=== PATIENT | female | born 1955 ===

== ENCOUNTER → 2018-11-06 | Outpatient (CLI) | payer BC | LOC: CARD 12:58 | PROVIDERS: ATTEND Family Medicine | DX: I25.110 Atherosclerotic heart disease of native coronary artery with unstable angina pectoris (principal); I07.1 Rheumatic tricuspid insufficiency | CPT/HCPCS: 93306 ==

== ENCOUNTER 2019-04-18 20:28 | Inpatient (IN) | payer BC ==
[~2019-04-18] VITALS: Ht 148.6 cm; Wt 78.1 kg
[2019-04-18] MEDS ORDERED: NS IV 500 ML 500 ML IV ONE (20:41)
--- NOTE | 2019-04-18 20:41 | ED Chest Pain ---
General Stated Complaint: CHEST, ARM AND JAW PAIN; SOB Source: patient, family Exam Limitations: no limitations History of Present Illness Date Seen by Provider: Apr 18, 2019 Time Seen by Provider: 20:26 Initial Comments The patient presents with her family member with chief complaint of chest pain 7 out of 10, across the top of her chest radiating to her jaw and down both arms. She says this is similar to the pain she felt before her heart attack. She took a dose of nitroglycerin immediately after her pain started and that made her pain go away. However came back within the past half hour and so she took a nother dose and decided to come to the ER. She's had a CABG but does not think she's had any stents. She does not follow with a bridge engineer and cardiothoracic surgeon. She is followed by Dr. Tovar for primary care. She takes Coreg, lisinopril, Lipitor smokes 2-3 cigarettes per day and has a history of COPD. She saw her doctor today had a chest x-ray and was given an injection of steroids and put out on azithromycin for COPD exacerbation. She is diabetic but does not take insulin. She uses glipizide and trulicity. She does not know the results of her chest x-ray. She says for the past 3 months she's been feeling short of breath and worsening COPD. She takes albuterol inhaler once or twice a day as necessary. Allergies and Home Medications Allergies Coded Allergies: Penicillins (Verified Allergy, Unknown, hives, 04/18/19) Patient Home Medication List Home Medication List Reviewed: Yes Review of Systems Review of Systems Constitutional: No chills, No fever, No malaise EENTM: No Blurred Vision, No Double Vision Respiratory: Denies Cough; Shortness of Air Cardiovascular: See HPI, Chest Pain; Denies Edema Gastrointestinal: Denies Constipated, Denies Diarrhea, Denies Nausea Genitourinary: Denies Burning, Denies Discharge Musculoskeletal: No back pain, No joint pain Skin: No pruritus, No rash Past [place]r-[place] Hx Patient Social History Alcohol Use: Denies Use Recreational Drug Use: No Smoking Status: Current Everyday Smoker Type Used: Cigarettes (2-3 cig/day) Recent Foreign Travel: No Contact w/Someone Who Travel: No Physical Exam Vital Signs Vital Signs - First Documented Capillary Refill : Height, Weight, BMI Height: '" Weight: lbs. oz. kg; BMI Method: General Appearance: Anxious, Mild Distress HEENT: PERRL/EOMI, Pharynx Normal, Moist Mucous Membranes Neck: Full Range of Motion, Normal Inspection Respiratory: Chest Non Tender, No Accessory Muscle Use, No Respiratory Distress, Decreased Breath Sounds Cardiovascular: Regular Rate, Rhythm, No Edema, Normal Peripheral Pulses Gastrointestinal: Normal Bowel Sounds, Non Tender, Soft Extremity: Normal Capillary Refill, Normal Inspection, Normal Range of Motion, Non Tender, No Pedal Edema Neurologic/Psychiatric: Alert, Oriented x3 Progress/Results/Core Measures Results/Orders Lab Results Laboratory Tests Test 04/18/19 20:40 04/18/19 20:46 04/18/19 21:56 Range/Units White Blood Count 10.3 4.3-11.0 10^3/uL Red Blood Count 3.71 L 4.35-5.85 10^6/uL Hemoglobin 11.2 L 11.5-16.0 G/DL Hematocrit 36 35-52 % Mean Corpuscular Volume 98 80-99 FL Mean Corpuscular Hemoglobin 30 25-34 PG Mean Corpuscular Hemoglobin Concent 31 L 32-36 G/DL Red Cell Distribution Width 13.8 10.0-14.5 % Platelet Count 328 130-400 10^3/uL Mean Platelet Volume 10.0 7.4-10.4 FL Neutrophils (%) (Auto) 90 H 42-75 % Lymphocytes (%) (Auto) 9 L 12-44 % Monocytes (%) (Auto) 1 0-12 % Eosinophils (%) (Auto) 0 0-10 % Basophils (%) (Auto) 0 0-10 % Neutrophils # (Auto) 9.3 H 1.8-7.8 X 10^3 Lymphocytes # (Auto) 0.9 L 1.0-4.0 X 10^3 Monocytes # (Auto) 0.1 0.0-1.0 X 10^3 Eosinophils # (Auto) 0.0 0.0-0.3 10^3/uL Basophils # (Auto) 0.0 0.0-0.1 10^3/uL Neutrophils % (Manual) 82 % Lymphocytes % (Manual) 14 % Monocytes % (Manual) 1 % Eosinophils % (Manual) 0 % Basophils % (Manual) 1 % Band Neutrophils 2 % Blood Morphology Comment NORMAL Prothrombin Time 13.1 12.2-14.7 SEC INR Comment 1.0 0.8-1.4 Activated Partial Thromboplast Time 24 24-35 SEC D-Dimer 1.66 H 0.00-0.49 UG/ML Sodium Level 137 135-145 MMOL/L Potassium Level 5.5 H 3.6-5.0 MMOL/L Chloride Level 102 98-107 MMOL/L Carbon Dioxide Level 22 21-32 MMOL/L Anion Gap 13 5-14 MMOL/L Blood Urea Nitrogen 23 H 7-18 MG/DL Creatinine 1.35 H 0.60-1.30 MG/DL Estimat Glomerular Filtration Rate 40 BUN/Creatinine Ratio 17 Glucose Level 508 *H 70-105 MG/DL Calcium Level 9.6 8.5-10.1 MG/DL Corrected Calcium 9.6 8.5-10.1 MG/DL Magnesium Level 2.3 1.6-2.4 MG/DL Total Bilirubin 0.9 0.1-1.0 MG/DL Aspartate Amino Transf (AST/SGOT) 16 5-34 U/L Alanine Aminotransferase (ALT/SGPT) 10 0-55 U/L Alkaline Phosphatase 222 H 40-136 U/L Myoglobin 30.1 10.0-92.0 NG/ML Troponin I < 0.30 <0.30 NG/ML Pro-B-Type Natriuretic Peptide 87.7 H <75.0 PG/ML Total Protein 7.2 6.4-8.2 GM/DL Albumin 4.0 3.2-4.5 GM/DL Urine Color YELLOW Urine Clarity CLEAR Urine pH 6.0 5-9 Urine Specific [place] 1.010 L 1.016-1.022 Urine Protein NEGATIVE NEGATIVE Urine Glucose (UA) 3+ H NEGATIVE Urine Ketones NEGATIVE NEGATIVE Urine Nitrite NEGATIVE NEGATIVE Urine Bilirubin NEGATIVE NEGATIVE Urine Urobilinogen 0.2 NORMAL MG/DL Urine Leukocyte Esterase NEGATIVE NEGATIVE Urine RBC (Auto) NEGATIVE NEGATIVE Urine RBC NONE /HPF Urine WBC NONE /HPF Urine Squamous Epithelial Cells 5-10 /HPF Urine Crystals NONE /LPF Urine Bacteria NONE /HPF Urine Casts NONE /LPF Urine Mucus NEGATIVE /LPF Urine Culture Indicated NO Blood Gas Puncture Site RT RAD Blood Gas Patient Temperature 36.9 Arterial Blood pH 7.35 L 7.37-7.43 Arterial Blood Partial Pressure CO2 41 35-45 MMHG Arterial Blood Partial Pressure O2 63 L 79-93 MMHG Arterial Blood HCO3 23 23-27 MMOL/L Arterial Blood Total CO2 23.9 21.0-31.0 MMOL/L Arterial Blood Oxygen Saturation 91 L 94-100 % Arterial Blood Base Excess -2.9 L -2.5-2.5 MMOL/L Hermelindo Test POS Blood Gas Ventilator Setting NO Blood Gas Inspired Oxygen ROOM AIR My Orders Orders - SOUMYA,PENELOPE J Ekg Tracing (04/18/19 20:29) Continuous Ekg Monitoring (04/18/19:) Cbc With Automated Diff (04/18/19 20:41) Magnesium (04/18/19 20:41) Chest 1 View Ap/Pa Only (04/18/19 20:41) Comprehensive Metabolic Panel (04/18/19 20:41) Myoglobin Serum (04/18/19 20:41) Protime With Inr (04/18/19 20:41) Partial Thromboplastin Time (04/18/19 20:41) O2 (04/18/19 20:41) Lipid Panel (04/19/19 06:00) Aspirin Chewable Tablet (Baby Aspirin Ch (04/18/19 20:45) Nitroglycerin 0.4 Mg Btl 25's (Nitrostat (04/18/19 20:45) Ed Iv/Invasive Line Start (04/18/19 20:41) Fibrin Degradation Products (04/18/19 20:41) Troponin I Fs (04/18/19 20:41) Probnp Fs (04/18/19 20:41) Ed Iv/Invasive Line Start (04/18/19 20:41) Ns Iv 500 Ml (Sodium Chloride 0.9%) (04/18/19 20:41) Manual Differential (04/18/19 20:40) Ua Culture If Indicated (04/18/19 21:10) Albuterol/Ipra Inhalation Soln (Duoneb I (04/18/19 21:15) Svn Small Volume Nebulizer (04/18/19 21:13) Fibrin Degradation Products (04/18/19 21:17) Ed Iv/Invasive Line Start (04/18/19 21:25) Ns Iv 1000 Ml (Sodium Chloride 0.9%) (04/18/19 21:25) Insulin (Regular) Human (Humulin R (Per (04/18/19 21:30) Morphine Injection (Morphine Injection (04/18/19 21:31) Arterial Blood Gas (04/18/19 21:31) Nitro Drip 47752 Mcg/D5w (Nitroglycerin (04/18/19 21:45) Heparin Drip 41198 Unit/500ml (Heparin (04/18/19 21:41) Heparin (Bolus Per Protocol) (Heparin (B (04/18/19 21:41) Ticagrelor Tablet (Brilinta Tablet) (04/18/19 21:45) Medications Given in ED Current Medications Medications Dose Ordered Sig/Cindy Route Start Time Stop Time Status Last Admin Dose Admin Albuterol/ Ipratropium 3 ml ONCE ONCE INH 04/18/19 21:15 04/18/19 21:16 DC 04/18/19 21:18 3 ML Aspirin 324 mg ONCE ONCE PO 04/18/19 20:45 04/18/19 20:46 DC 04/18/19 21:02 324 MG Heparin Sodium (Porcine) 4,700 unit 2141 ONCE IV 04/18/19 21:41 04/18/19 21:44 DC 04/18/19 22:05 4,700 UNIT Heparin Sodium/ Dextrose 500 ml @ 0 mls/hr Q0M ONCE IV 04/18/19 21:41 04/18/19 21:44 DC 04/18/19 22:07 19 MLS/HR Insulin Human Regular 10 unit ONCE ONCE SC 04/18/19 21:30 04/18/19 21:31 DC 04/18/19 21:45 10 UNIT Nitroglycerin 0.4 mg UD PRN SL 04/18/19 20:45 04/18/19 21:03 0.4 MG Sodium Chloride 500 ml @ 0 mls/hr Q0M ONCE IV 04/18/19 20:41 04/18/19 20:43 DC 04/18/19 21:03 999 MLS/HR Ticagrelor 180 mg ONCE ONCE PO 04/18/19 21:45 04/18/19 21:46 DC 04/18/19 22:17 180 MG Vital Signs/I&O 04/18/19 04/18/19 20:41 20:41 Temp 37.2 Pulse 114 Resp 20 B/P (MAP) 175/101 (125) O2 Delivery Room Air Room Air 04/19/19 00:00 Intake Total 500 ml Balance 500 ml Progress Progress Note #1: Time: 20:48 Progress Note Chest pain workup, aspirin and another dose of nitroglycerin. Her blood pressure is significantly elevated at 175/83. If this does not help her chest pain we'll try morphine. Her EKG demonstrates sinus tachycardia without ST changes. May also try DuoNeb since she's diminished to see if that helps with her chest pain. Well score for PE: 1.5 points. Low risk group: 1.3% chance of PE in an ED population. Progress Note #2: Time: 21:16 Progress Note After the nitroglycerin her chest pain is completely gone however she now has a headache. She still sounds very tight or any give her a DuoNeb. Her heart rate remains elevated around 110 and her blood pressure responded favorably to the nitroglycerin. Progress Note #3: Time: 21:32 Progress Note Patient starting to have pain come back so we gave her 4 morphine. After the DuoNeb her lung sounds improved significantly to work and now here consistent expiratory prolonged wheezes on both sides. She seems to be having COPD exacerba tion in addition to her chest pain. We will plan on getting an ABG to characterize this. We've already discussed an observation stay for rule out of ACS for unstable angina. She agrees with this plan. Can give her another liter fluids since she's looks dry clinically and on labs see if that helps her tachycardia for a total of 1500 cc. Just after getting the morphine the patient's pain shot up to a 9 out of 10 causing her to tear up so were no put her on a nitroglycerin drip since that worked in the past. Progress Note #4: Time: 22:18 Progress Note Initiated a nitro drip because the patient was having continuous chest pain. This adequately controlled her pain. Her blood pressure is stable. Her heart rate still 110 so we will give her 100 mg Toprol tartrate. She is been giving her boluses heparin and a heparin drip was started. She can start the insulin drip in the cardiac stepdown. She's received 10 units subcutaneous regular insulin. She has received her Brilinta and aspirin but we have not given her any additional steroids yet. EMS here to take her so we will allow her to transport. PaO2 was 68 so we put her on 2 L by nasal cannula. Her oxygen sats were in the 94-96 range now they are 98-100%. Initial ECG Impression Date: Apr 18, 2019 Initial ECG Impression Time: 20:30 Initial ECG Rate: 109 Initial ECG Rhythm: Normal Sinus Initial ECG Intervals: Normal Initial ECG Impression: Normal Initial ECG Comparisson: No Previous ECG Available Comment Normal sinus rhythm with tachycardia but no clinically evident ST elevation or depression. Diagnostic Imaging Diagonstic Imaging: Xray Plain Films/CT/US/NM/MRI: chest (1v) Comments NAME: NICOLETTE MATOS [facility] REC#: [id number] PT STATUS: REG ER : 1955 PHYSICIAN: PENELOPE DOOLEY MD ADMIT DATE: 04/18/19/ER FS Draft Date of Exam:04/18/19 CHEST 1 VIEW AP/PA ONLY INDICATION: Chest pain. COMPARISON: None. FINDINGS: Single view of the chest demonstrates cardiac enlargement with slight central vascular congestion. There is dependent atelectasis right greater than left. There is no pneumothorax or effusion. Osseous structures normal. IMPRESSION: 1. Cardiac enlargement with slight central vascular congestion. 2. Basilar atelectasis, right greater than left. Dictated on workstation # [id number] Dict: 04/18/19 2100 Trans: 04/18/192102 [id number] Interpreted by: SULLY DAWSON Electronically signed by: Reviewed: Reviewed by Me Departure Communication (Admissions) Time/Spoke to Admitting Phy: 21:45 Discussed case lab EKG imaging findings with Dr. Johns and she agrees with admission to cardiac stepdown on a non-DKA insulin drip, Solu-Medrol 40 mg every 6, consult Dr. Lopez in the morning and plan as outlined by Dr. Brar. Time/Spoke to Consulting Phy: 21:35 Discussed the case with cardiology, Dr. Brar and he recommends aspirin, Brilinta 180 mg and start IV heparin drip. Impression Primary Impression: Chest pain Qualified Codes: I20.0 - Unstable angina Additional Impressions: Angina at rest COPD with exacerbation Acute hyperglycemia Disposition: HOME, SELF-CARE Condition: Stable Admissions Decision to Admit Reason: Admit from ER (General) Decision to Admit/Date: Apr 18, 2019 Time/Decision to Admit Time: 21:12 Departure-Patient Inst. Referrals: EDY TOVAR MD (PCP/Family) Primary Care Physician PENELOPE DOOLEY Apr 18, 2019 20:41
[2019-04-18] MEDS ORDERED: NITROGLYCERIN 0.4 MG SL TABS BTL 25'S SL PRN (20:45)
[2019-04-18] MEDS ORDERED: ASPIRIN 81 MG CHEW (CHILDREN'S ASA) PO ONE (20:45)
[2019-04-18 20:52] LABS: BASOPHILS % (AUTO) 0 % (0-10); EOSINOPHILS % (AUTO) 0 % (0-10); HEMATOCRIT 36 % (35-52); HEMOGLOBIN 11.2 G/DL (11.5-16.0); LYMPHOCYTES # (AUTO) 0.9 X 10^3 (1.0-4.0); LYMPHOCYTES % (AUTO) 9 % (12-44); MEAN CORPUSCULAR HEMOGLOBIN 30 PG (25-34); MEAN CORPUSCULAR HGB CONC 31 G/DL (32-36); MEAN CORPUSCULAR VOLUME 98 FL (80-99); MONOCYTES # (AUTO) 0.1 X 10^3 (0.0-1.0); MONOCYTES % (AUTO) 1 % (0-12); NEUTROPHILS # (AUTO) 9.3 X 10^3 (1.8-7.8); NEUTROPHILS % (AUTO) 90 % (42-75); PLATELET COUNT 328 10^3/uL (130-400); RED CELL DISTRIBUTION WIDTH 13.8 % (10.0-14.5); WHITE BLOOD COUNT 10.3 10^3/uL (4.3-11.0)
--- NOTE | 2019-04-18 21:04 | Diagnostic Imaging Report ---
INDICATION: Chest pain. COMPARISON: None. FINDINGS: Single view of the chest demonstrates cardiac enlargement with slight central vascular congestion. There is dependent atelectasis right greater than left. There is no pneumothorax or effusion. Osseous structures normal. IMPRESSION: 1. Cardiac enlargement with slight central vascular congestion. 2. Basilar atelectasis, right greater than left. Dictated by: Dictated on workstation # [id number]
[2019-04-18 21:10] LABS: BAND NEUTROPHILS 2 %; BASOPHILS % (MANUAL) 1 %; EOSINOPHILS % (MANUAL) 0 %; LYMPHOCYTES % (MANUAL) 14 %; MONOCYTES % (MANUAL) 1 %; NEUTROPHILS % (MANUAL) 82 %; RBC MORPH NORMAL
[2019-04-18] MEDS ORDERED: RT-ALBUTEROL/IPRATROPIUM 3 ML (DUONEB) VIAL INH ONE (21:15)
[2019-04-18 21:22] LABS: BILIRUBIN,URINE NEGATIVE (NEGATIVE); CLARITY,URINE CLEAR; COLOR,URINE YELLOW; GLUCOSE, URINE (UA) 3+ (NEGATIVE); KETONES,URINE NEGATIVE (NEGATIVE); LEUKOCYTE ESTERASE ,URINE NEGATIVE (NEGATIVE); NITRITE,URINE NEGATIVE (NEGATIVE); PROTEIN,URINE NEGATIVE (NEGATIVE); UROBILINOGEN,URINE 0.2 MG/DL (NORMAL)
[2019-04-18 21:23] LABS: CREATININE SERUM 1.35 MG/DL (0.60-1.30); POTASSIUM 5.5 MMOL/L (3.6-5.0)
[2019-04-18 21:24] LABS: BILIRUBIN,TOTAL 0.9 MG/DL (0.1-1.0); CALCIUM 9.6 MG/DL (8.5-10.1); MAGNESIUM 2.3 MG/DL (1.6-2.4)
[2019-04-18 21:25] LABS: TOTAL PROTEIN 7.2 GM/DL (6.4-8.2)
[2019-04-18] MEDS ORDERED: NS IV 1000 ML 1,000 ML IV SCH (21:25)
[2019-04-18 21:28] LABS: PROTHROMBIN TIME PATIENT 13.1 SEC (12.2-14.7)
[2019-04-18] MEDS ORDERED: inSUlin (REGULAR) HUMAN 1 UNIT/0.01 ML (CHARGE PER UNIT) SC ONE (21:30)
[2019-04-18] MEDS ORDERED: morphine INJ 10 MG/ML 1ML (SYR OR VIAL) IVP STA (21:31)
[2019-04-18] MEDS ORDERED: HEParin 1000 UNIT/ML (10ML VIAL) FOR BOLUS IV ONE (21:41)
[2019-04-18] MEDS ORDERED: HEParin DRIP 25000 UNIT/500ML 500 ML IV ONE (21:41)
[2019-04-18] MEDS ORDERED: TICAGRELOR 90 MG TABLET (BRILINTA) PO ONE (21:45)
[2019-04-18] MEDS ORDERED: NITRO DRIP 25000 MCG/D5W 250 ML IV SCH (21:45)
[2019-04-18 22:02] LABS: ABG PCO2 41 MMHG (35-45); ABG PH 7.35 (7.37-7.43); ABG PO2 63 MMHG (79-93); ABG TCO2 23.9 MMOL/L (21.0-31.0)
[2019-04-18 22:03] LABS: ABG BASE EXCESS -2.9 MMOL/L (-2.5-2.5); ABG OXYGEN SATURATION 91 % (94-100); ALLENS TEST POS; INSPIRED O2 ROOM AIR; PATIENT TEMP 36.9; VENTILATOR NO
[2019-04-18] MEDS ORDERED: meTOprolol TARTRATE 50 MG (LOPRESSOR) TAB PO ONE (22:15)
[2019-04-18] MEDS ORDERED: meTOprolol TARTRATE 25 MG (LOPRESSOR) TABLET ONE (22:16)
[2019-04-18] MEDS ORDERED: meTOprolol TARTRATE 25 MG (LOPRESSOR) TABLET PO ONE (22:30)
[2019-04-18 23:15] VITALS: BP 140/81
[2019-04-19] VITALS (26 sets, daily range): BP systolic 113–189; BP diastolic 64–120
[2019-04-19] MEDS ORDERED: NORMAL SALINE 250 ML ONE (00:03)
[2019-04-19] MEDS ORDERED: inSUlin (REGULAR) HUMAN 1 UNIT/0.01 ML (CHARGE PER UNIT) ONE (00:05)
[2019-04-19] MEDS: inSUlin REGULAR TPN/DRIP ONLY 250 UNITS in NORMAL SALINE 250 ML IV SCH ×2 (00:10→19:51)
[2019-04-19] MEDS ORDERED: ACETAMINOPHEN 500 MG TAB (TYLENOL) PO PRN (01:00)
[2019-04-19] MEDS ORDERED: ANTACID SUSP 30 ML UDC (MYLANTA) PO PRN (01:00)
[2019-04-19] MEDS ORDERED: LORazepam INJ 2 MG/ML (ATIVAN) VIAL IV PRN (01:00)
[2019-04-19] MEDS ORDERED: NITROGLYCERIN 0.4 MG SL TABS BTL 25'S SL PRN (01:15)
[2019-04-19] MEDS ORDERED: HEParin DRIP 25000 UNIT/500ML 500 ML IV SCH (01:18)
[2019-04-19] MEDS ORDERED: morphine INJ 4 MG/ML 1 ML (VIAL/SYRINGE) IV PRN (01:30)
[2019-04-19] MEDS ORDERED: HEParin 1000 UNIT/ML (10ML VIAL) FOR BOLUS IV PRN (01:30)
[2019-04-19] MEDS ORDERED: inSUlin (REGULAR) HUMAN 1 UNIT/0.01 ML (CHARGE PER UNIT) IV ONE (01:30)
[2019-04-19] MEDS: RT-ALBUTEROL/IPRATROPIUM 3 ML (DUONEB) VIAL INH SCH ×6 (02:45→21:31)
[2019-04-19] MEDS: NITROGLYCERIN DRIP 25 MG/250 ML D5W (PRE-MIX) IV SCH (03:45)
[2019-04-19] MEDS: NS IV 1000 ML 1,000 ML IV SCH ×5 (03:46→18:21)
[2019-04-19] MEDS ORDERED: methylPREDNISolone 40 MG/ML (Solu-MEDROL) VIAL IV SCH (04:00)
[2019-04-19 04:07] LABS: BASOPHILS % (AUTO) 0 % (0-10); EOSINOPHILS % (AUTO) 0 % (0-10); HEMATOCRIT 31 % (35-52); HEMOGLOBIN 9.5 G/DL (11.5-16.0); LYMPHOCYTES % (AUTO) 11 % (12-44); MEAN CORPUSCULAR HEMOGLOBIN 30 PG (25-34); MEAN CORPUSCULAR HGB CONC 31 G/DL (32-36); MEAN CORPUSCULAR VOLUME 97 FL (80-99); MEAN PLATELET VOLUME 9.8 FL (7.4-10.4); MONOCYTES # (AUTO) 0.1 X 10^3 (0.0-1.0); MONOCYTES % (AUTO) 1 % (0-12); NEUTROPHILS # (AUTO) 7.9 X 10^3 (1.8-7.8); NEUTROPHILS % (AUTO) 88 % (42-75); PLATELET COUNT 295 10^3/uL (130-400); RED CELL DISTRIBUTION WIDTH 13.6 % (10.0-14.5)
[2019-04-19 04:18] LABS: CALCIUM 9.1 MG/DL (8.5-10.1); CREATININE SERUM 1.47 MG/DL (0.60-1.30); MAGNESIUM 2.2 MG/DL (1.6-2.4); PHOSPHORUS 1.5 MG/DL (2.3-4.7); POTASSIUM 4.5 MMOL/L (3.6-5.0)
--- NOTE | 2019-04-19 04:19 | Pulmonary Consultation ---
PENNY HEREDIA,MED STUDENT 04/19/19 0419: History of Present Illness History of Present Illness Date of Consultation 04/19/19 04:09 Time Seen by Provider: 04:09 Date of Admission Reason for Visit: Chest pain History of Present Illness Patient is a 63y/o female that presented the ED with a cc of chest pain across chest with radiation to her left jaw and both arms. She says that she has had similar pain before when she had a VT. Pain start will she was on her computer and watching TV and mentioned that she has had similiar symptoms over the past couple of years but that they resolved with Nitro. Previous episodes occurred at random with no known cause. She took her new inhaler which she thinks is breo 30mins before chest pain started. when chest pain started patient took one dose of Nitro and it help a little but the chest pain but it came back 30mins later and she took a second dose of Nitro that did not help as much. At this point the patient was brought the ER by family. Patient says that she has had a previous VT, a CABG but uncertain if she has had stents. She does not current follow with a wire winding machine tender or CTS. She takes Coreg, lisinopril, lipitor, Pro-air prn, Nitro prn. patient as a 150 yr ppd smoking history and has COPD but does not see a asphalt mixer. She has NIDDMII Allergies and Home Medications Allergies Coded Allergies: Penicillins (Verified Allergy, Unknown, hives, 04/18/19) Home Medications Albuterol Sulfate 1 Puff Puff, 2 PUFF INH Q4H PRN for SHORTNESS OF BREATH, (Reported) Aspirin 81 Mg Tablet.dr, 81 MG PO DAILY, (Reported) Atorvastatin Calcium 80 Mg Tablet, 80 MG PO HS, (Reported) Azithromycin 250 Mg Tablet, PO UD, (Reported) TAKE 2 TABS DAY 1 THEN 1 TAB DAILY DAYS 2-5 5 DAY SUPPLY FILLED 04-18-19 Carvedilol 25 Mg Tablet, 25 MG PO BID, (Reported) Cetirizine HCl 10 Mg Tablet, 10 MG PO DAILY, (Reported) Dulaglutide 1.5 Mg/0.5 Ml Pen.injctr, 1.5 MG SC Sa, (Reported) Fluticasone/Vilanterol 1 Each Blst.w.dev, 1 PUFF INH DAILY, (Reported) Furosemide 40 Mg Tablet, 40 MG PO Q48H, (Reported) Glipizide 5 Mg Tablet, 5 MG PO DAILY, (Reported) Lisinopril 10 Mg Tablet, 10 MG PO DAILY, (Reported) Montelukast Sodium 10 Mg Tablet, 10 MG PO HS, (Reported) Nitroglycerin 0.4 Mg Tab.subl, SL UD PRN for CHEST PAIN, (Reported) Triamcinolone Acet 15 Gm Cr, TOP TID, (Reported) Varenicline Tartrate 1 Mg Tablet, 1 MG PO BID, (Reported) Zolpidem Tartrate 10 Mg Tablet, 10 MG PO HS, (Reported) Past Zuyddld-Avjuim-Bprllb Hx Patient Social History Alcohol Use: Denies Use Recreational Drug Use: No Smoking Status: Current Everyday Smoker Type Used: Cigarettes (2-3 cig/day) 2nd Hand Smoke Exposure: No Recent Foreign Travel: No Contact w/Someone Who Travel: No Recent Infectious Disease Expo: No Recent Hopitalizations: No Physical Abuse: No Sexual Abuse: No Mistreated: No Fear: No Seasonal Allergies Seasonal Allergies: No Past Medical History Surgeries: Yes CABG Respiratory: Yes COPD Cardiac: Yes Coronary Artery Disease, Hypertension, Peripheral Vascular Neurological: No Genitourinary: No Gastrointestinal: No Musculoskeletal: No Endocrine: Yes Diabetes, Non-Insulin dep HEENT: No Cancer: No Psychosocial: No Integumentary: No Blood Disorders: No Review of Systems Constitutional: No: Fever, Chills, Sweats, Weakness Respiratory: Cough, Dry, Wheezing; No: Shortness of breath Cardiovascular: Chest Pain, Edema Gastrointestinal: No: Nausea, Vomiting, Abdominal Pain Neurological: No: Weakness, Numbness Sepsis Event Evaluation Height, Weight, BMI Height: '" Weight: lbs. oz. kg; 37.22 BMI Method: Exam Exam Vital Signs Date Time Temp Pulse Resp B/P (MAP) Pulse Ox O2 Delivery O2 Flow Rate FiO2 04/19/19 03:00 80 19 113/64 (80) 100 Nasal Cannula 4.00 04/19/19 02:45 99 Nasal Cannula 4.00 04/19/19 02:00 90 21 128/90 (103) 100 Nasal Cannula 4.00 04/19/19 01:27 87 04/19/19 01:00 131/104 (113) Nasal Cannula 4.00 04/19/19 00:31 100 25 147/103 (118) 90 Nasal Cannula 4.00 04/19/19 00:24 113 98 04/18/19 23:30 Nasal Cannula 4.00 04/18/19 23:15 36.8 04/18/19 23:15 105 19 140/81 (100) 99 Nasal Cannula 4.00 04/18/19 22:35 110 19 160/75 96 04/18/19 22:35 110 19 160/75 96 Nasal Cannula 2.00 04/18/19 22:05 113 20 189/120 95 Nasal Cannula 04/18/19 20:41 Room Air 04/18/19 20:41 37.2 114 20 175/101 (125) Room Air I & O 04/19/19 07:00 Intake Total 1511 ml Output Total 700 ml Balance 811 ml Height & Weight Height: '" Weight: lbs. oz. kg; 37.22 BMI Method: General Appearance: No Apparent Distress, Anxious, Obese HEENT: Pharynx Normal Neck: Full Range of Motion, Normal Inspection Respiratory: Chest Non Tender, No Accessory Muscle Use, No Respiratory Distress, Decreased Breath Sounds, Wheezing Cardiovascular: Regular Rate, Rhythm, No JVD, No Murmur, Normal Peripheral Pulses Capillary Refill: Less Than 3 Seconds Peripheral Pulses: 2+ Dorsalis Pedis (R), 2+ Left Dors-Pedis (L), 2+ Radial Pulses (R), 2+ Radial Pulses (L) Gastrointestinal: non tender, soft, no organomegaly, no pulsatile mass Extremity: Normal Capillary Refill, Normal Inspection, Normal Range of Motion, Non Tender, Pedal Edema (L>R) Neurologic/Psychiatric: Alert, Oriented x3, No Motor/Sensory Deficits, Normal Mood/Affect Skin: Normal Color, Warm/Dry Lymphatic: No Adenopathy Results Lab Laboratory Tests 04/18/19 20:40 04/19/19 02:30 Assessment/Plan Assessment/Plan prinzmetal angina - cardiology consult - Nitro drip 20mcg/min COPD - Breathing treats Q4H - solumedrol 40mg IV q6h - IS for basilar atelectasis seen on CXR NIDDMII with hyperglycemia - stop home meds - insulin drip 8.5 units/hr - D5w with half NS DREW - Fluid replacement HTN - metoprolol 50mg BID - lisinopril 5rmg PO QD CAD -cardiology consult - started heparin drip and Brilinta 180mg @ 2207 and 90mg PO QD PAD - cardiology consult HLD - lipitor 30mg PO HS Hx of VT CABG KANA LOPEZ DO 04/19/19 0545: History of Present Illness History of Present Illness History of Present Illness 63yo presented to ED secondary to acute worsening CP and radiation across chest, arms and left Jaw. Cardiology is consulted. No prior episodes like this. Plan is for cardiac cath. Allergies and Home Medications Allergies Coded Allergies: Penicillins (Verified Allergy, Unknown, hives, 04/18/19) Home Medications Albuterol Sulfate 1 Puff Puff, 2 PUFF INH Q4H PRN for SHORTNESS OF BREATH, (Reported) Aspirin 81 Mg Tablet.dr, 81 MG PO DAILY, (Reported) Atorvastatin Calcium 80 Mg Tablet, 80 MG PO HS, (Reported) Azithromycin 250 Mg Tablet, PO UD, (Reported) TAKE 2 TABS DAY 1 THEN 1 TAB DAILY DAYS 2-5 5 DAY SUPPLY FILLED 04-18-19 Carvedilol 25 Mg Tablet, 25 MG PO BID, (Reported) Cetirizine HCl 10 Mg Tablet, 10 MG PO DAILY, (Reported) Dulaglutide 1.5 Mg/0.5 Ml Pen.injctr, 1.5 MG SC Sa, (Reported) Fluticasone/Vilanterol 1 Each Blst.w.dev, 1 PUFF INH DAILY, (Reported) Furosemide 40 Mg Tablet, 40 MG PO Q48H, (Reported) Glipizide 5 Mg Tablet, 5 MG PO DAILY, (Reported) Lisinopril 10 Mg Tablet, 10 MG PO DAILY, (Reported) Montelukast Sodium 10 Mg Tablet, 10 MG PO HS, (Reported) Nitroglycerin 0.4 Mg Tab.subl, SL UD PRN for CHEST PAIN, (Reported) Triamcinolone Acet 15 Gm Cr, TOP TID, (Reported) Varenicline Tartrate 1 Mg Tablet, 1 MG PO BID, (Reported) Zolpidem Tartrate 10 Mg Tablet, 10 MG PO HS, (Reported) Review of Systems Time Seen by Provider: 06:42 Constitutional: No: Fever, Chills, Sweats, Weakness Respiratory: Cough, Dry, Shortness of breath, Wheezing Cardiovascular: Chest Pain, Edema Gastrointestinal: No: Nausea, Vomiting, Abdominal Pain Neurological: No: Weakness, Numbness Exam Exam General Appearance: No Apparent Distress, Anxious, Obese HEENT: Pharynx Normal Respiratory: Chest Non Tender, No Accessory Muscle Use, No Respiratory Distress, Decreased Breath Sounds, Wheezing Cardiovascular: Regular Rate, Rhythm, No JVD, No Murmur, Normal Peripheral Pulses Gastrointestinal: non tender, soft, no organomegaly, no pulsatile mass Extremity: Normal Capillary Refill, Normal Inspection, Normal Range of Motion, Non Tender, Pedal Edema (L>R) Neurologic/Psychiatric: Alert, Oriented x3, No Motor/Sensory Deficits, Normal Mood/Affect Skin: Normal Color, Warm/Dry Lymphatic: No Adenopathy Assessment/Plan Assessment/Plan CP r/o [place] -Cardiology following -Probable cath COPD -Continue SVNS -Monitor NIDDMII with hyperglycemia - stop home meds - insulin drip 8.5 units/hr - D5w with half NS DREW - Fluid replacement HTN - metoprolol 50mg BID - lisinopril 5rmg PO QD CAD -cardiology consult - started heparin drip and Brilinta Hx of VT CABG Supervisory-Addendum Brief Verification & Attestation Participated in pt care: history Personally performed: exam, history Care discussed with: Medical Student Procedures: n/a Verification and Attestation of Medical Student E/M Service A medical student performed and documented this service in my presence. I reviewed and verified all information documented by the medical student and made modifications to such information, when appropriate. I personally performed the physical exam and medical decision making. Kana Lopez, Apr 23, 2019,06:42 PENNY HEREDAI,MED STUDENT Apr 19, 2019 04:19 KANA LOPEZ DO Apr 19, 2019 05:45
[2019-04-19] MEDS: KCL 20 MEQ TAB (K-DUR) PO SCH (05:21)
[2019-04-19] MEDS: MAGNESIUM 1 GM/100 ML IVPB 100 ML IV SCH (05:21)
[2019-04-19] MEDS: POTASSIUM CL 10MEQ/50ML IVPB 50 ML IV SCH (05:21)
[2019-04-19] MEDS ORDERED: SODIUM PHOSPHATE INJ 30 MM in NS (IVPB) 250 ML IV NR (06:37)
--- NOTE | 2019-04-19 07:37 | Diagnostic Imaging Report ---
Indication: Shortness of breath. Portable chest 1:24 AM Heart size and pulmonary vascularity normal. Lungs are clear. There are no effusions or pneumothoraces. There is a vascular stent projecting over the aortic arch on the left. Impression: No acute abnormalities of the chest. Dictated by: Dictated on workstation # [id number]
[2019-04-19] MEDS: lisINopril 5 MG (PRINIVIL) TABLET PO SCH (08:02)
[2019-04-19] MEDS: methylPREDNISolone 40 MG/ML (Solu-MEDROL) VIAL IV SCH ×2 (08:02→21:05)
[2019-04-19] MEDS: meTOprolol TARTRATE 50 MG (LOPRESSOR) TAB PO SCH ×2 (08:03→21:05)
[2019-04-19] MEDS ORDERED: ASPIRIN E.C. 81 MG (ECOTRIN) TAB PO SCH (09:00)
[2019-04-19] MEDS ORDERED: TICAGRELOR 90 MG TABLET (BRILINTA) PO SCH (09:00)
[2019-04-19] MEDS ORDERED: VARE1TAB22 PO (09:14)
[2019-04-19] MEDS ORDERED: ZOLP10TA5 PO (09:14)
[2019-04-19] MEDS ORDERED: ATOR80TA76 PO (09:14)
[2019-04-19] MEDS ORDERED: CARV25TA PO (09:14)
[2019-04-19] MEDS ORDERED: NITR0.4T42 SL (09:14)
[2019-04-19] MEDS ORDERED: LISI10TA2 PO (09:14)
[2019-04-19] MEDS ORDERED: FURO40TA4 PO (09:14)
[2019-04-19] MEDS ORDERED: TR1C15 TOP (09:14)
[2019-04-19] MEDS ORDERED: DULA1.5P2 SC (09:14)
[2019-04-19] MEDS ORDERED: GLIP5TAB13 PO (09:14)
[2019-04-19] MEDS ORDERED: AZIT250T12 PO (09:14)
[2019-04-19] MEDS ORDERED: RT-ALBUINH INH (09:14)
[2019-04-19] MEDS ORDERED: MONT10TA24 PO (09:14)
[2019-04-19] MEDS ORDERED: [UNRECOGNIZED DRUG - CODE] PO (09:14)
[2019-04-19] MEDS ORDERED: FLUT1AER INH (09:14)
[2019-04-19] MEDS ORDERED: CETI10TA20 PO (09:18)
--- NOTE | 2019-04-19 09:20 | NUR ---
WENT OVER THE EXT MED HX WITH THE PATIENT, SHE VERIFIED HOW SHE TAKES EACH MEDICATION. SHE HAD A LIST WITH HER WELL HOWEVER IT WAS A LITTLE OUT OF DATE, SHE WAS ABLE TO IDENTIFY WHAT CHANGES HAVE BEEN MADE SINCE SHE MADE THAT LIST. SHE TAKES ZYRTEC 10MG DAILY AND ASPIRIN 81MG DAILY OTC.
--- NOTE | 2019-04-19 09:28 | Consultation-Cardiology ---
HPI-Cardiology Cardiology Consultation: Date of Consultation 04/19/19 Date of Admission Attending Physician Latosha Johns DO Admitting Physician Josse Yee MD Consulting Physician Jen BRAR MD HPI: Time Seen by a Provider: 09:00 Chief Complaint: Chest pain This is a 63-year-old lady with history of diabetes, hypertension, hyperlipidemia, active smoking, positive family history of NM. She had prolonged episode of chest pain yesterday. She took one nitroglycerin with which the chest pain got relieved. However 30 minutes later the chest pain started again. It was moderate to severe enough to bring her to the ER. It was substernal radiating to both the arms and to the jaws. Moderate to severe int ensity. No associated cardiac symptoms. No exacerbating or relieving factors. However nitroglycerin helped with decreasing the intensity of the pain. When I saw the patient she was having no further chest pain. Review of Systems-Cardiology Review of Systems Constitutional: As described under HPI; No As described under HPI, No no sym ptoms reported, No chills, No fever, No lightheadedness Eyes: No As described under HPI, No no symptoms reported, No blindness, No blurred vision, No contact lenses, No drainage, No decreased acuity, No foreign body sensation, No pain, No vision change Ears/Nose/Throat: No As described under HPI, No no symptoms reported, No chronic hearing loss, No ear discharge, No ear pain, No nasal drainage, No ulcerations Respiratory: No no symptoms reported; As described under HPI; No As described under HPI, No cough, No orthopnea, No shortness of breath, No SOB with excertion Cardiovascular: No no symptoms reported; As described under HPI; No As described under HPI; chest pain; No edema, No irregular heart rate, No lightheadedness, No palpitations Gastrointestinal: No no symptoms reported, No As described under HPI, No abdomen distended, No abdominal pain, No blood streaked bowels, No constipation, No diarrhea, No nausea, No vomiting, No stool coloration changes Genitourinary: No As described under HPI, No burning, No dysuria, No discharge, No frequency, No flank pain, No hematuria, No urgency : Yes : No Skin: No rash, No skin related problems, No ulcerations Psychiatric/Neurological: No anxiety, No depression, No seizure, No focal weakness, No syncope Hematologic: No bleeding abnormalities TDA-[id number]-[id number] Hx Patient Social History Alcohol Use: Denies Use Recreational Drug Use: No Smoking Status: Current Everyday Smoker Type Used: Cigarettes (2-3 cig/day) 2nd Hand Smoke Exposure: No Recent Foreign Travel: No Recent Infectious Disease Expo: No Hospitalization with Isolation: Denies Past Medical History PMH As described under Assessment. Allergies and Home Medications Allergies Coded Allergies: Penicillins (Verified Allergy, Unknown, hives, 04/18/19) Home Medications Albuterol Sulfate 1 Puff Puff, 2 PUFF INH Q4H PRN for SHORTNESS OF BREATH, (Reported) Aspirin 81 Mg Tablet.dr, 81 MG PO DAILY, (Reported) Atorvastatin Calcium 80 Mg Tablet, 80 MG PO HS, (Reported) Azithromycin 250 Mg Tablet, PO UD, (Reported) TAKE 2 TABS DAY 1 THEN 1 TAB DAILY DAYS 2-5 5 DAY SUPPLY FILLED 04-18-19 Carvedilol 25 Mg Tablet, 25 MG PO BID, (Reported) Cetirizine HCl 10 Mg Tablet, 10 MG PO DAILY, (Reported) Dulaglutide 1.5 Mg/0.5 Ml Pen.injctr, 1.5 MG SC Sa, (Reported) Fluticasone/Vilanterol 1 Each Blst.w.dev, 1 PUFF INH DAILY, (Reported) Furosemide 40 Mg Tablet, 40 MG PO Q48H, (Reported) Glipizide 5 Mg Tablet, 5 MG PO DAILY, (Reported) Lisinopril 10 Mg Tablet, 10 MG PO DAILY, (Reported) Montelukast Sodium 10 Mg Tablet, 10 MG PO HS, (Reported) Nitroglycerin 0.4 Mg Tab.subl, SL UD PRN for CHEST PAIN, (Reported) Triamcinolone Acet 15 Gm Cr, TOP TID, (Reported) Varenicline Tartrate 1 Mg Tablet, 1 MG PO BID, (Reported) Zolpidem Tartrate 10 Mg Tablet, 10 MG PO HS, (Reported) Patient Home Medication List Home Medication List Reviewed: Yes Physical Exam-Cardiology Physical Exam Vital Signs/I&O 04/19/19 04/19/19 04/19/19 04/19/19 02:45 03:00 04:00 04:00 Temp 36.9 Pulse 80 Resp 19 B/P (MAP) 113/64 (80) Pulse Ox 99 100 100 O2 Delivery Nasal Cannula Nasal Cannula Nasal Cannula O2 Flow Rate 4.00 4.00 4.00 04/19/19 04/19/19 04/19/19 04/19/19 04:00 05:00 06:00 06:15 Pulse 85 73 73 Resp 8 19 13 B/P (MAP) 138/94 (109) 144/99 (114) 135/100 (112) 135/100 Pulse Ox 100 100 100 O2 Delivery Nasal Cannula Nasal Cannula Nasal Cannula O2 Flow Rate 4.00 4.00 4.00 04/19/19 04/19/19 04/19/19 04/19/19 06:48 07:00 07:00 08:00 Pulse 72 76 88 Resp 24 25 B/P (MAP) 153/100 (117) 153/94 (113) Pulse Ox 100 98 96 O2 Delivery Nasal Cannula Nasal Cannula Nasal Cannula O2 Flow Rate 4.00 4.00 4.00 04/19/19 04/19/19 04/19/19 04/19/19 08:00 09:00 10:00 10:45 Pulse 66 74 Resp 17 13 B/P (MAP) 145/94 (111) 185/88 (120) Pulse Ox 99 99 99 96 O2 Delivery Room Air Nasal Cannula Nasal Cannula Room Air O2 Flow Rate 4.00 4.00 04/19/19 04/19/19 04/19/19 04/19/19 11:00 12:00 12:34 13:00 Pulse 68 86 93 82 Resp 17 13 20 B/P (MAP) 115/76 (89) 139/104 (116) 113/65 (81) Pulse Ox 96 98 93 O2 Delivery Nasal Cannula Nasal Cannula Nasal Cannula O2 Flow Rate 4.00 4.00 4.00 04/19/19 14:00 Pulse 81 Resp 52 B/P (MAP) 156/97 (116) Pulse Ox 97 O2 Delivery Nasal Cannula O2 Flow Rate 4.00 04/19/19 00:00 Intake Total 1511 ml Balance 1511 ml Capillary Refill : Less Than 3 Seconds Constitutional: appears stated age; No apparent distress; well-developed, well- nourished HEENT: PERRL; No discharge; hearing is well preserved, oral hygience is good; No ulceration, No xanthelasmas are seen Neck: No carotid bruit; carotid pulses are 2 + bilaterally Respiratory: No accessory muscle use, No respiratory distress, No chest tender, No chest expansion is symmetric; chest is bilaterally symmetric; No lungs clear to percussion; lungs clear to auscultation; No crackles, No rhonchi, No rales, No stridor, No wheezing, No pleural rub, No other Cardiovascular: regular rate-rhythm; No irregularly irregular, No extra beats, No parasternal heave is noted, No JVD, No edema, No bradycardia, No tachycardia, No point of maximal impulse, No cardiac thrills are palpable; S1 and S2; No gallop/S3, No gallop/S4, No diastolic murmur, No systolic murmur, No friction rub, No click, No other Gastrointestinal: soft, round, audible bowel sounds; No spleenomegaly Rectal: deferred Extremities: normal range of motion, non-tender, normal inspection; No clubbing, No cyanosis; no lower extremity edema bilateral; No significant edema Neurologic/Psychiatric: no motor/sensory deficits, alert, normal mood/affect, oriented x 3, power is 5/5 both on sides Skin: normal color; No rash, No ulcerations Data Review Labs Laboratory Tests 04/18/19 20:40: White Blood Count 10.3, Red Blood Count 3.71L, Hemoglobin 11.2L, Hematocrit 36, Mean Corpuscular Volume 98, Mean Corpuscular Hemoglobin 30, Mean Corpuscular Hemoglobin Concent 31L, Red Cell Distribution Width 13.8, Platelet Count 328, Mean Platelet Volume 10.0, Neutrophils (%) (Auto) 90H, Lymphocytes (%) (Auto) 9L , Monocytes (%) (Auto) 1, Eosinophils (%) (Auto) 0, Basophils (%) (Auto) 0, Neutrophils # (Auto) 9.3H, Lymphocytes # (Auto) 0.9L, Monocytes # (Auto) 0.1, Eosinophils # (Auto) 0.0, Basophils # (Auto) 0.0, Neutrophils % (Manual) 82, Lymphocytes % (Manual) 14, Monocytes % (Manual) 1, Eosinophils % (Manual) 0, Basophils % (Manual) 1, Band Neutrophils 2, Blood Morphology Comment NORMAL, Prothrombin Time 13.1, INR Comment 1.0, Activated Partial Thromboplast Time 24, D-Dimer 1.66H, Sodium Level 137, Potassium Level 5.5H, Chloride Level 102, Carbon Dioxide Level 22, Anion Gap 13, Blood Urea Nitrogen 23H, Creatinine 1.35H , Estimat Glomerular Filtration Rate 40, BUN/Creatinine Ratio 17, Glucose Level 508*H, Calcium Level 9.6, Corrected Calcium 9.6, Magnesium Level 2.3, Total Bilirubin 0.9, Aspartate Amino Transf (AST/SGOT) 16, Alanine Aminotransferase (ALT/SGPT) 10, Alkaline Phosphatase 222H, Myoglobin 30.1, Troponin I < 0.30, Pro-B-Type Natriuretic Peptide 87.7H, Total Protein 7.2, Albumin 4.0 04/18/19 20:46: Urine Color YELLOW, Urine Clarity CLEAR, Urine pH 6.0, Urine Specific [place] 1.010L, Urine Protein NEGATIVE, Urine Glucose (UA) 3+H, Urine Ketones NEGATIVE, Urine Nitrite NEGATIVE, Urine Bilirubin NEGATIVE, Urine Urobilinogen 0.2, Urine Leukocyte Esterase NEGATIVE, Urine RBC (Auto) NEGATIVE, Urine RBC NONE, Urine WBC NONE, Urine Squamous Epithelial Cells 5-10, Urine Crystals NONE, Urine Bacteria NONE, Urine Casts NONE, Urine Mucus NEGATIVE, Urine Culture Indicated NO 04/18/19 21:56: Blood Gas Puncture Site RT RAD, Blood Gas Patient Temperature 36.9, Arterial Blood pH 7.35L, Arterial Blood Partial Pressure CO2 41, Arterial Blood Partial Pressure O2 63L, Arterial Blood HCO3 23, Arterial Blood Total CO2 23.9, Arterial Blood Oxygen Saturation 91L, Arterial Blood Base Excess -2.9L, [place] Test POS, Blood Gas Ventilator Setting NO, Blood Gas Inspired Oxygen ROOM AIR 04/18/19 23:57: Glucometer 432*H 04/19/19 01:07: Glucometer 413*H 04/19/19 02:10: Glucometer 362H 04/19/19 02:30: White Blood Count 9.0, Red Blood Count 3.15L, Hemoglobin 9.5L, Hematocrit 31L, Mean Corpuscular Volume 97, Mean Corpuscular Hemoglobin 30, Mean Corpuscular Hemoglobin Concent 31L, Red Cell Distribution Width 13.6, Platelet Count 295, Mean Platelet Volume 9.8, Neutrophils (%) (Auto) 88H, Lymphocytes (%) (Auto) 11L , Monocytes (%) (Auto) 1, Eosinophils (%) (Auto) 0, Basophils (%) (Auto) 0, Neutrophils # (Auto) 7.9H, Lymphocytes # (Auto) 1.0, Monocytes # (Auto) 0.1, Eosinophils # (Auto) 0.0, Basophils # (Auto) 0.0, Activated Partial Thromboplast Time > 200*H, Sodium Level 137, Potassium Level 4.5, Chloride Level 109H, Carbon Dioxide Level 19L, Anion Gap 9, Blood Urea Nitrogen 23H, Creatinine 1.47H, Estimat Glomerular Filtration Rate 36, BUN/Creatinine Ratio 16, Glucose Level 388H, Calcium Level 9.1, Phosphorus Level 1.5L, Magnesium Level 2.2, Troponin I 0.042H, Triglycerides Level 62, Cholesterol Level 125, LDL Cholesterol Direct 78, VLDL Cholesterol 12, HDL Cholesterol 38L 04/19/19 03:23: Glucometer 309H 04/19/19 04:34: Glucometer 275H 04/19/19 05:06: Glucometer 255H 04/19/19 06:08: Glucometer 218H 04/19/19 07:02: Glucometer 197H 04/19/19 08:00: Glucometer 155H 04/19/19 09:01: Glucometer 144H 04/19/19 09:35: Activated Partial Thromboplast Time 78H, Troponin I 0.103H 04/19/19 10:03: Glucometer 131H 04/19/19 11:08: Glucometer 114H 04/19/19 11:54: Glucometer 178H 04/19/19 13:43: Glucometer 231H ECG Impression ECG Initial ECG Rhythm: S.Tach Initial ECG Impression: Nonspecific Changes A/P-Cardiology Assessment/Admission Diagnosis Non-STEMI, Diabetes, Hypertension, Hyperlipidemia, Active smoking, Acute kidney injury. Plan Non-STEMI, aspirin, Brilinta, IV heparin infusion. Echocardiogram. Diabetes, severely elevated glucose. IV insulin. Hypertension, continue current medical therapy. Hyperlipidemia, continue statin therapy. Active smoking, smoking cessation was strongly recommended. Acute kidney injury. Generous IV fluids. Repeat kidney function in the morning. I discussed at length with the patient and we'll defer coronary angiography till the renal function starts to improve since the risk of worsening renal function and/or going to dialysis is significantly elevated in a patient with worsening acute kidney injury. The patient understands. However I did discuss with the patient that if she has recurrent chest pain on IV heparin, we will proceed with urgent coronary angiography and intervention. The plan is to intervene with coronary angiography tomorrow morning 04/20/2019. Thank you for your consultation. Please call me if you have any questions. Annmarie Brar MD, FACP, FACC, FSCAI, FHRS, CCDS Interventional Cardiology Cardiac Electrophysiology Vascular Medicine and Endovascular Interventions Clinical Quality Measures DVT/VTE Risk/Contraindication: Risk Factor Score Per Nursin RFS Level Per Nursing on Admit: 4+=Very High Jen BRAR MD Apr 19, 2019 09:28
[2019-04-19] MEDS ORDERED: HEParin (CATH LAB) 2,000 ML IV ONE (10:27)
[2019-04-19] MEDS ORDERED: LIDOCAINE 1% INJ 20 ML 20 ML VIAL ONE (10:27)
--- NOTE | 2019-04-19 10:42 | History & Physical-Hospitalist ---
History of Present Illness HPI/Chief Complaint Chief complaint: Unstable angina with hyperglycemia HPI: This is a 63yoWF with a history of bypass surgery who presented after taking two Nitroglycerin for chest pain, after presenting to the ER she was found to have unstable angina and blood sugar of 500 from the steroids that were given at her PCPs office, Dr. Sepulveda the day before. She was placed on Heparin drip and insulin drip, IV steroids and monitored closely through the night. She denies any chest pain at this current time, awaiting cardiology plan. Her last Hgb A1C was 7.1. Source: patient, RN/MD, old records Exam Limitations: no limitations Date Seen 04/19/19 Time Seen by a Provider: 10:00 Attending Physician Latosha Johns Pankaj K MD Referring Physician Date of Admission Apr 18, 2019 at 22:00 Home Medications & Allergies Home Medications Reviewed patient Home Medication Reconciliation performed by pharmacy medication reconciliations wireless field technician and/or nursing. Patients Allergies have been reviewed. Allergies Allergies Coded Allergies Penicillins (Verified Allergy, Unknown, hives, 04/18/19) Past Yulfnwe-Btmtvy-Ywjdzi Hx Past Med/Social Hx: Reviewed Nursing Past Med/Soc Hx, Reviewed and Corrections made Patient Social History Marrital Status: single Employed/Student: retired Alcohol Use: Denies Use Recreational Drug Use: No Smoking Status: Current Everyday Smoker Type Used: Cigarettes (2-3 cig/day) 2nd Hand Smoke Exposure: No Recent Foreign Travel: No Contact w/other who traveled: No Recent Hopitalizations: No Recent Infectious Disease Expo: No Seasonal Allergies Seasonal Allergies: No Past Medical History Surgeries: CABG Respiratory: COPD Cardiac: Coronary Artery Disease, Hypertension, Peripheral Vascular Endocrine: Diabetes, Non-Insulin dep History of Blood Disorders: No Review of Systems Constitutional: see HPI Respiratory: cough, dyspnea on exertion Cardiovascular: chest pain Physical Exam Physical Exam Vital Signs Vital Signs - First Documented 04/18/19 22:05 Pulse Ox 95 Capillary Refill : Less Than 3 Seconds Height, Weight, BMI Height: '" Weight: lbs. oz. kg; 37.22 BMI Method: General Appearance: No Apparent Distress, WD/WN, Chronically ill, Obese Eyes: Right Eye Normal Inspection, Right Eye PERRL HEENT: PERRL/EOMI, Normal ENT Inspection, Pharynx Normal, Moist Mucous Membranes Neck: Full Range of Motion, Normal Inspection, Non Tender Respiratory: Chest Non Tender, No Accessory Muscle Use, No Respiratory Distress, Decreased Breath Sounds, Wheezing Cardiovascular: Regular Rate, Rhythm, No Edema, No Gallop, No JVD, No Murmur, Normal Peripheral Pulses Gastrointestinal: Normal Bowel Sounds, No Organomegaly, No Pulsatile Mass, Non Tender, Soft Back: Normal Inspection, No CVA Tenderness, No Vertebral Tenderness Extremity: Normal Capillary Refill, Normal Inspection, Normal Range of Motion, Non Tender, No Calf Tenderness, No Pedal Edema Neurologic/Psychiatric: Alert, Oriented x3, No Motor/Sensory Deficits, Normal Mood/Affect Skin: Normal Color, Warm/Dry Lymphatic: No Adenopathy Results Results/Procedures Labs Laboratory Tests 04/18/19 20:40 04/19/19 02:30 Patient resulted labs reviewed. Assessment/Plan Admission Diagnosis Assessment: Unstable angina Known CAD CABG hx DM OOC in need of insulin drip Smoker HTN HLP CRI Plan: IVF Hep gtts Insulin drip IV steroids Admission Status: Inpatient Order (span 2 midnights) Reason for Inpatient Admission: Unstable angina with OOC DM on insulin drip with AECOPD with IV steroids required Diagnosis/Problems Diagnosis/Problems (1) Angina at rest Status: Acute (2) Acute hyperglycemia Status: Acute (3) COPD with exacerbation Status: Acute (4) Chest pain Status: Acute Qualifiers: Chest pain type: chest pain due to myocardial ischemia Ischemic chest pain type: unstable angina pectoris Qualified Codes: I20.0 - Unstable angina Clinical Quality Measures DVT/VTE Risk/Contraindication: Risk Factor Score Per Nursin RFS Level Per Nursing on Admit: 4+=Very High LATOSHA JOHNS DO Apr 19, 2019 10:42
[2019-04-19] MEDS ORDERED: ZOLPIDEM 5 MG (AMBIEN) TAB ONE (20:52)
[2019-04-19] MEDS: ZOLPIDEM 5 MG (AMBIEN) TAB PO PRN (21:06)
[2019-04-20] VITALS (27 sets, daily range): BP systolic 79–179; BP diastolic 47–104
[2019-04-20] MEDS: NITROGLYCERIN DRIP 25 MG/250 ML D5W (PRE-MIX) IV SCH ×2 (00:24→23:31)
[2019-04-20] MEDS: RT-ALBUTEROL/IPRATROPIUM 3 ML (DUONEB) VIAL INH SCH ×6 (01:10→22:12)
[2019-04-20] MEDS: NS IV 1000 ML 1,000 ML IV SCH ×5 (01:45→16:30)
[2019-04-20 04:01] LABS: BASOPHILS % (AUTO) 0 % (0-10); EOSINOPHILS % (AUTO) 0 % (0-10); HEMATOCRIT 31 % (35-52); HEMOGLOBIN 9.7 G/DL (11.5-16.0); LYMPHOCYTES # (AUTO) 1.4 X 10^3 (1.0-4.0); LYMPHOCYTES % (AUTO) 6 % (12-44); MEAN CORPUSCULAR HEMOGLOBIN 31 PG (25-34); MEAN CORPUSCULAR HGB CONC 32 G/DL (32-36); MEAN CORPUSCULAR VOLUME 96 FL (80-99); MEAN PLATELET VOLUME 9.8 FL (7.4-10.4); MONOCYTES # (AUTO) 1.1 X 10^3 (0.0-1.0); MONOCYTES % (AUTO) 5 % (0-12); NEUTROPHILS # (AUTO) 19.1 X 10^3 (1.8-7.8); NEUTROPHILS % (AUTO) 89 % (42-75); PLATELET COUNT 289 10^3/uL (130-400); RED CELL DISTRIBUTION WIDTH 13.7 % (10.0-14.5); WHITE BLOOD COUNT 21.6 10^3/uL (4.3-11.0)
[2019-04-20 04:28] LABS: CALCIUM 9.2 MG/DL (8.5-10.1); CREATININE SERUM 1.28 MG/DL (0.60-1.30); MAGNESIUM 2.1 MG/DL (1.6-2.4); PHOSPHORUS 3.9 MG/DL (2.3-4.7)
[2019-04-20] MEDS: KCL 20 MEQ TAB (K-DUR) PO SCH (04:33)
[2019-04-20] MEDS: MAGNESIUM 1 GM/100 ML IVPB 100 ML IV SCH (04:33)
[2019-04-20] MEDS: POTASSIUM CL 10MEQ/50ML IVPB 50 ML IV SCH (04:33)
[2019-04-20] MEDS: inSUlin ASPART (NovoLOG) 1 UNIT/0.01 ML (CHARGE PER UNIT) SC SCH ×4 (06:25→21:13)
[2019-04-20 06:30] LABS: LYMPHOCYTES % (MANUAL) 7 %; MONOCYTES % (MANUAL) 4 %; NEUTROPHILS % (MANUAL) 89 %
[2019-04-20] MEDS ORDERED: NITRO DRIP 25000 MCG/D5W 250 ML IV ONE ×2 (07:43→09:25)
[2019-04-20] MEDS ORDERED: VERAPAMIL 5 MG/2 ML (CALAN) VIAL IV ONE (07:43)
[2019-04-20] MEDS ORDERED: fentaNYL INJECTION 100 MCG/2 ML AMP ONE ×2 (07:43→08:58)
[2019-04-20] MEDS ORDERED: HEParin 1000 UNIT/ML (10ML VIAL) FOR BOLUS ONE (07:43)
[2019-04-20] MEDS ORDERED: MIDAZOLAM 5 MG/5 ML (VERSED) VIAL ONE (07:43)
--- NOTE | 2019-04-20 07:44 | Pulmonary Progress Note ---
Subjective Time Seen by a Provider: 07:46 Subjective/Events-last exam CP currently resolved. Pt complains of hemoptysis. Small amount < teaspoon x 3. Sepsis Event Evaluation Height, Weight, BMI Height: '" Weight: lbs. oz. kg; 37.22 BMI Method: Exam Exam Vital Signs Date Time Temp Pulse Resp B/P (MAP) Pulse Ox O2 Delivery O2 Flow Rate FiO2 04/20/19 07:16 36.1 04/20/19 07:16 98 Room Air 04/20/19 07:00 99 04/20/19 06:34 97 Nasal Cannula 2.00 04/20/19 06:00 76 15 134/83 (100) 100 Nasal Cannula 4.00 04/20/19 05:00 75 17 115/60 (78) 97 Nasal Cannula 4.00 04/20/19 04:00 96 Nasal Cannula 2.00 04/20/19 04:00 93 24 147/83 (104) 98 Nasal Cannula 4.00 04/20/19 03:00 75 17 116/56 (76) 96 Nasal Cannula 4.00 04/20/19 02:15 79 19 117/56 (76) 96 Nasal Cannula 4.00 04/20/19 01:10 98 Room Air 04/20/19 00:57 96 04/20/19 00:00 36.5 Nasal Cannula 2.00 04/20/19 00:00 83 17 153/67 (95) 98 Nasal Cannula 4.00 04/20/19 00:00 97 Nasal Cannula 2.00 04/19/19 23:15 99 25 144/83 (103) 98 Nasal Cannula 4.00 04/19/19 22:00 85 23 169/69 (102) 95 Nasal Cannula 4.00 04/19/19 21:31 95 Room Air 04/19/19 21:00 85 22 163/90 (114) 98 Nasal Cannula 4.00 04/19/19 20:00 79 21 160/83 (108) 95 Nasal Cannula 4.00 04/19/19 20:00 96 Room Air 04/19/19 19:44 36.4 81 23 172/98 (122) 96 Room Air 04/19/19 19:00 72 23 180/94 (122) 97 Nasal Cannula 4.00 04/19/19 19:00 72 04/19/19 18:16 98 Room Air 04/19/19 18:00 75 22 163/95 (117) 97 Nasal Cannula 4.00 04/19/19 17:00 71 16 168/96 (120) 97 Nasal Cannula 4.00 04/19/19 16:00 99 Room Air 04/19/19 16:00 93 46 154/83 (106) 97 Nasal Cannula 4.00 04/19/19 15:00 96 Room Air 04/19/19 15:00 99 26 146/73 (97) 97 Nasal Cannula 4.00 04/19/19 14:00 81 52 156/97 (116) 97 Nasal Cannula 4.00 04/19/19 13:00 82 20 113/65 (81) 93 Nasal Cannula 4.00 04/19/19 12:34 93 04/19/19 12:00 86 13 139/104 (116) 98 Nasal Cannula 4.00 04/19/19 12:00 99 Room Air 04/19/19 11:00 68 17 115/76 (89) 96 Nasal Cannula 4.00 04/19/19 10:45 96 Room Air 04/19/19 10:00 74 13 185/88 (120) 99 Nasal Cannula 4.00 04/19/19 09:00 66 17 145/94 (111) 99 Nasal Cannula 4.00 04/19/19 08:00 99 Room Air 04/19/19 08:00 88 25 153/94 (113) 96 Nasal Cannula 4.00 I & O 04/20/19 06:59 Intake Total 4210 ml Balance 4210 ml Height & Weight Height: '" Weight: lbs. oz. kg; 37.22 BMI Method: General Appearance: No Apparent Distress, WD/WN, Chronically ill, Obese HEENT: PERRL/EOMI, Normal ENT Inspection, Pharynx Normal, Moist Mucous Membranes Neck: Full Range of Motion, Normal Inspection, Non Tender Respiratory: Chest Non Tender, No Accessory Muscle Use, No Respiratory Distress, Decreased Breath Sounds, Wheezing Cardiovascular: Regular Rate, Rhythm, No Edema, No Gallop, No JVD, No Murmur, Normal Peripheral Pulses Capillary Refill: Less Than 3 Seconds Peripheral Pulses: 2+ Dorsalis Pedis (R), 2+ Left Dors-Pedis (L), 2+ Radial Pulses (R), 2+ Radial Pulses (L) Gastrointestinal: non tender, soft, no organomegaly, no pulsatile mass Extremity: Normal Capillary Refill, Normal Inspection, Normal Range of Motion, Non Tender, No Calf Tenderness, No Pedal Edema Neurologic/Psychiatric: Alert, Oriented x3, No Motor/Sensory Deficits, Normal Mood/Affect Skin: Normal Color, Warm/Dry Lymphatic: No Adenopathy Results Lab Laboratory Tests 04/18/19 20:40 04/19/19 02:30 04/20/19 03:20 Assessment/Plan Assessment/Plan CP -Plan if for cath today COPD - Breathing treats Q4H - solumedrol 40mg IV q6h - IS for basilar atelectasis seen on CXR -PT states she is coughing up small amounts of blood. < teaspooon x 3 -PT is on hep gtt secondary to CP. Plan is for cath today. -Will continue to monitor. Will probably need CT of chest with contrast. -Will check bilateral dopplers LE NIDDMII with hyperglycemia -D/C insulin gtt -SSI DREW - Fluid replacement HTN -Monitor CAD -cardiology consult PAD Hx of GA CABG DANGELO DURAN DO Apr 20, 2019 07:44
--- NOTE | 2019-04-20 07:45 | NUR ---
PT DOWN TO CLINICAL BIOCHEMIST WITH [facility] STAFF. SPOUSE ACCOMPANIED.
[2019-04-20] MEDS ORDERED: NS IV 1000 ML 1,000 ML ONE (07:57)
--- NOTE | 2019-04-20 08:13 | Diagnostic Imaging Report ---
INDICATION: Dyspnea. Upright portable AP view of the chest is obtained. Comparison is made study of one day earlier. FINDINGS: Prominent interstitial markings are again noted in both lungs. There has been slight increased density in the left upper lobe on the current study. There is also mild blunting of left costophrenic sulcus. Otherwise no change is identified. IMPRESSION: Mild increase in pneumonitis or edema in the left upper lobe with possible mild left pleural effusion. Dictated by: Dictated on workstation # [id number]
[2019-04-20] MEDS ORDERED: TICAGRELOR 90 MG TABLET (BRILINTA) PO ONE (08:44)
[2019-04-20] MEDS ORDERED: hydrALAZINE (APESOLINE) 20 MG/ML VIAL ONE (08:51)
[2019-04-20] MEDS ORDERED: NITROGLYCERIN 0.4 MG SL TABS BTL 25'S SL ONE (08:53)
[2019-04-20] MEDS ORDERED: morphine INJ 10 MG/ML 1ML (SYR OR VIAL) ONE (09:01)
[2019-04-20] MEDS ORDERED: EPTIFIBATIDE BOLUS 10 ML IV ONE ×2 (09:19→09:29)
[2019-04-20] MEDS ORDERED: EPTIFIBATIDE DRIP 100 ML IV ONE (09:22)
--- NOTE | 2019-04-20 09:26 | Cardiology Progress Note ---
Cardiology SOAP Progress Note Subjective: No further chest pain. Objective: I&O/Vital Signs 04/20/19 04/20/19 04/20/19 04/20/19 02:15 03:00 04:00 04:00 Pulse 79 75 93 Resp 19 17 24 B/P (MAP) 117/56 (76) 116/56 (76) 147/83 (104) Pulse Ox 96 96 98 96 O2 Delivery Nasal Cannula Nasal Cannula Nasal Cannula Nasal Cannula O2 Flow Rate 4.00 4.00 4.00 2.00 04/20/19 04/20/19 04/20/19 04/20/19 05:00 06:00 06:34 07:00 Pulse 75 76 99 Resp 17 15 B/P (MAP) 115/60 (78) 134/83 (100) Pulse Ox 97 100 97 O2 Delivery Nasal Cannula Nasal Cannula Nasal Cannula O2 Flow Rate 4.00 4.00 2.00 04/20/19 04/20/19 04/20/19 04/20/19 07:00 07:16 07:16 10:00 Temp 36.1 Pulse 82 96 Resp 20 25 B/P (MAP) 179/104 (129) 139/79 (99) Pulse Ox 96 98 90 O2 Delivery Nasal Cannula Room Air Nasal Cannula O2 Flow Rate 4.00 4.00 04/20/19 04/20/19 04/20/19 04/20/19 10:15 10:30 10:45 11:00 Pulse 95 88 94 91 Resp 26 20 12 24 B/P (MAP) 133/89 (104) 127/75 (92) 121/60 (80) 120/79 (93) Pulse Ox 90 90 89 89 O2 Delivery Nasal Cannula Nasal Cannula Nasal Cannula Nasal Cannula O2 Flow Rate 4.00 4.00 4.00 4.00 04/20/19 04/20/19 12:00 12:58 Temp 36.0 Pulse 103 04/20/19 00:00 Intake Total 2850 ml Balance 2850 ml Constitutional: appears stated age; No apparent distress; well-developed, well- nourished Respiratory: No accessory muscle use, No respiratory distress, No chest tender, No chest expansion is symmetric; chest is bilaterally symmetric; No lungs clear to percussion; lungs clear to auscultation; No crackles, No rhonchi, No rales, No stridor, No wheezing, No pleural rub, No other Cardiovascular: regular rate-rhythm; No irregularly irregular, No extra beats, No parasternal heave is noted, No JVD, No edema, No bradycardia, No tachycardia, No point of maximal impulse, No cardiac thrills are palpable; S1 and S2; No gallop/S3, No gallop/S4, No diastolic murmur, No systolic murmur, No friction rub, No click, No other Gastrointestional: soft, round, audible bowel sounds; No spleenomegaly Extremities: normal range of motion, non-tender, normal inspection; No clubbing, No cyanosis; no lower extremity edema bilateral; No significant edema Neurologic/Psychiatric: no motor/sensory deficits, alert, normal mood/affect, oriented x 3, power is 5/5 both on sides Skin: normal color; No rash, No ulcerations Results/Procedures: Labs Laboratory Tests 04/19/19 13:43: Glucometer 231H 04/19/19 15:02: Glucometer 189H 04/19/19 15:25: Activated Partial Thromboplast Time 71H 04/19/19 16:03: Glucometer 154H 04/19/19 17:13: Glucometer 100 04/19/19 17:53: Glucometer 105 04/19/19 18:55: Glucometer 119H 04/19/19 19:57: Glucometer 124H 04/19/19 21:10: Glucometer 108 04/19/19 22:01: Glucometer 83 04/19/19 22:40: Glucometer 112H 04/19/19 23:44: Glucometer 120H 04/20/19 00:44: Glucometer 117H 04/20/19 01:55: Glucometer 104 04/20/19 02:52: Glucometer 87 04/20/19 03:20: White Blood Count 21.6H, Red Blood Count 3.18L, Hemoglobin 9.7L, Hematocrit 31L, Mean Corpuscular Volume 96, Mean Corpuscular Hemoglobin 31, Mean Corpuscular Hemoglobin Concent 32, Red Cell Distribution Width 13.7, Platelet Count 289, Mean Platelet Volume 9.8, Neutrophils (%) (Auto) 89H, Lymphocytes (%) (Auto) 6L, Monocytes (%) (Auto) 5, Eosinophils (%) (Auto) 0, Basophils (%) (Auto) 0, Neutrophils # (Auto) 19.1H, Lymphocytes # (Auto) 1.4, Monocytes # (Auto) 1.1H, Eosinophils # (Auto) 0.0, Basophils # (Auto) 0.0, Neutrophils % (Manual) 89, Lymphocytes % (Manual) 7, Monocytes % (Manual) 4, Sodium Level 142, Potassium Level 4.0, Chloride Level 115H, Carbon Dioxide Level 17L, Anion Gap 10, Blood Urea Nitrogen 33H, Creatinine 1.28, Estimat Glomerular Filtration Rate 42, BUN/Creatinine Ratio 26, Glucose Level 86, Calcium Level 9.2, Phosphorus Level 3.9, Magnesium Level 2.1 04/20/19 03:33: Activated Partial Thromboplast Time 46H 04/20/19 03:45: B-Type Natriuretic Peptide 881.1H 04/20/19 03:51: Glucometer 115H 04/20/19 05:05: Glucometer 89 Microbiology 04/18/19 MRSA Screen - Final, Complete MRSA not isolated A/P: Assessment/Dx: Non-STEMI, Diabetes, Hypertension, Hyperlipidemia, Active smoking, Acute kidney injury. Plan: Non-STEMI, aspirin, Brilinta, IV heparin infusion. Echocardiogram. Diabetes, severely elevated glucose. IV insulin. Hypertension, continue current medical therapy. Hyperlipidemia, continue statin therapy. Active smoking, smoking cessation was strongly recommended. Acute kidney injury. Generous IV fluids. Repeat kidney function in the morning. I discussed at length with the patient and we'll defer coronary angiography till the renal function starts to improve since the risk of worsening renal function and/or going to dialysis is significantly elevated in a patient with worsening acute kidney injury. The patient understands. However I did discuss with the patient that if she has recurrent chest pain on IV heparin, we will proceed with urgent coronary angiography and intervention. The plan is to intervene with coronary angiography today morning 04/20/2019. Thank you for your consultation. Please call me if you have any questions. Annmarie Brar MD, FACP, FACC, FSCAI, FHRS, CCDS Interventional Cardiology Cardiac Electrophysiology Vascular Medicine and Endovascular Interventions Jen BRAR MD Apr 20, 2019 09:26
--- NOTE | 2019-04-20 09:28 | Coronary Angiography & PCI ---
Coronary Angiography & PCI DATE OF PROCEDURE: 04/20/19 INDICATION: Non-STEMI. PREOPERATIVE DIAGNOSIS: Non-STEMI. POSTOPERATIVE DIAGNOSIS: Severe first OM stenosis, PTCA with suboptimal results. HISTORY: This is a 63-year-old lady with chest pain, non-STEMI. Therefore, the patient was scheduled for coronary angiography. PROCEDURES PERFORMED: 1.Coronary angiography. 2.Left heart catheterization. 3.PTCA to first OM artery. 4. Aortic arch angiogram, medical necessity, previous subclavian stent. 5. Abdominal aortogram with bilateral lower extremity runoff. Medical necessity, difficulty in advancing the wire in the right iliac artery. COMPLICATIONS: None. SPECIMENS: None. ESTIMATED BLOOD LOSS: 10 mL ANESTHESIA: Conscious sedation ANTICOAGULATION: IV heparin CONTRAST: 160 mL. FLUOROSCOPY: 15.2 minutes. FLOUROSCOPY DOSE:2041 mgy. PROCEDURE DETAILS: The patient is a 63 female and was brought to the labor operator after informed consent was taken. All the risks and complications were explained in detail; this included the risk of bleeding, vascular damage, stroke, PA and even . The patient was draped and prepped in the usual sterile fashion. Access was gained in the right femoral artery with a 6 [place] sheath. Coronary angiography and left heart catheterization was performed with a JR4 and JL4 catheter. FINDINGS: 1.Left main: Patent. 2.LAD: Heavily calcified mid LAD moderate to severe stenosis. Stenosis severity 70 percent. Mid/distal LAD is moderate to severe stenosis. Diffuse disease distally. 3.Left circumflex artery: The culprit vessel is of first OM artery with a severe diffuse calcified stenosis. Stenosis severity 99 percent. 4.RCA: Mild diffuse disease with no severe stenosis. 5.Left heart catheterization: Normal LV function with no wall motion abnormalities. LV pressure 166/4 mmHg. LVEDP 22 mmHg. Aortic pressure 170/81 mmHg. No gradient across the aortic valve. 6. Aortic arch angiogram: No significant aortic aneurysm or dissection. Patent proximal segments of the great arteries. Patent stent in the proximal left subclavian artery. 7. Abdominal aortogram with nonselective bilateral renal angiogram shows moderate diffuse disease in the abdominal aorta. Left renal artery is patent. Right renal artery is not well visualized. High bifurcation is noted. However no severe disease. Patent left common carotid artery. Mild disease in the left external iliac artery. Mild disease in the left ALUMINUM MOLDER and SFA. Mid segment of the left SFA does not have significant disease. No significant disease in the right common iliac artery and external iliac artery. Normal right ALUMINUM MOLDER and SFA. RECOMMENDATIONS: PCI to first OM artery is recommended. INTERVENTION DETAILS: EBU 3.5 guide catheter, whisper extra-support guidewire, IV heparin. Brilinta was given before PCI. The lesion was crossed with difficulty with the whisper wire. We then tried to advance a 2.0 x 15 balloon but were not able to advance. We then took an emerge 1.5 x 15 balloon and were able to cross the lesion. 3 inflations were done at 10 george each for 13 seconds, 26 seconds and 25 seconds respectively. The emerge 1.5 diameter balloon was taken out and then we went in with emerge 2.0 balloon and did 3 further inflations. The first inflation was for 8 george for 14 seconds. Second inflation for 10 george for 12 seconds. The third inflation was for 14 george for 33 seconds. Decreased stenosis severity was noted. However patient continued to have chest pain and was very agitated and wanted test was stopped the procedure and that she wanted to sit up. We tried resolute 222 mm drug-eluting stent but were not able to cross. Post-angiogram showed significant recoil. We took out the stent and went back in with a 2.0 balloon and did one inflation at 12 george for 16 seconds. However at this point in time the patient could not take it anymore and wanted to sit up and was moving a lot therefore it was dangerous to continue therefore we took the wire out. Post-angiogram showed suboptimal results with significant recoil. Integrilin bolus and infusion was given. CONCLUSIONS: 1. PTCA done to first OM 1 artery which is the culprit artery with suboptimal results and significant recoil. Stent could not be placed due to no cross as well as the patient was very agitated on the table and noncooperative and wanted to sit up therefore it was dangerous to continue. Due to suboptimal results Integrilin bolus was given and Integrilin infusion was started. 2. Moderate to severe calcified LAD stenosis will be treated as a stage proc edure. Annmarie Brar MD, FACP, FACC, [facility] Interventional Cardiology Jen BRAR MD Apr 20, 2019 09:28
[2019-04-20] MEDS ORDERED: PATIENT MAY USE OWN MEDS, ALL PO SCH (09:30)
[2019-04-20] MEDS ORDERED: FUROSEMIDE 40 MG/4 ML INJ (LASIX) ONE (09:30)
--- NOTE | 2019-04-20 10:05 | NUR ---
pt back from manager labor relations.
[2019-04-20] MEDS: ONDANSETRON 4 MG/2 ML (SDV) Z0FRAN IV PRN ×2 (10:25→23:32)
--- NOTE | 2019-04-20 10:25 | NUR ---
PATIENT DID NOT GET HER 1000 SVN BT DUE TO JUST GETTING BACK FROM HAVING A PROCEDURE AND RN ASKED RT TO NOT BOTHER PATIENT AT THIS TIME
[2019-04-20] MEDS: meTOprolol TARTRATE 50 MG (LOPRESSOR) TAB PO SCH ×2 (10:44→21:58)
[2019-04-20] MEDS: lisINopril 5 MG (PRINIVIL) TABLET PO SCH (10:45)
--- NOTE | 2019-04-20 14:23 | Diagnostic Imaging Report ---
PROCEDURE: US Venous Lower Ext Mickey. TECHNIQUE: Multiple Real-time grayscale images were obtained over the lower extremities in various projections, bilaterally. Additional duplex Doppler and color Doppler images were also obtained. INDICATION: Shortness of breath. FINDINGS: There is no evidence of a right or left lower extremity DVT. Both lower extremity deep venous systems demonstrate normal compressibility with normal response to augmentation and Valsalva. No fluid collection or mass is seen. IMPRESSION: No evidence of right or left lower extremity DVT. Dictated by: Dictated on workstation # [id number]
--- NOTE | 2019-04-20 15:15 | Diagnostic Imaging Report ---
INDICATION: Shortness of breath. TIME OF EXAM: 02:59 p.m. Correlation is made with prior chest earlier the same day. FINDINGS: Patient has developed diffuse interstitial and airspace infiltrates bilaterally. No effusion or pneumothorax is seen. Heart size is stable. IMPRESSION: Development of diffuse bilateral pulmonary infiltrates since examination earlier today. Dictated by: Dictated on workstation # [id number]
[2019-04-20] MEDS ORDERED: NOREPINEPHRINE 4 MG/4 ML (LEVOPHED) AMP IV ONE (15:20)
[2019-04-20] MEDS ORDERED: NS (IVPB) 250 ML ONE (15:20)
[2019-04-20] MEDS ORDERED: NS IV 1000 ML 1,000 ML IV ONE (15:30)
[2019-04-20 16:06] LABS: BASOPHILS % (AUTO) 0 % (0-10); EOSINOPHILS % (AUTO) 0 % (0-10); LYMPHOCYTES # (AUTO) 0.6 X 10^3 (1.0-4.0); LYMPHOCYTES % (AUTO) 4 % (12-44); MEAN CORPUSCULAR HEMOGLOBIN 30 PG (25-34); MEAN CORPUSCULAR HGB CONC 30 G/DL (32-36); MEAN CORPUSCULAR VOLUME 100 FL (80-99); MEAN PLATELET VOLUME 9.4 FL (7.4-10.4); MONOCYTES # (AUTO) 1.5 X 10^3 (0.0-1.0); MONOCYTES % (AUTO) 10 % (0-12); NEUTROPHILS # (AUTO) 12.9 X 10^3 (1.8-7.8); NEUTROPHILS % (AUTO) 86 % (42-75); PLATELET COUNT 242 10^3/uL (130-400); RED CELL DISTRIBUTION WIDTH 13.9 % (10.0-14.5); WHITE BLOOD COUNT 15.1 10^3/uL (4.3-11.0)
[2019-04-20 16:08] LABS: HEMATOCRIT 16 % (35-52)
[2019-04-20 16:38] LABS: HEMOGLOBIN 7.3 G/DL (11.5-16.0)
[2019-04-20 16:39] LABS: HEMOGLOBIN 4.9 G/DL (11.5-16.0)
[2019-04-20] MEDS ORDERED: NS IV 500 ML 500 ML IV SCH (16:45)
[2019-04-20] MEDS: PANTOPRAZOLE 40 MG (PROTONIX) VIAL IV SCH (18:07)
--- NOTE | 2019-04-20 18:08 | Diagnostic Imaging Report ---
PROCEDURE: CT chest, abdomen, and pelvis without contrast. TECHNIQUE: Multiple contiguous axial images were obtained through the chest, abdomen, and pelvis without the use of intravenous contrast. Auto Exposure Controls were utilized during the CT exam to meet ALARA standards for radiation dose reduction. INDICATION: Status post heart catheter with drop in hemoglobin. Evaluate for hemorrhage. COMPARISON: Chest radiograph of 04/20/2019. FINDINGS: CT CHEST: No endoluminal nodule within the trachea. Heterogeneous consolidations are present in all five lobes, but greatest in the bilateral upper lobes. This is likely due to consolidation superimposed on underlying emphysema. No concerning pulmonary mass or nodule. No pleural effusion or pneumothorax. Heart is normal in size without pericardial effusion. Normal caliber thoracic aorta. 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 Moderate atherosclerotic plaquing of the aorta. No concerning focal osseous lesions in the chest. CT ABDOMEN AND PELVIS: No free intraperitoneal air or fluid. Specifically, there is no fluid collection within the retroperitoneum that would suggest retroperitoneal hemorrhage. The unenhanced liver, spleen and pancreas are grossly normal. Cholecystectomy. No adrenal nodule or mass. No solid renal mass or obstructive uropathy. There is small amount of contrast within the bilateral renal collecting systems likely from prior heart catheterization procedure. Urinary bladder is decompressed by Mora catheter. Stomach is also decompressed. No dilated loops of bowel destruction. No pericolonic inflammatory change. No abdominal or pelvic lymphadenopathy. There is likely been surgical bypass grafting of the aorta. No concerning focal osseous lesions. Stranding of the subcutaneous fat of the right inguinal region is likely from recent heart catheter procedure. IMPRESSION: CHEST: 1. Since chest radiograph of 04/18/2019, bilateral heterogeneous pulmonary consolidations have developed. With a history of hemoglobin drop, this could represent pulmonary hemorrhage. Pulmonary edema could also give this appearance, although the patient does not have pleural effusions or significant cardiomegaly. ABDOMEN AND PELVIS: 1. No retroperitoneal hemorrhage. 2. No obstructive process or acute inflammation in the abdomen or pelvis. Dictated by: Dictated on workstation # [id number]
[2019-04-20] MEDS: TICAGRELOR 90 MG TABLET (BRILINTA) PO SCH (21:13)
--- NOTE | 2019-04-20 22:03 | Progress Note - Hospitalist ---
Subjective HPI/CC On Admission Date Seen by Provider: Apr 20, 2019 Time Seen by Provider: 09:00 Chief complaint: Unstable angina with hyperglycemia HPI: This is a 63yoWF with a history of bypass surgery who presented after eren ing two Nitroglycerin for chest pain, after presenting to the ER she was found to have unstable angina and blood sugar of 500 from the steroids that were given at her PCPs office, Dr. Sepulveda the day before. She was placed on Heparin drip and insulin drip, IV steroids and monitored closely through the night. She denies any chest pain at this current time, awaiting cardiology plan. Her last Hgb A1C was 7.1. Subjective/Events-last exam Pt had a Cath, could not perform intervention so she will need that in the future but currently she is having a lot of pain. Blood sugars remain high due to steroids. Wheezing continues. Lasix given in cardiac Cath. Overall very complex given the fact of unstable angina, know CAD, can't perform intervention, and current wheezing, current smoking and severe COPD with out of control diabetes. Review of Systems General: Fatigue Pulmonary: Dyspnea Objective Exam Vital Signs Vital Signs Date Time Temp Pulse Resp B/P (MAP) Pulse Ox O2 Delivery O2 Flow Rate FiO2 04/20/19 20:01 94 NIV Bilevel 45 04/20/19 20:00 36.1 04/20/19 18:53 87 24 50.00 04/20/19 18:00 111/72 (85) Capillary Refill : Less Than 3 Seconds General Appearance: No Apparent Distress, WD/WN, Chronically ill Respiratory: Lungs Clear, No Accessory Muscle Use, No Respiratory Distress, Crackles, Wheezing Cardiovascular: Regular Rate, Rhythm Neurologic/Psychiatric: Alert, Oriented x3, No Motor/Sensory Deficits, Normal Mood/Affect Results/Procedures Lab Laboratory Tests 04/20/19 03:20 04/20/19 15:55 04/20/19 16:30 Patient resulted labs reviewed. Assessment/Plan Assessment and Plan Assess & Plan/Chief Complaint Assessment: Unstable angina Known CAD CABG hx DM OOC in need of insulin drip Smoker HTN HLP CRI Plan: IVF Hep gtts Insulin drip IV steroids Diagnosis/Problems Diagnosis/Problems (1) Angina at rest Status: Acute (2) Acute hyperglycemia Status: Acute (3) COPD with exacerbation Status: Acute (4) Chest pain Status: Acute Qualifiers: Chest pain type: chest pain due to myocardial ischemia Ischemic chest pain type: unstable angina pectoris Qualified Codes: I20.0 - Unstable angina Clinical Quality Measures DVT/VTE Risk/Contraindication: Risk Factor Score Per Nursin RFS Level Per Nursing on Admit: 4+=Very High JESUS CEBALLOS DO Apr 20, 2019 22:03
[2019-04-20] MEDS: RT-BUDESONIDE NEBS 0.5 MG/2ML (PULMICORT) AMP INH SCH (22:12)
[2019-04-20] MEDS: ZOLPIDEM 5 MG (AMBIEN) TAB PO PRN (23:32)
[2019-04-21] VITALS (39 sets, daily range): BP systolic 59–202; BP diastolic 33–85
[2019-04-21] MEDS: RT-ALBUTEROL/IPRATROPIUM 3 ML (DUONEB) VIAL INH SCH ×6 (02:18→21:27)
[2019-04-21] MEDS: NS IV 1000 ML 1,000 ML IV SCH ×3 (03:40→23:46)
[2019-04-21] MEDS: morphine INJ 4 MG/ML 1 ML (VIAL/SYRINGE) IV PRN (03:40)
[2019-04-21 03:45] LABS: ABG BASE EXCESS -5.9 MMOL/L (-2.5-2.5); ABG OXYGEN SATURATION 88 % (94-100); ABG PCO2 37 MMHG (35-45); ABG PO2 63 MMHG (79-93); ABG TCO2 20.2 MMOL/L (21.0-31.0)
[2019-04-21 03:47] LABS: ALLENS TEST POSITIVE; INSPIRED O2 15L; PATIENT TEMP 36.8; VENTILATOR NO
[2019-04-21 03:48] LABS: ABG PH 7.32 (7.37-7.43)
[2019-04-21 03:51] LABS: BASOPHILS % (AUTO) 0 % (0-10); EOSINOPHILS % (AUTO) 0 % (0-10); LYMPHOCYTES % (AUTO) 11 % (12-44); MEAN CORPUSCULAR HEMOGLOBIN 30 PG (25-34); MEAN CORPUSCULAR HGB CONC 31 G/DL (32-36); MEAN CORPUSCULAR VOLUME 98 FL (80-99); MEAN PLATELET VOLUME 9.3 FL (7.4-10.4); MONOCYTES # (AUTO) 2.1 X 10^3 (0.0-1.0); MONOCYTES % (AUTO) 11 % (0-12); NEUTROPHILS # (AUTO) 14.6 X 10^3 (1.8-7.8); NEUTROPHILS % (AUTO) 78 % (42-75); PLATELET COUNT 291 10^3/uL (130-400); RED CELL DISTRIBUTION WIDTH 14.3 % (10.0-14.5); WHITE BLOOD COUNT 18.8 10^3/uL (4.3-11.0)
[2019-04-21 03:55] LABS: HEMATOCRIT 20 % (35-52); HEMOGLOBIN 6.1 G/DL (11.5-16.0)
[2019-04-21 04:08] LABS: CALCIUM 8.1 MG/DL (8.5-10.1); CREATININE SERUM 1.69 MG/DL (0.60-1.30); MAGNESIUM 2.1 MG/DL (1.6-2.4); PHOSPHORUS 4.9 MG/DL (2.3-4.7); POTASSIUM 4.4 MMOL/L (3.6-5.0)
[2019-04-21] MEDS ORDERED: FUROSEMIDE 40 MG/4 ML INJ (LASIX) IV ONE (04:15)
[2019-04-21 05:30] LABS: INR 1.2 (0.8-1.4); PROTHROMBIN TIME PATIENT 15.7 SEC (12.2-14.7)
[2019-04-21] MEDS ORDERED: NS (IVPB) 250 ML ONE (05:34)
[2019-04-21] MEDS ORDERED: NOREPINEPHRINE 4 MG/4 ML (LEVOPHED) AMP IV ONE (05:34)
[2019-04-21] MEDS ORDERED: PROPOFOL DRIP (ICU) 100 ML IV ONE (05:49)
[2019-04-21] MEDS: MAGNESIUM 1 GM/100 ML IVPB 100 ML IV SCH (05:53)
[2019-04-21] MEDS: POTASSIUM CL 10MEQ/50ML IVPB 50 ML IV SCH (05:53)
[2019-04-21] MEDS: KCL 20 MEQ TAB (K-DUR) PO SCH (05:54)
[2019-04-21] MEDS ORDERED: NS IV 1000 ML 1,000 ML IV SCH (06:00)
--- NOTE | 2019-04-21 06:20 | NUR ---
Initial VS: BP 116/70, HR: 88, Respirations: 28, 100% 02 on 70% Fi02 Bipap 4 mg Versed 06:08 5 mg propofol 06:13 NS Bolus started: 06:11 80 mg Succinylcholine 06:14 5 mg propofol 06:14 Intubation 06:15 Size 8 tube, 22 @ lip BS: 87/51, HR: 90, 96% Addendum: 04/21/19 at 0626 by RITO ABREU RN Dr. Lopez intubation and bronchoscopy RT: Augusto Nieto, GILMAR, Lisset, RN, Ian, RN, Hortencia, RN
[2019-04-21] MEDS: PROPOFOL DRIP (ICU) 100 ML IV SCH ×4 (06:30→20:29)
[2019-04-21] MEDS: inSUlin ASPART (NovoLOG) 1 UNIT/0.01 ML (CHARGE PER UNIT) SC SCH ×3 (06:34→17:46)
--- NOTE | 2019-04-21 07:39 | NUR ---
06:41: 4 mg Versed IVP 50 mg fentanyl IVP 06:42 Roccuronium 50 mg @ 06:48 VS: BP 59/29 100% O2 on 100% Fi02 HR: 91 Resp: 21 Changed peep to 5 Central line placed: 0700 0705: CXR to confirm line placement Dr. Lopez confirmed central line placement OG placed: 55 @ lip
--- NOTE | 2019-04-21 08:02 | Diagnostic Imaging Report ---
CLINICAL INDICATION: Patient intubated in central line placed. EXAM: Portable chest x-ray semiupright view. COMPARISON: Portable chest x-ray upright view dated 04/21/2019 at 0347 hrs. FINDINGS: There is interval placement of ET tube with tip grossly 2.7 cm from the riley in good position. Nasogastric feeding tube seen with distal portion looped overlying the expected region of the gastric fundus. There is interval placement of right IJ central line with tip in the mid superior vena cava. There is no pneumothorax. There is diffuse bilateral lung infiltrates again seen (left side more than the right) which are stable. There is no definite pleural effusion. Pulmonary vasculature is obscured. Cardiac silhouette is within normal limits. The remainder of this exam shows no significant interval change compared to the prior study of comparison. IMPRESSION: 1: Interval placement of lines and tubes, as described above. There is no pneumothorax. 2: Stable diffuse bilateral lung infiltrates (left side more than the right). Dictated by: Dictated on workstation # [id number]
[2019-04-21 08:10] LABS: ABG BASE EXCESS -5.8 MMOL/L (-2.5-2.5); ABG OXYGEN SATURATION 98 % (94-100); ABG PCO2 46 MMHG (35-45); ABG PO2 112 MMHG (79-93); ABG TCO2 21.7 MMOL/L (21.0-31.0)
[2019-04-21 08:11] LABS: ABG PH 7.26 (7.37-7.43); ALLENS TEST YES-POS
[2019-04-21 08:12] LABS: INSPIRED O2 100%; PATIENT TEMP 36.4; VENTILATOR YES
--- NOTE | 2019-04-21 08:12 | Diagnostic Imaging Report ---
Clinical indication: Patient with dyspnea. Exam: Portable chest x-ray upright view. Comparisons: Portable chest x-ray dated 04/20/2019. Findings: There are slight low lung volumes compared to the prior study. There is diffuse bilateral lung patchy infiltrates and interstitial thickening seen throughout with some sparing of the right lower lobe. There is slight progression of airspace opacities involving the inferior portion of the right upper lobe region. There is no pleural effusion or pneumothorax. Pulmonary vasculature is within normal limits. Cardiac silhouette is obscured. Stable pleural thickening involving the periphery of the upper lung shepard (right side more than the left), stent graft seen overlying left mediastinal region. Impression: 1: There is slight increased airspace opacity involving the lower portion of the right upper lobe. This may represent lung infiltrate or atelectasis. 2: Otherwise, there are stable diffuse bilateral lung infiltrates with or without superimposed chronic lung changes. 3: The remainder of this exam shows no significant interval change compared to the prior study of comparison. Dictated by: Dictated on workstation # [id number]
[2019-04-21] MEDS ORDERED: fentaNYL INJECTION 100 MCG/2 ML AMP INJ ONE (08:38)
[2019-04-21] MEDS ORDERED: MIDAZOLAM 5 MG/5 ML (VERSED) VIAL INJ ONE (08:38)
[2019-04-21] MEDS ORDERED: ROCURONIUM 10 MG/ML 5 ML SYRINGE IV ONE (08:38)
[2019-04-21] MEDS ORDERED: SUCCINYLCHOLINE INJ 100 MG/5 ML SYR INJ ONE (08:38)
--- NOTE | 2019-04-21 09:12 | Pulmonary Procedures ---
Pulmonary Procedures Date of Procedure Date of Service: Apr 21, 2019 Bronch Bronchoscopy with bilateral washes, and MAURILIO, RML bronchoalveolar lavage (BAL). Preop DX Hemoptysis with new bilateral infiltrates and anemia r/o diffuse pulmonary hemorrhage. Postop DX: same - patchy bilateral bright red blood. Does not appear to have active bleeding or DPH. No endobronchial mass Complications: none After informed consent obtained and formal time out pt was sedated using Fentanyl propofol, and Versed. Bronchoscope was advanced through the ET tube. An anatomical tour was undertaken down to the segmental bronchi bilaterally. No endobronchial lesions noted. Pt did have patchy bilateral bright red blood. Does not appear to have active bleeding or DPH. Bilateral washes, MAURILIO, RML bronchoalveolar lavage (BAL) were obtained. Pt tolerated procedure well. No complications noted. Stat CXR is pending. DANGELO DURAN DO Apr 21, 2019 09:12
--- NOTE | 2019-04-21 09:13 | Pulmonary Procedures ---
Pulmonary Procedures Date of Procedure Date of Service: Apr 21, 2019 Lumen: triple (US guided) Central Line Procedure: betadine prep, sterile drapes applied, sterile dressing applied Position: internal jugular (R) Anesthesia: local Volume Anesthetic (ccs): 5 Complications: none Post Position: sutured, good blood return, position confirmed w/ CXR DANGELO DURAN DO Apr 21, 2019 09:13
--- NOTE | 2019-04-21 09:14 | Pulmonary Procedures ---
Pulmonary Procedures Date of Procedure Date of Service: Apr 21, 2019 Reason for Intubation: Acute respiratory failure Time of Intubation: 09:13 Intubation Method: orotracheal Tube Size: 8 Positive End Tide CO2: Yes Breath Sounds after Intubation: bilateral-equal Intubation Complications: no complications Post Intubation Xray: Yes DANGELO DURAN DO Apr 21, 2019 09:14
--- NOTE | 2019-04-21 09:54 | Anesthesia-Procedure Note ---
Procedures/Interventions Procedure Start/Stop/Diagnosis Date of Procedure: Apr 21, 2019 Start Time: 09:20 Referring Physician: Jessica Preprocedural Diagnosis: Resp Failure Brief History Called by cooperage shop supervisor to start arterial line on pt intubated by Jessica this morning for acute respiratory failure. Pt was sedated on vent with spouse at bedside. Procedure explained to spouse and verbal consent obtained. Rt radial A-line started after 2 attempts. First attempt by BRAD Alonso without success. Second attempt with U/S guidance, good blood flow and catheter advanced easily. Strong waveform noted on monitor. Catheter secured with op site and 2"silk tape. Wrist restraint re-applied by BRAD and report given to RN. No complications noted. ASA 3 Stop Time: 09:40 Postprocedural Diagnosis: Resp Failure Arterial Line Arterial Line Catheter: 20G Type: Radial Location: Right Procedure: prepped, draped in sterile fashion, good wave-form was obtained, patient tolerated procedure well, no immediate complications, post procedure area cleaned, post procedure dressing applied ANGELINA CUEVA CRNA Apr 21, 2019 09:54
[2019-04-21 10:39] LABS: HEMOGLOBIN 7.4 G/DL (11.5-16.0)
--- NOTE | 2019-04-21 10:48 | Pulmonary Progress Note ---
Subjective Time Seen by a Provider: 07:47 Subjective/Events-last exam Pt has worsening hemoptysis Sepsis Event Evaluation Height, Weight, BMI Height: '" Weight: lbs. oz. kg; 37.22 BMI Method: Exam Exam Vital Signs Date Time Temp Pulse Resp B/P (MAP) Pulse Ox O2 Delivery O2 Flow Rate FiO2 04/21/19 08:20 36.4 04/21/19 07:11 36.2 89 22 94/60 93 Mechanical Ventilator 100 04/21/19 07:00 90 04/21/19 06:30 37.98739 90 22 114/67 100 Mechanical Ventilator 100.00 04/21/19 06:00 92 27 116/70 (85) 100 NIV Bilevel 70.00 04/21/19 05:50 87 27 120/75 NIV Bilevel 70 04/21/19 05:35 36.8 86 10 108/68 100 NIV Bilevel 70 04/21/19 05:20 36.2 86 25 108/62 95 NIV Bilevel 70 04/21/19 05:05 36.4 85 20 92/56 93 NIV CPAP 70 04/21/19 05:00 81 25 92/56 (68) 94 NIV Bilevel 70.00 04/21/19 04:50 36.2 04/21/19 04:47 36.2 87 20 94/54 93 NIV Bilevel 70 04/21/19 04:45 NIV Bilevel 70.00 04/21/19 04:02 94 NIV Bilevel 50 04/21/19 04:00 86 25 107/68 (81) 92 High Flow N/C 15.00 04/21/19 03:41 High Flow N/C 15.00 04/21/19 03:00 90 25 104/63 (77) 95 NIV Bilevel 50.00 04/21/19 02:19 84 22 100 50.00 04/21/19 02:00 85 21 103/59 (74) 98 NIV Bilevel 50.00 04/21/19 01:00 83 04/21/19 01:00 81 22 112/58 (76) 100 NIV Bilevel 50.00 04/21/19 00:50 35.8 04/21/19 00:45 50 04/21/19 00:43 94 NIV Bilevel 45 04/21/19 00:00 92 15 110/61 (77) 92 NIV Bilevel 50.00 04/20/19 23:00 81 20 128/73 (91) 100 NIV Bilevel 50.00 04/20/19 22:14 81 19 100 50.00 04/20/19 22:00 91 18 137/72 (93) 95 NIV Bilevel 50.00 04/20/19 21:00 82 20 121/68 (85) 93 NIV Bilevel 50.00 04/20/19 20:01 94 NIV Bilevel 45 04/20/19 20:00 86 21 103/58 (73) 94 NIV Bilevel 50.00 04/20/19 20:00 36.1 04/20/19 19:00 89 04/20/19 19:00 88 25 110/68 (82) 100 NIV Bilevel 50.00 04/20/19 18:53 87 24 100 50.00 04/20/19 18:00 99 30 111/72 (85) 95 NIV Bilevel 50.00 04/20/19 17:00 92 19 101/62 (75) 93 NIV Bilevel 50.00 04/20/19 16:00 93 NIV Bilevel 45 04/20/19 16:00 92 36 123/75 (91) 92 NIV Bilevel 50.00 04/20/19 16:00 36.2 04/20/19 15:02 92 27 92 04/20/19 15:00 96 22 79/47 (58) 91 NIV Bilevel 50.00 04/20/19 14:29 90 Nasal Cannula 2.00 04/20/19 14:00 88 25 103/61 (75) 91 Nasal Cannula 4.00 04/20/19 13:00 90 29 100/63 (75) 91 Nasal Cannula 4.00 04/20/19 12:58 103 04/20/19 12:00 36.0 04/20/19 12:00 93 29 96/65 (75) 90 Nasal Cannula 4.00 04/20/19 12:00 92 Non Rebreather 10.00 04/20/19 11:00 91 24 120/79 (93) 89 Nasal Cannula 4.00 I & O 04/21/19 07:00 Intake Total 5570 ml Output Total 3230 ml Balance 2340 ml Height & Weight Height: '" Weight: lbs. oz. kg; 37.22 BMI Method: General Appearance: WD/WN, Anxious, Chronically ill, Moderate Distress HEENT: PERRL/EOMI, Normal ENT Inspection, Pharynx Normal, Moist Mucous Membranes Neck: Full Range of Motion, Normal Inspection, Non Tender Respiratory: No Accessory Muscle Use, No Respiratory Distress, Crackles, Decreased Breath Sounds, Wheezing Cardiovascular: Regular Rate, Rhythm Capillary Refill: Less Than 3 Seconds Peripheral Pulses: 2+ Dorsalis Pedis (R), 2+ Left Dors-Pedis (L), 2+ Radial Pulses (R), 2+ Radial Pulses (L) Gastrointestinal: non tender, soft, no organomegaly, no pulsatile mass Extremity: Normal Capillary Refill, Normal Inspection, Normal Range of Motion, Non Tender, No Calf Tenderness, No Pedal Edema Neurologic/Psychiatric: Alert, Oriented x3, No Motor/Sensory Deficits, Normal Mood/Affect Skin: Normal Color, Warm/Dry Lymphatic: No Adenopathy Results Lab Laboratory Tests 04/20/19 03:20 04/20/19 15:55 04/20/19 16:30 04/21/19 03:45 04/21/19 09:40 Assessment/Plan Assessment/Plan CP s/p cath -Cardiology following Acute hemoptysis- worsening -Anticoagulation is on hold -S/P cath -Will proceed with intubation and bronchoscopy secondary to worsening respiratory failure and CXR COPD - Breathing treats Q4H - solumedrol 40mg IV q6h NIDDMII with hyperglycemia -D/C insulin gtt -SSI DREW - Fluid replacement HTN -Monitor CAD -cardiology consult PAD Hx of [place] CABG DANGELO DURAN DO Apr 21, 2019 10:48
[2019-04-21] MEDS: RT-BUDESONIDE NEBS 0.5 MG/2ML (PULMICORT) AMP INH SCH ×2 (10:56→18:17)
--- NOTE | 2019-04-21 11:08 | Physical Therapy Progress Note ---
Therapy Progress Note Pt. intubated and sedated this AM. Will check patient status 04/23/19 for PT evaluation. ТАТЬЯНА TORRE PT Apr 21, 2019 11:08
[2019-04-21] MEDS: TICAGRELOR 90 MG TABLET (BRILINTA) PO SCH ×2 (11:25→19:30)
[2019-04-21] MEDS: NOREPINEPHRINE 4 MG in NS (IVPB) 250 ML IV SCH ×2 (11:25→12:53)
[2019-04-21] MEDS: ASPIRIN E.C. 81 MG (ECOTRIN) TAB PO SCH (11:26)
[2019-04-21] MEDS: lisINopril 5 MG (PRINIVIL) TABLET PO SCH (11:26)
[2019-04-21] MEDS: meTOprolol TARTRATE 50 MG (LOPRESSOR) TAB PO SCH ×2 (11:26→19:30)
[2019-04-21] MEDS ORDERED: NS (IVPB) 250 ML IV ONE (11:30)
[2019-04-21] MEDS: PANTOPRAZOLE 40 MG (PROTONIX) VIAL IV SCH (11:57)
[2019-04-21] MEDS: DEXMEDETOMIDINE INJECTION 1,000 MCG in NS (IVPB) 240 ML IV SCH ×2 (12:52→23:47)
[2019-04-21] MEDS: CEFEPIME INJECTION 1,000 MG in WATER (STERILE) FOR INJECTION 10 ML IV SCH ×2 (12:53→20:30)
--- NOTE | 2019-04-21 13:10 | Cardiology Progress Note ---
Cardiology SOAP Progress Note Subjective: Intubated/ventilated Objective: I&O/Vital Signs 04/21/19 04/21/19 04/21/19 04/21/19 01:00 01:00 02:00 02:19 Pulse 81 83 85 84 Resp 22 22 B/P (MAP) 112/58 (76) 103/59 (74) Pulse Ox 100 98 100 O2 Delivery NIV Bilevel NIV Bilevel O2 Flow Rate 50.00 50.00 50.00 04/21/19 04/21/19 04/21/19 04/21/19 03:00 03:41 04:00 04:02 Pulse 90 86 Resp 25 B/P (MAP) 104/63 (77) 107/68 (81) Pulse Ox 95 92 94 O2 Delivery NIV Bilevel High Flow N/C High Flow N/C NIV Bilevel O2 Flow Rate 50.00 15.00 15.00 FiO2 50 04/21/19 04/21/19 04/21/19 04/21/19 04:45 04:47 04:50 05:00 Temp 36.2 36.2 Pulse 87 81 Resp 25 B/P (MAP) 94/54 92/56 (68) Pulse Ox 93 94 O2 Delivery NIV Bilevel NIV Bilevel NIV Bilevel O2 Flow Rate 70.00 70.00 FiO2 70 04/21/19 04/21/19 04/21/19 04/21/19 05:05 05:20 05:35 05:50 Temp 36.4 36.2 36.8 Pulse 85 86 86 87 Resp 20 10 27 B/P (MAP) 92/56 108/62 108/68 120/75 Pulse Ox 93 95 100 O2 Delivery NIV CPAP NIV Bilevel NIV Bilevel NIV Bilevel FiO2 70 70 70 70 04/21/19 04/21/19 04/21/19 04/21/19 06:00 06:15 06:30 06:42 Temp 37.98118 Pulse 92 90 90 Resp 24 B/P (MAP) 116/70 (85) 114/67 Pulse Ox 100 100 96 O2 Delivery NIV Bilevel Mechanical Ventilator O2 Flow Rate 70.00 100.00 FiO2 100 04/21/19 04/21/19 04/21/19 04/21/19 07:00 07:00 07:11 08:00 Temp 36.2 Pulse 90 90 89 Resp 21 22 B/P (MAP) 64/39 (47) 94/60 Pulse Ox 100 93 94 O2 Delivery Mechanical Ventilator Mechanical Ventilator Mechanical Ventilator O2 Flow Rate 100.00 FiO2 100 20 04/21/19 04/21/19 04/21/19 04/21/19 08:00 08:20 08:20 09:00 Temp 36.4 Pulse 91 93 Resp 19 19 B/P (MAP) 135/65 (88) 145/85 (105) Pulse Ox 100 95 O2 Delivery Mechanical Ventilator Mechanical Ventilator Mechanical Ventilator O2 Flow Rate 100.00 60.00 60.00 04/21/19 04/21/19 04/21/19 04/21/19 10:00 10:57 10:57 11:00 Pulse 95 90 92 Resp 13 24 30 B/P (MAP) 120/48 (72) 120/61 (80) Pulse Ox 95 96 99 O2 Delivery Mechanical Ventilator Mechanical Ventilator Mechanical Ventilator O2 Flow Rate 60.00 40.00 40.00 FiO2 60 04/21/19 04/21/19 04/21/19 04/21/19 11:03 11:53 12:00 12:00 Temp 36.6 Pulse 106 Pulse Ox 97 92 O2 Delivery Mechanical Ventilator Mechanical Ventilator FiO2 60 20 04/21/19 04/21/19 12:00 12:29 Temp 36.2 Pulse 105 105 Resp 15 33 B/P (MAP) 90/41 Pulse Ox 97 90 O2 Delivery Mechanical Ventilator Mechanical Ventilator O2 Flow Rate 40.00 FiO2 40 04/21/19 00:00 Intake Total 3450 ml Output Total 2380 ml Balance 1070 ml Constitutional: appears stated age; No apparent distress; well-developed, well- nourished Respiratory: No accessory muscle use, No respiratory distress, No chest tender, No chest expansion is symmetric, No lungs clear to percussion; crackles; No rhonchi, No rales, No stridor, No wheezing, No pleural rub; other (intubated/ventilated) Cardiovascular: regular rate-rhythm; No irregularly irregular, No extra beats, No parasternal heave is noted, No JVD, No edema, No bradycardia, No tachycardia, No point of maximal impulse, No cardiac thrills are palpable; S1 and S2; No gallop/S3, No gallop/S4, No diastolic murmur, No systolic murmur, No friction rub, No click, No other Gastrointestional: soft, round, audible bowel sounds; No spleenomegaly Extremities: normal range of motion, non-tender, normal inspection; No clubbing, No cyanosis; no lower extremity edema bilateral; No significant edema Neurologic/Psychiatric: No hydrographic surveyor II-XII nml as tested, No no motor/sensory deficits, No alert, No normal mood/affect, No oriented x 3, No abnormal cerebellar tests, No abnormal hydrographic surveyor II-XII, No abnormal gait, No aphasia, No EOM palsy, No facial droop, No motor weakness, No sensory deficit, No depressed affect, No disoriented x 3; other (intubated/ventilated); No grossly intact, No power is 5/5 both on sides Skin: normal color; No rash, No ulcerations Results/Procedures: Labs Laboratory Tests 04/20/19 15:55: White Blood Count 15.1H, Red Blood Count 1.64L, Hemoglobin 4.9#*L, Hematocrit 16*L, Mean Corpuscular Volume 100H, Mean Corpuscular Hemoglobin 30, Mean Corpuscular Hemoglobin Concent 30L, Red Cell Distribution Width 13.9, Platelet Count 242, Mean Platelet Volume 9.4, Neutrophils (%) (Auto) 86H, Lymphocytes (%) (Auto) 4L, Monocytes (%) (Auto) 10, Eosinophils (%) (Auto) 0, Basophils (%) (Auto) 0, Neutrophils # (Auto) 12.9H, Lymphocytes # (Auto) 0.6L, Monocytes # (Auto) 1.5H, Eosinophils # (Auto) 0.0, Basophils # (Auto) 0.0 04/20/19 16:05: Glucometer 269H 04/20/19 16:30: Hemoglobin 7.3#L, Hematocrit 24L 04/20/19 20:49: Glucometer 137H 04/21/19 03:35: Blood Gas Puncture Site RIGHT RADIAL, Blood Gas Patient Temperature 36.8, Arterial Blood pH 7.32*L, Arterial Blood Partial Pressure CO2 37, Arterial Blood Partial Pressure O2 63L, Arterial Blood HCO3 19L, Arterial Blood Total CO2 20.2L , Arterial Blood Oxygen Saturation 88L, Arterial Blood Base Excess -5.9L, Hermelindo Test POSITIVE, Blood Gas Ventilator Setting NO, Blood Gas Inspired Oxygen 15L 04/21/19 03:40: Prothrombin Time 15.7H, INR Comment 1.2, Activated Partial Thromboplast Time 26, B-Type Natriuretic Peptide 725.8H, Triglycerides Level 169H 04/21/19 03:45: White Blood Count 18.8H, Red Blood Count 2.03L, Hemoglobin 6.1*L, Hematocrit 20*L, Mean Corpuscular Volume 98, Mean Corpuscular Hemoglobin 30, Mean Corpuscular Hemoglobin Concent 31L, Red Cell Distribution Width 14.3, Platelet Count 291, Mean Platelet Volume 9.3, Neutrophils (%) (Auto) 78H, Lymphocytes (%) (Auto) 11L, Monocytes (%) (Auto) 11, Eosinophils (%) (Auto) 0, Basophils (%) (Auto) 0, Neutrophils # (Auto) 14.6H, Lymphocytes # (Auto) 2.0, Monocytes # (Auto) 2.1H, Eosinophils # (Auto) 0.0, Basophils # (Auto) 0.0, Sodium Level 143, Potassium Level 4.4, Chloride Level 115H, Carbon Dioxide Level 19L, Anion Gap 9, Blood Urea Nitrogen 48H, Creatinine 1.69H, Estimat Glomerular Filtration Rate 31, BUN/Creatinine Ratio 28, Glucose Level 115H, Calcium Level 8.1L, Phosphorus Level 4.9H, Magnesium Level 2.1, Troponin I 59.737*H 04/21/19 08:02: Blood Gas Puncture Site RT BRACHIAL, Blood Gas Patient Temperature 36.4, Arterial Blood pH 7.26*L, Arterial Blood Partial Pressure CO2 46H, Arterial Blood Partial Pressure O2 112H, Arterial Blood HCO3 20L, Arterial Blood Total CO2 21.7, Arterial Blood Oxygen Saturation 98, Arterial Blood Base Excess -5.8L, Hermleindo Test YES-POS, Blood Gas Ventilator Setting YES, Blood Gas Inspired Oxygen 100% 04/21/19 09:40: Hemoglobin 7.4#L, Hematocrit 23L 04/21/19 11:50: Glucometer 207H Microbiology 04/18/19 MRSA Screen - Final, Complete MRSA not isolated A/P: Assessment/Dx: Acute respiratory failure due to pulmonary hemorrhage, Acute blood loss anemia due to pulmonary hemorrhage, Non-STEMI, Diabetes, Hypertension, Hyperlipidemia, Active smoking, Acute kidney injury. Plan: Acute respiratory failure due to pulmonary hemorrhage, intubated/ventilated. Integrilin, heparin, Brilinta discontinued yesterday evening. Significant reduction in hemoptysis. Gradually improving oxygen requirement. Discussed at length with Dr. Lopez. Acute blood loss anemia due to pulmonary hemorrhage, blood transfusion given overnight. Integrilin/heparin/Brilinta discontinued yesterday evening. Target hemoglobin at least 8, better if he can get above 10. Unclear etiology of pulmonary hemorrhage. Unlikely diffuse alveolar hemorrhage per Dr. Lopez. A bronchial lesion was not found on bronchoscopy however the distal bronchial lesion cannot be ruled out. Patient has long-standing chronic smoking history. Non-STEMI, patient presented with severe chest pain and positive cardiac enzymes. She was taken to the catheter lab on 04/20/2019. Diffuse calcified small arteries. However culprit artery was an OM1 with long stenotic segment with significant calcification in the proximal part. The vessel was of diameter was 2 mm. We decided to intervene. PTCA was done with reasonable results initially. The patient was very agitated during the procedure and wanted to sit up. And wanted to us to stop. We tried to cross the lesion in the proximal OM1 but could not cross the lesion and due to the agitation of the patient and inability of lying still, for the safety of the patient, we decided to pull the wire and stent back into the guide. Post angiogram shows significant recoil. Therefore IV integrillin and heparin were started. Due to the bleeding later in the afternoon on 04/20/2019 Integrilin, heparin and Brilinta were discontinued. No further chest pain however this morning significantly elevated troponin suggesting likely occlusion of the small culprit OM1, transient hypotension and severe anemia. Unfortunately due to significant bleeding we could not continue IV Integrilin, heparin and Brilinta. Repeat angiography is contraindicated due to severe bleeding. I discussed at length with the and explained the situation. Echocardiogram done on 04/21/2019 for which I was at the bedside showed no pericardial effusion. Hyperdynamic LV systolic function with an EF of 75 percent with no lateral wall motion abnormalities. Underfilling of the LV is recognized. I requested the RN to increase the IV fluids. Transient hypotension with significant drop in hemoglobin and hematocrit yesterday, stat CT abdomen and pelvis done which ruled out retroperitoneal hem orrhage. Diabetes, severely elevated glucose. IV insulin. Hypertension, stable blood pressure. Arterial line. Hyperlipidemia, continue statin therapy. Active smoking, smoking cessation was strongly recommended. Acute kidney injury. Mildly worsening kidney function. Critically ill patient. Time spent over 30 minutes. Thank you for your consultation. Please call me if you have any questions. Annmarie Brar MD, FACP, FACC, FSCAI, FHRS, CCDS Interventional Cardiology Cardiac Electrophysiology Vascular Medicine and Endovascular Interventions Jen BRAR MD Apr 21, 2019 13:10
--- NOTE | 2019-04-21 13:21 | Progress Note - Hospitalist ---
Subjective HPI/CC On Admission Date Seen by Provider: Apr 21, 2019 Time Seen by Provider: 12:00 Chief complaint: Unstable angina with hyperglycemia HPI: This is a 63yoWF with a history of bypass surgery who presented after eren ing two Nitroglycerin for chest pain, after presenting to the ER she was found to have unstable angina and blood sugar of 500 from the steroids that were given at her PCPs office, Dr. Sepulveda the day before. She was placed on Heparin drip and insulin drip, IV steroids and monitored closely through the night. She denies any chest pain at this current time, awaiting cardiology plan. Her last Hgb A1C was 7.1. Subjective/Events-last exam Required intubation at the bedside Severe COPD with exacerbation and continued smoking has caused severe respiratory disease Checked meds and labs Objective Exam Vital Signs Vital Signs Date Time Temp Pulse Resp B/P (MAP) Pulse Ox O2 Delivery O2 Flow Rate FiO2 04/21/19 12:29 36.2 105 33 90/41 90 Mechanical Ventilator 40 04/21/19 12:00 40.00 Capillary Refill : Less Than 3 Seconds General Appearance: No Apparent Distress, WD/WN, Chronically ill, Obese, Other (sedated and intubated) Respiratory: No Accessory Muscle Use, No Respiratory Distress, Wheezing Cardiovascular: Regular Rate, Rhythm Results/Procedures Lab Laboratory Tests 04/20/19 15:55 04/20/19 16:30 04/21/19 03:45 04/21/19 09:40 Patient resulted labs reviewed. Assessment/Plan Assessment and Plan Assess & Plan/Chief Complaint Assessment: Vent dependent respiratory failure Unstable angina Known CAD CABG hx DM OOC in need of insulin drip Smoker HTN HLP CRI Plan: IVF Hep gtts Insulin drip IV steroids Ventilator management Diagnosis/Problems Diagnosis/Problems (1) Ventilator dependence Status: Acute (2) Angina at rest Status: Acute (3) Acute hyperglycemia Status: Acute (4) COPD with exacerbation Status: Acute (5) Chest pain Status: Acute Qualifiers: Chest pain type: chest pain due to myocardial ischemia Ischemic chest pain type: unstable angina pectoris Qualified Codes: I20.0 - Unstable angina Clinical Quality Measures DVT/VTE Risk/Contraindication: Risk Factor Score Per Nursin RFS Level Per Nursing on Admit: 4+=Very High JESUS CEBALLOS DO Apr 21, 2019 13:21
[2019-04-21 16:01] LABS: BILIRUBIN,URINE NEGATIVE (NEGATIVE); CLARITY,URINE CLEAR; COLOR,URINE YELLOW; GLUCOSE, URINE (UA) 1+ (NEGATIVE); KETONES,URINE 2+ (NEGATIVE); LEUKOCYTE ESTERASE ,URINE 1+ (NEGATIVE); NITRITE,URINE NEGATIVE (NEGATIVE); PH,URINE 5 (5-9); PROTEIN,URINE 1+ (NEGATIVE); UROBILINOGEN,URINE NORMAL (NORMAL)
[2019-04-21 16:16] LABS: BACTERIA,URINE TRACE /HPF; SQUAMOUS EPITHELIAL CELL,UR 0-2 /HPF; WBC,URINE 0-2 /HPF
[2019-04-21 16:21] LABS: HEMOGLOBIN 8.9 G/DL (11.5-16.0)
[2019-04-22] VITALS (32 sets, daily range): BP systolic 116–185; BP diastolic 47–74
[2019-04-22 00:45] LABS: HEMOGLOBIN 8.1 G/DL (11.5-16.0)
[2019-04-22] MEDS: RT-ALBUTEROL/IPRATROPIUM 3 ML (DUONEB) VIAL INH SCH ×6 (01:26→22:28)
[2019-04-22] MEDS: NITROGLYCERIN DRIP 25 MG/250 ML D5W (PRE-MIX) IV SCH (01:28)
[2019-04-22] MEDS: inSUlin ASPART (NovoLOG) 1 UNIT/0.01 ML (CHARGE PER UNIT) SC SCH ×4 (01:28→18:25)
[2019-04-22] MEDS: PROPOFOL DRIP (ICU) 100 ML IV SCH ×4 (01:32→20:32)
[2019-04-22] MEDS: CEFEPIME INJECTION 1,000 MG in WATER (STERILE) FOR INJECTION 10 ML IV SCH ×3 (03:40→19:45)
[2019-04-22 03:50] LABS: ABG BASE EXCESS -5.9 MMOL/L (-2.5-2.5); ABG OXYGEN SATURATION 98 % (94-100); ABG PCO2 35 MMHG (35-45); ABG PH 7.35 (7.37-7.43); ABG PO2 91 MMHG (79-93); BASOPHILS % (AUTO) 0 % (0-10); EOSINOPHILS % (AUTO) 0 % (0-10); HEMATOCRIT 24 % (35-52); LYMPHOCYTES # (AUTO) 1.7 X 10^3 (1.0-4.0); LYMPHOCYTES % (AUTO) 14 % (12-44); MEAN CORPUSCULAR HEMOGLOBIN 31 PG (25-34); MEAN CORPUSCULAR HGB CONC 33 G/DL (32-36); MEAN CORPUSCULAR VOLUME 93 FL (80-99); MEAN PLATELET VOLUME 9.6 FL (7.4-10.4); MONOCYTES % (AUTO) 8 % (0-12); NEUTROPHILS # (AUTO) 9.3 X 10^3 (1.8-7.8); NEUTROPHILS % (AUTO) 78 % (42-75); PLATELET COUNT 175 10^3/uL (130-400); RED CELL DISTRIBUTION WIDTH 14.5 % (10.0-14.5)
[2019-04-22 03:52] LABS: ALLENS TEST POSITIVE; INSPIRED O2 50%; VENTILATOR YES
[2019-04-22 04:21] LABS: CALCIUM 8.4 MG/DL (8.5-10.1); CREATININE SERUM 1.57 MG/DL (0.60-1.30); PHOSPHORUS 3.8 MG/DL (2.3-4.7); POTASSIUM 3.9 MMOL/L (3.6-5.0)
[2019-04-22] MEDS: KCL 20 MEQ TAB (K-DUR) PO SCH (04:26)
[2019-04-22] MEDS: MAGNESIUM 1 GM/100 ML IVPB 100 ML IV SCH (04:26)
[2019-04-22] MEDS: POTASSIUM CL 10MEQ/50ML IVPB 50 ML IV SCH (04:26)
[2019-04-22] MEDS: NOREPINEPHRINE 4 MG in NS (IVPB) 250 ML IV SCH ×3 (06:54→15:33)
[2019-04-22] MEDS: meTOprolol TARTRATE 50 MG (LOPRESSOR) TAB PO SCH ×2 (06:56→20:28)
[2019-04-22] MEDS: RT-BUDESONIDE NEBS 0.5 MG/2ML (PULMICORT) AMP INH SCH ×2 (07:01→18:39)
--- NOTE | 2019-04-22 07:50 | Pulmonary Progress Note ---
Subjective Time Seen by a Provider: 07:49 Subjective/Events-last exam Sedated on vent Sepsis Event Evaluation Height, Weight, BMI Height: '" Weight: lbs. oz. kg; 37.22 BMI Method: Exam Exam Vital Signs Date Time Temp Pulse Resp B/P (MAP) Pulse Ox O2 Delivery O2 Flow Rate FiO2 04/22/19 07:14 99 Mechanical Ventilator 40 04/22/19 07:02 64 24 99 40 04/22/19 06:00 65 24 166/64 (98) 100 Mechanical Ventilator 50.00 04/22/19 05:00 65 23 154/60 (91) 100 Mechanical Ventilator 50.00 04/22/19 04:25 94 Mechanical Ventilator 50 04/22/19 04:00 70 23 147/58 (87) 100 Mechanical Ventilator 50.00 04/22/19 03:00 70 23 151/62 (91) 100 Mechanical Ventilator 50.00 04/22/19 02:00 71 24 160/63 (95) 100 Mechanical Ventilator 50.00 04/22/19 01:40 71 04/22/19 01:32 36.43143 75 24 163/67 Mechanical Ventilator 50.00 04/22/19 01:26 78 24 100 50 04/22/19 01:00 71 23 156/64 (94) 100 Mechanical Ventilator 50.00 04/22/19 00:45 94 Mechanical Ventilator 50 04/22/19 00:16 36.0 04/22/19 00:00 72 23 153/64 (93) 100 Mechanical Ventilator 50.00 04/21/19 23:00 74 23 139/59 (85) 100 Mechanical Ventilator 50.00 04/21/19 22:00 73 24 151/65 (93) 100 Mechanical Ventilator 50.00 04/21/19 21:27 75 24 100 50 04/21/19 21:00 78 24 134/58 (83) 99 Mechanical Ventilator 50.00 04/21/19 20:29 36.31102 78 24 141/62 99 Mechanical Ventilator 50.00 04/21/19 20:03 94 Mechanical Ventilator 50 04/21/19 20:01 36.4 04/21/19 20:00 75 23 148/63 (91) 100 Mechanical Ventilator 50.00 04/21/19 19:00 79 28 133/59 (83) 100 Mechanical Ventilator 50.00 04/21/19 19:00 79 04/21/19 18:22 79 24 96 60 04/21/19 18:17 79 24 96 60 04/21/19 18:00 79 23 138/64 (88) 96 Mechanical Ventilator 50.00 04/21/19 17:00 80 23 134/63 (86) 94 Mechanical Ventilator 50.00 04/21/19 16:41 85 23 130/66 94 Mechanical Ventilator 50.00 04/21/19 16:00 89 23 122/59 (80) 94 Mechanical Ventilator 50.00 04/21/19 16:00 36.0 04/21/19 16:00 92 Mechanical Ventilator 50 04/21/19 15:00 80 24 202/85 (124) 97 Mechanical Ventilator 50.00 04/21/19 14:51 93 24 99 60 04/21/19 14:30 36.4 94 24 106/63 100 Mechanical Ventilator 50 04/21/19 14:00 95 22 59/33 (42) 96 Mechanical Ventilator 50.00 04/21/19 13:59 Mechanical Ventilator 50.00 04/21/19 13:00 100 23 79/40 (53) 95 Mechanical Ventilator 40.00 04/21/19 13:00 100 04/21/19 12:45 36.2 102 24 84/38 94 Mechanical Ventilator 50 04/21/19 12:29 36.2 105 33 90/41 90 Mechanical Ventilator 40 04/21/19 12:00 105 15 97 Mechanical Ventilator 40.00 04/21/19 12:00 92 Mechanical Ventilator 20 04/21/19 12:00 36.6 04/21/19 11:53 106 04/21/19 11:03 97 Mechanical Ventilator 60 04/21/19 11:00 92 30 120/61 (80) 99 Mechanical Ventilator 40.00 04/21/19 10:57 90 24 96 60 04/21/19 10:57 Mechanical Ventilator 40.00 04/21/19 10:00 95 13 120/48 (72) 95 Mechanical Ventilator 60.00 04/21/19 09:00 93 19 145/85 (105) 95 Mechanical Ventilator 60.00 04/21/19 08:20 Mechanical Ventilator 60.00 04/21/19 08:20 36.4 04/21/19 08:00 91 19 135/65 (88) 100 Mechanical Ventilator 100.00 04/21/19 08:00 94 Mechanical Ventilator 20 I & O 04/22/19 07:00 Intake Total 990 ml Output Total 2275 ml Balance -1285 ml Height & Weight Height: '" Weight: lbs. oz. kg; 37.22 BMI Method: General Appearance: No Apparent Distress, WD/WN, Anxious, Chronically ill, Mode rate Distress HEENT: PERRL/EOMI, Normal ENT Inspection, Pharynx Normal, Moist Mucous Membranes Neck: Full Range of Motion, Normal Inspection, Non Tender Respiratory: No Accessory Muscle Use, No Respiratory Distress, Crackles, Decreased Breath Sounds Cardiovascular: Regular Rate, Rhythm Capillary Refill: Less Than 3 Seconds Peripheral Pulses: 2+ Dorsalis Pedis (R), 2+ Left Dors-Pedis (L), 2+ Radial Pulses (R), 2+ Radial Pulses (L) Gastrointestinal: non tender, soft, no organomegaly, no pulsatile mass Extremity: Normal Capillary Refill, Normal Inspection, Normal Range of Motion, Non Tender, No Calf Tenderness, No Pedal Edema Neurologic/Psychiatric: Alert, Oriented x3, No Motor/Sensory Deficits, Normal Mood/Affect Skin: Normal Color, Warm/Dry Lymphatic: No Adenopathy Results Lab Laboratory Tests 04/20/19 15:55 04/20/19 16:30 04/21/19 03:45 04/21/19 09:40 04/21/19 16:00 04/22/19 00:32 04/22/19 03:40 Assessment/Plan Assessment/Plan Acute respiratory failure with acute hemoptysis- improved since bronchoscopy and intubation 04/21 -Anticoagulation is on hold -Continue vent CP s/p cath -Cardiology following COPD - Breathing treats Q4H - solumedrol 40mg IV q6h NIDDMII with hyperglycemia -D/C insulin gtt -SSI DREW - Fluid replacement HTN -Monitor CAD -cardiology consult PAD Hx of [place] CABG DANGELO DURAN DO Apr 22, 2019 07:50
[2019-04-22] MEDS: ASPIRIN E.C. 81 MG (ECOTRIN) TAB PO SCH (08:00)
[2019-04-22] MEDS: TICAGRELOR 90 MG TABLET (BRILINTA) PO SCH ×2 (08:00→19:38)
[2019-04-22] MEDS: lisINopril 5 MG (PRINIVIL) TABLET PO SCH (08:10)
[2019-04-22] MEDS: PANTOPRAZOLE 40 MG (PROTONIX) VIAL IV SCH (08:10)
--- NOTE | 2019-04-22 08:35 | Diagnostic Imaging Report ---
Clinical indication: Patient with dyspnea. Exam: Portable chest x-ray semi-upright view. Comparisons: Chest x-ray dated 04/21/2019. Findings: ET tube in stable good position. Right IJ central line seen in stable position. Feeding tube again noted with its distal portion looped and overlying the expected region of the gastric fundus. There is interval improved aeration of both upper lung shepard and left midlung region. There is otherwise continued diffuse bilateral patchy infiltrates and patchy consolidation left lung base. The left costophrenic angle is obscured. There is no pneumothorax. There is no right pleural effusion. Pulmonary vasculature cardiac silhouette is within normal limits. The remainder of this exam shows no significant interval change compared to the prior study of comparison. Impression: 1: Interval improved aeration of the bilateral upper lobes and left midlung field. Otherwise, there is continued residual bilateral lung infiltrates. 2: Lines and tubes in good position, as described above. Dictated by: Dictated on workstation # [id number]
--- NOTE | 2019-04-22 09:42 | Progress Note - Hospitalist ---
Subjective HPI/CC On Admission Date Seen by Provider: Apr 22, 2019 Time Seen by Provider: 08:30 Chief complaint: Unstable angina with hyperglycemia HPI: This is a 63yoWF with a history of bypass surgery who presented after eren ing two Nitroglycerin for chest pain, after presenting to the ER she was found to have unstable angina and blood sugar of 500 from the steroids that were given at her PCPs office, Dr. Sepulveda the day before. She was placed on Heparin drip and insulin drip, IV steroids and monitored closely through the night. She denies any chest pain at this current time, awaiting cardiology plan. Her last Hgb A1C was 7.1. Subjective/Events-last exam Patient remains intubated Status post levophed for hypotension now hypertension noted Coarse breath sounds continue at the bedside sleeping in a chair Check meds and labs Reviewed notes Objective Exam Vital Signs Vital Signs Date Time Temp Pulse Resp B/P (MAP) Pulse Ox O2 Delivery O2 Flow Rate FiO2 04/22/19 13:00 71 04/22/19 12:00 94 Mechanical Ventilator 40 04/22/19 12:00 36.3 04/22/19 11:00 23 122/47 (72) 30.00 Capillary Refill : Less Than 3 Seconds General Appearance: No Apparent Distress, Other (sedated on vent) Respiratory: No Accessory Muscle Use, No Respiratory Distress, Crackles, W heezing Results/Procedures Lab Laboratory Tests 04/21/19 16:00 04/22/19 00:32 04/22/19 03:40 04/22/19 14:16 Patient resulted labs reviewed. Assessment/Plan Assessment and Plan Assess & Plan/Chief Complaint Assessment: Vent dependent respiratory failure Unstable angina Known CAD CABG hx DM OOC in need of insulin drip Smoker HTN HLP CRI Plan: IVF Hep gtts Insulin IV steroids Ventilator management Diagnosis/Problems Diagnosis/Problems (1) Ventilator dependence Status: Acute (2) Angina at rest Status: Acute (3) Acute hyperglycemia Status: Acute (4) COPD with exacerbation Status: Acute (5) Chest pain Status: Acute Qualifiers: Chest pain type: chest pain due to myocardial ischemia Ischemic chest pain type: unstable angina pectoris Qualified Codes: I20.0 - Unstable angina Clinical Quality Measures DVT/VTE Risk/Contraindication: Risk Factor Score Per Nursin RFS Level Per Nursing on Admit: 4+=Very High JESUS CEBALLOS DO Apr 22, 2019 09:42
[2019-04-22] MEDS: NS IV 1000 ML 1,000 ML IV SCH ×2 (09:52→19:45)
[2019-04-22] MEDS: hydrALAZINE (APESOLINE) 20 MG/ML VIAL IV PRN ×2 (10:08→18:51)
[2019-04-22] MEDS: DEXMEDETOMIDINE INJECTION 1,000 MCG in NS (IVPB) 240 ML IV SCH ×2 (12:20→20:29)
[2019-04-22 14:27] LABS: HEMOGLOBIN 7.8 G/DL (11.5-16.0)
[2019-04-22] MEDS ORDERED: NS (IVPB) 250 ML IV ONE (15:45)
--- NOTE | 2019-04-22 16:08 | Cardiology Progress Note ---
Cardiology SOAP Progress Note Subjective: Intubated/ventilated. Objective: I&O/Vital Signs 04/22/19 04/22/19 04/22/19 04/22/19 04:25 05:00 06:00 07:00 Pulse 65 65 63 Resp 23 24 24 B/P (MAP) 154/60 (91) 166/64 (98) 168/64 (98) Pulse Ox 94 100 100 100 O2 Delivery Mechanical Ventilator Mechanical Ventilator Mechanical Ventilator Mechanical Ventilator O2 Flow Rate 50.00 50.00 50.00 FiO2 50 04/22/19 04/22/19 04/22/19 04/22/19 07:00 07:00 07:02 07:14 Pulse 63 64 Resp 24 Pulse Ox 94 99 99 O2 Delivery Mechanical Ventilator Mechanical Ventilator FiO2 50 40 40 04/22/19 04/22/19 04/22/19 04/22/19 07:30 08:00 08:00 09:00 Temp 36.2 36.2 Pulse 65 65 63 Resp 23 B/P (MAP) 116/66 (83) 163/60 (94) 159/59 (92) Pulse Ox 99 98 99 O2 Delivery Mechanical Ventilator Mechanical Ventilator Mechanical Ventilator O2 Flow Rate 50.00 50.00 50.00 04/22/19 04/22/19 04/22/19 04/22/19 09:53 10:00 10:54 10:55 Pulse 63 64 71 Resp 24 24 B/P (MAP) 179/67 164/61 (95) Pulse Ox 100 100 O2 Delivery Mechanical Ventilator Mechanical Ventilator O2 Flow Rate 50.00 30.00 FiO2 30 04/22/19 04/22/19 04/22/19 04/22/19 11:00 12:00 12:00 13:00 Temp 36.3 Pulse 72 71 Resp 23 B/P (MAP) 122/47 (72) Pulse Ox 98 94 O2 Delivery Mechanical Ventilator Mechanical Ventilator O2 Flow Rate 30.00 FiO2 40 04/22/19 04/22/19 15:35 15:35 Pulse 72 Resp 24 B/P (MAP) 132/54 Pulse Ox 93 FiO2 30 04/22/19 00:00 Intake Total 790 ml Output Total 775 ml Balance 15 ml Constitutional: appears stated age; No apparent distress; well-developed, well- nourished Respiratory: No accessory muscle use, No respiratory distress, No chest tender, No chest expansion is symmetric, No lungs clear to percussion; crackles; No rhonchi, No rales, No stridor, No wheezing, No pleural rub; other (intubated/ventilated) Cardiovascular: regular rate-rhythm; No irregularly irregular, No extra beats, No parasternal heave is noted, No JVD, No edema, No bradycardia, No tachycardia, No point of maximal impulse, No cardiac thrills are palpable; S1 and S2; No gallop/S3, No gallop/S4, No diastolic murmur, No systolic murmur, No friction rub, No click, No other Gastrointestional: soft, round, audible bowel sounds; No spleenomegaly Extremities: normal range of motion, non-tender, normal inspection; No clubbing, No cyanosis; no lower extremity edema bilateral; No significant edema Neurologic/Psychiatric: No greaser operator II-XII nml as tested, No no motor/sensory deficits, No alert, No normal mood/affect, No oriented x 3, No abnormal cerebellar tests, No abnormal greaser operator II-XII, No abnormal gait, No aphasia, No EOM palsy, No facial droop, No motor weakness, No sensory deficit, No depressed affect, No disoriented x 3; other (intubated/ventilated); No grossly intact, No power is 5/5 both on sides Skin: normal color; No rash, No ulcerations Results/Procedures: Labs Laboratory Tests 04/21/19 16:58: Glucometer 235H 04/21/19 23:44: Glucometer 199H 04/22/19 00:32: Hemoglobin 8.1L, Hematocrit 24L 04/22/19 03:40: Hemoglobin 8.0L, Hematocrit 24L, White Blood Count 12.0H, Red Blood Count 2.58L, Mean Corpuscular Volume 93, Mean Corpuscular Hemoglobin 31, Mean Corpuscular Hemoglobin Concent 33, Red Cell Distribution Width 14.5, Platelet Count 175, Mean Platelet Volume 9.6, Neutrophils (%) (Auto) 78H, Lymphocytes (%) (Auto) 14, Monocytes (%) (Auto) 8, Eosinophils (%) (Auto) 0, Basophils (%) (Auto) 0, Neutrophils # (Auto) 9.3H, Lymphocytes # (Auto) 1.7, Monocytes # (Auto) 1.0, Eos inophils # (Auto) 0.0, Basophils # (Auto) 0.0, Blood Gas Puncture Site RIGHT ARTLINE, Blood Gas Patient Temperature 36.0, Arterial Blood pH 7.35L, Arterial Blood Partial Pressure CO2 35, Arterial Blood Partial Pressure O2 91, Arterial Blood HCO3 19L, Arterial Blood Total CO2 20.0L, Arterial Blood Oxygen Saturation 98, Arterial Blood Base Excess -5.9L, Hermelindo Test POSITIVE, Blood Gas Ventilator Setting YES, Blood Gas Inspired Oxygen 50%, Sodium Level 142, Potassium Level 3.9, Chloride Level 117H, Carbon Dioxide Level 20L, Anion Gap 5, Blood Urea Nitrogen 39H, Creatinine 1.57H, Estimat Glomerular Filtration Rate 33, BUN/Creatinine Ratio 25, Glucose Level 174H, Calcium Level 8.4L, Phosphorus Level 3.8, Magnesium Level 2.0 04/22/19 11:58: Glucometer 187H 04/22/19 14:16: Hemoglobin 7.8L, Hematocrit 23L Microbiology 04/21/19 Blood Culture - Preliminary, Resulted No growth 04/21/19 Mycobacterial Culture - Preliminary, Resulted A/P: Assessment/Dx: Acute respiratory failure due to pulmonary hemorrhage, Acute blood loss anemia due to pulmonary hemorrhage, Non-STEMI, Diabetes, Hypertension, Hyperlipidemia, Active smoking, Acute kidney injury. Plan: Acute respiratory failure due to pulmonary hemorrhage, intubated/ventilated. Integrilin, heparin, Brilinta discontinued 04/20/2019. Significant improvement in oxygenation status. No further bleeding. Acute blood loss anemia due to pulmonary hemorrhage, no further active bleeding. Repeat hemoglobin pending. Non-STEMI, patient presented with severe chest pain and positive cardiac enzymes. She was taken to the catheter lab on 04/20/2019. Diffuse calcified small arteries. However culprit artery was an OM1 with long stenotic segment with significant calcification in the proximal part. The vessel was of diameter was 2 mm. We decided to intervene. PTCA was done with reasonable results initially. The patient was very agitated during the procedure and wanted to sit up. And wanted to us to stop. We tried to cross the lesion in the proximal OM1 but could not cross the lesion and due to the agitation of the patient and inability of lying still, for the safety of the patient, we decided to pull the wire and stent back into the guide. Post angiogram shows significant recoil. Therefore IV integrillin and heparin were started. Due to the bleeding later in the afternoon on 04/20/2019 Integrilin, heparin and Brilinta were discontinued. No further chest pain however this morning significantly elevated troponin suggesting likely occlusion of the small culprit OM1, transient hypotension and severe anemia. Unfortunately due to significant bleeding we could not continue IV Integrilin, heparin and Brilinta. Repeat angiography is contraindicated due to severe bleeding. I discussed at length with the and explained the situation. Echocardiogram done on 04/21/2019 for which I was at the bedside showed no pericardial effusion. Hyperdynamic LV systolic function with an EF of 75 percent with no lateral wall motion abnormalities. Underfilling of the LV is recognized. Transient hypotension with significant drop in hemoglobin and hematocrit 04/20/2019, stat CT abdomen and pelvis done which ruled out retroperitoneal hemorrhage. Diabetes, severely elevated glucose. IV insulin. Hypertension, stable blood pressure. Arterial line. Hyperlipidemia, continue statin therapy. Active smoking, smoking cessation was strongly recommended. Acute kidney injury. Mildly worsening kidney function. Thank you for your consultation. Please call me if you have any questions. Annmarie Brar MD, FACP, FACC, FSCAI, FHRS, CCDS Interventional Cardiology Cardiac Electrophysiology Vascular Medicine and Endovascular Interventions Jen BRAR MD Apr 22, 2019 16:08
[2019-04-22 22:24] LABS: HEMOGLOBIN 9.7 G/DL (11.5-16.0)
[2019-04-23] VITALS (27 sets, daily range): BP systolic 121–188; BP diastolic 56–99
[2019-04-23] MEDS: NOREPINEPHRINE 4 MG in NS (IVPB) 250 ML IV SCH (00:28)
[2019-04-23] MEDS: inSUlin ASPART (NovoLOG) 1 UNIT/0.01 ML (CHARGE PER UNIT) SC SCH ×4 (00:34→17:18)
[2019-04-23] MEDS: hydrALAZINE (APESOLINE) 20 MG/ML VIAL IV PRN (00:35)
[2019-04-23] MEDS: NITROGLYCERIN DRIP 25 MG/250 ML D5W (PRE-MIX) IV SCH (01:18)
[2019-04-23] MEDS: PROPOFOL DRIP (ICU) 100 ML IV SCH ×5 (01:54→22:37)
[2019-04-23 03:34] LABS: BASOPHILS % (AUTO) 0 % (0-10); EOSINOPHILS # (AUTO) 0.2 10^3/uL (0.0-0.3); EOSINOPHILS % (AUTO) 2 % (0-10); HEMATOCRIT 25 % (35-52); HEMOGLOBIN 8.4 G/DL (11.5-16.0); LYMPHOCYTES # (AUTO) 1.3 X 10^3 (1.0-4.0); LYMPHOCYTES % (AUTO) 12 % (12-44); MEAN CORPUSCULAR HEMOGLOBIN 31 PG (25-34); MEAN CORPUSCULAR HGB CONC 34 G/DL (32-36); MEAN CORPUSCULAR VOLUME 90 FL (80-99); MEAN PLATELET VOLUME 9.6 FL (7.4-10.4); MONOCYTES # (AUTO) 0.6 X 10^3 (0.0-1.0); MONOCYTES % (AUTO) 5 % (0-12); NEUTROPHILS # (AUTO) 9.2 X 10^3 (1.8-7.8); NEUTROPHILS % (AUTO) 81 % (42-75); PLATELET COUNT 146 10^3/uL (130-400); RED CELL DISTRIBUTION WIDTH 14.9 % (10.0-14.5); WHITE BLOOD COUNT 11.3 10^3/uL (4.3-11.0)
[2019-04-23 03:42] LABS: ABG BASE EXCESS -7.7 MMOL/L (-2.5-2.5); ABG OXYGEN SATURATION 91 % (94-100); ABG PCO2 31 MMHG (35-45); ABG PH 7.35 (7.37-7.43); ABG PO2 61 MMHG (79-93); ABG TCO2 18.2 MMOL/L (21.0-31.0); ALLENS TEST ARTLINE; INSPIRED O2 35%; PATIENT TEMP 35.8; VENTILATOR YES
[2019-04-23 03:51] LABS: BUN/CREATININE RATIO 27; CALCIUM 6.6 MG/DL (8.5-10.1); CARBON DIOXIDE 13 MMOL/L (21-32); CHLORIDE 124 MMOL/L (98-107); CREATININE SERUM 0.81 MG/DL (0.60-1.30); GFR ESTIMATED > 60; GLUCOSE 158 MG/DL (70-105); MAGNESIUM 1.8 MG/DL (1.6-2.4); PHOSPHORUS 2.3 MG/DL (2.3-4.7); POTASSIUM 2.8 MMOL/L (3.6-5.0); SODIUM 145 MMOL/L (135-145); TRIGLYCERIDES 202 MG/DL (<150)
[2019-04-23] MEDS: RT-ALBUTEROL/IPRATROPIUM 3 ML (DUONEB) VIAL INH SCH ×6 (04:00→22:25)
[2019-04-23] MEDS: CEFEPIME INJECTION 1,000 MG in WATER (STERILE) FOR INJECTION 10 ML IV SCH ×3 (04:57→17:23)
[2019-04-23] MEDS: DEXMEDETOMIDINE INJECTION 1,000 MCG in NS (IVPB) 240 ML IV SCH ×3 (05:06→20:49)
[2019-04-23] MEDS: POTASSIUM CL 10MEQ/50ML IVPB 50 ML IV SCH ×6 (05:09→07:49)
[2019-04-23] MEDS ORDERED: MAGNESIUM 1 GM/100 ML IVPB 100 ML IV ONE (05:15)
[2019-04-23] MEDS ORDERED: POTASSIUM PHOSPHATE INJ 30 MM in NS (IVPB) 250 ML IV ONE (05:15)
--- NOTE | 2019-04-23 05:24 | Pulmonary Progress Note ---
Subjective Time Seen by a Provider: 06:32 Subjective/Events-last exam Pt sedated on vent. Sepsis Event Evaluation Height, Weight, BMI Height: '" Weight: lbs. oz. kg; 37.22 BMI Method: Exam Exam Vital Signs Date Time Temp Pulse Resp B/P (MAP) Pulse Ox O2 Delivery O2 Flow Rate FiO2 04/23/19 04:00 67 24 153/64 (93) 96 Mechanical Ventilator 30.00 04/23/19 03:00 69 23 158/67 (97) 96 Mechanical Ventilator 30.00 04/23/19 02:00 82 27 142/63 (89) 94 Mechanical Ventilator 30.00 04/23/19 01:54 152/82 04/23/19 01:00 79 24 121/57 (78) 96 Mechanical Ventilator 30.00 04/23/19 01:00 79 04/23/19 00:29 77 25 188/99 (128) 97 Mechanical Ventilator 30.00 04/23/19 00:00 Mechanical Ventilator 30 04/23/19 00:00 70 24 180/75 (110) 96 Mechanical Ventilator 30.00 04/22/19 23:00 70 24 175/73 (107) 94 Mechanical Ventilator 30.00 04/22/19 22:29 69 24 93 30 04/22/19 22:00 66 23 165/68 (100) 92 Mechanical Ventilator 30.00 04/22/19 21:00 70 24 160/63 (95) 92 Mechanical Ventilator 30.00 04/22/19 20:32 152/61 04/22/19 20:00 73 13 140/61 (87) 90 Mechanical Ventilator 30.00 04/22/19 20:00 Mechanical Ventilator 30 04/22/19 19:45 35.3 04/22/19 19:00 71 24 127/55 (79) 92 Mechanical Ventilator 30.00 04/22/19 19:00 71 04/22/19 18:40 64 24 93 30 04/22/19 18:40 36.0 62 23 170/72 93 Mechanical Ventilator 30 04/22/19 18:00 65 23 185/73 (110) 93 Mechanical Ventilator 30.00 04/22/19 17:00 67 23 162/63 (96) 94 Mechanical Ventilator 30.00 04/22/19 16:32 36.0 70 23 140/55 94 Mechanical Ventilator 30 9/29/19 16:17 35.9 70 24 131/54 93 Mechanical Ventilator 30 04/22/19 16:00 71 24 124/51 (75) 93 Mechanical Ventilator 30.00 04/22/19 16:00 94 Mechanical Ventilator 40 04/22/19 16:00 35.9 04/22/19 15:35 72 24 93 30 04/22/19 15:35 132/54 04/22/19 15:00 73 23 131/52 (78) 93 Mechanical Ventilator 30.00 04/22/19 14:00 73 23 135/55 (81) 93 Mechanical Ventilator 30.00 04/22/19 13:00 71 04/22/19 13:00 71 23 133/52 (79) 93 Mechanical Ventilator 30.00 04/22/19 12:00 94 Mechanical Ventilator 40 04/22/19 12:00 80 24 120/50 (73) 93 Mechanical Ventilator 30.00 04/22/19 12:00 36.3 04/22/19 11:00 72 23 122/47 (72) 98 Mechanical Ventilator 30.00 04/22/19 10:55 Mechanical Ventilator 30.00 04/22/19 10:54 71 24 100 30 04/22/19 10:00 64 24 164/61 (95) 100 Mechanical Ventilator 50.00 04/22/19 09:53 63 179/67 04/22/19 09:00 63 23 159/59 (92) 99 Mechanical Ventilator 50.00 04/22/19 08:00 65 24 163/60 (94) 98 Mechanical Ventilator 50.00 04/22/19 08:00 36.2 65 23 116/66 (83) 99 Mechanical Ventilator 50.00 04/22/19 07:30 36.2 04/22/19 07:14 99 Mechanical Ventilator 40 04/22/19 07:02 64 24 99 40 04/22/19 07:00 94 Mechanical Ventilator 50 04/22/19 07:00 63 04/22/19 07:00 63 24 168/64 (98) 100 Mechanical Ventilator 50.00 04/22/19 06:00 65 24 166/64 (98) 100 Mechanical Ventilator 50.00 I & O 04/23/19 07:00 Intake Total 1350 ml Output Total 1580 ml Balance -230 ml Height & Weight Height: '" Weight: lbs. oz. kg; 37.22 BMI Method: General Appearance: No Apparent Distress, Other (sedated on vent) HEENT: PERRL/EOMI, Normal ENT Inspection, Pharynx Normal, Moist Mucous Membranes Neck: Full Range of Motion, Normal Inspection, Non Tender Respiratory: No Accessory Muscle Use, No Respiratory Distress, Crackles, Decreased Breath Sounds, Rhonci Cardiovascular: Regular Rate, Rhythm Capillary Refill: Less Than 3 Seconds Peripheral Pulses: 2+ Dorsalis Pedis (R), 2+ Left Dors-Pedis (L), 2+ Radial Pulses (R), 2+ Radial Pulses (L) Gastrointestinal: non tender, soft, no organomegaly, no pulsatile mass Extremity: Normal Capillary Refill, Normal Inspection, Normal Range of Motion, Non Tender, No Calf Tenderness, No Pedal Edema Neurologic/Psychiatric: Alert, Oriented x3, No Motor/Sensory Deficits, Normal Mood/Affect Skin: Normal Color, Warm/Dry Lymphatic: No Adenopathy Results Lab Laboratory Tests 04/21/19 09:40 04/21/19 16:00 04/22/19 00:32 04/22/19 03:40 04/22/19 14:16 04/22/19 22:16 04/23/19 03:25 Assessment/Plan Assessment/Plan Acute respiratory failure with acute hemoptysis- improved since bronchoscopy and intubation 04/21 -Anticoagulation is on hold -Give lasix and spironolactone today -Continue vent -Check BNP CP s/p cath -Cardiology following COPD - Duonebs Q4H - solumedrol 40mg IV q6h Hypokalemia, hypophos -replace NIDDMII with hyperglycemia -D/C insulin gtt -SSI DREW - Fluid replacement HTN -Monitor CAD -cardiology consult PAD Hx of SD CABG DANGELO DURAN DO Apr 23, 2019 05:24
[2019-04-23] MEDS ORDERED: SPIRONOLACTONE 100 MG (ALDACTONE) TABLET PO ONE (05:30)
[2019-04-23] MEDS ORDERED: ENOXAPARIN 40 MG/0.4 ML (LOVENOX) SYR SC SCH (05:30)
[2019-04-23] MEDS: MAGNESIUM 1 GM/100 ML IVPB 100 ML IV SCH (05:45)
[2019-04-23] MEDS: KCL 20 MEQ TAB (K-DUR) PO SCH (05:45)
[2019-04-23] MEDS: NS IV 1000 ML 1,000 ML IV SCH (05:56)
[2019-04-23] MEDS: RT-BUDESONIDE NEBS 0.5 MG/2ML (PULMICORT) AMP INH SCH ×2 (06:12→19:25)
[2019-04-23] MEDS: FUROSEMIDE 40 MG/4 ML INJ (LASIX) IVP SCH (06:49)
--- NOTE | 2019-04-23 07:59 | Diagnostic Imaging Report ---
INDICATION: Dyspnea. COMPARISON: 04/22/2019. FINDINGS: There have been increased 5 lobe pulmonary opacities with likely small pleural effusions having become apparent. An ET tube tip is in the lower thoracic trachea. Right IJ catheter at the lower SVC. No pneumothorax. IMPRESSION: Increased bilateral pleural-parenchymal opacities could be edema and/or worsened pneumonia. Dictated by: Dictated on workstation # [id number]
--- NOTE | 2019-04-23 08:21 | Physical Therapy Progress Note ---
Therapy Progress Note Patient is currently sedated and on ventilator. PT to continue to monitor patient status and assess when medically stable and able to actively participate with PT. CLAUS DONOHUE PT Apr 23, 2019 08:21
[2019-04-23] MEDS: meTOprolol TARTRATE 50 MG (LOPRESSOR) TAB PO SCH ×2 (09:12→20:37)
[2019-04-23] MEDS: lisINopril 5 MG (PRINIVIL) TABLET PO SCH (09:12)
[2019-04-23] MEDS: PANTOPRAZOLE 40 MG (PROTONIX) VIAL IV SCH (09:13)
[2019-04-23] MEDS: ASPIRIN E.C. 81 MG (ECOTRIN) TAB PO SCH (09:13)
--- NOTE | 2019-04-23 10:55 | NUR ---
Pastoral care visit, pt intubated, at bedside, offered support and encouragement.
--- NOTE | 2019-04-23 11:35 | NUR ---
TUBE FEED RECOMMENDATIONS If patient remains intubated for 5 days or more, RD recommends the following TF order. Glucerna 1.5 @ goal rate of 40 ml/hr. Begin at 10 ml/hr and increase by 10 q6h if tolerated. At goal rate, provides 1440 kcal (15 kcal/kg BW), 79 g Pro (0.8 g Pro/kg BW), and 728 ml free water. Flush with 100 ml H2O q4h. With flushes, provides total 1328 ml free water. Monitor tolerance and hydration status. Faye Puri, MS, RD [phone]
--- NOTE | 2019-04-23 11:42 | Occ Therapy Progress Note ---
Therapy Progress Note Will continue to monitor pt to complete full occupational therapy evaluation. Pt. currently on ventilator support. [id number] BOBBY MUHAMMAD OT Apr 23, 2019 11:42
[2019-04-23] MEDS ORDERED: 1/2 NS IV SOLUTION 1,000 ML IV SCH (13:00)
--- NOTE | 2019-04-23 13:32 | Progress Note ---
Subjective Subjective/Events-last exam Afebrile, remains mechanically ventilated, hypoxia improving. Objective Exam Last Set of Vital Signs Vital Signs Date Time Temp Pulse Resp B/P (MAP) Pulse Ox O2 Delivery O2 Flow Rate FiO2 04/23/19 13:00 66 24 152/61 (91) 93 Mechanical Ventilator 30.00 04/23/19 12:00 25 04/23/19 07:46 35.8 Capillary Refill : Less Than 3 Seconds I&O l Intake and Output 04/23/19 00:00 Intake Total 1350 ml Output Total 1555 ml Balance -205 ml Intake Oral 0 ml IV Total 1350 ml Output Urine Total 1555 ml General: Other (sedated, ventilated) Lungs: Other (ronchi) Heart: Regular Rate Abdomen: Normal Bowel Sounds, Soft Extremities: No Edema Results/Procedures Lab Laboratory Tests 04/22/19 14:16: Hemoglobin 7.8L, Hematocrit 23L 04/22/19 17:46: Glucometer 201H 04/22/19 22:16: Hemoglobin 9.7#L, Hematocrit 28L 04/23/19 00:23: Glucometer 224H 04/23/19 03:25: White Blood Count 11.3H, Red Blood Count 2.72L, Hemoglobin 8.4L, Hematocrit 25L, Mean Corpuscular Volume 90, Mean Corpuscular Hemoglobin 31, Mean Corpuscular Hemoglobin Concent 34, Red Cell Distribution Width 14.9H, Platelet Count 146, Mean Platelet Volume 9.6, Neutrophils (%) (Auto) 81H, Lymphocytes (%) (Auto) 12, Monocytes (%) (Auto) 5, Eosinophils (%) (Auto) 2, Basophils (%) (Auto) 0, Neutrophils # (Auto) 9.2H, Lymphocytes # (Auto) 1.3, Monocytes # (Auto) 0.6, Eosinophils # (Auto) 0.2, Basophils # (Auto) 0.0, Blood Gas Puncture Site RIGHT ARTLINE, Blood Gas Patient Temperature 35.8, Arterial Blood pH 7.35L, Arterial Blood Partial Pressure CO2 31L, Arterial Blood Partial Pressure O2 61L, Arterial Blood HCO3 17*L, Arterial Blood Total CO2 18.2L, Arterial Blood Oxygen Saturation 91L, Arterial Blood Base Excess -7.7L, Hermelindo Test ARTLINE, Blood Gas Ventilator Setting YES, Blood Gas Inspired Oxygen 35%, Sodium Level 145, Potassium Level 2.8L, Chloride Level 124H, Carbon Dioxide Level 13L, Anion Gap 8, Blood Urea Nitrogen 22H, Creatinine 0.81, Estimat Glomerular Filtration Rate > 60, BUN/Creatinine Ratio 27, Glucose Level 158H, Calcium Level 6.6L, Phospho kamari Level 2.3, Magnesium Level 1.8, B-Type Natriuretic Peptide 294.2H, Triglycerides Level 202H 04/23/19 12:16: Lab Scanned Report Transfusion Reaction Form 04/23/19 13:07: Glucometer 240H 04/23/19 13:08: Microbiology 04/21/19 Blood Culture - Preliminary, Resulted No growth 04/21/19 Mycobacterial Culture - Preliminary, Resulted Assessment/Plan Assessment/Plan (1) NSTEMI (non-ST elevated myocardial infarction) Status: Acute Assessment & Plan: Cardiology following, had cath but OM1 needing intervention was not able to be done and repeat not possible due to bleeding, monitoring closely. Echo 04/19 with EF 55-65% and grade 2 diastolic dysfunction, repeat on 04/21 with hyperdynamic function. -Holding antiplatelets due to pulmonary hemorrhage (2) Acute respiratory failure Status: Acute Assessment & Plan: Secondary to pulmonary hemorrhage. Intubated, BAL done and culture with < 1000 staph aureus. Fungal culture neg to date. Improving hypoxia. Appreciate Pulm recommendations. On furosemide 40 mg IV daily. (3) COPD with exacerbation Status: Acute Assessment & Plan: Fred, was on IV methylprednisolone, now d/c. Appreciate Pulm recommendations. (4) Pulmonary hemorrhage Status: Acute Assessment & Plan: Thought to be secondary to blood thinners needed for CAD. Antiplatelets and pharmacologic DVT ppx held. 04/23 enoxaparin resumed, monitor closely. (5) Acute hyperglycemia Status: Acute Assessment & Plan: Requiring insulin drip on admit, but without DKA. Currently off drip and using sliding scale. (6) Diabetes mellitus, type 2 Status: Chronic (7) Acute blood loss anemia Status: Acute Assessment & Plan: Pulmonary hemorrhage. Also had hypotension during stay and CT abdomen/pelvis done to rule out retroperitoneal bleed which was negative. s/p 3 units PRBCs (8) Hypertension Status: Chronic Qualifiers: Qualified Codes: I10 - Essential (primary) hypertension (9) Hypotension Status: Resolved (10) Acute kidney injury Status: Resolved (11) Hypocalcemia Status: Acute Assessment & Plan: Corrected calcium 7.6 on 04/23, will give IV calcium given intubated and NPO and recheck this pm. (12) Hypokalemia Status: Acute Assessment & Plan: Replace and follow. (13) Hyperchloremic metabolic acidosis Status: Acute Assessment & Plan: Change IVF to 1/2 NS on 04/23. (14) DVT prophylaxis Status: Acute Assessment & Plan: Enoxaparin started 04/23, held prior due to pulmonary hemorrhage Clinical Quality Measures DVT/VTE Risk/Contraindication: Risk Factor Score Per Nursin RFS Level Per Nursing on Admit: 4+=Very High KAYLAN GARZON MD Apr 23, 2019 13:32
[2019-04-23 13:33] LABS: ALBUMIN 2.7 GM/DL (3.2-4.5); BILIRUBIN,DIRECT 0.5 MG/DL (0.0-0.3); BILIRUBIN,INDIRECT 0.6 MG/DL; BILIRUBIN,TOTAL 1.1 MG/DL (0.1-1.0); TOTAL PROTEIN 5.9 GM/DL (6.4-8.2)
[2019-04-23] MEDS ORDERED: CALCIUM GLUCONATE 10% INJ 4.65 MEQ in NS (IVPB) 50 ML IV NR (14:30)
--- NOTE | 2019-04-23 15:06 | Cardiology Progress Note ---
Cardiology SOAP Progress Note Subjective: Intubated/ventilated Objective: I&O/Vital Signs 04/23/19 04/23/19 04/23/19 04/23/19 04:00 04:00 04:00 05:00 Temp 35.8 Pulse 67 68 Resp 24 24 B/P (MAP) 153/64 (93) 148/61 (90) Pulse Ox 96 97 O2 Delivery Mechanical Ventilator Mechanical Ventilator Mechanical Ventilator O2 Flow Rate 30.00 30.00 FiO2 30 04/23/19 04/23/19 04/23/19 04/23/19 06:00 06:12 07:00 07:00 Pulse 65 64 71 71 Resp 23 24 23 B/P (MAP) 159/66 (97) 130/57 (81) Pulse Ox 94 93 94 O2 Delivery Mechanical Ventilator Mechanical Ventilator O2 Flow Rate 30.00 30.00 FiO2 30 04/23/19 04/23/19 04/23/19 04/23/19 07:43 07:46 07:50 08:00 Temp 35.8 Pulse 67 68 Resp 23 B/P (MAP) 148/64 145/64 (91) Pulse Ox 95 95 O2 Delivery Mechanical Ventilator Mechanical Ventilator O2 Flow Rate 30.00 FiO2 25 04/23/19 04/23/19 04/23/19 04/23/19 09:00 10:00 10:43 11:00 Pulse 72 69 70 66 Resp 24 23 24 23 B/P (MAP) 131/58 (82) 140/61 (87) 151/63 (92) Pulse Ox 94 94 90 93 O2 Delivery Mechanical Ventilator Mechanical Ventilator Mechanical Ventilator O2 Flow Rate 30.00 30.00 30.00 FiO2 30 04/23/19 04/23/19 04/23/19 04/23/19 12:00 12:00 12:33 12:45 Pulse 66 65 65 Resp 24 B/P (MAP) 143/59 (87) Pulse Ox 95 93 O2 Delivery Mechanical Ventilator Mechanical Ventilator O2 Flow Rate 30.00 FiO2 25 04/23/19 04/23/19 04/23/19 13:00 14:00 14:24 Pulse 66 82 93 Resp 24 23 24 B/P (MAP) 152/61 (91) 136/60 (85) Pulse Ox 93 100 92 O2 Delivery Mechanical Ventilator Mechanical Ventilator O2 Flow Rate 30.00 30.00 FiO2 30 04/23/19 00:00 Intake Total 1350 ml Output Total 1100 ml Balance 250 ml Constitutional: appears stated age; No apparent distress; well-developed, well- nourished Respiratory: No accessory muscle use, No respiratory distress, No chest tender, No chest expansion is symmetric, No lungs clear to percussion; crackles; No rhonchi, No rales, No stridor, No wheezing, No pleural rub; other (intubated/ventilated) Cardiovascular: regular rate-rhythm; No irregularly irregular, No extra beats, No parasternal heave is noted, No JVD, No edema, No bradycardia, No tachycardia, No point of maximal impulse, No cardiac thrills are palpable; S1 and S2; No gallop/S3, No gallop/S4, No diastolic murmur, No systolic murmur, No friction rub, No click, No other Gastrointestional: soft, round, audible bowel sounds; No spleenomegaly Extremities: normal range of motion, non-tender, normal inspection; No clubbing, No cyanosis; no lower extremity edema bilateral; No significant edema Neurologic/Psychiatric: No drywall boardhanger II-XII nml as tested, No no motor/sensory deficits, No alert, No normal mood/affect, No oriented x 3, No abnormal cerebellar tests, No abnormal drywall boardhanger II-XII, No abnormal gait, No aphasia, No EOM palsy, No facial droop, No motor weakness, No sensory deficit, No depressed affect, No disoriented x 3; other (intubated/ventilated); No grossly intact, No power is 5/5 both on sides Skin: normal color; No rash, No ulcerations Results/Procedures: Labs Laboratory Tests 04/22/19 17:46: Glucometer 201H 04/22/19 22:16: Hemoglobin 9.7#L, Hematocrit 28L 04/23/19 00:23: Glucometer 224H 04/23/19 03:25: Hemoglobin 8.4L, Hematocrit 25L, White Blood Count 11.3H, Red Blood Count 2.72L, Mean Corpuscular Volume 90, Mean Corpuscular Hemoglobin 31, Mean Corpuscular Hemoglobin Concent 34, Red Cell Distribution Width 14.9H, Platelet Count 146, Mean Platelet Volume 9.6, Neutrophils (%) (Auto) 81H, Lymphocytes (%) (Auto) 12, Monocytes (%) (Auto) 5, Eosinophils (%) (Auto) 2, Basophils (%) (Auto) 0, Neutrophils # (Auto) 9.2H, Lymphocytes # (Auto) 1.3, Monocytes # (Auto) 0.6, Eosinophils # (Auto) 0.2, Basophils # (Auto) 0.0, Blood Gas Puncture Site RIGHT ARTLINE, Blood Gas Patient Temperature 35.8, Arterial Blood pH 7.35L, Arterial Blood Partial Pressure CO2 31L, Arterial Blood Partial Pressure O2 61L, Arterial Blood HCO3 17*L, Arterial Blood Total CO2 18.2L, Arterial Blood Oxygen Saturation 91L, Arterial Blood Base Excess -7.7L, Hermelindo Test ARTLINE, Blood Gas Ventilator Setting YES, Blood Gas Inspired Oxygen 35%, Sodium Level 145, Potassium Level 2.8L, Chloride Level 124H, Carbon Dioxide Level 13L, Anion Gap 8, Blood Urea Nitrogen 22H, Creatinine 0.81, Estimat Glomerular Filtration Rate > 60, BUN/Creatinine Ratio 27, Glucose Level 158H, Calcium Level 6.6L, Phos phorus Level 2.3, Magnesium Level 1.8, B-Type Natriuretic Peptide 294.2H, Triglycerides Level 202H 04/23/19 12:16: Lab Scanned Report Transfusion Reaction Form 04/23/19 13:07: Glucometer 240H 04/23/19 13:08: Total Bilirubin 1.1H, Direct Bilirubin 0.5H, Indirect Bilirubin 0.6, Aspartate Amino Transf (AST/SGOT) 20, Alanine Aminotransferase (ALT/SGPT) 14, Alkaline Phosphatase 94, Troponin I 4.280*H, Total Protein 5.9L, Albumin 2.7L 04/23/19 13:30: Calcium Level 8.4L Microbiology 04/21/19 Blood Culture - Preliminary, Resulted No growth 04/21/19 Mycobacterial Culture - Preliminary, Resulted A/P: Assessment/Dx: Acute respiratory failure due to pulmonary hemorrhage, Acute blood loss anemia due to pulmonary hemorrhage, Non-STEMI, Diabetes, Hypertension, Hyperlipidemia, Active smoking, Acute kidney injury. Plan: Acute respiratory failure due to pulmonary hemorrhage, intubated/ventilated. Integrilin, heparin, Brilinta discontinued 04/20/2019. Significant improvement in oxygenation status. No further bleeding. Acute blood loss anemia due to pulmonary hemorrhage, no further active bleeding. Hemoglobin over 8 g/dL. Non-STEMI, patient presented with severe chest pain and positive cardiac enzymes. She was taken to the catheter lab on 04/20/2019. Diffuse calcified small arteries. However culprit artery was an OM1 with long stenotic segment with significant calcification in the proximal part. The vessel was of diameter was 2 mm. We decided to intervene. PTCA was done with reasonable results initially. The patient was very agitated during the procedure and wanted to sit up. And wanted to us to stop. We tried to cross the lesion in the proximal OM1 but could not cross the lesion and due to the agitation of the patient and inability of lying still, for the safety of the patient, we decided to pull the wire and stent back into the guide. Post angiogram shows significant recoil. Therefore IV integrillin and heparin were started. Due to the bleeding later in the afternoon on 04/20/2019 Integrilin, heparin and Brilinta were discontinued. No further chest pain however this morning significantly elevated troponin suggesting likely occlusion of the small culprit OM1, transient hypotension and severe anemia. Unfortunately due to significant bleeding we could not continue IV Integrilin, heparin and Brilinta. Repeat angiography is contraindicated due to severe bleeding. I discussed at length with the and explained the situation. I have requested the RN to find out from Dr. Lopez if we can gradually start Brilinta. Lovenox has been started today. Echocardiogram done on 04/21/2019 for which I was at the bedside showed no pericardial effusion. Hyperdynamic LV systolic function with an EF of 75 percent with no lateral wall motion abnormalities. Underfilling of the LV is recognized. Transient hypotension with significant drop in hemoglobin and hematocrit 04/20/2019, stat CT abdomen and pelvis done which ruled out retroperitoneal hemorrhage. Diabetes, severely elevated glucose. IV insulin. Hypertension, stable blood pressure. Arterial line. Hyperlipidemia, continue statin therapy. Active smoking, smoking cessation was strongly recommended. Acute kidney injury. Mildly worsening kidney function. Thank you for your consultation. Please call me if you have any questions. Annmarie Brar MD, FACP, FACC, FSCAI, FHRS, CCDS Interventional Cardiology Cardiac Electrophysiology Vascular Medicine and Endovascular Interventions Jen BRAR MD Apr 23, 2019 15:06
[2019-04-23] MEDS: ENOXAPARIN 40 MG/0.4 ML (LOVENOX) SYR SC SCH (20:37)
[2019-04-24] VITALS (33 sets, daily range): BP systolic 123–183; BP diastolic 54–80
[2019-04-24] MEDS: inSUlin ASPART (NovoLOG) 1 UNIT/0.01 ML (CHARGE PER UNIT) SC SCH ×4 (01:03→17:37)
[2019-04-24] MEDS: CEFEPIME INJECTION 1,000 MG in WATER (STERILE) FOR INJECTION 10 ML IV SCH ×4 (01:05→17:01)
[2019-04-24] MEDS: RT-ALBUTEROL/IPRATROPIUM 3 ML (DUONEB) VIAL INH SCH ×6 (02:55→23:05)
[2019-04-24 03:18] LABS: BASOPHILS % (AUTO) 0 % (0-10); EOSINOPHILS # (AUTO) 0.4 10^3/uL (0.0-0.3); EOSINOPHILS % (AUTO) 3 % (0-10); HEMATOCRIT 24 % (35-52); HEMOGLOBIN 8.2 G/DL (11.5-16.0); LYMPHOCYTES # (AUTO) 1.4 X 10^3 (1.0-4.0); LYMPHOCYTES % (AUTO) 13 % (12-44); MEAN CORPUSCULAR HEMOGLOBIN 31 PG (25-34); MEAN CORPUSCULAR HGB CONC 34 G/DL (32-36); MEAN CORPUSCULAR VOLUME 92 FL (80-99); MEAN PLATELET VOLUME 10.1 FL (7.4-10.4); MONOCYTES # (AUTO) 0.7 X 10^3 (0.0-1.0); MONOCYTES % (AUTO) 7 % (0-12); NEUTROPHILS # (AUTO) 7.9 X 10^3 (1.8-7.8); NEUTROPHILS % (AUTO) 77 % (42-75); PLATELET COUNT 160 10^3/uL (130-400); RED CELL DISTRIBUTION WIDTH 14.9 % (10.0-14.5); WHITE BLOOD COUNT 10.2 10^3/uL (4.3-11.0)
[2019-04-24 03:19] LABS: ABG BASE EXCESS -5.2 MMOL/L (-2.5-2.5); ABG OXYGEN SATURATION 85 % (94-100); ABG PCO2 32 MMHG (35-45); ABG PH 7.39 (7.37-7.43); ABG PO2 51 MMHG (79-93); ABG TCO2 20.1 MMOL/L (21.0-31.0)
[2019-04-24 03:20] LABS: ALLENS TEST ARTLINE; INSPIRED O2 21%; PATIENT TEMP 36; VENTILATOR YES
[2019-04-24 03:37] LABS: BUN/CREATININE RATIO 21; CALCIUM 6.5 MG/DL (8.5-10.1); CARBON DIOXIDE 14 MMOL/L (21-32); CHLORIDE 124 MMOL/L (98-107); CREATININE SERUM 0.87 MG/DL (0.60-1.30); GFR ESTIMATED > 60; GLUCOSE 155 MG/DL (70-105); MAGNESIUM 1.9 MG/DL (1.6-2.4); PHOSPHORUS 2.9 MG/DL (2.3-4.7); POTASSIUM 2.9 MMOL/L (3.6-5.0); SODIUM 145 MMOL/L (135-145)
[2019-04-24] MEDS: DEXMEDETOMIDINE INJECTION 1,000 MCG in NS (IVPB) 240 ML IV SCH ×3 (04:28→17:02)
[2019-04-24] MEDS: PROPOFOL DRIP (ICU) 100 ML IV SCH ×4 (04:29→22:43)
[2019-04-24] MEDS: POTASSIUM CL 10MEQ/50ML IVPB 50 ML IV SCH ×11 (05:17→11:55)
[2019-04-24] MEDS: MAGNESIUM 1 GM/100 ML IVPB 100 ML IV SCH (05:42)
[2019-04-24] MEDS: KCL 20 MEQ TAB (K-DUR) PO SCH (05:43)
[2019-04-24] MEDS ORDERED: POTASSIUM CHLORIDE INJ 20 MEQ in 1/2 NS IV SOLUTION 1,000 ML IV SCH (06:16)
[2019-04-24] MEDS: RT-BUDESONIDE NEBS 0.5 MG/2ML (PULMICORT) AMP INH SCH ×2 (06:27→18:26)
--- NOTE | 2019-04-24 06:27 | Pulmonary Progress Note ---
Subjective Time Seen by a Provider: 06:30 Subjective/Events-last exam Pt is sedated on vent. Sepsis Event Evaluation Height, Weight, BMI Height: '" Weight: lbs. oz. kg; 37.22 BMI Method: Exam Exam Vital Signs Date Time Temp Pulse Resp B/P (MAP) Pulse Ox O2 Delivery O2 Flow Rate FiO2 04/24/19 04:38 79 24 131/54 (79) 92 Mechanical Ventilator 25.00 04/24/19 04:29 129/54 04/24/19 04:00 91 Mechanical Ventilator 25 04/24/19 04:00 84 24 128/55 (79) 92 Mechanical Ventilator 21.00 04/24/19 03:00 75 23 143/59 (87) 96 Mechanical Ventilator 21.00 04/24/19 02:55 75 24 96 21 04/24/19 02:00 79 23 144/60 (88) 96 Mechanical Ventilator 25.00 04/24/19 01:00 80 04/24/19 01:00 80 30 143/62 (89) 94 Mechanical Ventilator 25.00 04/24/19 00:00 36.1 04/24/19 00:00 75 24 145/61 (89) 95 Mechanical Ventilator 25.00 04/24/19 00:00 91 Mechanical Ventilator 25 04/23/19 23:00 77 26 128/56 (80) 95 Mechanical Ventilator 25.00 04/23/19 22:37 147/61 04/23/19 22:25 70 24 95 25 04/23/19 22:00 69 24 161/66 (97) 95 Mechanical Ventilator 25.00 04/23/19 21:00 73 24 150/62 (91) 94 Mechanical Ventilator 25.00 04/23/19 20:00 91 Mechanical Ventilator 25 04/23/19 19:54 35.6 75 33 152/63 (92) 91 Mechanical Ventilator 25.00 04/23/19 19:25 75 25 96 25 04/23/19 19:00 78 04/23/19 19:00 76 25 159/67 (97) 95 Mechanical Ventilator 30.00 04/23/19 18:00 77 24 146/62 (90) 93 Mechanical Ventilator 30.00 04/23/19 17:23 82 04/23/19 17:00 81 24 155/66 (95) 93 Mechanical Ventilator 30.00 04/23/19 16:37 35.9 04/23/19 16:00 91 23 135/62 (86) 93 Mechanical Ventilator 30.00 04/23/19 16:00 95 Mechanical Ventilator 25 04/23/19 15:00 93 25 135/62 (86) 93 Mechanical Ventilator 30.00 04/23/19 14:24 93 24 92 30 04/23/19 14:00 82 23 136/60 (85) 100 Mechanical Ventilator 30.00 04/23/19 13:00 66 24 152/61 (91) 93 Mechanical Ventilator 30.00 04/23/19 12:45 65 04/23/19 12:33 65 04/23/19 12:00 66 24 143/59 (87) 93 Mechanical Ventilator 30.00 04/23/19 12:00 95 Mechanical Ventilator 25 04/23/19 11:00 66 23 151/63 (92) 93 Mechanical Ventilator 30.00 04/23/19 10:43 70 24 90 30 04/23/19 10:00 69 23 140/61 (87) 94 Mechanical Ventilator 30.00 04/23/19 09:00 72 24 131/58 (82) 94 Mechanical Ventilator 30.00 04/23/19 08:00 68 23 145/64 (91) 95 Mechanical Ventilator 30.00 04/23/19 07:50 67 148/64 04/23/19 07:46 35.8 04/23/19 07:43 95 Mechanical Ventilator 25 04/23/19 07:00 71 23 130/57 (81) 94 Mechanical Ventilator 30.00 04/23/19 07:00 71 I & O 04/24/19 07:00 Intake Total 1470 ml Output Total 6175 ml Balance -4705 ml Height & Weight Height: '" Weight: lbs. oz. kg; 37.22 BMI Method: General Appearance: No Apparent Distress, Anxious, Obese HEENT: Pharynx Normal Neck: Full Range of Motion, Normal Inspection, Non Tender Respiratory: Chest Non Tender, No Accessory Muscle Use, No Respiratory Distress, Decreased Breath Sounds, Wheezing Cardiovascular: Regular Rate, Rhythm, No JVD, No Murmur, Normal Peripheral Pulses Capillary Refill: Less Than 3 Seconds Peripheral Pulses: 2+ Dorsalis Pedis (R), 2+ Left Dors-Pedis (L), 2+ Radial Pulses (R), 2+ Radial Pulses (L) Gastrointestinal: non tender, soft, no organomegaly, no pulsatile mass Extremity: Normal Capillary Refill, Normal Inspection, Normal Range of Motion, Non Tender, Pedal Edema (L>R) Neurologic/Psychiatric: Alert, Oriented x3, No Motor/Sensory Deficits, Normal Mood/Affect Skin: Normal Color, Warm/Dry Lymphatic: No Adenopathy Results Lab Laboratory Tests 04/22/19 14:16 04/22/19 22:16 04/23/19 03:25 04/24/19 03:10 Assessment/Plan Assessment/Plan Acute respiratory failure with acute hemoptysis- improved since bronchoscopy and intubation 04/21 -Anticoagulation is on hold - repeat lasix and spironolactone today -Continue vent -Will start weaning vent tomorrow -Check BNP Pnuemonia with probable MSSA -MRSA swab is negative -Continue Cefepime pulmonary hemorrhage secondary to anticoagulation -RN states she is still suctioning out BRB -Lovenox PPX dose started yesterday -I would recommend holding off on Brilinta for at least another 48hrs -Pt will be high risk for recurrent pulmonary hemorrhage CP s/p cath -Cardiology following COPD - Duonebs Q4H Hypokalemia, hypophos -replace NIDDMII with hyperglycemia -D/C insulin gtt -SSI DREW - Fluid replacement HTN -Monitor CAD -cardiology consult PAD Hx of GA CABG DANGELO DURAN DO Apr 24, 2019 06:27
[2019-04-24] MEDS ORDERED: SPIRONOLACTONE 100 MG (ALDACTONE) TABLET PO ONE (06:30)
--- NOTE | 2019-04-24 08:09 | Physical Therapy Progress Note ---
Therapy Progress Note Patient currently sedated and on ventilator. PT to continue to monitor patient status and assess when medically stable and able to actively participate with therapy. CLAUS DONOHUE PT Apr 24, 2019 08:09
--- NOTE | 2019-04-24 08:15 | Occ Therapy Progress Note ---
Therapy Progress Note Continuing to monitor pt. Pt. currently sedated and on mechanical support. 0815 BOBBY MUHAMMAD OT Apr 24, 2019 08:15
--- NOTE | 2019-04-24 08:41 | Diagnostic Imaging Report ---
INDICATION: Shortness of breath, intubated COMPARISON: 04/23/2019 FINDINGS: Single view chest demonstrates stable support lines. Persistent cardiac enlargement with slightly improved aeration of both lungs. There are small effusions with dependent atelectasis. No pneumothorax is seen. IMPRESSION: 1. Persistent but slightly decreased bilateral pulmonary infiltrates. 2. Stable support lines. Dictated by: Dictated on workstation # [id number]
[2019-04-24] MEDS: 1/2 NS W/KCL 20 MEQ/L 1,000 ML IV SCH (08:51)
[2019-04-24] MEDS: ENOXAPARIN 40 MG/0.4 ML (LOVENOX) SYR SC SCH ×2 (08:52→20:09)
[2019-04-24] MEDS: PANTOPRAZOLE 40 MG (PROTONIX) VIAL IV SCH (08:52)
[2019-04-24] MEDS: FUROSEMIDE 40 MG/4 ML INJ (LASIX) IVP SCH (08:52)
[2019-04-24] MEDS: meTOprolol TARTRATE 50 MG (LOPRESSOR) TAB PO SCH ×2 (08:52→20:09)
[2019-04-24] MEDS: lisINopril 5 MG (PRINIVIL) TABLET PO SCH (08:53)
[2019-04-24] MEDS: ASPIRIN E.C. 81 MG (ECOTRIN) TAB PO SCH (08:53)
--- NOTE | 2019-04-24 10:13 | Progress Note ---
Subjective Subjective/Events-last exam Afebrile, no acute events. Objective Exam Last Set of Vital Signs Vital Signs Date Time Temp Pulse Resp B/P (MAP) Pulse Ox O2 Delivery O2 Flow Rate FiO2 04/24/19 10:00 74 25 153/79 (103) 91 Mechanical Ventilator 25.00 04/24/19 08:00 36.2 04/24/19 08:00 25 Capillary Refill : Less Than 3 Seconds I&O Intake and Output 04/24/19 00:00 Intake Total 1870 ml Output Total 6375 ml Balance -4505 ml Intake Oral 0 ml IV Total 1770 ml Other 100 ml Output Urine Total 6375 ml General: Other (sedated, intubated) Lungs: Other (ronchi) Heart: Regular Rate, No Murmurs Abdomen: Normal Bowel Sounds, Soft Results/Procedures Lab Laboratory Tests 04/23/19 12:16: Lab Scanned Report Transfusion Reaction Form 04/23/19 13:07: Glucometer 240H 04/23/19 13:08: Total Bilirubin 1.1H, Direct Bilirubin 0.5H, Indirect Bilirubin 0.6, Aspartate Amino Transf (AST/SGOT) 20, Alanine Aminotransferase (ALT/SGPT) 14, Alkaline Phosphatase 94, Troponin I 4.280*H, Total Protein 5.9L, Albumin 2.7L 04/23/19 13:30: Calcium Level 8.4L 04/23/19 17:17: Glucometer 280H 04/24/19 01:00: Glucometer 183H 04/24/19 03:10: White Blood Count 10.2, Red Blood Count 2.62L, Hemoglobin 8.2L, Hematocrit 24L, Mean Corpuscular Volume 92, Mean Corpuscular Hemoglobin 31, Mean Corpuscular Hemoglobin Concent 34, Red Cell Distribution Width 14.9H, Platelet Count 160, Mean Platelet Volume 10.1, Neutrophils (%) (Auto) 77H, Lymphocytes (%) (Auto) 13, Monocytes (%) (Auto) 7, Eosinophils (%) (Auto) 3, Basophils (%) (Auto) 0, Neutrophils # (Auto) 7.9H, Lymphocytes # (Auto) 1.4, Monocytes # (Auto) 0.7, Eosinophils # (Auto) 0.4H, Basophils # (Auto) 0.0, Blood Gas Puncture Site RIGHT ARTLINE, Blood Gas Patient Temperature 36, Arterial Blood pH 7.39, Arterial Blood Partial Pressure CO2 32L, Arterial Blood Partial Pressure O2 51L, Arterial Blood HCO3 19L, Arterial Blood Total CO2 20.1L, Arterial Blood Oxygen Saturation 85L, Arterial Blood Base Excess -5.2L, Hermelindo Test ARTLINE, Blood Gas Ventilator Setting YES, Blood Gas Inspired Oxygen 21%, Sodium Level 145, Potassium Level 2.9L, Chloride Level 124H, Carbon Dioxide Level 14L, Anion Gap 7, Blood Urea Nitrogen 18, Creatinine 0.87, Estimat Glomerular Filtration Rate > 60, BUN/Creatinine Ratio 21, Glucose Level 155H, Calcium Level 6.5L, Phosphorus Level 2.9, Magnesium Level 1.9, B-Type Natriuretic Peptide 206.3H Microbiology 04/21/19 Blood Culture - Preliminary, Resulted No growth 04/21/19 Mycobacterial Culture - Preliminary, Resulted Assessment/Plan Assessment/Plan (1) NSTEMI (non-ST elevated myocardial infarction) Status: Acute Assessment & Plan: Cardiology following, had cath but OM1 needing intervention was not able to be done and repeat not possible due to bleeding, monitoring closely. Echo 04/19 with EF 55-65% and grade 2 diastolic dysfunction, repeat on 04/21 with hyperdynamic function. -Holding antiplatelets due to pulmonary hemorrhage (2) Acute respiratory failure Status: Acute Assessment & Plan: Secondary to pulmonary hemorrhage. Intubated, BAL done and culture with < 1000 staph aureus. Fungal culture neg to date. Improving hypoxia. Appreciate Pulm recommendations. On furosemide 40 mg IV daily. (3) COPD with exacerbation Status: Acute Assessment & Plan: Fred, was on IV methylprednisolone, now d/c. Appreciate Pulm recommendations. (4) Pulmonary hemorrhage Status: Acute Assessment & Plan: Thought to be secondary to blood thinners needed for CAD. Antiplatelets and pharmacologic DVT ppx held. 04/23 enoxaparin resumed, monitor closely. (5) Acute hyperglycemia Status: Acute Assessment & Plan: Requiring insulin drip on admit, but without DKA. Currently off drip and using sliding scale. (6) Diabetes mellitus, type 2 Status: Chronic (7) Acute blood loss anemia Status: Acute Assessment & Plan: Pulmonary hemorrhage. Also had hypotension during stay and CT abdomen/pelvis done to rule out retroperitoneal bleed which was negative. s/p 3 units PRBCs (8) Hypertension Status: Chronic Qualifiers: Qualified Codes: I10 - Essential (primary) hypertension (9) Hypotension Status: Resolved (10) Acute kidney injury Status: Resolved (11) Hypocalcemia Status: Acute Assessment & Plan: Corrected calcium 7.6 on 04/23, will give IV calcium given intubated and NPO and recheck this pm. 04/24 increased yesterday pm, but dropped again this am, repeat dose, may need continued replacement until able to take oral. (12) Hypokalemia Status: Acute Assessment & Plan: Replace and follow. (13) Hyperchloremic metabolic acidosis Status: Acute Assessment & Plan: Change IVF to 1/2 NS on 04/23. (14) DVT prophylaxis Status: Acute Assessment & Plan: Enoxaparin started 04/23, held prior due to pulmonary hemorrhage Clinical Quality Measures DVT/VTE Risk/Contraindication: Risk Factor Score Per Nursin RFS Level Per Nursing on Admit: 4+=Very High KAYLAN GARZON MD Apr 24, 2019 10:13
[2019-04-24] MEDS ORDERED: CALCIUM GLUCONATE 10% INJ 4.65 MEQ in NS (IVPB) 50 ML IV ONE (10:15)
--- NOTE | 2019-04-24 14:12 | Cardiology Progress Note ---
Cardiology SOAP Progress Note Subjective: Intubated/ventilated. Objective: I&O/Vital Signs 04/24/19 04/24/19 04/24/19 04/24/19 02:55 03:00 04:00 04:00 Pulse 75 75 84 Resp 24 23 24 B/P (MAP) 143/59 (87) 128/55 (79) Pulse Ox 96 96 92 91 O2 Delivery Mechanical Ventilator Mechanical Ventilator Mechanical Ventilator O2 Flow Rate 21.00 21.00 FiO2 21 25 04/24/19 04/24/19 04/24/19 04/24/19 04:29 04:38 05:00 06:00 Pulse 79 77 77 Resp 24 24 23 B/P (MAP) 129/54 131/54 (79) 148/60 (89) 150/61 (90) Pulse Ox 92 94 94 O2 Delivery Mechanical Ventilator Mechanical Ventilator Mechanical Ventilator O2 Flow Rate 25.00 25.00 25.00 04/24/19 04/24/19 04/24/19 04/24/19 06:32 07:00 07:00 08:00 Pulse 82 80 83 75 Resp 26 25 24 B/P (MAP) 148/62 (90) 154/63 (93) Pulse Ox 94 97 95 O2 Delivery Mechanical Ventilator Mechanical Ventilator O2 Flow Rate 25.00 25.00 FiO2 25 04/24/19 04/24/19 04/24/19 04/24/19 08:00 08:00 09:00 10:00 Temp 36.2 Pulse 80 74 Resp 24 25 B/P (MAP) 162/68 (99) 153/79 (103) Pulse Ox 93 91 O2 Delivery Mechanical Ventilator Mechanical Ventilator Mechanical Ventilator O2 Flow Rate 25.00 25.00 FiO2 25 04/24/19 04/24/19 04/24/19 04/24/19 10:32 11:00 12:00 12:10 Temp 36.1 Pulse 72 74 75 73 Resp 24 25 24 24 B/P (MAP) 134/71 (92) 123/66 (85) 132/69 (90) Pulse Ox 90 90 90 89 O2 Delivery Mechanical Ventilator Mechanical Ventilator O2 Flow Rate 25.00 25.00 FiO2 25 04/24/19 04/24/19 04/24/19 12:28 13:00 14:01 Pulse 72 77 75 Resp 28 B/P (MAP) 155/73 (100) Pulse Ox 96 O2 Delivery Mechanical Ventilator O2 Flow Rate 25.00 04/24/19 00:00 Intake Total 1070 ml Output Total 3000 ml Balance -1930 ml Constitutional: appears stated age; No apparent distress; well-developed, well- nourished Respiratory: No accessory muscle use, No respiratory distress, No chest tender, No chest expansion is symmetric, No lungs clear to percussion; crackles; No rhonchi, No rales, No stridor, No wheezing, No pleural rub; other (intubated/ventilated) Cardiovascular: regular rate-rhythm; No irregularly irregular, No extra beats, No parasternal heave is noted, No JVD, No edema, No bradycardia, No tachycardia, No point of maximal impulse, No cardiac thrills are palpable; S1 and S2; No gallop/S3, No gallop/S4, No diastolic murmur, No systolic murmur, No friction rub, No click, No other Gastrointestional: soft, round, audible bowel sounds; No spleenomegaly Extremities: normal range of motion, non-tender, normal inspection; No clubbing, No cyanosis; no lower extremity edema bilateral; No significant edema Neurologic/Psychiatric: No tester compressed gases II-XII nml as tested, No no motor/sensory deficits, No alert, No normal mood/affect, No oriented x 3, No abnormal cerebellar tests, No abnormal tester compressed gases II-XII, No abnormal gait, No aphasia, No EOM palsy, No facial droop, No motor weakness, No sensory deficit, No depressed affect, No disoriented x 3; other (intubated/ventilated); No grossly intact, No power is 5/5 both on sides Skin: normal color; No rash, No ulcerations Results/Procedures: Labs Laboratory Tests 04/23/19 17:17: Glucometer 280H 04/24/19 01:00: Glucometer 183H 04/24/19 03:10: White Blood Count 10.2, Red Blood Count 2.62L, Hemoglobin 8.2L, Hematocrit 24L, Mean Corpuscular Volume 92, Mean Corpuscular Hemoglobin 31, Mean Corpuscular Hemoglobin Concent 34, Red Cell Distribution Width 14.9H, Platelet Count 160, Mean Platelet Volume 10.1, Neutrophils (%) (Auto) 77H, Lymphocytes (%) (Auto) 13, Monocytes (%) (Auto) 7, Eosinophils (%) (Auto) 3, Basophils (%) (Auto) 0, Neutrophils # (Auto) 7.9H, Lymphocytes # (Auto) 1.4, Monocytes # (Auto) 0.7, Eosinophils # (Auto) 0.4H, Basophils # (Auto) 0.0, Blood Gas Puncture Site RIGHT ARTLINE, Blood Gas Patient Temperature 36, Arterial Blood pH 7.39, Arterial Blood Partial Pressure CO2 32L, Arterial Blood Partial Pressure O2 51L, Arterial Blood HCO3 19L, Arterial Blood Total CO2 20.1L, Arterial Blood Oxygen Saturation 85L, Arterial Blood Base Excess -5.2L, Hermelindo Test ARTLINE, Blood Gas Ventilator Setting YES, Blood Gas Inspired Oxygen 21%, Sodium Level 145, Potassium Level 2.9L, Chloride Level 124H, Carbon Dioxide Level 14L, Anion Gap 7, Blood Urea Nitrogen 18, Creatinine 0.87, Estimat Glomerular Filtration Rate > 60, BUN/Creatinine Ratio 21, Glucose Level 155H, Calcium Level 6.5L, Phosphorus Level 2.9, Magnesium Level 1.9, B-Type Natriuretic Peptide 206.3H 04/24/19 11:22: Glucometer 198H Microbiology 04/21/19 Blood Culture - Preliminary, Resulted No growth 04/21/19 Mycobacterial Culture - Preliminary, Resulted A/P: Assessment/Dx: Acute respiratory failure due to pulmonary hemorrhage, Acute blood loss anemia due to pulmonary hemorrhage, Non-STEMI, Diabetes, Hypertension, Hyperlipidemia, Active smoking, Acute kidney injury. Plan: Acute respiratory failure due to pulmonary hemorrhage, intubated/ventilated. Integrilin, heparin, Brilinta discontinued 04/20/2019. Significant improvement in oxygenation status. No further bleeding. Acute blood loss anemia due to pulmonary hemorrhage, no further active bleeding. Hemoglobin over 8 g/dL. Non-STEMI, patient presented with severe chest pain and positive cardiac enzymes. She was taken to the catheter lab on 04/20/2019. Diffuse calcified small arteries. However culprit artery was an OM1 with long stenotic segment with significant calcification in the proximal part. The vessel was of diameter was 2 mm. We decided to intervene. PTCA was done with reasonable results initially. The patient was very agitated during the procedure and wanted to sit up. And wanted to us to stop. We tried to cross the lesion in the proximal OM1 but could not cross the lesion and due to the agitation of the patient and inability of lying still, for the safety of the patient, we decided to pull the wire and stent back into the guide. Post angiogram shows significant recoil. Therefore IV integrillin and heparin were started. Due to the bleeding later in the afternoon on 04/20/2019 Integrilin, heparin and Brilinta were discontinued. No further chest pain however this morning significantly elevated troponin suggesting likely occlusion of the small culprit OM1, transient hypotension and severe anemia. Unfortunately due to significant bleeding we could not continue IV Integrilin, heparin and Brilinta. Repeat angiography is contraindicated due to severe bleeding. I discussed at length with the and explained the situation. I have requested the RN to find out from Dr. Lopez if we can gradually start Brilinta. Lovenox has been started 04/23/2019. Echocardiogram done on 04/21/2019 for which I was at the bedside showed no pericardial effusion. Hyperdynamic LV systolic function with an EF of 75 percent with no lateral wall motion abnormalities. Underfilling of the LV is recognized. Transient hypotension with significant drop in hemoglobin and hematocrit 04/20/2019, stat CT abdomen and pelvis done which ruled out retroperitoneal hemorrhage. Diabetes, severely elevated glucose. IV insulin. Hypertension, stable blood pressure. Arterial line. Hyperlipidemia, continue statin therapy. Active smoking, smoking cessation was strongly recommended. Acute kidney injury. Mildly worsening kidney function. Thank you for your consultation. Please call me if you have any questions. Annmarie Brar MD, FACP, FACC, FSCAI, FHRS, CCDS Interventional Cardiology Cardiac Electrophysiology Vascular Medicine and Endovascular Interventions Jen BRAR MD Apr 24, 2019 14:12
[2019-04-24 15:04] LABS: ABG BASE EXCESS -2.5 MMOL/L (-2.5-2.5); ABG OXYGEN SATURATION 89 % (94-100); ABG PCO2 32 MMHG (35-45); ABG PH 7.44 (7.37-7.43); ABG PO2 55 MMHG (79-93); ABG TCO2 22.2 MMOL/L (21.0-31.0)
[2019-04-24 15:08] LABS: ALLENS TEST ARTLINE; VENTILATOR YES
[2019-04-24 15:09] LABS: INSPIRED O2 30%; PATIENT TEMP 36.1
[2019-04-24 15:13] LABS: CALCIUM 9.5 MG/DL (8.5-10.1); CREATININE SERUM 1.42 MG/DL (0.60-1.30); POTASSIUM 5.1 MMOL/L (3.6-5.0)
[2019-04-25] VITALS (33 sets, daily range): BP systolic 94–174; BP diastolic 52–82
[2019-04-25] MEDS: inSUlin ASPART (NovoLOG) 1 UNIT/0.01 ML (CHARGE PER UNIT) SC SCH ×5 (00:11→23:27)
[2019-04-25] MEDS: CEFEPIME INJECTION 1,000 MG in WATER (STERILE) FOR INJECTION 10 ML IV SCH ×2 (00:11→06:51)
[2019-04-25] MEDS: RT-ALBUTEROL/IPRATROPIUM 3 ML (DUONEB) VIAL INH SCH ×6 (03:15→22:45)
[2019-04-25] MEDS: DEXMEDETOMIDINE INJECTION 1,000 MCG in NS (IVPB) 240 ML IV SCH ×3 (03:36→18:58)
[2019-04-25 03:45] LABS: ABG BASE EXCESS -1.3 MMOL/L (-2.5-2.5); ABG OXYGEN SATURATION 84 % (94-100); ABG PCO2 32 MMHG (35-45); ABG PH 7.46 (7.37-7.43); ABG PO2 50 MMHG (79-93); ABG TCO2 23.2 MMOL/L (21.0-31.0); BASOPHILS % (AUTO) 0 % (0-10); EOSINOPHILS # (AUTO) 0.7 10^3/uL (0.0-0.3); EOSINOPHILS % (AUTO) 6 % (0-10); HEMATOCRIT 27 % (35-52); LYMPHOCYTES # (AUTO) 2.5 X 10^3 (1.0-4.0); LYMPHOCYTES % (AUTO) 20 % (12-44); MEAN CORPUSCULAR HEMOGLOBIN 31 PG (25-34); MEAN CORPUSCULAR HGB CONC 33 G/DL (32-36); MEAN CORPUSCULAR VOLUME 93 FL (80-99); MEAN PLATELET VOLUME 9.8 FL (7.4-10.4); MONOCYTES % (AUTO) 8 % (0-12); NEUTROPHILS # (AUTO) 8.2 X 10^3 (1.8-7.8); NEUTROPHILS % (AUTO) 66 % (42-75); PLATELET COUNT 196 10^3/uL (130-400); RED CELL DISTRIBUTION WIDTH 15.6 % (10.0-14.5); WHITE BLOOD COUNT 12.4 10^3/uL (4.3-11.0)
[2019-04-25 03:47] LABS: ALLENS TEST ARTLINE; INSPIRED O2 30%; PATIENT TEMP 36.3; VENTILATOR YES
[2019-04-25 04:04] LABS: CALCIUM 7.6 MG/DL (8.5-10.1); CREATININE SERUM 0.99 MG/DL (0.60-1.30); PHOSPHORUS 2.4 MG/DL (2.3-4.7); POTASSIUM 3.8 MMOL/L (3.6-5.0)
[2019-04-25] MEDS: 1/2 NS W/KCL 20 MEQ/L 1,000 ML IV SCH ×2 (05:44→23:24)
[2019-04-25] MEDS ORDERED: SPIRONOLACTONE 100 MG (ALDACTONE) TABLET PO ONE (06:00)
[2019-04-25] MEDS ORDERED: MIDAZOLAM 5 MG/5 ML (VERSED) VIAL ONE (06:43)
[2019-04-25] MEDS ORDERED: fentaNYL INJECTION 100 MCG/2 ML AMP ONE (06:43)
[2019-04-25] MEDS: POTASSIUM CL 10MEQ/50ML IVPB 50 ML IV SCH ×4 (06:58→17:45)
[2019-04-25] MEDS: MAGNESIUM 1 GM/100 ML IVPB 100 ML IV SCH (06:58)
[2019-04-25] MEDS: KCL 20 MEQ TAB (K-DUR) PO SCH (06:58)
--- NOTE | 2019-04-25 07:00 | NUR ---
Timeline Note: 4mg Versed given - 647 50mcg fentanyl given - 647 0650 - Bronchoscopy performed by Dr. Lopez 0715 - Bronchoscopy is done, patient doing well and will continue to monitor.
[2019-04-25] MEDS: PROPOFOL DRIP (ICU) 100 ML IV SCH ×2 (07:12→12:34)
[2019-04-25] MEDS: RT-BUDESONIDE NEBS 0.5 MG/2ML (PULMICORT) AMP INH SCH ×2 (07:20→22:45)
--- NOTE | 2019-04-25 07:36 | Pulmonary Progress Note ---
Subjective Time Seen by a Provider: 04:45 Subjective/Events-last exam Sedated on vent. PT has copious amounts of dark blood/blood clots with suct ioning. Sepsis Event Evaluation Height, Weight, BMI Height: '" Weight: lbs. oz. kg; 37.22 BMI Method: Exam Exam Vital Signs Date Time Temp Pulse Resp B/P (MAP) Pulse Ox O2 Delivery O2 Flow Rate FiO2 04/25/19 07:21 89 28 92 30 04/25/19 07:12 101/54 04/25/19 06:00 80 32 148/70 (96) 91 Mechanical Ventilator 30.00 04/25/19 05:00 81 26 163/76 (105) 93 Mechanical Ventilator 30.00 04/25/19 04:00 79 27 150/71 (97) 93 Mechanical Ventilator 30.00 04/25/19 04:00 36.3 04/25/19 04:00 95 Mechanical Ventilator 30 04/25/19 03:15 75 24 94 30 04/25/19 03:00 73 26 174/78 (110) 90 Mechanical Ventilator 30.00 04/25/19 02:00 71 23 153/71 (98) 90 Mechanical Ventilator 30.00 04/25/19 01:00 75 04/25/19 01:00 75 25 155/73 (100) 90 Mechanical Ventilator 30.00 04/25/19 00:17 74 24 174/82 (112) 96 Mechanical Ventilator 30.00 04/25/19 00:03 36.8 04/25/19 00:00 95 Mechanical Ventilator 30 04/25/19 00:00 81 21 130/68 (88) Mechanical Ventilator 25.00 04/24/19 23:05 68 25 92 30 04/24/19 23:00 70 24 182/80 (114) 92 Mechanical Ventilator 25.00 04/24/19 22:43 160/79 04/24/19 22:00 70 23 148/73 (98) 95 Mechanical Ventilator 25.00 04/24/19 21:00 72 24 151/74 (99) 94 Mechanical Ventilator 25.00 04/24/19 20:00 95 Mechanical Ventilator 30 04/24/19 20:00 74 25 149/74 (99) 95 Mechanical Ventilator 25.00 04/24/19 19:40 36.2 78 24 144/73 (96) 95 04/24/19 19:00 74 04/24/19 19:00 74 24 136/70 (92) 95 Mechanical Ventilator 25.00 04/24/19 18:26 76 24 98 30 04/24/19 18:00 71 24 153/75 (101) 98 Mechanical Ventilator 25.00 04/24/19 17:02 70 04/24/19 17:00 68 23 162/71 (101) 97 Mechanical Ventilator 25.00 04/24/19 16:01 36.0 72 24 139/66 (90) 97 04/24/19 16:00 95 Mechanical Ventilator 30 04/24/19 15:00 71 23 138/66 (90) 98 Mechanical Ventilator 25.00 04/24/19 14:19 77 29 94 30 04/24/19 14:01 75 04/24/19 14:00 76 25 143/68 (93) 95 Mechanical Ventilator 25.00 04/24/19 13:00 77 28 155/73 (100) 96 Mechanical Ventilator 25.00 04/24/19 12:28 72 04/24/19 12:10 36.1 73 24 132/69 (90) 89 04/24/19 12:00 75 24 123/66 (85) 90 Mechanical Ventilator 25.00 04/24/19 12:00 95 Mechanical Ventilator 30 04/24/19 11:00 74 25 134/71 (92) 90 Mechanical Ventilator 25.00 04/24/19 10:32 72 24 90 25 04/24/19 10:00 74 25 153/79 (103) 91 Mechanical Ventilator 25.00 04/24/19 09:00 80 24 162/68 (99) 93 Mechanical Ventilator 25.00 04/24/19 08:00 36.2 04/24/19 08:00 Mechanical Ventilator 25 04/24/19 08:00 75 24 154/63 (93) 95 Mechanical Ventilator 25.00 I & O 04/25/19 07:00 Intake Total 3370 ml Output Total 7000 ml Balance -3630 ml Height & Weight Height: '" Weight: lbs. oz. kg; 37.22 BMI Method: General Appearance: No Apparent Distress, Anxious, Obese, Other (sedated on vent) HEENT: Pharynx Normal Neck: Full Range of Motion, Normal Inspection, Non Tender Respiratory: Chest Non Tender, No Accessory Muscle Use, No Respiratory Distress, Decreased Breath Sounds, Rhonci Cardiovascular: Regular Rate, Rhythm, No JVD, No Murmur, Normal Peripheral Pulses Capillary Refill: Less Than 3 Seconds Peripheral Pulses: 2+ Dorsalis Pedis (R), 2+ Left Dors-Pedis (L), 2+ Radial Pulses (R), 2+ Radial Pulses (L) Gastrointestinal: non tender, soft, no organomegaly, no pulsatile mass Extremity: Normal Capillary Refill, Normal Inspection, Normal Range of Motion, Non Tender, Pedal Edema (L>R) Neurologic/Psychiatric: No Motor/Sensory Deficits, Normal Mood/Affect Skin: Normal Color, Warm/Dry Lymphatic: No Adenopathy Results Lab Laboratory Tests 04/24/19 03:10 04/24/19 14:46 04/25/19 03:32 Assessment/Plan Assessment/Plan Acute respiratory failure with acute hemoptysis- improved since bronchoscopy and intubation 04/21 -Anticoagulation is on hold - repeat lasix and spironolactone today -Continue vent -Secondary to to copious dark blood/blood clots with suctioning will proceed with repeat bedside bronchoscopy. -Check BNP Pnuemonia with MSSA -MRSA swab is negative -Continue Cefepime x 7 days then D/c pulmonary hemorrhage secondary to anticoagulation -RN states she is still suctioning out BRB and dark blood -Lovenox PPX dose -I would recommend holding off on Brilinta for at least another 48hrs -Pt will be high risk for recurrent pulmonary hemorrhage CP s/p cath -Cardiology following COPD - Duonebs Q4H Hypokalemia, hypophos -replace NIDDMII with hyperglycemia -SSI DREW - Fluid replacement HTN -Monitor CAD -cardiology consult PAD Hx of NE CABG DANGELO DURAN DO Apr 25, 2019 07:36
--- NOTE | 2019-04-25 07:46 | Diagnostic Imaging Report ---
INDICATION: Bronchoscopy. 0730 hours. FINDINGS: Portable upright AP view of the chest is obtained with comparison made to study of earlier in the day. Overall heart size is within normal limits. There is prominence of pulmonary vascularity. There is increased density in the perihilar regions as well as left base. Endotracheal tube is in place with tip just below thoracic inlet. Nasogastric tube passes below the diaphragm. Right jugular central venous catheter is in stable position. Note is made of vascular stent in the upper mediastinum. There is no evidence of pneumothorax. IMPRESSION: Bilateral perihilar densities as well as opacification of the left base. Overall there is no evidence of acute abnormality or adverse change. Dictated by: Dictated on workstation # [id number]
--- NOTE | 2019-04-25 07:47 | Pulmonary Procedures ---
Pulmonary Procedures Date of Procedure Date of Service: Apr 25, 2019 Bronch Bronchoscopy with bilateral bronchial washes to remove mucous plugs and dark blood/blood clots. Multiple passes in and out were made secondary to clots/mucous clogging bronchoscope Preop DX pulmonary hemorrhage Postop DX: Copious amounts of dark blood and blood clots removed. multiple passes in and out were made secondary to clots/mucous clogging bronchoscope. Complications: none - No endobronchial mass. All segments were evaluated. After informed consent obtained and formal time out pt was sedated using propofol, Fentanyl and Versed. Bronchoscope advance through endotracheal tube. Procedure went as described above. DANGELO DURAN DO Apr 25, 2019 07:47
--- NOTE | 2019-04-25 08:14 | Progress Note ---
Subjective Subjective/Events-last exam Repeat bronchoscopy this am due to persistent blood noted on suctioning. Afebrile. Objective Exam Last Set of Vital Signs Vital Signs Date Time Temp Pulse Resp B/P (MAP) Pulse Ox O2 Delivery O2 Flow Rate FiO2 04/25/19 07:21 89 28 92 30 04/25/19 07:12 101/54 04/25/19 06:00 Mechanical Ventilator 30.00 04/25/19 04:00 36.3 Capillary Refill : Less Than 3 Seconds I&O Intake and Output 04/25/19 00:00 Intake Total 2170 ml Output Total 6900 ml Balance -4730 ml Intake Oral 0 ml IV Total 2110 ml Other 60 ml Output Urine Total 6900 ml General: Other (sedated, intubated) Lungs: Clear to Auscultation, Normal Air Movement Heart: Regular Rate, No Murmurs Abdomen: Normal Bowel Sounds, Soft Results/Procedures Lab Laboratory Tests 04/24/19 11:22: Glucometer 198H 04/24/19 14:46: Sodium Level 142, Potassium Level 5.1H, Chloride Level 114#H, Carbon Dioxide Level 22, Anion Gap 6, Blood Urea Nitrogen 24H, Creatinine 1.42H, Estimat Glomerular Filtration Rate 37, BUN/Creatinine Ratio 17, Glucose Level 197H, Calcium Level 9.5 04/24/19 14:55: Blood Gas Puncture Site R RADIAL ARTLINE, Blood Gas Patient Temperature 36.1, Arterial Blood pH 7.44H, Arterial Blood Partial Pressure CO2 32L, Arterial Blood Partial Pressure O2 55L, Arterial Blood HCO3 21L, Arterial Blood Total CO2 22.2, Arterial Blood Oxygen Saturation 89L, Arterial Blood Base Excess -2.5, Hermelindo Test ARTLINE, Blood Gas Ventilator Setting YES, Blood Gas Inspired Oxygen 30% 04/24/19 17:33: Glucometer 195H 04/25/19 00:05: Glucometer 186H 04/25/19 03:32: White Blood Count 12.4H, Red Blood Count 2.93L, Hemoglobin 9.0L, Hematocrit 27L, Mean Corpuscular Volume 93, Mean Corpuscular Hemoglobin 31, Mean Corpuscular Hemoglobin Concent 33, Red Cell Distribution Width 15.6H, Platelet Count 196, Mean Platelet Volume 9.8, Neutrophils (%) (Auto) 66, Lymphocytes (%) (Auto) 20, Monocytes (%) (Auto) 8, Eosinophils (%) (Auto) 6, Basophils (%) (Auto) 0, Neutrophils # (Auto) 8.2H, Lymphocytes # (Auto) 2.5, Monocytes # (Auto) 1.0, Eosinophils # (Auto) 0.7H, Basophils # (Auto) 0.0, Blood Gas Puncture Site RIGHT RADIAL, Blood Gas Patient Temperature 36.3, Arterial Blood pH 7.46H, Arterial Blood Partial Pressure CO2 32L, Arterial Blood Partial Pressure O2 50L, Arterial Blood HCO3 22L, Arterial Blood Total CO2 23.2, Arterial Blood Oxygen Saturation 84L, Arterial Blood Base Excess -1.3, Hermelindo Test ARTLINE, Blood Gas Ventilator Setting YES, Blood Gas Inspired Oxygen 30%, Sodium Level 144, Potassium Level 3.8, Chloride Level 118H, Carbon Dioxide Level 18L, Anion Gap 8, Blood Urea Nitrogen 24H, Creatinine 0.99, Estimat Glomerular Filtration Rate 57, BUN/Creatinine Ratio 24, Glucose Level 129H, Calcium Level 7.6L, Phosphorus Level 2.4, Magnesium Level 2.0 Microbiology 04/21/19 Blood Culture - Preliminary, Resulted No growth 04/21/19 Mycobacterial Culture - Preliminary, Resulted Assessment/Plan Assessment/Plan (1) NSTEMI (non-ST elevated myocardial infarction) Status: Acute Assessment & Plan: Cardiology following, had cath but OM1 needing intervention was not able to be done and repeat not possible due to bleeding, monitoring closely. Echo 04/19 with EF 55-65% and grade 2 diastolic dysfunction, repeat on with hyperdynamic function. -Holding antiplatelets due to pulmonary hemorrhage (2) Acute respiratory failure Status: Acute Assessment & Plan: Secondary to pulmonary hemorrhage. Intubated, BAL done and culture with < 1000 staph aureus. Fungal culture neg to date. Improving hypoxia. Appreciate Pulm recommendations. On furosemide 40 mg IV daily. 04/25 bronchoscopy today with copious amount of clot noted (3) COPD with exacerbation Status: Acute Assessment & Plan: Fred, was on IV methylprednisolone, now d/c. Appreciate Pulm recommendations. (4) Pulmonary hemorrhage Status: Acute Assessment & Plan: Thought to be secondary to blood thinners needed for CAD. Antiplatelets and pharmacologic DVT ppx held. 04/23 enoxaparin resumed, monitor closely. (5) Acute hyperglycemia Status: Acute Assessment & Plan: Requiring insulin drip on admit, but without DKA. Currently off drip and using sliding scale. (6) Diabetes mellitus, type 2 Status: Chronic (7) Acute blood loss anemia Status: Acute Assessment & Plan: Pulmonary hemorrhage. Also had hypotension during stay and CT abdomen/pelvis done to rule out retroperitoneal bleed which was negative. s/p 3 units PRBCs (8) Hypertension Status: Chronic Qualifiers: Qualified Codes: I10 - Essential (primary) hypertension (9) Hypotension Status: Resolved (10) Acute kidney injury Status: Resolved (11) Hypocalcemia Status: Acute Assessment & Plan: Corrected calcium 7.6 on 04/23, will give IV calcium given intubated and NPO and recheck this pm. / increased yesterday pm, but dropped again this am, repeat dose, may need continued replacement until able to take oral. 04/25- Ca 7.6 does not require urgent replacement, will monitor (12) Hypokalemia Status: Acute Assessment & Plan: Replace and follow. (13) Hyperchloremic metabolic acidosis Status: Acute Assessment & Plan: Change IVF to 1/2 NS on 04/23. (14) DVT prophylaxis Status: Acute Assessment & Plan: Enoxaparin started 04/23, held prior due to pulmonary hemorrhage Clinical Quality Measures DVT/VTE Risk/Contraindication: Risk Factor Score Per Nursin RFS Level Per Nursing on Admit: 4+=Very High KAYLAN GARZON MD Apr 25, 2019 08:14
[2019-04-25] MEDS: FUROSEMIDE 40 MG/4 ML INJ (LASIX) IVP SCH (09:07)
[2019-04-25] MEDS: PANTOPRAZOLE 40 MG (PROTONIX) VIAL IV SCH (09:07)
[2019-04-25] MEDS: ASPIRIN E.C. 81 MG (ECOTRIN) TAB PO SCH (09:08)
[2019-04-25] MEDS: meTOprolol TARTRATE 50 MG (LOPRESSOR) TAB PO SCH ×2 (09:08→20:48)
[2019-04-25] MEDS: ENOXAPARIN 40 MG/0.4 ML (LOVENOX) SYR SC SCH ×2 (09:08→20:48)
[2019-04-25] MEDS: lisINopril 5 MG (PRINIVIL) TABLET PO SCH (09:08)
[2019-04-25] MEDS ORDERED: fentaNYL INJECTION 100 MCG/2 ML AMP IVP NR (09:17)
[2019-04-25] MEDS ORDERED: MIDAZOLAM 5 MG/5 ML (VERSED) VIAL IVP NR (09:18)
--- NOTE | 2019-04-25 09:35 | Diagnostic Imaging Report ---
EXAMINATION: Portable erect AP chest at 3:21 AM INDICATION: Respiratory distress The heart size is stable when compared to 04/24/2019. As noted on the prior exam there is atelectasis/infiltrate and fluid involving both lung bases, particularly the left lung base. The density in the left lung base is perhaps somewhat greater than noted on the prior exam. There are also patchy alveolar/interstitial infiltrates in both upper lungs and along the periphery of the right midlung. These findings are similar to the prior exam. The mediastinum is not widened. The osseous structures are intact. The supportive tubes and lines are similar in position to the prior study. IMPRESSION: The appearance of the chest has worsened slightly since the prior exam as the density in the left lung base is somewhat greater. The overall appearance of the chest is otherwise stable. Dictated by: Dictated on workstation # [id number]
--- NOTE | 2019-04-25 10:01 | Occ Therapy Progress Note ---
Therapy Progress Note Continuing to monitor pt. Pt. sedated and intubated. Bronchoscopy performed this a.m. 1000 BOBBY MUHAMMAD OT Apr 25, 2019 10:01
[2019-04-25] MEDS ORDERED: LIDOCAINE JELLY 2% 6 ML SYRINGE MM ONE (10:15)
--- NOTE | 2019-04-25 13:01 | Physical Therapy Progress Note ---
Therapy Progress Note Patient on ventilator. PT will continue to monitor and proceed when patient can participate. JUAN COBURN PT Apr 25, 2019 13:01
--- NOTE | 2019-04-25 13:01 | Cardiology Progress Note ---
Cardiology SOAP Progress Note Subjective: Intubated/ventilated Objective: I&O/Vital Signs 04/25/19 04/25/19 04/25/19 04/25/19 02:00 03:00 03:15 04:00 Pulse 71 73 75 Resp 23 26 24 B/P (MAP) 153/71 (98) 174/78 (110) Pulse Ox 90 90 94 95 O2 Delivery Mechanical Ventilator Mechanical Ventilator Mechanical Ventilator O2 Flow Rate 30.00 30.00 FiO2 30 30 04/25/19 04/25/19 04/25/19 04/25/19 04:00 04:00 05:00 06:00 Temp 36.3 Pulse 79 81 80 Resp 27 26 32 B/P (MAP) 150/71 (97) 163/76 (105) 148/70 (96) Pulse Ox 93 93 91 O2 Delivery Mechanical Ventilator Mechanical Ventilator Mechanical Ventilator O2 Flow Rate 30.00 30.00 30.00 04/25/19 04/25/19 04/25/19 04/25/19 07:00 07:00 07:12 07:21 Pulse 80 80 89 Resp 15 28 B/P (MAP) 131/70 (90) 101/54 Pulse Ox 100 92 O2 Delivery Mechanical Ventilator O2 Flow Rate 30.00 FiO2 30 04/25/19 04/25/19 04/25/19 04/25/19 08:00 08:30 09:00 10:00 Pulse 93 95 92 Resp 26 22 25 B/P (MAP) 113/65 (81) 146/79 (101) 99/58 (72) Pulse Ox 94 93 90 96 O2 Delivery Mechanical Ventilator Mechanical Ventilator Mechanical Ventilator Mechanical Ventilator O2 Flow Rate 30.00 30.00 30.00 FiO2 30 04/25/19 04/25/19 04/25/19 04/25/19 10:14 10:14 11:00 12:34 Temp 36.33778 Pulse 88 94 94 Resp 25 29 26 B/P (MAP) 94/57 (69) 115/66 Pulse Ox 96 91 91 O2 Delivery Mechanical Ventilator Mechanical Ventilator Mechanical Ventilator O2 Flow Rate 21.00 21.00 21.00 FiO2 30 04/25/19 00:00 Intake Total 760 ml Output Total 4950 ml Balance -4190 ml Constitutional: appears stated age; No apparent distress; well-developed, well- nourished Respiratory: No accessory muscle use, No respiratory distress, No chest tender, No chest expansion is symmetric, No lungs clear to percussion; crackles; No rhonchi, No rales, No stridor, No wheezing, No pleural rub; other (intubated/ventilated) Cardiovascular: regular rate-rhythm; No irregularly irregular, No extra beats, No parasternal heave is noted, No JVD, No edema, No bradycardia, No tachycardia, No point of maximal impulse, No cardiac thrills are palpable; S1 and S2; No gallop/S3, No gallop/S4, No diastolic murmur, No systolic murmur, No friction rub, No click, No other Gastrointestional: soft, round, audible bowel sounds; No spleenomegaly Extremities: normal range of motion, non-tender, normal inspection; No clubbing, No cyanosis; no lower extremity edema bilateral; No significant edema Neurologic/Psychiatric: No linderman operator II-XII nml as tested, No no motor/sensory deficits, No alert, No normal mood/affect, No oriented x 3, No abnormal cerebellar tests, No abnormal linderman operator II-XII, No abnormal gait, No aphasia, No EOM palsy, No facial droop, No motor weakness, No sensory deficit, No depressed affect, No disoriented x 3; other (intubated/ventilated); No grossly intact, No power is 5/5 both on sides Skin: normal color; No rash, No ulcerations Results/Procedures: Labs Laboratory Tests 04/24/19 14:46: Sodium Level 142, Potassium Level 5.1H, Chloride Level 114#H, Carbon Dioxide Level 22, Anion Gap 6, Blood Urea Nitrogen 24H, Creatinine 1.42H, Estimat Glomerular Filtration Rate 37, BUN/Creatinine Ratio 17, Glucose Level 197H, Calcium Level 9.5 04/24/19 14:55: Blood Gas Puncture Site R RADIAL ARTLINE, Blood Gas Patient Temperature 36.1, Arterial Blood pH 7.44H, Arterial Blood Partial Pressure CO2 32L, Arterial Blood Partial Pressure O2 55L, Arterial Blood HCO3 21L, Arterial Blood Total CO2 22.2, Arterial Blood Oxygen Saturation 89L, Arterial Blood Base Excess -2.5, Hermelindo Test ARTLINE, Blood Gas Ventilator Setting YES, Blood Gas Inspired Oxygen 30% 04/24/19 17:33: Glucometer 195H 04/25/19 00:05: Glucometer 186H 04/25/19 03:32: White Blood Count 12.4H, Red Blood Count 2.93L, Hemoglobin 9.0L, Hematocrit 27L, Mean Corpuscular Volume 93, Mean Corpuscular Hemoglobin 31, Mean Corpuscular Hemoglobin Concent 33, Red Cell Distribution Width 15.6H, Platelet Count 196, Mean Platelet Volume 9.8, Neutrophils (%) (Auto) 66, Lymphocytes (%) (Auto) 20, Monocytes (%) (Auto) 8, Eosinophils (%) (Auto) 6, Basophils (%) (Auto) 0, Neutrophils # (Auto) 8.2H, Lymphocytes # (Auto) 2.5, Monocytes # (Auto) 1.0, Eosinophils # (Auto) 0.7H, Basophils # (Auto) 0.0, Blood Gas Puncture Site RIGHT RADIAL, Blood Gas Patient Temperature 36.3, Arterial Blood pH 7.46H, Arterial Blood Partial Pressure CO2 32L, Arterial Blood Partial Pressure O2 50L, Arterial Blood HCO3 22L, Arterial Blood Total CO2 23.2, Arterial Blood Oxygen Saturation 84L, Arterial Blood Base Excess -1.3, Hermelindo Test ARTLINE, Blood Gas Ventilator Setting YES, Blood Gas Inspired Oxygen 30%, Sodium Level 144, Potassium Level 3.8, Chloride Level 118H, Carbon Dioxide Level 18L, Anion Gap 8, Blood Urea Nitrogen 24H, Creatinine 0.99, Estimat Glomerular Filtration Rate 57, BUN/Creat inine Ratio 24, Glucose Level 129H, Calcium Level 7.6L, Phosphorus Level 2.4, Magnesium Level 2.0 04/25/19 11:54: Lab Scanned Report Transfusion Reaction Form 04/25/19 12:37: Glucometer 185H Microbiology 04/21/19 Blood Culture - Preliminary, Resulted No growth 04/21/19 Mycobacterial Culture - Preliminary, Resulted A/P: Assessment/Dx: Acute respiratory failure due to pulmonary hemorrhage, Acute blood loss anemia due to pulmonary hemorrhage, Non-STEMI, Diabetes, Hypertension, Hyperlipidemia, Active smoking, Acute kidney injury. Plan: Acute respiratory failure due to pulmonary hemorrhage, intubated/ventilated. Integrilin, heparin, Brilinta discontinued 04/20/2019. Significant improvement in oxygenation status. No further bleeding. Repeat bronchoscopy done 04/25/2019, showed no active bleeding. Acute blood loss anemia due to pulmonary hemorrhage, no further active bleeding. Hemoglobin over 8 g/dL. Non-STEMI, patient presented with severe chest pain and positive cardiac enzymes. She was taken to the catheter lab on 04/20/2019. Diffuse calcified small arteries. However culprit artery was an OM1 with long stenotic segment with significant calcification in the proximal part. The vessel was of diameter was 2 mm. We decided to intervene. PTCA was done with reasonable results initially. The patient was very agitated during the procedure and wanted to sit up. And wanted to us to stop. We tried to cross the lesion in the proximal OM1 but could not cross the lesion and due to the agitation of the patient and inability of lying still, for the safety of the patient, we decided to pull the wire and stent back into the guide. Post angiogram shows significant recoil. Therefore IV integrillin and heparin were started. Due to the bleeding later in the afternoon on 04/20/2019 Integrilin, heparin and Brilinta were discontinued. No further chest pain however this morning significantly elevated troponin suggesting likely occlusion of the small culprit OM1, transient hypotension and severe anemia. Unfortunately due to significant bleeding we could not continue IV Integrilin, heparin and Brilinta. Repeat angiography is contraindicated due to severe bleeding. I discussed at length with the and explained the situation. I have requested the RN to find out from Dr. Lopez if we can gradually start Brilinta. Lovenox has been started 04/23/2019. Echocardiogram done on 04/21/2019 for which I was at the bedside showed no pericardial effusion. Hyperdynamic LV systolic function with an EF of 75 percent with no lateral wall motion abnormalities. Underfilling of the LV is recognized. Transient hypotension with significant drop in hemoglobin and hematocrit 04/20/2019, stat CT abdomen and pelvis done which ruled out retroperitoneal hemorrhage. Diabetes, severely elevated glucose. IV insulin. Hypertension, stable blood pressure. Arterial line. Hyperlipidemia, continue statin therapy. Active smoking, smoking cessation was strongly recommended. Acute kidney injury. Thank you for your consultation. Please call me if you have any questions. Annmarie Brar MD, FACP, FACC, FSCAI, FHRS, CCDS Interventional Cardiology Cardiac Electrophysiology Vascular Medicine and Endovascular Interventions Jen BRAR MD Apr 25, 2019 13:01
[2019-04-25] MEDS: ceFAZolin 1,000 MG/SWFI 10 ML IV PUSH IV SCH ×4 (14:23→21:06)
[2019-04-26] VITALS (27 sets, daily range): BP systolic 64–160; BP diastolic 39–97
--- NOTE | 2019-04-26 00:30 | NUR ---
Call to E ICU at this time to update on patient condition, FIO2 45% at the beginning of this shift and has increased to 50% @ 2330 for oxygen saturation @ 87% maintained, to 65% now. Order to get patient 0300 chest x-ray now and will sent ABG to the lab.
[2019-04-26 01:30] LABS: ABG BASE EXCESS -0.7 MMOL/L (-2.5-2.5); ABG OXYGEN SATURATION 93 % (94-100); ABG PCO2 34 MMHG (35-45); ABG PH 7.44 (7.37-7.43); ABG PO2 65 MMHG (79-93)
--- NOTE | 2019-04-26 01:30 | NUR ---
E ICU notified that chest x-ray is completed and ABG is resulted.
[2019-04-26 01:31] LABS: ALLENS TEST ART LINE
[2019-04-26 01:32] LABS: INSPIRED O2 65%; PATIENT TEMP 36.4; VENTILATOR YES
[2019-04-26] MEDS: RT-ALBUTEROL/IPRATROPIUM 3 ML (DUONEB) VIAL INH SCH ×6 (02:39→22:34)
[2019-04-26 03:22] LABS: BASOPHILS % (AUTO) 0 % (0-10); EOSINOPHILS # (AUTO) 0.9 10^3/uL (0.0-0.3); EOSINOPHILS % (AUTO) 6 % (0-10); HEMATOCRIT 31 % (35-52); HEMOGLOBIN 10.1 G/DL (11.5-16.0); LYMPHOCYTES # (AUTO) 3.3 X 10^3 (1.0-4.0); LYMPHOCYTES % (AUTO) 23 % (12-44); MEAN CORPUSCULAR HEMOGLOBIN 31 PG (25-34); MEAN CORPUSCULAR HGB CONC 32 G/DL (32-36); MEAN CORPUSCULAR VOLUME 95 FL (80-99); MEAN PLATELET VOLUME 10.3 FL (7.4-10.4); MONOCYTES # (AUTO) 1.3 X 10^3 (0.0-1.0); MONOCYTES % (AUTO) 9 % (0-12); NEUTROPHILS # (AUTO) 9.1 X 10^3 (1.8-7.8); NEUTROPHILS % (AUTO) 63 % (42-75); PLATELET COUNT 224 10^3/uL (130-400); RED CELL DISTRIBUTION WIDTH 15.1 % (10.0-14.5); WHITE BLOOD COUNT 14.6 10^3/uL (4.3-11.0)
[2019-04-26 03:41] LABS: BAND NEUTROPHILS 4 %; BASOPHILS % (MANUAL) 0 %; EOSINOPHILS % (MANUAL) 8 %; LYMPHOCYTES % (MANUAL) 15 %; MONOCYTES % (MANUAL) 9 %; NEUTROPHILS % (MANUAL) 64 %
[2019-04-26 03:42] LABS: ANISOCYTOSIS SLIGHT; MICROCYTOSIS SLIGHT; POLYCHROMASIA SLIGHT; SCHISTOCYTES SLIGHT
[2019-04-26] MEDS: PROPOFOL DRIP (ICU) 100 ML IV SCH ×3 (03:54→19:32)
[2019-04-26 04:00] LABS: MAGNESIUM 2.6 MG/DL (1.6-2.4); PHOSPHORUS 3.9 MG/DL (2.3-4.7)
[2019-04-26] MEDS: KCL 20 MEQ TAB (K-DUR) PO SCH (04:05)
[2019-04-26] MEDS: POTASSIUM CL 10MEQ/50ML IVPB 50 ML IV SCH (04:05)
[2019-04-26] MEDS: MAGNESIUM 1 GM/100 ML IVPB 100 ML IV SCH (04:05)
[2019-04-26] MEDS: inSUlin ASPART (NovoLOG) 1 UNIT/0.01 ML (CHARGE PER UNIT) SC SCH ×4 (04:06→23:35)
[2019-04-26] MEDS: ceFAZolin 1,000 MG/SWFI 10 ML IV PUSH IV SCH ×6 (05:11→22:00)
[2019-04-26] MEDS ORDERED: PHARMACY TO DOSE IV SCH (05:30)
--- NOTE | 2019-04-26 05:35 | Pulmonary Progress Note ---
Subjective Time Seen by a Provider: 07:33 Subjective/Events-last exam Pt is now requiring more oxygen 65%. She has had continued copious amounts of dark thick bloody appearing secretions mixed with some BRB. She also has worsening leukocytosis. Sepsis Event Evaluation Height, Weight, BMI Height: '" Weight: lbs. oz. kg; 37.22 BMI Method: Exam Exam Vital Signs Date Time Temp Pulse Resp B/P (MAP) Pulse Ox O2 Delivery O2 Flow Rate FiO2 04/26/19 05:26 78 22 145/82 (103) 93 Mechanical Ventilator 65.00 04/26/19 04:00 77 23 112/60 (77) 92 Mechanical Ventilator 65.00 04/26/19 03:54 Mechanical Ventilator 04/26/19 03:25 36.4 Mechanical Ventilator 65.00 04/26/19 03:25 92 Mechanical Ventilator 65 04/26/19 03:21 75 22 119/62 (81) 92 Mechanical Ventilator 65.00 04/26/19 02:35 75 21 93 65 04/26/19 02:00 77 21 107/58 (74) 92 Mechanical Ventilator 65.00 04/26/19 01:55 79 24 110/59 (76) 91 Mechanical Ventilator 65.00 04/26/19 01:55 76 04/26/19 00:38 Mechanical Ventilator 65.00 04/25/19 23:50 74 22 89 04/25/19 23:23 36.2 77 24 124/62 (82) 89 Mechanical Ventilator 50.00 04/25/19 23:23 Mechanical Ventilator 50.00 04/25/19 23:10 92 Mechanical Ventilator 45 04/25/19 23:09 75 25 119/61 (80) 90 Mechanical Ventilator 45.00 04/25/19 22:38 74 22 90 50 04/25/19 22:00 73 24 146/69 (94) 91 Mechanical Ventilator 45.00 04/25/19 21:00 77 26 134/63 (86) 90 Mechanical Ventilator 45.00 04/25/19 20:34 80 25 127/68 (87) 90 Mechanical Ventilator 45.00 04/25/19 20:00 90 Mechanical Ventilator 45 04/25/19 19:45 36.4 80 24 125/66 (85) 90 Mechanical Ventilator 45.00 04/25/19 19:00 80 04/25/19 18:55 76 22 91 45 04/25/19 18:00 76 23 137/69 (91) 91 Mechanical Ventilator 45.00 04/25/19 17:14 36.4 04/25/19 17:00 81 23 120/65 (83) 91 Mechanical Ventilator 45.00 04/25/19 16:10 91 Mechanical Ventilator 45 04/25/19 16:00 81 23 129/67 (87) 93 Mechanical Ventilator 45.00 04/25/19 16:00 36.6 04/25/19 15:00 87 24 107/65 (79) 94 Mechanical Ventilator 45.00 04/25/19 14:48 87 24 95 45 04/25/19 14:00 89 25 100/61 (74) 95 Mechanical Ventilator 45.00 04/25/19 13:48 Mechanical Ventilator 45.00 04/25/19 13:00 90 26 99/58 (72) 91 Mechanical Ventilator 21.00 04/25/19 13:00 90 04/25/19 12:35 94 Mechanical Ventilator 21 04/25/19 12:34 36.53398 94 26 115/66 91 Mechanical Ventilator 21.00 04/25/19 12:00 92 26 103/60 (74) 91 Mechanical Ventilator 21.00 04/25/19 11:00 94 29 94/57 (69) 91 Mechanical Ventilator 21.00 04/25/19 10:14 88 25 96 30 04/25/19 10:14 Mechanical Ventilator 21.00 04/25/19 10:00 92 25 99/58 (72) 96 Mechanical Ventilator 30.00 04/25/19 09:00 95 22 146/79 (101) 90 Mechanical Ventilator 30.00 04/25/19 08:30 93 Mechanical Ventilator 30 04/25/19 08:00 93 26 113/65 (81) 94 Mechanical Ventilator 30.00 04/25/19 07:21 89 28 92 30 04/25/19 07:12 101/54 04/25/19 07:00 80 15 131/70 (90) 100 Mechanical Ventilator 30.00 04/25/19 07:00 80 04/25/19 06:50 29 04/25/19 06:00 80 32 148/70 (96) 91 Mechanical Ventilator 30.00 I & O 04/26/19 07:00 Intake Total 2060 ml Output Total 4875 ml Balance -2815 ml Height & Weight Height: '" Weight: lbs. oz. kg; 37.22 BMI Method: General Appearance: No Apparent Distress, Anxious, Obese, Other (sedated on vent) HEENT: Pharynx Normal Neck: Full Range of Motion, Normal Inspection, Non Tender Respiratory: Chest Non Tender, No Accessory Muscle Use, No Respiratory Distress, Decreased Breath Sounds, Rhonci Cardiovascular: Regular Rate, Rhythm, No JVD, No Murmur, Normal Peripheral Pulses Capillary Refill: Less Than 3 Seconds Peripheral Pulses: 2+ Dorsalis Pedis (R), 2+ Left Dors-Pedis (L), 2+ Radial Pulses (R), 2+ Radial Pulses (L) Gastrointestinal: non tender, soft, no organomegaly, no pulsatile mass Extremity: Normal Capillary Refill, Normal Inspection, Normal Range of Motion, Non Tender, Pedal Edema (L>R) Neurologic/Psychiatric: No Motor/Sensory Deficits, Normal Mood/Affect Skin: Normal Color, Warm/Dry Lymphatic: No Adenopathy Results Lab Laboratory Tests 04/24/19 14:46 04/25/19 03:32 04/26/19 03:00 Assessment/Plan Assessment/Plan Acute respiratory failure with acute hemoptysis- improved since bronchoscopy and intubation 04/21. Repeat bronchoscopy 04/25 - No active bleeding noted however copious amounts of dark thick blood noted. -D/C lovenox and and repeat coagulation panel secondary to continued hemoptysis. -Continue vent -pt is now requiring 65% -Check BNP Pnuemonia with MSSA -MRSA swab is negative -Continue Cefepime x 7- 10 days then D/c -Start Vanco secondary to worsening leukocytosis and repeat delong cultures. pulmonary hemorrhage secondary to anticoagulation -D/C lovenox. No anticoagulation/antiplatelet therapy at this time. -RN states she is still suctioning out BRB and dark blood CP s/p cath -Cardiology following COPD - Duonebs Q4H Hypokalemia, hypophos -replace NIDDMII with hyperglycemia -SSI DREW - Fluid replacement HTN -Monitor CAD -cardiology consult PAD Hx of VA CABG DANGELO DURAN DO Apr 26, 2019 05:35
[2019-04-26 06:19] LABS: BILIRUBIN,URINE NEGATIVE (NEGATIVE); CLARITY,URINE CLEAR; COLOR,URINE YELLOW; GLUCOSE, URINE (UA) NEGATIVE (NEGATIVE); KETONES,URINE NEGATIVE (NEGATIVE); LEUKOCYTE ESTERASE ,URINE NEGATIVE (NEGATIVE); NITRITE,URINE NEGATIVE (NEGATIVE); PH,URINE 6 (5-9); PROTEIN,URINE 2+ (NEGATIVE); UROBILINOGEN,URINE NORMAL (NORMAL)
[2019-04-26 06:24] LABS: INR 1.1 (0.8-1.4); PROTHROMBIN TIME PATIENT 14.9 SEC (12.2-14.7)
[2019-04-26 06:25] LABS: BACTERIA,URINE TRACE /HPF; SQUAMOUS EPITHELIAL CELL,UR RARE /HPF
[2019-04-26 06:26] LABS: BILIRUBIN,TOTAL 1.3 MG/DL (0.1-1.0); CALCIUM 9.3 MG/DL (8.5-10.1); CREATININE SERUM 1.35 MG/DL (0.60-1.30); POTASSIUM 4.6 MMOL/L (3.6-5.0); TOTAL PROTEIN 5.9 GM/DL (6.4-8.2)
[2019-04-26] MEDS: RT-BUDESONIDE NEBS 0.5 MG/2ML (PULMICORT) AMP INH SCH ×2 (06:31→19:00)
--- NOTE | 2019-04-26 06:37 | NUR ---
Call to Dr Lopez at this time, patient with sudden onset of hypotension. SBP 60-70. Patient on minimal sedation. Order to given 1L bolus NS. Stat CBC.
[2019-04-26] MEDS ORDERED: NS IV 1000 ML 1,000 ML ONE (06:41)
[2019-04-26] MEDS ORDERED: NS IV 1000 ML 1,000 ML IV SCH (06:45)
--- NOTE | 2019-04-26 06:46 | NUR ---
VANCOMYCIN DOSING: ADJ BW 58.27 KG, SCr 1.35, EST CrCl 39, DOSING WEIGHT 82.6 KG VANCOMYCIN LOADING DOSE: 1,750 MG MAIN DOSE: 1,250 MG IV DAILY VANCOMYCIN TROUGH DUE 04/29/19 @ 07:00 IF TROUGH > 20 HOLD 04/29/19 08:00 DOSE
[2019-04-26 06:59] LABS: BASOPHILS % (AUTO) 0 % (0-10); EOSINOPHILS # (AUTO) 0.7 10^3/uL (0.0-0.3); EOSINOPHILS % (AUTO) 5 % (0-10); HEMATOCRIT 30 % (35-52); HEMOGLOBIN 9.4 G/DL (11.5-16.0); LYMPHOCYTES # (AUTO) 2.7 X 10^3 (1.0-4.0); LYMPHOCYTES % (AUTO) 19 % (12-44); MEAN CORPUSCULAR HEMOGLOBIN 30 PG (25-34); MEAN CORPUSCULAR HGB CONC 32 G/DL (32-36); MEAN CORPUSCULAR VOLUME 95 FL (80-99); MEAN PLATELET VOLUME 10.2 FL (7.4-10.4); MONOCYTES # (AUTO) 1.1 X 10^3 (0.0-1.0); MONOCYTES % (AUTO) 8 % (0-12); NEUTROPHILS # (AUTO) 9.2 X 10^3 (1.8-7.8); NEUTROPHILS % (AUTO) 67 % (42-75); PLATELET COUNT 215 10^3/uL (130-400); RED CELL DISTRIBUTION WIDTH 15.1 % (10.0-14.5); WHITE BLOOD COUNT 13.7 10^3/uL (4.3-11.0)
[2019-04-26] MEDS ORDERED: VANCOMYCIN 1,750 MG/NS 500 ML IVPB IV NR ×2 (07:00)
--- NOTE | 2019-04-26 07:36 | Diagnostic Imaging Report ---
CHEST 1 VIEW, AP/PA ONLY Indication: Intubation Comparison: 04/25/2019 Findings: Stable ET and enteric tubes. Stable right IJ central venous catheter. Unchanged small bilateral pleural effusions, greater on the left. Basilar pulmonary opacities are unchanged. Stable cardiomediastinal silhouette. Impression: 1. Stable support devices. 2. No adverse development or significant improvement. Dictated by: Dictated on workstation # [id number]
[2019-04-26] MEDS: DEXMEDETOMIDINE INJECTION 1,000 MCG in NS (IVPB) 240 ML IV SCH ×3 (08:31→19:32)
[2019-04-26] MEDS: ASPIRIN E.C. 81 MG (ECOTRIN) TAB PO SCH (08:31)
[2019-04-26] MEDS: PANTOPRAZOLE 40 MG (PROTONIX) VIAL IV SCH (08:32)
--- NOTE | 2019-04-26 08:37 | Physical Therapy Progress Note ---
Therapy Progress Note Patient is currently sedated and on ventilator. PT to continue to monitor patient status and assess when medically stable and able to actively participate with skilled therapy. CLAUS DONOHUE PT Apr 26, 2019 08:37
[2019-04-26] MEDS: FUROSEMIDE 40 MG/4 ML INJ (LASIX) IVP SCH (09:05)
--- NOTE | 2019-04-26 09:40 | Cardiology Progress Note ---
Cardiology SOAP Progress Note Subjective: Intubated/ventilated. Objective: I&O/Vital Signs 04/25/19 04/25/19 04/25/19 04/25/19 22:00 22:38 23:09 23:10 Pulse 73 74 75 Resp 24 22 25 B/P (MAP) 146/69 (94) 119/61 (80) Pulse Ox 91 90 90 92 O2 Delivery Mechanical Ventilator Mechanical Ventilator Mechanical Ventilator O2 Flow Rate 45.00 45.00 FiO2 50 45 04/25/19 04/25/19 04/25/19 04/26/19 23:23 23:23 23:50 00:38 Temp 36.2 Pulse 77 74 Resp 24 22 B/P (MAP) 124/62 (82) Pulse Ox 89 89 O2 Delivery Mechanical Ventilator Mechanical Ventilator Mechanical Ventilator O2 Flow Rate 50.00 50.00 65.00 04/26/19 04/26/19 04/26/19 04/26/19 01:55 01:55 02:00 02:35 Pulse 76 79 77 75 Resp 24 21 21 B/P (MAP) 110/59 (76) 107/58 (74) Pulse Ox 91 92 93 O2 Delivery Mechanical Ventilator Mechanical Ventilator O2 Flow Rate 65.00 65.00 FiO2 65 04/26/19 04/26/19 04/26/19 04/26/19 03:21 03:25 03:25 03:54 Temp 36.4 Pulse 75 Resp 22 B/P (MAP) 119/62 (81) Pulse Ox 92 92 O2 Delivery Mechanical Ventilator Mechanical Ventilator Mechanical Ventilator Mechanical Ventilator O2 Flow Rate 65.00 65.00 FiO2 65 04/26/19 04/26/19 04/26/19 04/26/19 04:00 05:26 06:32 07:00 Temp 36.6 Pulse 77 78 89 Resp 23 22 20 B/P (MAP) 112/60 (77) 145/82 (103) Pulse Ox 92 93 92 O2 Delivery Mechanical Ventilator Mechanical Ventilator O2 Flow Rate 65.00 65.00 FiO2 65 04/26/19 04/26/19 07:00 08:00 Pulse 85 Pulse Ox 100 O2 Delivery Mechanical Ventilator FiO2 65 04/26/19 00:00 Intake Total 1800 ml Output Total 2250 ml Balance -450 ml Constitutional: appears stated age; No apparent distress; well-developed, well- nourished Respiratory: No accessory muscle use, No respiratory distress, No chest tender, No chest expansion is symmetric, No lungs clear to percussion; crackles; No rh onchi, No rales, No stridor, No wheezing, No pleural rub; other (intubated/ventilated) Cardiovascular: regular rate-rhythm; No irregularly irregular, No extra beats, No parasternal heave is noted, No JVD, No edema, No bradycardia, No tachycardia, No point of maximal impulse, No cardiac thrills are palpable; S1 and S2; No gallop/S3, No gallop/S4, No diastolic murmur, No systolic murmur, No friction rub, No click, No other Gastrointestional: soft, round, audible bowel sounds; No spleenomegaly Extremities: normal range of motion, non-tender, normal inspection; No clubbin g, No cyanosis; no lower extremity edema bilateral; No significant edema Neurologic/Psychiatric: No senior project accountant II-XII nml as tested, No no motor/sensory deficits, No alert, No normal mood/affect, No oriented x 3, No abnormal cerebellar tests, No abnormal senior project accountant II-XII, No abnormal gait, No aphasia, No EOM palsy, No facial droop, No motor weakness, No sensory deficit, No depressed affect, No disoriented x 3; other (intubated/ventilated); No grossly intact, No power is 5/5 both on sides Skin: normal color; No rash, No ulcerations Results/Procedures: Labs Laboratory Tests 04/25/19 11:54: Lab Scanned Report Transfusion Reaction Form 04/25/19 12:37: Glucometer 185H 04/25/19 18:09: Glucometer 170H 04/25/19 23:21: Glucometer 196H 04/26/19 01:20: Blood Gas Puncture Site Brigitte TORRES, Blood Gas Patient Temperature 36.4, Arterial Blood pH 7.44H, Arterial Blood Partial Pressure CO2 34L, Arterial Blood Partial Pressure O2 65L, Arterial Blood HCO3 23, Arterial Blood Total CO2 24.0, Arterial Blood Oxygen Saturation 93L, Arterial Blood Base Excess -0.7, Hermelindo Test ART LINE, Blood Gas Ventilator Setting YES, Blood Gas Inspired Oxygen 65% 04/26/19 03:00: White Blood Count 14.6H, Red Blood Count 3.30L, Hemoglobin 10.1L, Hematocrit 31L , Mean Corpuscular Volume 95, Mean Corpuscular Hemoglobin 31, Mean Corpuscular Hemoglobin Concent 32, Red Cell Distribution Width 15.1H, Platelet Count 224, Mean Platelet Volume 10.3, Neutrophils (%) (Auto) 63, Lymphocytes (%) (Auto) 23, Monocytes (%) (Auto) 9, Eosinophils (%) (Auto) 6, Basophils (%) (Auto) 0, Neutrophils # (Auto) 9.1H, Lymphocytes # (Auto) 3.3, Monocytes # (Auto) 1.3H, Eosinophils # (Auto) 0.9H, Basophils # (Auto) 0.0, Neutrophils % (Manual) 64, Lymphocytes % (Manual) 15, Monocytes % (Manual) 9, Eosinophils % (Manual) 8, Basophils % (Manual) 0, Band Neutrophils 4, Polychromasia SLIGHT, Anisocytosis SLIGHT, Microcytosis SLIGHT, Schistocytes SLIGHT, Sodium Level 141, Potassium Level 4.6, Chloride Level 108H, Carbon Dioxide Level 24, Anion Gap 9, Blood Urea Nitrogen 33H, Creatinine 1.35H, Estimat Glomerular Filtration Rate 40, BUN/Creatinine Ratio 24, Glucose Level 163H, Calcium Level 9.3, Corrected Calcium 10.1, Phosphorus Level 3.9, Magnesium Level 2.6H, Total Bilirubin 1.3H, Aspartate Amino Transf (AST/SGOT) 22, Alanine Aminotransferase (ALT/SGPT) 9, Alkaline Phosphatase 105, B-Type Natriuretic Peptide 127.9H, Total Protein 5.9L, Albumin 3.0L 04/26/19 05:45: Prothrombin Time 14.9H, INR Comment 1.1, Activated Partial Thromboplast Time 34, Urine Color YELLOW, Urine Clarity CLEAR, Urine pH 6, Urine Specific Welch 1.015L, Urine Protein 2+H, Urine Glucose (UA) NEGATIVE, Urine Ketones NEGATIVE, Urine Nitrite NEGATIVE, Urine Bilirubin NEGATIVE, Urine Urobilinogen NORMAL, Urine Leukocyte Esterase NEGATIVE, Urine RBC (Auto) 3+H, Urine RBC 2-5H, Urine WBC NONE, Urine Squamous Epithelial Cells RARE, Urine Crystals NONE, Urine Bacteria TRACE, Urine Casts NONE, Urine Mucus SMALLH, Urine Culture Indicated NO 04/26/19 06:51: White Blood Count 13.7H, Red Blood Count 3.11L, Hemoglobin 9.4L, Hematocrit 30L, Mean Corpuscular Volume 95, Mean Corpuscular Hemoglobin 30, Mean Corpuscular Hemoglobin Concent 32, Red Cell Distribution Width 15.1H, Platelet Count 215, Me an Platelet Volume 10.2, Neutrophils (%) (Auto) 67, Lymphocytes (%) (Auto) 19, Monocytes (%) (Auto) 8, Eosinophils (%) (Auto) 5, Basophils (%) (Auto) 0, Neutrophils # (Auto) 9.2H, Lymphocytes # (Auto) 2.7, Monocytes # (Auto) 1.1H, Eosinophils # (Auto) 0.7H, Basophils # (Auto) 0.0 Microbiology 04/21/19 Blood Culture - Preliminary, Resulted No growth 04/21/19 Mycobacterial Culture - Preliminary, Resulted A/P: Assessment/Dx: Acute respiratory failure due to pulmonary hemorrhage, Acute blood loss anemia due to pulmonary hemorrhage, Non-STEMI, Diabetes, Hypertension, Hyperlipidemia, Active smoking, Acute kidney injury. Plan: Acute respiratory failure due to pulmonary hemorrhage, intubated/ventilated. Integrilin, heparin, Brilinta discontinued 04/20/2019. worsening of oxygenation overnight. some more bleeding noted. Lovenox dced. continue to watch. Acute blood loss anemia due to pulmonary hemorrhage, possible recurrent bleeding overnight. Hemoglobin over 8 g/dL. Non-STEMI, patient presented with severe chest pain and positive cardiac enzymes. She was taken to the catheter lab on 04/20/2019. Diffuse calcified small arteries. However culprit artery was an OM1 with long stenotic segment with significant calcification in the proximal part. The vessel was of diameter was 2 mm. We decided to intervene. PTCA was done with reasonable results initially. The patient was very agitated during the procedure and wanted to sit up. And wanted to us to stop. We tried to cross the lesion in the proximal OM1 but could not cross the lesion and due to the agitation of the patient and inability of lying still, for the safety of the patient, we decided to pull the wire and stent back into the guide. Post angiogram shows significant recoil. Therefore IV integrillin and heparin were started. Due to the bleeding later in the afternoon on 04/20/2019 Integrilin, heparin and Brilinta were discontinued. No further chest pain however this morning significantly elevated troponin suggesting likely occlusion of the small culprit OM1, transient hypotension and severe anemia. Unfortunately due to significant bleeding we could not continue IV Integrilin, heparin and Brilinta. Repeat angiography is contraindicated due to severe bleeding. I discussed at length with the and explained the situation. No brilinta given since 04/20/19. Lovenox dced due to suspicion of rebleed. Echocardiogram done on 04/21/2019 for which I was at the bedside showed no pericardial effusion. Hyperdynamic LV systolic function with an EF of 75 percent with no lateral wall motion abnormalities. Underfilling of the LV is recognized. Transient hypotension with significant drop in hemoglobin and hematocrit 04/20/2019, stat CT abdomen and pelvis done which ruled out retroperitoneal hemorrhage. Diabetes, severely elevated glucose. IV insulin. Hypertension, stable blood pressure. Arterial line. Hyperlipidemia, continue statin therapy. Active smoking, smoking cessation was strongly recommended. Acute kidney injury. Thank you for your consultation. Please call me if you have any questions. Annmarie rBar MD, FACP, FACC, FSCAI, FHRS, CCDS Interventional Cardiology Cardiac Electrophysiology Vascular Medicine and Endovascular Interventions Jen BRAR MD Apr 26, 2019 9:40 am
[2019-04-26] MEDS: lisINopril 5 MG (PRINIVIL) TABLET PO SCH (10:20)
[2019-04-26] MEDS: meTOprolol TARTRATE 50 MG (LOPRESSOR) TAB PO SCH ×2 (10:20→22:01)
--- NOTE | 2019-04-26 10:43 | Occ Therapy Progress Note ---
Therapy Progress Note Continue to monitor pt. Pt. currently on ventilator support. Will need new OT orders to assess when medically stable. [id number] BOBBY MUHAMMAD OT Apr 26, 2019 10:43
--- NOTE | 2019-04-26 12:49 | NUR ---
This RD spoke to RN about plan of care regarding intubation. RN states that pt was to remain intubated. RD recommended enteral nutrition as pt has been NPO for 5 days. Please see previous nutrition note for TF recommendations. Faye Puri MS, RD, LD [phone]
--- NOTE | 2019-04-26 12:59 | Progress Note ---
Subjective Subjective/Events-last exam Had worsening hypoxia in last 24 hours. Remains afebrile. Objective Exam Last Set of Vital Signs Vital Signs Date Time Temp Pulse Resp B/P (MAP) Pulse Ox O2 Delivery O2 Flow Rate FiO2 04/26/19 10:01 91 20 100 65 04/26/19 10:00 97/56 (70) Mechanical Ventilator 65.00 04/26/19 07:00 36.6 Capillary Refill : Less Than 3 Seconds I&O Intake and Output 04/26/19 00:00 Intake Total 3150 ml Output Total 4850 ml Balance -1700 ml Intake Oral 0 ml IV Total 3020 ml Other 130 ml Output Urine Total 4850 ml General: Alert, Other (intubated) Lungs: Other (ronchi) Heart: Regular Rate, No Murmurs Abdomen: Normal Bowel Sounds, Soft Results/Procedures Lab Laboratory Tests 04/25/19 18:09: Glucometer 170H 04/25/19 23:21: Glucometer 196H 04/26/19 01:20: Blood Gas Puncture Site Brigitte TORRES, Blood Gas Patient Temperature 36.4, Arterial Blood pH 7.44H, Arterial Blood Partial Pressure CO2 34L, Arterial Blood Partial Pressure O2 65L, Arterial Blood HCO3 23, Arterial Blood Total CO2 24.0, Arterial Blood Oxygen Saturation 93L, Arterial Blood Base Excess -0.7, Hermelindo Test ART LINE, Blood Gas Ventilator Setting YES, Blood Gas Inspired Oxygen 65% 04/26/19 03:00: White Blood Count 14.6H, Red Blood Count 3.30L, Hemoglobin 10.1L, Hematocrit 31L , Mean Corpuscular Volume 95, Mean Corpuscular Hemoglobin 31, Mean Corpuscular Hemoglobin Concent 32, Red Cell Distribution Width 15.1H, Platelet Count 224, Me an Platelet Volume 10.3, Neutrophils (%) (Auto) 63, Lymphocytes (%) (Auto) 23, Monocytes (%) (Auto) 9, Eosinophils (%) (Auto) 6, Basophils (%) (Auto) 0, Neutrophils # (Auto) 9.1H, Lymphocytes # (Auto) 3.3, Monocytes # (Auto) 1.3H, Eosinophils # (Auto) 0.9H, Basophils # (Auto) 0.0, Neutrophils % (Manual) 64, Lymphocytes % (Manual) 15, Monocytes % (Manual) 9, Eosinophils % (Manual) 8, Basophils % (Manual) 0, Band Neutrophils 4, Polychromasia SLIGHT, Anisocytosis SLIGHT, Microcytosis SLIGHT, Schistocytes SLIGHT, Sodium Level 141, Potassium Level 4.6, Chloride Level 108H, Carbon Dioxide Level 24, Anion Gap 9, Blood Urea Nitrogen 33H, Creatinine 1.35H, Estimat Glomerular Filtration Rate 40, BUN/Creatinine Ratio 24, Glucose Level 163H, Calcium Level 9.3, Corrected Calcium 10.1, Phosphorus Level 3.9, Magnesium Level 2.6H, Total Bilirubin 1.3H, Aspartate Amino Transf (AST/SGOT) 22, Alanine Aminotransferase (ALT/SGPT) 9, Alkaline Phosphatase 105, B-Type Natriuretic Peptide 127.9H, Total Protein 5.9L, Albumin 3.0L 04/26/19 05:45: Prothrombin Time 14.9H, INR Comment 1.1, Activated Partial Thromboplast Time 34, Urine Color YELLOW, Urine Clarity CLEAR, Urine pH 6, Urine Specific [place] 1.015L, Urine Protein 2+H, Urine Glucose (UA) NEGATIVE, Urine Ketones NEGATIVE, Urine Nitrite NEGATIVE, Urine Bilirubin NEGATIVE, Urine Urobilinogen NORMAL, Urine Leukocyte Esterase NEGATIVE, Urine RBC (Auto) 3+H, Urine RBC 2-5H, Urine WBC NONE, Urine Squamous Epithelial Cells RARE, Urine Crystals NONE, Urine Bacteria TRACE, Urine Casts NONE, Urine Mucus SMALLH, Urine Culture Indicated NO 04/26/19 06:51: White Blood Count 13.7H, Red Blood Count 3.11L, Hemoglobin 9.4L, Hematocrit 30L, Mean Corpuscular Volume 95, Mean Corpuscular Hemoglobin 30, Mean Corpuscular Hemoglobin Concent 32, Red Cell Distribution Width 15.1H, Platelet Count 215, Mean Platelet Volume 10.2, Neutrophils (%) (Auto) 67, Lymphocytes (%) (Auto) 19, Monocytes (%) (Auto) 8, Eosinophils (%) (Auto) 5, Basophils (%) (Auto) 0, Neutrophils # (Auto) 9.2H, Lymphocytes # (Auto) 2.7, Monocytes # (Auto) 1.1H, Eosinophils # (Auto) 0.7H, Basophils # (Auto) 0.0 Microbiology 04/21/19 Blood Culture - Preliminary, Resulted No growth 04/21/19 Mycobacterial Culture - Preliminary, Resulted Assessment/Plan Assessment/Plan (1) NSTEMI (non-ST elevated myocardial infarction) Status: Acute Assessment & Plan: Cardiology following, had cath but OM1 needing intervention was not able to be done and repeat not possible due to bleeding, monitoring closely. Echo 04/19 with EF 55-65% and grade 2 diastolic dysfunction, repeat on 04/21 with hyperdynamic function. -Holding antiplatelets due to pulmonary hemorrhage (2) Acute respiratory failure Status: Acute Assessment & Plan: Secondary to pulmonary hemorrhage. Intubated, BAL done and culture with < 1000 staph aureus. Fungal culture neg to date. Improving hypoxia. Appreciate Pulm recommendations. On furosemide 40 mg IV daily. 04/25 bronchoscopy today with copious amount of clot noted 04/26 worsened hypoxia, will remain ventilated today, remains on abx (changed to cefazolin based on staph sensitivities) (3) COPD with exacerbation Status: Acute Assessment & Plan: Fred, was on IV methylprednisolone, now d/c. Appreciate Pulm recommendations. (4) Pulmonary hemorrhage Status: Acute Assessment & Plan: Thought to be secondary to blood thinners needed for CAD. Antiplatelets and pharmacologic DVT ppx held. 04/23 enoxaparin resumed, monitor closely. (5) Acute hyperglycemia Status: Acute Assessment & Plan: Requiring insulin drip on admit, but without DKA. Currently off drip and using sliding scale. (6) Diabetes mellitus, type 2 Status: Chronic (7) Acute blood loss anemia Status: Acute Assessment & Plan: Pulmonary hemorrhage. Also had hypotension during stay and CT abdomen/pelvis done to rule out retroperitoneal bleed which was negative. s/p 3 units PRBCs Stable (8) Hypertension Status: Chronic Qualifiers: Qualified Codes: I10 - Essential (primary) hypertension (9) Hypotension Status: Resolved (10) Acute kidney injury Status: Acute Assessment & Plan: 04/26 Had resolved, but creatinine up again today (11) Hypocalcemia Status: Acute Assessment & Plan: Corrected calcium 7.6 on 04/23, will give IV calcium given intubated and NPO and recheck this pm. 04/24 increased yesterday pm, but dropped again this am, repeat dose, may need continued replacement until able to take oral. 04/25- Ca 7.6 does not require urgent replacement, will monitor (12) Hypokalemia Status: Acute Assessment & Plan: Replace and follow. (13) Hyperchloremic metabolic acidosis Status: Acute Assessment & Plan: Changed IVF to 1/2 NS on 04/23. (14) DVT prophylaxis Status: Acute Assessment & Plan: Enoxaparin started 04/23, held prior due to pulmonary hemorrhage 04/26 held enoxaparin again due to worsening hypoxia and persistent dark mucous with suctioning Clinical Quality Measures DVT/VTE Risk/Contraindication: Risk Factor Score Per Nursin RFS Level Per Nursing on Admit: 4+=Very High KAYLAN GARZON MD Apr 26, 2019 12:59
--- NOTE | 2019-04-26 13:41 | NUR ---
Pastoral care visit, visited with pts at bedside, offered support and encouragement.
[2019-04-26] MEDS: 1/2 NS W/KCL 20 MEQ/L 1,000 ML IV SCH (23:36)
[2019-04-27] VITALS (31 sets, daily range): BP systolic 79–142; BP diastolic 42–86
[2019-04-27] MEDS: RT-ALBUTEROL/IPRATROPIUM 3 ML (DUONEB) VIAL INH SCH ×6 (02:10→22:02)
[2019-04-27 03:40] LABS: ABG BASE EXCESS -2.2 MMOL/L (-2.5-2.5); ABG OXYGEN SATURATION 99 % (94-100); ABG PCO2 35 MMHG (35-45); ABG PH 7.41 (7.37-7.43); ABG PO2 115 MMHG (79-93); BASOPHILS % (AUTO) 0 % (0-10); EOSINOPHILS # (AUTO) 0.5 10^3/uL (0.0-0.3); EOSINOPHILS % (AUTO) 4 % (0-10); HEMATOCRIT 26 % (35-52); HEMOGLOBIN 8.2 G/DL (11.5-16.0); LYMPHOCYTES # (AUTO) 1.8 X 10^3 (1.0-4.0); LYMPHOCYTES % (AUTO) 14 % (12-44); MEAN CORPUSCULAR HEMOGLOBIN 31 PG (25-34); MEAN CORPUSCULAR HGB CONC 32 G/DL (32-36); MEAN CORPUSCULAR VOLUME 97 FL (80-99); MEAN PLATELET VOLUME 9.7 FL (7.4-10.4); MONOCYTES # (AUTO) 1.2 X 10^3 (0.0-1.0); MONOCYTES % (AUTO) 9 % (0-12); NEUTROPHILS # (AUTO) 9.5 X 10^3 (1.8-7.8); NEUTROPHILS % (AUTO) 73 % (42-75); PLATELET COUNT 211 10^3/uL (130-400); RED CELL DISTRIBUTION WIDTH 14.7 % (10.0-14.5)
[2019-04-27 03:41] LABS: ALLENS TEST ART LINE; INSPIRED O2 65%; PATIENT TEMP 36.3; VENTILATOR YES
[2019-04-27 04:08] LABS: BUN/CREATININE RATIO 32; CALCIUM 8.1 MG/DL (8.5-10.1); CARBON DIOXIDE 18 MMOL/L (21-32); CHLORIDE 115 MMOL/L (98-107); CREATININE SERUM 0.82 MG/DL (0.60-1.30); GFR ESTIMATED > 60; GLUCOSE 138 MG/DL (70-105); MAGNESIUM 2.2 MG/DL (1.6-2.4); PHOSPHORUS 3.1 MG/DL (2.3-4.7); SODIUM 141 MMOL/L (135-145)
[2019-04-27] MEDS: inSUlin ASPART (NovoLOG) 1 UNIT/0.01 ML (CHARGE PER UNIT) SC SCH ×3 (05:09→18:20)
[2019-04-27] MEDS: MAGNESIUM 1 GM/100 ML IVPB 100 ML IV SCH (05:09)
[2019-04-27] MEDS: KCL 20 MEQ TAB (K-DUR) PO SCH (05:09)
[2019-04-27] MEDS: POTASSIUM CL 10MEQ/50ML IVPB 50 ML IV SCH (05:09)
[2019-04-27] MEDS: ceFAZolin 1,000 MG/SWFI 10 ML IV PUSH IV SCH ×2 (05:28)
[2019-04-27] MEDS: RT-BUDESONIDE NEBS 0.5 MG/2ML (PULMICORT) AMP INH SCH ×2 (06:07→19:05)
[2019-04-27] MEDS: PROPOFOL DRIP (ICU) 100 ML IV SCH ×2 (06:51→11:51)
--- NOTE | 2019-04-27 07:21 | Pulmonary Progress Note ---
Subjective Time Seen by a Provider: 07:20 Subjective/Events-last exam Sedated on vent. Pt still has copious amounts of dark sputum. Sepsis Event Evaluation Height, Weight, BMI Height: '" Weight: lbs. oz. kg; 37.22 BMI Method: Focused Exam Lactate Level 04/27/19 06:24: Lactic Acid Level 0.80 Lactic Acid Level Laboratory Tests Test 04/27/19 06:24 Lactic Acid Level 0.80 MMOL/L (0.50-2.00) Exam Exam Vital Signs Date Time Temp Pulse Resp B/P (MAP) Pulse Ox O2 Delivery O2 Flow Rate FiO2 04/27/19 06:51 120/55 04/27/19 06:21 Mechanical Ventilator 40.00 04/27/19 06:10 64 20 96 50 04/27/19 06:00 64 20 134/59 (84) 96 Mechanical Ventilator 50.00 04/27/19 05:58 Mechanical Ventilator 50.00 04/27/19 05:00 69 19 142/62 (88) 98 Mechanical Ventilator 65.00 04/27/19 04:00 72 20 102/52 (69) 98 Mechanical Ventilator 65.00 04/27/19 04:00 99 Mechanical Ventilator 65 04/27/19 03:00 73 19 120/56 (77) 98 Mechanical Ventilator 65.00 04/27/19 02:11 70 20 97 65 04/27/19 02:00 70 19 117/56 (76) 96 Mechanical Ventilator 65.00 04/27/19 01:00 75 04/27/19 01:00 75 20 100/51 (67) 94 Mechanical Ventilator 65.00 04/27/19 00:00 99 Mechanical Ventilator 65 04/27/19 00:00 73 20 119/55 (76) 99 Mechanical Ventilator 65.00 04/26/19 23:38 37.1 04/26/19 23:00 74 19 96/45 (62) 98 Mechanical Ventilator 65.00 04/26/19 22:34 73 20 100 65 04/26/19 22:00 73 20 116/97 (103) 100 Mechanical Ventilator 65.00 04/26/19 21:00 68 20 121/58 (79) 99 Mechanical Ventilator 65.00 04/26/19 20:00 99 Mechanical Ventilator 65 04/26/19 20:00 75 20 113/57 (75) 99 Mechanical Ventilator 65.00 04/26/19 19:38 37.8 76 20 115/58 (77) 98 Mechanical Ventilator 65.00 04/26/19 19:32 111/56 04/26/19 19:01 76 20 100 65 04/26/19 19:00 78 04/26/19 18:00 80 19 116/57 (76) 98 Mechanical Ventilator 65.00 04/26/19 17:00 85 22 129/65 (86) 98 Mechanical Ventilator 65.00 04/26/19 16:48 90 04/26/19 16:00 95 Mechanical Ventilator 65 04/26/19 16:00 84 20 148/69 (95) 100 Mechanical Ventilator 65.00 04/26/19 15:00 85 20 114/62 (79) 100 Mechanical Ventilator 65.00 04/26/19 14:50 85 20 100 65 04/26/19 14:00 85 20 106/57 (73) 99 Mechanical Ventilator 65.00 04/26/19 13:00 92 15 133/70 (91) 99 Mechanical Ventilator 65.00 04/26/19 13:00 92 04/26/19 12:00 36.7 04/26/19 12:00 87 20 134/68 (90) 99 Mechanical Ventilator 65.00 04/26/19 12:00 100 Mechanical Ventilator 65 04/26/19 11:00 92 19 139/69 (92) 100 Mechanical Ventilator 65.00 04/26/19 10:01 91 20 100 65 04/26/19 10:00 91 20 97/56 (70) 100 Mechanical Ventilator 65.00 04/26/19 09:00 91 15 160/80 (106) 100 Mechanical Ventilator 65.00 04/26/19 08:00 100 Mechanical Ventilator 65 04/26/19 08:00 90 19 146/72 (96) 99 Mechanical Ventilator 65.00 I & O 04/27/19 07:00 Intake Total 3196.5 ml Output Total 3125 ml Balance 71.5 ml Height & Weight Height: '" Weight: lbs. oz. kg; 37.22 BMI Method: General Appearance: No Apparent Distress, Anxious, Obese, Other (sedated on vent) HEENT: Pharynx Normal Neck: Full Range of Motion, Normal Inspection, Non Tender Respiratory: Chest Non Tender, No Accessory Muscle Use, No Respiratory Distress, Decreased Breath Sounds, Rhonci Cardiovascular: Regular Rate, Rhythm, No JVD, No Murmur, Normal Peripheral Pulses Capillary Refill: Less Than 3 Seconds Peripheral Pulses: 2+ Dorsalis Pedis (R), 2+ Left Dors-Pedis (L), 2+ Radial Pulses (R), 2+ Radial Pulses (L) Gastrointestinal: non tender, soft, no organomegaly, no pulsatile mass Extremity: Normal Capillary Refill, Normal Inspection, Normal Range of Motion, Non Tender, Pedal Edema (L>R) Neurologic/Psychiatric: No Motor/Sensory Deficits, Normal Mood/Affect Skin: Normal Color, Warm/Dry Lymphatic: No Adenopathy Results Lab Laboratory Tests 04/26/19 03:00 04/26/19 06:51 04/27/19 03:33 Assessment/Plan Assessment/Plan Acute respiratory failure with acute hemoptysis- improved since bronchoscopy and intubation 04/21. Repeat bronchoscopy 04/25 - No active bleeding noted however copious amounts of dark thick blood noted. -D/C lovenox and and repeat coagulation panel secondary to continued hemoptysis. -Continue vent -Titrate oxygen down Pnuemonia with MSSA -MRSA swab is negative -Continue Cefepime x 7- 10 days then D/c -Vanco secondary to worsening leukocytosis and repeat delong cultures. pulmonary hemorrhage secondary to anticoagulation -D/C lovenox. No anticoagulation/antiplatelet therapy at this time. -RN states she is still suctioning out BRB and dark blood CP s/p cath -Cardiology following COPD - Duonebs Q4H Hypokalemia, hypophos -replace NIDDMII with hyperglycemia -SSI DREW - Fluid replacement HTN -Monitor CAD -cardiology consult PAD Hx of IA CABG DANGELO DURAN DO Apr 27, 2019 07:21
[2019-04-27] MEDS: DEXMEDETOMIDINE INJECTION 1,000 MCG in NS (IVPB) 240 ML IV SCH ×2 (07:23→20:14)
--- NOTE | 2019-04-27 07:45 | Progress Note ---
Subjective Subjective/Events-last exam Afebrile, FiO2 requirement decreased this am. Focused Exam Lactate Level 04/27/19 06:24: Lactic Acid Level 0.80 Lactic Acid Level Laboratory Tests Test 04/27/19 06:24 Lactic Acid Level 0.80 MMOL/L (0.50-2.00) Objective Exam Last Set of Vital Signs Vital Signs Date Time Temp Pulse Resp B/P (MAP) Pulse Ox O2 Delivery O2 Flow Rate FiO2 04/27/19 06:51 120/55 04/27/19 06:21 Mechanical Ventilator 40.00 04/27/19 06:10 64 20 96 50 04/26/19 23:38 37.1 Capillary Refill : Less Than 3 Seconds I&O Intake and Output 04/27/19 00:00 Intake Total 3276.5 ml Output Total 3475 ml Balance -198.5 ml IV Total 2987.5 ml Tube Feeding 99 ml Other 190 ml Output Urine Total 3475 ml General: Other (sedated, intubated) Lungs: Clear to Auscultation Heart: Regular Rate, No Murmurs Extremities: No Edema Results/Procedures Lab Laboratory Tests 04/26/19 13:06: Glucometer 155H 04/26/19 16:43: Glucometer 213H 04/26/19 20:45: Glucometer 141H 04/26/19 23:33: Glucometer 183H 04/27/19 03:33: White Blood Count 13.0H, Red Blood Count 2.67L, Hemoglobin 8.2L, Hematocrit 26L, Mean Corpuscular Volume 97, Mean Corpuscular Hemoglobin 31, Mean Corpuscular Hemoglobin Concent 32, Red Cell Distribution Width 14.7H, Platelet Count 211, Mean Platelet Volume 9.7, Neutrophils (%) (Auto) 73, Lymphocytes (%) (Auto) 14, Monocytes (%) (Auto) 9, Eosinophils (%) (Auto) 4, Basophils (%) (Auto) 0, Neutrophils # (Auto) 9.5H, Lymphocytes # (Auto) 1.8, Monocytes # (Auto) 1.2H, Eosinophils # (Auto) 0.5H, Basophils # (Auto) 0.0, Blood Gas Puncture Site RIGHT RADIAL, Blood Gas Patient Temperature 36.3, Arterial Blood pH 7.41, Arterial Blood Partial Pressure CO2 35, Arterial Blood Partial Pressure O2 115H, Arterial Blood HCO3 22L, Arterial Blood Total CO2 23.0, Arterial Blood Oxygen Saturation 99, Arterial Blood Base Excess -2.2, Hermelindo Test ART LINE, Blood Gas Ventilator Setting YES, Blood Gas Inspired Oxygen 65%, Sodium Level 141, Potassium Level 4.0, Chloride Level 115H, Carbon Dioxide Level 18L, Anion Gap 8, Blood Urea Nitrogen 26H, Creatinine 0.82, Estimat Glomerular Filtration Rate > 60, BUN/Creatinine Ratio 32, Glucose Level 138H, Calcium Level 8.1L, Phosphorus Level 3.1, Magnesium Level 2.2 04/27/19 06:24: Lactic Acid Level 0.80 Microbiology 04/21/19 Blood Culture - Final, Complete No growth 04/26/19 Gram Stain - Final, Resulted 04/26/19 Sputum Culture, Resulted Pending Assessment/Plan Assessment/Plan (1) NSTEMI (non-ST elevated myocardial infarction) Status: Acute Assessment & Plan: Cardiology following, had cath but OM1 needing intervention was not able to be done and repeat not possible due to bleeding, monitoring closely. Echo 04/19 with EF 55-65% and grade 2 diastolic dysfunction, repeat on 04/21 with hyperdynamic function. -Holding antiplatelets due to pulmonary hemorrhage (2) Acute respiratory failure Status: Acute Assessment & Plan: Secondary to pulmonary hemorrhage. Intubated, BAL done and culture with < 1000 staph aureus. Fungal culture neg to date. Improving hypoxia. Appreciate Pulm recommendations. On furosemide 40 mg IV daily. 04/25 bronchoscopy today with copious amount of clot noted 04/26 worsened hypoxia, will remain ventilated today, remains on abx (changed to cefazolin based on staph sensitivities) 04/27- [ ] (3) COPD with exacerbation Status: Acute Assessment & Plan: Fred, was on IV methylprednisolone, now d/c. Appreciate Pulm recommendations. (4) Pulmonary hemorrhage Status: Acute Assessment & Plan: Thought to be secondary to blood thinners needed for CAD. Antiplatelets and pharmacologic DVT ppx held. 04/23 enoxaparin resumed, monitor closely. 04/26 enoxaparin held again due to worsened respiratory status and persistent bloody sputum with suction (5) Acute hyperglycemia Status: Acute Assessment & Plan: Requiring insulin drip on admit, but without DKA. Currently off drip and using sliding scale. (6) Diabetes mellitus, type 2 Status: Chronic (7) Acute blood loss anemia Status: Acute Assessment & Plan: Pulmonary hemorrhage. Also had hypotension during stay and CT abdomen/pelvis done to rule out retroperitoneal bleed which was negative. s/p 3 units PRBCs 04/27 Trended down slightly recently, enoxaparin held (8) Hypertension Status: Chronic Qualifiers: Qualified Codes: I10 - Essential (primary) hypertension (9) Hypotension Status: Resolved (10) Acute kidney injury Status: Acute Assessment & Plan: 04/26 Had resolved, but creatinine up again today (11) Hypocalcemia Status: Resolved Assessment & Plan: Corrected calcium 7.6 on 04/23, will give IV calcium given intubated and NPO and recheck this pm. 04/24 increased yesterday pm, but dropped again this am, repeat dose, may need continued replacement until able to take oral. 04/25- Ca 7.6 does not require urgent replacement, will monitor (12) Hypokalemia Status: Resolved Assessment & Plan: Replace and follow. (13) Hyperchloremic metabolic acidosis Status: Acute Assessment & Plan: Changed IVF to 1/2 NS on 04/23. (14) DVT prophylaxis Status: Acute Assessment & Plan: Enoxaparin started 04/23, held prior due to pulmonary hemorrhage 04/26 held enoxaparin again due to worsening hypoxia and persistent dark mucous with suctioning Clinical Quality Measures DVT/VTE Risk/Contraindication: Risk Factor Score Per Nursin RFS Level Per Nursing on Admit: 4+=Very High KAYLAN GARZON MD Apr 27, 2019 07:45
--- NOTE | 2019-04-27 08:12 | Physical Therapy Progress Note ---
Therapy Progress Note Patient remains sedated and on ventilator. PT will continue to monitor patient status and will require new orders when medically stable and able to actively participate with skilled therapy. CLAUS DONOHUE PT Apr 27, 2019 08:12
--- NOTE | 2019-04-27 08:49 | Diagnostic Imaging Report ---
EXAMINATION: Portable semierect AP chest at 359h. INDICATION: Dyspnea The heart size is stable when compared to 04/26/2019. The abnormal density obscuring the left lung base seen previously is again evident and essentially no different. However the right lung base does seem better aerated. The upper lungs remain relatively clear. The mediastinum is not widened. The osseous structures are intact. The supportive tubes and lines are similar in position to the prior exam. IMPRESSION: The appearance of chest has improved as the right lung base does seem better aerated. A followup study would be recommended for continued evaluation. Dictated by: Dictated on workstation # [id number]
[2019-04-27] MEDS: ASPIRIN E.C. 81 MG (ECOTRIN) TAB PO SCH (08:57)
[2019-04-27] MEDS: meTOprolol TARTRATE 50 MG (LOPRESSOR) TAB PO SCH (08:57)
[2019-04-27] MEDS: lisINopril 5 MG (PRINIVIL) TABLET PO SCH (08:57)
[2019-04-27] MEDS: PANTOPRAZOLE 40 MG (PROTONIX) VIAL IV SCH (08:57)
[2019-04-27] MEDS: FUROSEMIDE 40 MG/4 ML INJ (LASIX) IVP SCH (08:57)
[2019-04-27] MEDS: VANCOMYCIN 1250 MG/NS 250 ML IVPB IV SCH ×2 (08:57)
--- NOTE | 2019-04-27 10:59 | Cardiology Progress Note ---
Cardiology SOAP Progress Note Subjective: Intubated/ventilated Objective: I&O/Vital Signs 04/26/19 04/26/19 04/27/19 04/27/19 23:00 23:38 00:00 00:00 Temp 37.1 Pulse 74 73 Resp 19 20 B/P (MAP) 96/45 (62) 119/55 (76) Pulse Ox 98 99 99 O2 Delivery Mechanical Ventilator Mechanical Ventilator Mechanical Ventilator O2 Flow Rate 65.00 65.00 FiO2 65 04/27/19 04/27/19 04/27/19 04/27/19 01:00 01:00 02:00 02:11 Pulse 75 75 70 70 Resp 20 19 20 B/P (MAP) 100/51 (67) 117/56 (76) Pulse Ox 94 96 97 O2 Delivery Mechanical Ventilator Mechanical Ventilator O2 Flow Rate 65.00 65.00 FiO2 65 04/27/19 04/27/19 04/27/19 04/27/19 03:00 04:00 04:00 05:00 Pulse 73 72 69 Resp 19 20 19 B/P (MAP) 120/56 (77) 102/52 (69) 142/62 (88) Pulse Ox 98 99 98 98 O2 Delivery Mechanical Ventilator Mechanical Ventilator Mechanical Ventilator Mechanical Ventilator O2 Flow Rate 65.00 65.00 65.00 FiO2 65 04/27/19 04/27/19 04/27/19 04/27/19 05:58 06:00 06:10 06:21 Pulse 64 64 Resp 20 20 B/P (MAP) 134/59 (84) Pulse Ox 96 96 O2 Delivery Mechanical Ventilator Mechanical Ventilator Mechanical Ventilator O2 Flow Rate 50.00 50.00 40.00 FiO2 50 04/27/19 04/27/19 04/27/19 04/27/19 06:51 07:00 08:00 10:23 Temp 36.0 Pulse 70 65 82 Resp 20 23 B/P (MAP) 120/55 123/52 (75) Pulse Ox 94 95 O2 Delivery Mechanical Ventilator O2 Flow Rate 40.00 FiO2 35 04/27/19 00:00 Intake Total 1559 ml Output Total 1900 ml Balance -341 ml Constitutional: appears stated age; No apparent distress; well-developed, well- nourished Respiratory: No accessory muscle use, No respiratory distress, No chest tender, No chest expansion is symmetric, No lungs clear to percussion; crackles; No rhonchi, No rales, No stridor, No wheezing, No pleural rub; other (intubated/ventilated) Cardiovascular: regular rate-rhythm; No irregularly irregular, No extra beats, No parasternal heave is noted, No JVD, No edema, No bradycardia, No tachycardia, No point of maximal impulse, No cardiac thrills are palpable; S1 and S2; No gallop/S3, No gallop/S4, No diastolic murmur, No systolic murmur, No friction rub, No click, No other Gastrointestional: soft, round, audible bowel sounds; No spleenomegaly Extremities: normal range of motion, non-tender, normal inspection; No clubbing, No cyanosis; no lower extremity edema bilateral; No significant edema Neurologic/Psychiatric: No armature tester II-XII nml as tested, No no motor/sensory deficits, No alert, No normal mood/affect, No oriented x 3, No abnormal cerebellar tests, No abnormal armature tester II-XII, No abnormal gait, No aphasia, No EOM palsy, No facial droop, No motor weakness, No sensory deficit, No depressed affe ct, No disoriented x 3; other (intubated/ventilated); No grossly intact, No power is 5/5 both on sides Skin: normal color; No rash, No ulcerations Results/Procedures: Labs Laboratory Tests 04/26/19 13:06: Glucometer 155H 04/26/19 16:43: Glucometer 213H 04/26/19 20:45: Glucometer 141H 04/26/19 23:33: Glucometer 183H 04/27/19 03:33: White Blood Count 13.0H, Red Blood Count 2.67L, Hemoglobin 8.2L, Hematocrit 26L, Mean Corpuscular Volume 97, Mean Corpuscular Hemoglobin 31, Mean Corpuscular Hemoglobin Concent 32, Red Cell Distribution Width 14.7H, Platelet Count 211, Mean Platelet Volume 9.7, Neutrophils (%) (Auto) 73, Lymphocytes (%) (Auto) 14, Monocytes (%) (Auto) 9, Eosinophils (%) (Auto) 4, Basophils (%) (Auto) 0, Neutrophils # (Auto) 9.5H, Lymphocytes # (Auto) 1.8, Monocytes # (Auto) 1.2H, Eosinophils # (Auto) 0.5H, Basophils # (Auto) 0.0, Blood Gas Puncture Site RIGHT RADIAL, Blood Gas Patient Temperature 36.3, Arterial Blood pH 7.41, Arterial Blood Partial Pressure CO2 35, Arterial Blood Partial Pressure O2 115H, Arterial Blood HCO3 22L, Arterial Blood Total CO2 23.0, Arterial Blood Oxygen Saturation 99, Arterial Blood Base Excess -2.2, Hermelindo Test ART LINE, Blood Gas Ventilator Setting YES, Blood Gas Inspired Oxygen 65%, Sodium Level 141, Potassium Level 4.0, Chloride Level 115H, Carbon Dioxide Level 18L, Anion Gap 8, Blood Urea Nitrogen 26H, Creatinine 0.82, Estimat Glomerular Filtration Rate > 60, BUN/Creatinine Ratio 32, Glucose Level 138H, Calcium Level 8.1L, Phosphorus Level 3.1, Magnesium Level 2.2 04/27/19 06:24: Lactic Acid Level 0.80 Microbiology 04/21/19 Blood Culture - Final, Complete No growth 04/26/19 Gram Stain - Final, Resulted 04/26/19 Sputum Culture, Resulted Pending A/P: Assessment/Dx: Acute respiratory failure due to pulmonary hemorrhage, Acute blood loss anemia due to pulmonary hemorrhage, Non-STEMI, Diabetes, Hypertension, Hyperlipidemia, Active smoking, Acute kidney injury. Plan: Acute respiratory failure due to pulmonary hemorrhage, intubated/ventilated. Integrilin, heparin, Brilinta discontinued 04/20/2019. Improved oxygenation overnight. Acute blood loss anemia due to pulmonary hemorrhage, Hemoglobin over 8 g/dL. Non-STEMI, patient presented with severe chest pain and positive cardiac enzymes. She was taken to the catheter lab on 04/20/2019. Diffuse calcified small arteries. However culprit artery was an OM1 with long stenotic segment with significant calcification in the proximal part. The vessel was of diameter was 2 mm. We decided to intervene. PTCA was done with reasonable results initially. The patient was very agitated during the procedure and wanted to sit up. And wanted to us to stop. We tried to cross the lesion in the proximal OM1 but could not cross the lesion and due to the agitation of the patient and inability of lying still, for the safety of the patient, we decided to pull the wire and stent back into the guide. Post angiogram shows significant recoil. Therefore IV integrillin and heparin were started. Due to the bleeding later in the afternoon on 04/20/2019 Integrilin, heparin and Brilinta were discontinued. No further chest pain however this morning significantly elevated troponin suggesting likely occlusion of the small culprit OM1, transient hypotension and severe anemia. Unfortunately due to significant bleeding we could not continue IV Integrilin, heparin and Brilinta. Repeat angiography is contraindicated due to severe bleeding. I discussed at length with the and explained the situation. No brilinta given since 04/20/19. Lovenox dced 04/26/2019 due to suspicion of rebleed. Echocardiogram done on 04/21/2019 for which I was at the bedside showed no pericardial effusion. Hyperdynamic LV systolic function with an EF of 75 percent with no lateral wall motion abnormalities. Underfilling of the LV is recognized. Transient hypotension with significant drop in hemoglobin and hematocrit 04/20/2019, stat CT abdomen and pelvis done which ruled out retroperitoneal hemorrhage. Diabetes, severely elevated glucose. IV insulin. Hypertension, hold antihypertensive medication since hypotension. Hyperlipidemia, continue statin therapy. Active smoking, smoking cessation was strongly recommended. Acute kidney injury. Thank you for your consultation. Please call me if you have any questions. Annmarie Brar MD, FACP, FACC, FSCAI, FHRS, CCDS Interventional Cardiology Cardiac Electrophysiology Vascular Medicine and Endovascular Interventions Focused Exam Lactate Level 04/27/19 06:24: Lactic Acid Level 0.80 Jen BRAR MD Apr 27, 2019 10:59
--- NOTE | 2019-04-27 11:00 | NUR ---
Pastoral care visit.
[2019-04-27] MEDS: cefTRIAXone 1,000 MG/SWFI 10 ML IV PUSH IV SCH ×2 (11:50)
--- NOTE | 2019-04-27 13:26 | NUR ---
Pt remains intubated and enteral nutrition is currently at goal rate. Will continue to follow and reassess needs as they progress. Faye Puri MS, RD, LD [phone]
[2019-04-27] MEDS ORDERED: NS IV 1000 ML 1,000 ML ONE (17:58)
[2019-04-27] MEDS: 1/2 NS W/KCL 20 MEQ/L 1,000 ML IV SCH (23:05)
[2019-04-28] VITALS (29 sets, daily range): BP systolic 85–147; BP diastolic 49–98
[2019-04-28] MEDS: inSUlin ASPART (NovoLOG) 1 UNIT/0.01 ML (CHARGE PER UNIT) SC SCH ×5 (00:23→23:28)
[2019-04-28] MEDS: RT-ALBUTEROL/IPRATROPIUM 3 ML (DUONEB) VIAL INH SCH ×6 (02:40→21:00)
[2019-04-28 03:11] LABS: ABG BASE EXCESS -1.4 MMOL/L (-2.5-2.5); ABG OXYGEN SATURATION 98 % (94-100); ABG PCO2 30 MMHG (35-45); ABG PH 7.47 (7.37-7.43); ABG PO2 93 MMHG (79-93); ABG TCO2 22.6 MMOL/L (21.0-31.0)
[2019-04-28 03:12] LABS: ALLENS TEST YES-POS; INSPIRED O2 35%; VENTILATOR YES
[2019-04-28 03:13] LABS: PATIENT TEMP 37.4
[2019-04-28 03:28] LABS: BASOPHILS % (AUTO) 0 % (0-10); EOSINOPHILS # (AUTO) 0.6 10^3/uL (0.0-0.3); EOSINOPHILS % (AUTO) 3 % (0-10); HEMATOCRIT 29 % (35-52); HEMOGLOBIN 9.3 G/DL (11.5-16.0); LYMPHOCYTES # (AUTO) 1.8 X 10^3 (1.0-4.0); LYMPHOCYTES % (AUTO) 11 % (12-44); MEAN CORPUSCULAR HEMOGLOBIN 31 PG (25-34); MEAN CORPUSCULAR HGB CONC 32 G/DL (32-36); MEAN CORPUSCULAR VOLUME 96 FL (80-99); MEAN PLATELET VOLUME 10.3 FL (7.4-10.4); MONOCYTES # (AUTO) 1.4 X 10^3 (0.0-1.0); MONOCYTES % (AUTO) 9 % (0-12); NEUTROPHILS # (AUTO) 12.5 X 10^3 (1.8-7.8); NEUTROPHILS % (AUTO) 77 % (42-75); PLATELET COUNT 255 10^3/uL (130-400); RED CELL DISTRIBUTION WIDTH 14.2 % (10.0-14.5); WHITE BLOOD COUNT 16.3 10^3/uL (4.3-11.0)
[2019-04-28 03:59] LABS: CALCIUM 9.4 MG/DL (8.5-10.1); CREATININE SERUM 1.03 MG/DL (0.60-1.30); MAGNESIUM 2.2 MG/DL (1.6-2.4); PHOSPHORUS 2.5 MG/DL (2.3-4.7); POTASSIUM 3.9 MMOL/L (3.6-5.0)
[2019-04-28] MEDS: POTASSIUM CL 10MEQ/50ML IVPB 50 ML IV SCH ×4 (04:02→07:56)
[2019-04-28] MEDS: MAGNESIUM 1 GM/100 ML IVPB 100 ML IV SCH (04:02)
[2019-04-28] MEDS: KCL 20 MEQ TAB (K-DUR) PO SCH (04:03)
[2019-04-28] MEDS ORDERED: BUMETANIDE 1 MG/4 ML (BUMEX) VIAL IV ONE (06:00)
[2019-04-28] MEDS ORDERED: BUMETANIDE 1 MG/4 ML (BUMEX) VIAL ONE (06:01)
[2019-04-28] MEDS: RT-BUDESONIDE NEBS 0.5 MG/2ML (PULMICORT) AMP INH SCH ×2 (06:22→18:27)
[2019-04-28] MEDS ORDERED: TROUGH ORDER-PHARMACY XX NR (07:00)
--- NOTE | 2019-04-28 07:17 | Diagnostic Imaging Report ---
INDICATION: Dyspnea. COMPARISON: 04/27/2019. DISCUSSION: Single portable upright view of the chest was obtained. Endotracheal tube, enteric tube, and right IJ central venous catheter are stable. Mild cardiomegaly is stable. Bilateral mixed interstitial and alveolar opacities are again noted which are nonspecific though likely due to pulmonary edema, less likely pneumonia. Possible small left pleural effusion is stable. No pneumothorax or osseous abnormality. IMPRESSION: 1. Stable support lines. 2. Cardiomegaly with suspected failure, stable. Dictated by: Dictated on workstation # [id number]
[2019-04-28 07:21] LABS: ABG BASE EXCESS 1.7 MMOL/L (-2.5-2.5); ABG OXYGEN SATURATION 89 % (94-100); ABG PCO2 33 MMHG (35-45); ABG PH 7.49 (7.37-7.43); ABG PO2 55 MMHG (79-93); ABG TCO2 25.9 MMOL/L (21.0-31.0)
--- NOTE | 2019-04-28 07:36 | Pulmonary Progress Note ---
Subjective Time Seen by a Provider: 07:36 Subjective/Events-last exam Pt is awake on vent. Sepsis Event Evaluation Height, Weight, BMI Height: '" Weight: lbs. oz. kg; 37.22 BMI Method: Focused Exam Lactate Level 04/27/19 06:24: Lactic Acid Level 0.80 Exam Exam Vital Signs Date Time Temp Pulse Resp B/P (MAP) Pulse Ox O2 Delivery O2 Flow Rate FiO2 04/28/19 06:22 98 29 90 35 04/28/19 06:00 89 20 128/53 (78) 94 Mechanical Ventilator 35.00 04/28/19 05:24 84 20 94 04/28/19 05:00 84 20 127/79 (95) 95 Mechanical Ventilator 35.00 04/28/19 04:00 80 19 106/54 (71) 94 Mechanical Ventilator 35.00 04/28/19 04:00 36.7 04/28/19 03:20 96 Mechanical Ventilator 35 04/28/19 03:00 81 20 115/53 (73) 92 Mechanical Ventilator 35.00 04/28/19 02:40 87 22 96 35 04/28/19 02:00 82 20 106/49 (68) 94 Mechanical Ventilator 40.00 04/28/19 01:00 85 19 115/53 (73) 92 Mechanical Ventilator 40.00 04/28/19 01:00 86 04/28/19 00:00 36.4 04/28/19 00:00 80 19 114/59 (77) 97 Mechanical Ventilator 40.00 04/27/19 23:30 36.6 Mechanical Ventilator 40.00 04/27/19 23:05 96 Mechanical Ventilator 40 04/27/19 23:00 82 19 107/51 (69) 94 Mechanical Ventilator 40.00 04/27/19 22:02 83 20 94 40 04/27/19 22:00 82 21 125/67 (86) 99 Mechanical Ventilator 40.00 04/27/19 21:00 79 15 110/65 (80) 93 Mechanical Ventilator 40.00 04/27/19 20:15 100/42 (61) 04/27/19 20:00 81 19 100/42 (61) 92 Mechanical Ventilator 40.00 04/27/19 19:30 94 Mechanical Ventilator 40 04/27/19 19:20 37.0 84 21 110/86 (94) 94 Mechanical Ventilator 40.00 04/27/19 19:05 82 20 98 40 04/27/19 19:00 88 22 121/72 (88) 92 Mechanical Ventilator 40.00 04/27/19 19:00 89 04/27/19 18:00 93 9 91/45 (60) 91 Mechanical Ventilator 40.00 04/27/19 17:00 79 20 79/46 (57) 88 Mechanical Ventilator 40.00 04/27/19 16:42 36.6 04/27/19 16:00 81 24 87/56 (66) 92 Mechanical Ventilator 40.00 04/27/19 16:00 78 20 95 35 04/27/19 16:00 94 Mechanical Ventilator 40 04/27/19 15:00 76 20 119/56 (77) 91 Mechanical Ventilator 40.00 04/27/19 14:00 77 20 117/56 (76) 90 Mechanical Ventilator 40.00 04/27/19 13:00 82 16 93/52 (66) 100 Mechanical Ventilator 40.00 04/27/19 13:00 82 04/27/19 12:00 36.3 19 88/54 (65) 94 Mechanical Ventilator 40.00 04/27/19 12:00 94 Mechanical Ventilator 40 04/27/19 11:51 84 04/27/19 11:00 8 17 99/54 (69) 91 Mechanical Ventilator 40.00 04/27/19 10:23 82 23 95 35 04/27/19 10:00 79 9 92/47 (62) 92 Mechanical Ventilator 40.00 04/27/19 09:00 77 20 82/42 (55) 92 Mechanical Ventilator 40.00 04/27/19 08:00 65 20 132/57 (82) 94 Mechanical Ventilator 40.00 04/27/19 08:00 94 Mechanical Ventilator 40 04/27/19 08:00 36.0 65 20 123/52 (75) 94 Mechanical Ventilator 40.00 I & O 04/28/19 07:00 Intake Total 3248 ml Output Total 3775 ml Balance -527 ml Height & Weight Height: '" Weight: lbs. oz. kg; 37.22 BMI Method: General Appearance: No Apparent Distress, Anxious, Obese, Other (sedated on vent) HEENT: Pharynx Normal Neck: Full Range of Motion, Normal Inspection, Non Tender Respiratory: Chest Non Tender, No Accessory Muscle Use, No Respiratory Distress, Decreased Breath Sounds, Rhonci Cardiovascular: Regular Rate, Rhythm, No JVD, No Murmur, Normal Peripheral Pulses Capillary Refill: Less Than 3 Seconds Peripheral Pulses: 2+ Dorsalis Pedis (R), 2+ Left Dors-Pedis (L), 2+ Radial Pulses (R), 2+ Radial Pulses (L) Gastrointestinal: non tender, soft, no organomegaly, no pulsatile mass Extremity: Normal Capillary Refill, Normal Inspection, Normal Range of Motion, Non Tender, Pedal Edema (L>R) Neurologic/Psychiatric: No Motor/Sensory Deficits, Normal Mood/Affect Skin: Normal Color, Warm/Dry Lymphatic: No Adenopathy Results Lab Laboratory Tests 04/27/19 03:33 04/28/19 03:15 Assessment/Plan Assessment/Plan Acute respiratory failure with acute hemoptysis- improved since bronchoscopy and intubation 04/21. Repeat bronchoscopy 04/25 - -Will start weaning vent Pnuemonia with MSSA -MRSA swab is negative -Continue Cefepime x 7- 10 days then D/c -Vanco pulmonary hemorrhage secondary to anticoagulation -D/C lovenox. CP s/p cath -Cardiology following COPD - Duonebs Q4H Hypokalemia, hypophos -replace NIDDMII with hyperglycemia -SSI DREW - Fluid replacement HTN -Monitor CAD -cardiology consult PAD Hx of [place] CABG DANGELO DURAN DO Apr 28, 2019 07:36
[2019-04-28 07:38] LABS: INSPIRED O2 35%; PATIENT TEMP 36.4; VENTILATOR YES
--- NOTE | 2019-04-28 08:09 | Physical Therapy Progress Note ---
Therapy Progress Note Patient is now extubated but nurse wants PT to hold for now, she says that patient may have to go back on the vent. JUAN COBURN PT Apr 28, 2019 08:09
--- NOTE | 2019-04-28 08:10 | NUR ---
pt extubated and placed on Vapotherm. telly procedure well.
[2019-04-28] MEDS: PANTOPRAZOLE 40 MG (PROTONIX) VIAL IV SCH (08:13)
[2019-04-28] MEDS: VANCOMYCIN 1250 MG/NS 250 ML IVPB IV SCH ×2 (08:13)
[2019-04-28] MEDS: cefTRIAXone 1,000 MG/SWFI 10 ML IV PUSH IV SCH ×2 (08:13)
[2019-04-28] MEDS: ASPIRIN E.C. 81 MG (ECOTRIN) TAB PO SCH (08:20)
--- NOTE | 2019-04-28 08:22 | Cardiology Progress Note ---
Subjective Date Seen by Provider: Apr 28, 2019 Time Seen by Provider: 08:18 Subjective/Events-last exam Patient was extubated earlier, having shortness of breath, tachycardic, denied any chest pain Review of Systems General: No Chills, No Night Sweats; Fatigue, Malaise; No Appetite, No Other HEENT: No Head Aches, No Visual Changes, No Eye Pain, No Ear Pain, No Dyspha milan, No Sinus Congestion, No Post Nasal Drip, No Sore Throat, No Other Pulmonary: Dyspnea, Cough; No Pleuritic Chest Pain, No Other Cardiovascular: No: Chest Pain, Palpitations, Orthopnea, Paroxysmal Noc. Dyspnea, Edema, Lt Headedness, Other Focused Exam Lactate Level 04/27/19 06:24: Lactic Acid Level 0.80 Objective-Cardiology Exam Last Set of Vital Signs Vital Signs 04/28/19 06:22 FiO2 35 Capillary Refill : Less Than 3 Seconds I&O Intake and Output 04/28/19 00:00 Intake Total 3018 ml Output Total 3675 ml Balance -657 ml IV Total 2274 ml Tube Feeding 388 ml Other 356 ml Output Urine Total 3675 ml General: Alert, Cooperative, Moderate Distress, Other (sedated, intubated) Neck: Supple Lungs: Clear to Auscultation Heart: Normal S1, Normal S2, No Murmurs, Other (Tachycardia) Abdomen: Normal Bowel Sounds, Soft Extremities: No Clubbing, No Edema Skin: No Rashes, No Breakdown Neuro: Sensation Intact Results Lab Laboratory Tests 04/28/19 03:15 A/P-Cardiology Assessment/Plan Acute respiratory failure due to pulmonary hemorrhage, intubated/ventilated. Integrilin, heparin, Brilinta discontinued 04/20/2019. Extubated this morning, continue to monitor Sinus tachycardia, patient is working hard on breathing, anxious at this time, continue to monitor we'll start beta blockers as tolerated Coronary artery disease non-ST elevation myocardial infarction, underwent cardiac catheterization with Dr. Brar on April 20, 2019, has severe disease in a long lesion in the obtuse marginal branch, attempt for balloon angioplasty was complicated by recoiling, patient was agitated and anxious, for her own safety procedure was terminated, patient has significant blood loss could not tolerate antiplatelet and/or anticoagulation. I will continue monitoring at this time Acute blood loss anemia due to pulmonary hemorrhage, continue to monitor H&H Echocardiogram done on 04/21/2019 for which I was at the bedside showed no pericardial effusion. Hyperdynamic LV systolic function with an EF of 75 percent with no lateral wall motion abnormalities. Underfilling of the LV is recognized. Transient hypotension with significant drop in hemoglobin and hematocrit 04/20/2019, stat CT abdomen and pelvis done which ruled out retroperitoneal hemorrhage. Diabetes, severely elevated glucose. IV insulin. Hypertension, continue to monitor blood pressure at this time Hyperlipidemia, restart statin once patient can tolerate diet Active smoking, smoking cessation was strongly recommended. Acute kidney injury. Clinical Quality Measures DVT/VTE Risk/Contraindication: Risk Factor Score Per Nursin RFS Level Per Nursing on Admit: 4+=Very High HAN NGO MD Apr 28, 2019 08:22
[2019-04-28] MEDS ORDERED: methylPREDNISolone 125 MG (Solu-MEDROL) VIAL ONE (09:30)
[2019-04-28] MEDS: hydrALAZINE (APESOLINE) 20 MG/ML VIAL IV PRN (10:06)
[2019-04-28 11:43] LABS: ABG BASE EXCESS -2.7 MMOL/L (-2.5-2.5); ABG OXYGEN SATURATION 96 % (94-100); ABG PO2 117 MMHG (79-93); ABG TCO2 29.6 MMOL/L (21.0-31.0)
[2019-04-28 11:46] LABS: ABG PCO2 93 MMHG (35-45); ABG PH 7.08 (7.37-7.43); ALLENS TEST YES-POS; INSPIRED O2 80% BIPAP
[2019-04-28] MEDS ORDERED: DEXMEDETOMIDINE INJECTION 1,000 MCG in NS (IVPB) 240 ML IV SCH (12:00)
[2019-04-28] MEDS: PROPOFOL DRIP (ICU) 100 ML IV SCH ×2 (12:00→21:06)
--- NOTE | 2019-04-28 12:00 | NUR ---
Dr Lopez notified of pts abg results. new orders to intubate pt and place back on vent. 1202 Jax Pretty from ED here to intubate pt. 100 mg succs given 1208 pt intubated with a size 7 tube at 24 at the lip. placement confirmed with co2 change and breath sounds followed by chest xray which showed et tube to be slightly to far in. Et tube pulled back to 23 at the lip by Mark from RT. pt placed on vent ac mode rate of 20 with tidal volume 450 and peep of 8. fio2 set to 50% at this time. abg ordered for 30 minutes post vent initiation.
--- NOTE | 2019-04-28 12:21 | Progress Note - Hospitalist ---
Subjective HPI/CC On Admission Date Seen by Provider: Apr 28, 2019 Time Seen by Provider: 11:30 Chief complaint: Unstable angina with hyperglycemia HPI: This is a 63yoWF with a history of bypass surgery who presented after taki ng two Nitroglycerin for chest pain, after presenting to the ER she was found to have unstable angina and blood sugar of 500 from the steroids that were given at her PCPs office, Dr. Sepulveda the day before. She was placed on Heparin drip and insulin drip, IV steroids and monitored closely through the night. She denies any chest pain at this current time, awaiting cardiology plan. Her last Hgb A1C was 7.1. Subjective/Events-last exam Patient was extubated then placed on BiPAP with a small amount of Precedex I evaluated the patient and she was a bit drowsy but tolerating the BiPAP at the bedside Reviewed imaging and labs Appreciate Dr. Lopez expertise for vent management After rounds she failed BiPAP and was placed back on ventilator after intubated at noon Focused Exam Lactate Level 04/27/19 06:24: Lactic Acid Level 0.80 Objective Exam Vital Signs Vital Signs Date Time Temp Pulse Resp B/P (MAP) Pulse Ox O2 Delivery O2 Flow Rate FiO2 04/28/19 20:24 77 20 88 40 04/28/19 20:23 Mechanical Ventilator 55.00 04/28/19 19:15 36.5 127/55 (79) Capillary Refill : Less Than 3 Seconds General Appearance: No Apparent Distress, WD/WN, Chronically ill Respiratory: No Accessory Muscle Use, No Respiratory Distress, Crackles, Wheezing Cardiovascular: Regular Rate, Rhythm Results/Procedures Lab Laboratory Tests 04/28/19 03:15 Patient resulted labs reviewed. Assessment/Plan Assessment and Plan Assess & Plan/Chief Complaint Assessment: Vent dependent respiratory failure failed extubation today Unstable angina Known CAD CABG hx DM OOC in need of insulin drip Smoker HTN HLP CRI Plan: IVF Hep gtts Insulin IV steroids Ventilator management Diagnosis/Problems Diagnosis/Problems (1) Ventilator dependence Status: Acute (2) Angina at rest Status: Acute (3) Acute hyperglycemia Status: Acute (4) COPD with exacerbation Status: Acute (5) Chest pain Status: Acute Qualifiers: Chest pain type: chest pain due to myocardial ischemia Ischemic chest pain type: unstable angina pectoris Qualified Codes: I20.0 - Unstable angina Clinical Quality Measures DVT/VTE Risk/Contraindication: Risk Factor Score Per Nursin RFS Level Per Nursing on Admit: 4+=Very High JESUS CEBALLOS DO Apr 28, 2019 12:21
--- NOTE | 2019-04-28 12:39 | Diagnostic Imaging Report ---
PATIENT HISTORY: Endotracheal tube placement. TECHNIQUE: Single view of the chest. COMPARISON: Chest radiograph performed earlier the same date. FINDINGS: The endotracheal tube is visualized overlying the trachea approximately 1 cm above the riley. An enteric tube is seen descending below the diaphragm with the tip not included on this exam. A right internal jugular central line is noted in stable configuration. No focal consolidations. Prominent interstitial markings are seen throughout the lungs with stable enlarged cardiac silhouette. There is decreased fluid within the minor fissure. Small bilateral pleural effusions remain. No large pneumothorax. IMPRESSION: 1. Decreased fluid in the right fissure with continued cardiomegaly and prominent interstitial markings likely representing edema. 2. Endotracheal tube approximately 1 cm above the riley. Consider retracting 3 to 4 cm. The remaining support devices demonstrate appropriate configuration. Dictated by: Dictated on workstation # [id number]
[2019-04-28 13:02] LABS: ABG BASE EXCESS -3.1 MMOL/L (-2.5-2.5); ABG OXYGEN SATURATION 92 % (94-100); ABG PCO2 49 MMHG (35-45); ABG PO2 67 MMHG (79-93); ABG TCO2 24.3 MMOL/L (21.0-31.0)
[2019-04-28] MEDS ORDERED: NS IV 1000 ML 1,000 ML ONE (13:04)
[2019-04-28 13:06] LABS: ABG PH 7.28 (7.37-7.43); ALLENS TEST YES-POS
[2019-04-28 13:07] LABS: INSPIRED O2 50%; VENTILATOR YES
--- NOTE | 2019-04-28 13:18 | NUR ---
Dr Lopez notified that pt remains hypotensive post intubation and Levophed order is obtained. levophed drip started at this time and pt's bp is stabilizing.
[2019-04-28] MEDS ORDERED: NS (IVPB) 250 ML ONE (13:19)
[2019-04-28] MEDS ORDERED: NOREPINEPHRINE 4 MG/4 ML (LEVOPHED) AMP IV ONE (13:20)
[2019-04-28] MEDS ORDERED: NOREPINEPHRINE 4 MG in NS (IVPB) 250 ML IV SCH (13:30)
[2019-04-28] MEDS: DEXMEDETOMIDINE INJECTION 1,000 MCG in NS (IVPB) 240 ML IV SCH (14:09)
[2019-04-28] MEDS ORDERED: SUCCINYLCHOLINE INJ 100 MG/5 ML SYR INJ ONE (15:44)
[2019-04-28] MEDS: RT-ALBUTEROL SULF 2.5 MG/3 ML PRE-MIX VIAL INH PRN (20:24)
[2019-04-29] VITALS (31 sets, daily range): BP systolic 112–161; BP diastolic 53–86
[2019-04-29] MEDS: RT-ALBUTEROL/IPRATROPIUM 3 ML (DUONEB) VIAL INH SCH ×5 (01:02→22:32)
[2019-04-29] MEDS: DEXMEDETOMIDINE INJECTION 1,000 MCG in NS (IVPB) 240 ML IV SCH (01:29)
[2019-04-29 03:06] LABS: BASOPHILS % (AUTO) 0 % (0-10); EOSINOPHILS % (AUTO) 0 % (0-10); HEMATOCRIT 31 % (35-52); HEMOGLOBIN 9.7 G/DL (11.5-16.0); LYMPHOCYTES # (AUTO) 1.4 X 10^3 (1.0-4.0); LYMPHOCYTES % (AUTO) 8 % (12-44); MEAN CORPUSCULAR HEMOGLOBIN 30 PG (25-34); MEAN CORPUSCULAR HGB CONC 31 G/DL (32-36); MEAN CORPUSCULAR VOLUME 96 FL (80-99); MEAN PLATELET VOLUME 10.1 FL (7.4-10.4); MONOCYTES # (AUTO) 0.8 X 10^3 (0.0-1.0); MONOCYTES % (AUTO) 5 % (0-12); NEUTROPHILS # (AUTO) 16.1 X 10^3 (1.8-7.8); NEUTROPHILS % (AUTO) 88 % (42-75); PLATELET COUNT 297 10^3/uL (130-400); RED CELL DISTRIBUTION WIDTH 14.4 % (10.0-14.5); WHITE BLOOD COUNT 18.3 10^3/uL (4.3-11.0)
[2019-04-29 03:26] LABS: CALCIUM 9.9 MG/DL (8.5-10.1); CREATININE SERUM 1.54 MG/DL (0.60-1.30); MAGNESIUM 2.4 MG/DL (1.6-2.4); PHOSPHORUS 4.8 MG/DL (2.3-4.7); POTASSIUM 4.9 MMOL/L (3.6-5.0)
[2019-04-29 03:45] LABS: ABG BASE EXCESS -1.8 MMOL/L (-2.5-2.5); ABG OXYGEN SATURATION 90 % (94-100); ABG PCO2 36 MMHG (35-45); ABG PH 7.41 (7.37-7.43); ABG PO2 55 MMHG (79-93); ABG TCO2 23.7 MMOL/L (21.0-31.0)
[2019-04-29 03:52] LABS: INSPIRED O2 70%; PATIENT TEMP 35.4; VENTILATOR NO
[2019-04-29] MEDS: POTASSIUM CL 10MEQ/50ML IVPB 50 ML IV SCH (04:23)
[2019-04-29] MEDS: MAGNESIUM 1 GM/100 ML IVPB 100 ML IV SCH (04:23)
[2019-04-29] MEDS: KCL 20 MEQ TAB (K-DUR) PO SCH (04:23)
--- NOTE | 2019-04-29 05:25 | Pulmonary Progress Note ---
Subjective Time Seen by a Provider: 05:33 Subjective/Events-last exam Pt is sedated on vent currently Sepsis Event Evaluation Height, Weight, BMI Height: '" Weight: lbs. oz. kg; 37.22 BMI Method: Focused Exam Lactate Level 04/27/19 06:24: Lactic Acid Level 0.80 Exam Exam Vital Signs Date Time Temp Pulse Resp B/P (MAP) Pulse Ox O2 Delivery O2 Flow Rate FiO2 04/29/19 05:00 73 20 123/59 (80) 93 Mechanical Ventilator 50.00 04/29/19 04:17 Mechanical Ventilator 50 04/29/19 04:00 36.2 Mechanical Ventilator 50.00 04/29/19 04:00 76 20 112/58 (76) 93 Mechanical Ventilator 50.00 04/29/19 03:00 63 19 148/67 (94) 96 Mechanical Ventilator 50.00 04/29/19 02:00 79 20 118/57 (77) 92 Mechanical Ventilator 50.00 04/29/19 01:15 50.00 04/29/19 01:02 71 20 94 55 04/29/19 01:00 72 04/29/19 01:00 72 20 127/57 (80) 94 Mechanical Ventilator 55.00 04/29/19 00:00 71 19 128/63 (84) 94 Mechanical Ventilator 55.00 04/28/19 23:30 94 Mechanical Ventilator 55 04/28/19 23:25 36.8 Mechanical Ventilator 55.00 04/28/19 23:00 74 19 122/58 (79) 94 Mechanical Ventilator 55.00 04/28/19 22:00 77 20 113/67 (82) 93 Mechanical Ventilator 55.00 04/28/19 21:06 108/57 Mechanical Ventilator 55.00 04/28/19 21:00 75 19 108/57 (74) 94 Mechanical Ventilator 55.00 04/28/19 21:00 78 20 93 55 04/28/19 20:24 77 20 88 40 04/28/19 20:23 Mechanical Ventilator 55.00 04/28/19 20:18 Mechanical Ventilator 50.00 04/28/19 20:00 76 20 102/61 (75) 95 Mechanical Ventilator 40.00 04/28/19 20:00 Mechanical Ventilator 40.00 04/28/19 19:30 91 Mechanical Ventilator 30 04/28/19 19:15 36.5 71 19 127/55 (79) 91 Mechanical Ventilator 35.00 04/28/19 19:11 Mechanical Ventilator 35.00 04/28/19 19:00 68 04/28/19 19:00 68 19 125/55 (78) 91 Mechanical Ventilator 30.00 04/28/19 19:00 Mechanical Ventilator 30.00 04/28/19 18:38 Mechanical Ventilator 30 04/28/19 18:27 66 20 91 30 04/28/19 18:00 62 19 140/59 (86) 92 Mechanical Ventilator 40.00 04/28/19 17:00 61 20 136/64 (88) 93 Mechanical Ventilator 40.00 04/28/19 16:00 36.2 04/28/19 16:00 68 19 126/54 (78) 93 Mechanical Ventilator 40.00 04/28/19 16:00 92 Mechanical Ventilator 30 04/28/19 15:00 65 19 126/60 (82) 98 Mechanical Ventilator 40.00 04/28/19 14:26 68 20 99 40 04/28/19 14:24 Mechanical Ventilator 40.00 04/28/19 14:00 75 20 118/55 (76) 99 Mechanical Ventilator 50.00 04/28/19 13:00 73 23 111/52 (71) 97 Mechanical Ventilator 50.00 04/28/19 13:00 36.0 04/28/19 12:33 107 04/28/19 12:19 84 23 97 50 04/28/19 12:00 35.0 04/28/19 12:00 96 Mechanical Ventilator 35 04/28/19 12:00 118 30 104/57 (73) 92 Mechanical Ventilator 50.00 04/28/19 12:00 36.59987 04/28/19 11:37 NIV Bilevel 80.00 04/28/19 11:00 121 23 101/55 (70) 95 NIV Bilevel 100.00 04/28/19 10:00 135 29 147/79 (101) 94 NIV Bilevel 100.00 04/28/19 09:42 135 29 94 40.00 04/28/19 09:00 35.8 04/28/19 09:00 104 31 93 Vapotherm 20.00 35.00 04/28/19 08:00 144 12 94 Vapotherm 20.00 35.00 04/28/19 08:00 96 Mechanical Ventilator 35 04/28/19 07:00 36.9 121 34 113/98 (103) 91 Mechanical Ventilator 35.00 04/28/19 07:00 122 04/28/19 06:22 98 29 90 35 04/28/19 06:00 89 20 128/53 (78) 94 Mechanical Ventilator 35.00 04/28/19 05:24 84 20 94 I & O 04/29/19 07:00 Intake Total 852.5 ml Output Total 2800 ml Balance -1947.5 ml Height & Weight Height: '" Weight: lbs. oz. kg; 37.22 BMI Method: General Appearance: No Apparent Distress, WD/WN, Chronically ill, Other (sedated on vent) HEENT: Pharynx Normal Neck: Full Range of Motion, Normal Inspection, Non Tender Respiratory: No Accessory Muscle Use, No Respiratory Distress, Crackles, Wheezing Cardiovascular: Regular Rate, Rhythm Capillary Refill: Less Than 3 Seconds Peripheral Pulses: 2+ Dorsalis Pedis (R), 2+ Left Dors-Pedis (L), 2+ Radial Pulses (R), 2+ Radial Pulses (L) Gastrointestinal: non tender, soft, no organomegaly, no pulsatile mass Extremity: Normal Capillary Refill, Normal Inspection, Normal Range of Motion, Non Tender, Pedal Edema (L>R) Neurologic/Psychiatric: No Motor/Sensory Deficits, Normal Mood/Affect Skin: Normal Color, Warm/Dry Lymphatic: No Adenopathy Results Lab Laboratory Tests 04/28/19 03:15 04/29/19 03:00 Assessment/Plan Assessment/Plan Acute respiratory failure with acute hemoptysis- improved since bronchoscopy and intubation 04/21. Repeat bronchoscopy 04/25 - -Pt was extubated yesterday then reintubated. -Pt was intubated with size 7.0 ET tube secondary to reported upper airway edema -Will start solumedrol today then exchange ET tube out with larger ET tube tomorrow. -Tomorrow after exchange ET tube for larger will start weaning patient again. Pnuemonia with MSSA -MRSA swab is negative -Secondary to persistent leukocytosis without steroids, persistent LLL infiltrate, and copious amounts of sputum continue Vancomycin. pulmonary hemorrhage secondary to anticoagulation -D/C lovenox. CP s/p cath -Cardiology following COPD - Duonebs Q4H Hypokalemia, hypophos -replace NIDDMII with hyperglycemia -SSI DREW - Fluid replacement HTN -Monitor CAD -cardiology consult PAD Hx of [place] CABG DANGELO DURAN DO Apr 29, 2019 05:25
[2019-04-29] MEDS ORDERED: methylPREDNISolone 125 MG (Solu-MEDROL) VIAL IVP ONE (05:30)
[2019-04-29] MEDS: inSUlin ASPART (NovoLOG) 1 UNIT/0.01 ML (CHARGE PER UNIT) SC SCH ×3 (05:40→18:39)
[2019-04-29] MEDS: LACTATED RINGERS 1,000 ML IV SCH (05:43)
[2019-04-29] MEDS ORDERED: methylPREDNISolone 40 MG/ML (Solu-MEDROL) VIAL IV SCH (06:00)
[2019-04-29] MEDS: RT-BUDESONIDE NEBS 0.5 MG/2ML (PULMICORT) AMP INH SCH ×2 (06:27→18:59)
[2019-04-29] MEDS: PROPOFOL DRIP (ICU) 100 ML IV SCH ×3 (06:50→22:36)
[2019-04-29] MEDS ORDERED: TROUGH ORDER-PHARMACY XX NR (07:00)
--- NOTE | 2019-04-29 07:26 | Cardiology Progress Note ---
Subjective Date Seen by Provider: Apr 29, 2019 Time Seen by Provider: 07:24 Subjective/Events-last exam Patient failed extubation, reintubated yesterday, sedated at this time Review of Systems General: Other (Unable to provide review of systems) Focused Exam Lactate Level 04/27/19 06:24: Lactic Acid Level 0.80 Objective-Cardiology Exam Last Set of Vital Signs Vital Signs 04/29/19 04/29/19 04/29/19 04:00 06:28 06:50 Temp 36.2 Pulse 75 Resp 20 B/P (MAP) 131/56 Pulse Ox 97 O2 Delivery Mechanical Ventilator O2 Flow Rate 50.00 FiO2 40 Capillary Refill : Less Than 3 Seconds I&O Intake and Output 04/29/19 00:00 Intake Total 892.5 ml Output Total 3475 ml Balance -2582.5 ml Intake Oral 0 ml IV Total 472.5 ml Tube Feeding 220 ml Other 200 ml Output Urine Total 3475 ml General: Moderate Distress, Other (sedated, intubated) Neck: Supple Lungs: Clear to Auscultation, Other (Bilateral rhonchi) Heart: Normal S1, Normal S2, No Murmurs Abdomen: Normal Bowel Sounds, Soft Extremities: No Clubbing, No Edema Skin: No Rashes, No Breakdown Neuro: Other (Sedated and intubated) Psych/Mental Status: Other (Sedated and intubated) Results Lab Laboratory Tests 04/29/19 03:00 A/P-Cardiology Admission Diagnosis Acute respiratory failure Coronary artery disease Hypertension Hyperlipidemia Assessment/Plan Acute respiratory failure due to pulmonary hemorrhage, intubated/ventilated. Integrilin, heparin, Brilinta discontinued 04/20/2019. Failed extubation yesterday, she was reintubated. Sedated at this time and managed by Dr. Lopez Coronary artery disease non-ST elevation myocardial infarction, underwent cardiac catheterization with Dr. Brar on April 20, 2019, has severe dise ase in a long lesion in the obtuse marginal branch, attempt for balloon angioplasty was complicated by recoiling, patient was agitated and anxious, for her own safety procedure was terminated, patient has significant blood loss could not tolerate antiplatelet and/or anticoagulation. I will continue monitoring at this time Acute blood loss anemia due to pulmonary hemorrhage, continue to monitor H&H Echocardiogram done on 04/21/2019 for which I was at the bedside showed no pericardial effusion. Hyperdynamic LV systolic function with an EF of 75 percent with no lateral wall motion abnormalities. Underfilling of the LV is recognized. Transient hypotension with significant drop in hemoglobin and hematocrit 04/20/2019, stat CT abdomen and pelvis done which ruled out retroperitoneal hemorrhage. Diabetes, severely elevated glucose. IV insulin. Hypertension, continue to monitor blood pressure at this time Hyperlipidemia, restart statin once patient can tolerate diet Active smoking, smoking cessation was strongly recommended. Acute kidney injury. Clinical Quality Measures DVT/VTE Risk/Contraindication: Risk Factor Score Per Nursin RFS Level Per Nursing on Admit: 4+=Very High HAN NGO MD Apr 29, 2019 07:26
[2019-04-29] MEDS: ASPIRIN E.C. 81 MG (ECOTRIN) TAB PO SCH (08:05)
[2019-04-29] MEDS: PANTOPRAZOLE 40 MG (PROTONIX) VIAL IV SCH (08:05)
[2019-04-29] MEDS: VANCOMYCIN 1250 MG/NS 250 ML IVPB IV SCH ×2 (08:05)
[2019-04-29] MEDS: methylPREDNISolone 40 MG/ML (Solu-MEDROL) VIAL IV SCH ×2 (10:53→18:39)
[2019-04-29] MEDS: cefTRIAXone 1,000 MG/SWFI 10 ML IV PUSH IV SCH ×2 (10:53)
--- NOTE | 2019-04-29 11:10 | Diagnostic Imaging Report ---
EXAMINATION: Portable erect AP chest at 4:08 AM. INDICATION: Respiratory distress, dyspnea. FINDINGS: The appearance of the chest has worsened since the prior study of 04/28/2019 as a new area of increased density has developed in the left lung base. The left hemidiaphragm is now obscured by atelectasis/infiltrate and fluid. The left upper lobe and right lung are clear. The mediastinum is not wide. The osseous structures are intact. The supportive tubes and lines seem to be in good position. IMPRESSION: The appearance of the chest has worsened since the prior study as the left lung base is now obscured by pneumonia/atelectasis and fluid. A followup study would be recommended for continued evaluation. Dictated by: Dictated on workstation # [id number]
--- NOTE | 2019-04-29 12:31 | Progress Note - Hospitalist ---
Subjective HPI/CC On Admission Date Seen by Provider: Apr 29, 2019 Time Seen by Provider: 12:00 Chief complaint: Unstable angina with hyperglycemia HPI: This is a 63yoWF with a history of bypass surgery who presented after taki ng two Nitroglycerin for chest pain, after presenting to the ER she was found to have unstable angina and blood sugar of 500 from the steroids that were given at her PCPs office, Dr. Sepulveda the day before. She was placed on Heparin drip and insulin drip, IV steroids and monitored closely through the night. She denies any chest pain at this current time, awaiting cardiology plan. Her last Hgb A1C was 7.1. Subjective/Events-last exam Required reintubation yesterday and patient does not want to be reintubated Refusing to do anything now not ready to let her go yet Patient wants to DO NOT RESUSCITATE Patient sedated currently Review of Systems General: Fatigue Focused Exam Lactate Level 04/27/19 06:24: Lactic Acid Level 0.80 Objective Exam Vital Signs Vital Signs Date Time Temp Pulse Resp B/P (MAP) Pulse Ox O2 Delivery O2 Flow Rate FiO2 04/29/19 16:00 94 Mechanical Ventilator 30 04/29/19 16:00 71 19 160/75 (103) 30.00 04/29/19 15:46 35.7 Capillary Refill : Less Than 3 Seconds General Appearance: No Apparent Distress, WD/WN, Other Respiratory: Crackles, Decreased Breath Sounds, Other (on vent) Results/Procedures Lab Laboratory Tests 04/29/19 03:00 Patient resulted labs reviewed. Assessment/Plan Assessment and Plan Assess & Plan/Chief Complaint Assessment: Vent dependent respiratory failure failed extubation yesterday Unstable angina Known CAD CABG hx DM OOC in need of insulin drip Smoker HTN HLP CRI Plan: IV steroids Ventilator management Prognosis poor Diagnosis/Problems Diagnosis/Problems (1) Ventilator dependence Status: Acute (2) Angina at rest Status: Acute (3) Acute hyperglycemia Status: Acute (4) COPD with exacerbation Status: Acute (5) Chest pain Status: Acute Qualifiers: Chest pain type: chest pain due to myocardial ischemia Ischemic chest pain type: unstable angina pectoris Qualified Codes: I20.0 - Unstable angina Clinical Quality Measures DVT/VTE Risk/Contraindication: Risk Factor Score Per Nursin RFS Level Per Nursing on Admit: 4+=Very High JESUS CEBALLOS DO Apr 29, 2019 12:31
[2019-04-30] VITALS (31 sets, daily range): BP systolic 116–169; BP diastolic 55–95
[2019-04-30] MEDS: inSUlin ASPART (NovoLOG) 1 UNIT/0.01 ML (CHARGE PER UNIT) SC SCH ×5 (00:05→23:29)
[2019-04-30] MEDS: methylPREDNISolone 40 MG/ML (Solu-MEDROL) VIAL IV SCH ×5 (00:05→23:29)
[2019-04-30] MEDS: DEXMEDETOMIDINE INJECTION 1,000 MCG in NS (IVPB) 240 ML IV SCH ×2 (00:09→14:39)
[2019-04-30] MEDS: LACTATED RINGERS 1,000 ML IV SCH ×2 (02:12→21:18)
[2019-04-30] MEDS: RT-ALBUTEROL/IPRATROPIUM 3 ML (DUONEB) VIAL INH SCH ×5 (02:30→23:01)
[2019-04-30 03:51] LABS: BASOPHILS % (AUTO) 0 % (0-10); EOSINOPHILS % (AUTO) 0 % (0-10); HEMATOCRIT 30 % (35-52); HEMOGLOBIN 9.3 G/DL (11.5-16.0); LYMPHOCYTES # (AUTO) 1.1 X 10^3 (1.0-4.0); LYMPHOCYTES % (AUTO) 7 % (12-44); MEAN CORPUSCULAR HEMOGLOBIN 30 PG (25-34); MEAN CORPUSCULAR HGB CONC 32 G/DL (32-36); MEAN CORPUSCULAR VOLUME 96 FL (80-99); MEAN PLATELET VOLUME 10.6 FL (7.4-10.4); MONOCYTES # (AUTO) 0.7 X 10^3 (0.0-1.0); MONOCYTES % (AUTO) 4 % (0-12); NEUTROPHILS % (AUTO) 89 % (42-75); PLATELET COUNT 297 10^3/uL (130-400); RED CELL DISTRIBUTION WIDTH 14.1 % (10.0-14.5); WHITE BLOOD COUNT 15.8 10^3/uL (4.3-11.0)
[2019-04-30 04:17] LABS: CALCIUM 9.5 MG/DL (8.5-10.1); CREATININE SERUM 1.35 MG/DL (0.60-1.30); MAGNESIUM 2.6 MG/DL (1.6-2.4); PHOSPHORUS 3.4 MG/DL (2.3-4.7); POTASSIUM 3.9 MMOL/L (3.6-5.0)
[2019-04-30] MEDS: MAGNESIUM 1 GM/100 ML IVPB 100 ML IV SCH (04:26)
[2019-04-30] MEDS: POTASSIUM CL 10MEQ/50ML IVPB 50 ML IV SCH (04:26)
[2019-04-30] MEDS: KCL 20 MEQ TAB (K-DUR) PO SCH (04:26)
--- NOTE | 2019-04-30 07:14 | Pulmonary Progress Note ---
Subjective Time Seen by a Provider: 07:14 Subjective/Events-last exam Pt appears to be doing slightly better today. Sepsis Event Evaluation Height, Weight, BMI Height: '" Weight: lbs. oz. kg; 37.22 BMI Method: Exam Exam Vital Signs Date Time Temp Pulse Resp B/P (MAP) Pulse Ox O2 Delivery O2 Flow Rate FiO2 04/30/19 06:25 70 23 92 25 04/30/19 06:00 62 19 136/80 (98) 95 Mechanical Ventilator 25.00 04/30/19 05:00 53 19 128/78 (95) 95 Mechanical Ventilator 25.00 04/30/19 04:00 96 Mechanical Ventilator 25 04/30/19 04:00 37.0 Mechanical Ventilator 25.00 04/30/19 04:00 63 19 127/78 (94) 94 Mechanical Ventilator 25.00 04/30/19 03:38 04/30/19 03:00 63 20 161/67 (98) 93 Mechanical Ventilator 25.00 04/30/19 02:44 Mechanical Ventilator 25.00 04/30/19 02:30 67 20 96 25 04/30/19 02:00 66 19 163/74 (103) 96 Mechanical Ventilator 30.00 04/30/19 01:01 56 04/30/19 01:00 58 20 169/73 (105) 97 Mechanical Ventilator 30.00 04/30/19 00:00 57 19 153/71 (98) 97 Mechanical Ventilator 30.00 04/29/19 23:50 97 Mechanical Ventilator 30 04/29/19 23:49 36.6 Mechanical Ventilator 30.00 04/29/19 23:00 70 20 156/72 (100) 95 Mechanical Ventilator 30.00 04/29/19 22:36 161/86 04/29/19 22:32 71 20 98 30 04/29/19 22:00 69 19 154/73 (100) 95 Mechanical Ventilator 30.00 04/29/19 21:00 74 19 157/73 (101) 96 Mechanical Ventilator 30.00 04/29/19 20:00 75 20 147/66 (93) 96 Mechanical Ventilator 30.00 04/29/19 19:38 35.4 04/29/19 19:35 100 Mechanical Ventilator 30 04/29/19 19:20 Mechanical Ventilator 30.00 04/29/19 19:03 79 10/6/19 19:00 77 21 128/67 (87) 95 Mechanical Ventilator 30.00 04/29/19 18:59 78 22 95 30 04/29/19 18:00 60 19 159/69 (99) 95 Mechanical Ventilator 30.00 04/29/19 17:00 66 21 155/73 (100) 95 Mechanical Ventilator 30.00 04/29/19 16:00 94 Mechanical Ventilator 30 04/29/19 16:00 71 19 160/75 (103) 95 Mechanical Ventilator 30.00 04/29/19 15:46 35.7 04/29/19 15:00 63 20 154/68 (96) 95 Mechanical Ventilator 30.00 04/29/19 14:00 65 20 143/68 (93) 95 Mechanical Ventilator 30.00 04/29/19 14:00 63 20 04/29/19 13:58 75 20 65 30 04/29/19 13:00 70 19 135/66 (89) 95 Mechanical Ventilator 30.00 04/29/19 12:25 80 04/29/19 12:00 94 Mechanical Ventilator 30 04/29/19 12:00 80 20 120/53 (75) 100 Mechanical Ventilator 30.00 04/29/19 11:32 35.6 85 19 127/59 (81) 92 04/29/19 11:00 95 19 121/60 (80) 93 Mechanical Ventilator 30.00 04/29/19 10:46 Mechanical Ventilator 30.00 04/29/19 10:23 85 20 95 30 04/29/19 10:00 86 21 116/53 (74) 93 Mechanical Ventilator 40.00 04/29/19 09:00 79 19 127/54 (78) 91 Mechanical Ventilator 40.00 04/29/19 08:00 91 Mechanical Ventilator 30 04/29/19 08:00 84 19 121/57 (78) 90 Mechanical Ventilator 40.00 04/29/19 07:15 95 30 I & O 04/30/19 07:00 Intake Total 1600 ml Output Total 1175 ml Balance 425 ml Height & Weight Height: '" Weight: lbs. oz. kg; 37.22 BMI Method: General Appearance: No Apparent Distress, WD/WN, Other HEENT: Pharynx Normal Neck: Full Range of Motion, Normal Inspection, Non Tender Respiratory: Crackles, Decreased Breath Sounds, Other (on vent) Cardiovascular: Regular Rate, Rhythm Capillary Refill: Less Than 3 Seconds Peripheral Pulses: 2+ Dorsalis Pedis (R), 2+ Left Dors-Pedis (L), 2+ Radial Pulses (R), 2+ Radial Pulses (L) Gastrointestinal: non tender, soft, no organomegaly, no pulsatile mass Extremity: Normal Capillary Refill, Normal Inspection, Normal Range of Motion, Non Tender, Pedal Edema (L>R) Neurologic/Psychiatric: No Motor/Sensory Deficits, Normal Mood/Affect Skin: Normal Color, Warm/Dry Lymphatic: No Adenopathy Results Lab Laboratory Tests 04/29/19 03:00 04/30/19 03:38 Assessment/Plan Assessment/Plan Acute respiratory failure with acute hemoptysis- improved since bronchoscopy and intubation 04/21. Repeat bronchoscopy 04/25 - -Continue solumedrol -Continue to wean vent. Expected extubation tomorrow Pnuemonia with MSSA -MRSA swab is negative -continue Vancomycin secondary to copious amounts of sputum and worsening leukocytosis prior to vanco. pulmonary hemorrhage secondary to anticoagulation -D/C lovenox. CP s/p cath -Cardiology following COPD - Duonebs Q4H Hypokalemia, hypophos -replace NIDDMII with hyperglycemia -SSI DREW - Fluid replacement HTN -Monitor CAD -cardiology consult PAD Hx of CT CABG DANGELO DURAN DO Apr 30, 2019 07:14
[2019-04-30] MEDS: PANTOPRAZOLE 40 MG (PROTONIX) VIAL IV SCH (07:41)
[2019-04-30] MEDS: VANCOMYCIN 1250 MG/NS 250 ML IVPB IV SCH ×2 (07:42)
[2019-04-30] MEDS: ASPIRIN E.C. 81 MG (ECOTRIN) TAB PO SCH (07:42)
--- NOTE | 2019-04-30 07:44 | Diagnostic Imaging Report ---
INDICATION: Ventilated patient. COMPARISON: 04/29/2019 FINDINGS: Single frontal radiographic view of the chest was obtained and again demonstrates indwelling endotracheal tube with tip just below the clavicular heads. Right internal jugular central venous catheter is in stable position. Gastric tube extends inferiorly beyond the [id number]. Heart size is within normal limits. Pulmonary vasculature does appear mildly prominent. Lungs also show mild diffuse prominence of the interstitium. There may be small left effusion. There is no large effusion on the right. No pneumothorax is seen on either side. IMPRESSION: 1. Interval increase in interstitial pulmonary opacities concerning for edema. Interstitial pneumonia is also a consideration. 2. Probable small left basilar effusion. 3. Lines and tubes as above. Dictated by: Dictated on workstation # [id number]
--- NOTE | 2019-04-30 07:56 | NUR ---
PSV 05/[address] RENEE PATTON, PT DOING WELL , NO SIGNS OF DISTRESS, FAMILY AND RN IN ROOM, RR 20, VT 560, 95% Addendum: 04/30/19 at 0808 by CLAUS LYNCH RT Amended: Links added.
--- NOTE | 2019-04-30 08:31 | Physical Therapy Progress Note ---
Therapy Progress Note Patient remains on vent. PT to continue to monitor patient status and will require new orders when medically stable and able to actively participate with therapy. CLAUS DONOHUE PT Apr 30, 2019 08:30
[2019-04-30] MEDS: RT-BUDESONIDE NEBS 0.5 MG/2ML (PULMICORT) AMP INH SCH ×2 (09:53→19:06)
--- NOTE | 2019-04-30 09:54 | Progress Note - Hospitalist ---
Subjective HPI/CC On Admission Date Seen by Provider: Apr 30, 2019 Time Seen by Provider: 09:00 Chief complaint: Unstable angina with hyperglycemia HPI: This is a 63yoWF with a history of bypass surgery who presented after taki ng two Nitroglycerin for chest pain, after presenting to the ER she was found to have unstable angina and blood sugar of 500 from the steroids that were given at her PCPs office, Dr. Sepulveda the day before. She was placed on Heparin drip and insulin drip, IV steroids and monitored closely through the night. She denies any chest pain at this current time, awaiting cardiology plan. Her last Hgb A1C was 7.1. Subjective/Events-last exam Pt still remains on vent Not pleased that she was re-intubated at the bedside Updated pt on the plan Spoke with Dr. Lopez Checked meds and labs Review of Systems General: Fatigue Objective Exam Vital Signs Vital Signs Date Time Temp Pulse Resp B/P (MAP) Pulse Ox O2 Delivery O2 Flow Rate FiO2 04/30/19 20:00 100 Mechanical Ventilator 21 04/30/19 19:40 36.8 21.00 04/30/19 19:07 55 15 Capillary Refill : Less Than 3 Seconds General Appearance: No Apparent Distress, WD/WN, Anxious, Chronically ill Respiratory: Chest Non Tender, Lungs Clear, Normal Breath Sounds, No Accessory Muscle Use, No Respiratory Distress, Other (on vent) Cardiovascular: Regular Rate, Rhythm, No Edema, No Gallop, No JVD, No Murmur, Normal Peripheral Pulses Neurologic/Psychiatric: Alert, Oriented x3, No Motor/Sensory Deficits, Normal Mood/Affect, crew foreman II-XII Norm as Tested Results/Procedures Lab Laboratory Tests 04/30/19 03:38 Patient resulted labs reviewed. Assessment/Plan Assessment and Plan Assess & Plan/Chief Complaint Assessment: Vent dependent respiratory failure failed extubation Tuesday now in process of weaning again Unstable angina Known CAD CABG hx DM OOC in need of insulin drip Smoker HTN HLP CRI Plan: IV steroids Ventilator management Prognosis poor Diagnosis/Problems Diagnosis/Problems (1) Ventilator dependence Status: Acute (2) Angina at rest Status: Acute (3) Acute hyperglycemia Status: Acute (4) COPD with exacerbation Status: Acute (5) Chest pain Status: Acute Qualifiers: Chest pain type: chest pain due to myocardial ischemia Ischemic chest pain type: unstable angina pectoris Qualified Codes: I20.0 - Unstable angina Clinical Quality Measures DVT/VTE Risk/Contraindication: Risk Factor Score Per Nursin RFS Level Per Nursing on Admit: 4+=Very High JESUS CEBALLOS DO Apr 30, 2019 09:54
--- NOTE | 2019-04-30 10:35 | NUR ---
Pastoral Care Visit.
--- NOTE | 2019-04-30 10:55 | Physical Therapy Evaluation ---
PT Evaluation-General Medical Diagnosis Admission Date Apr 18, 2019 at 22:00 Medical Diagnosis: unstable angina/hyperglycemia Onset Date: Apr 18, 2019 Therapy Diagnosis Therapy Diagnosis: generalized weakness/debility Precautions Precautions/Isolations: Fall Prevention, Standard Precautions Referral Physician: Jessica Reason for Referral: Evaluation/Treatment Medical History Pertinent Medical History: CABG, CAD, COPD, DM, HTN, PVD, Smoking Current History ER with CP Reviewed History: Yes Social History Home: Single Level Current Living Status: Spouse Prior Prior Level of Function Therapy Quality Codes: 6 Independent with activity with or without an assistive device 5 Patient requires set up or clean up by helper. Patient completes activity by themselves 4 Supervision or touching assist (CGA). [place] provide cues , steadying assist 3 The helper provides less than half the effort to complete the activity 2 The helper provides more than half the effort to complete the activity 1 Dependent. The helper does all the effort to complete an activity 7 Patient refused to complete or attempt activity 9 The patient did not perform the activity before the current illness or injury 88 Not attempted due to Medical conditions or safety concerns Bed Mobility: 6 Transfers (B,C,W/C): 6 Gait: 6 Stairs: 6 Indoor Mobility (Ambulation): Independent Stairs: Independent Prior Devices Use: None PT Evaluation-Current Subjective Patient currently on vent. Alert and oriented. Agrees to PT. Pain Numeric Pain Scale: 0-No Pain Location: No Pain Reported Objective Patient Orientation: Normal For Age Problem Solving: Fair Attachments: Oxygen (vent), Mora Catheter, IV ROM/Strength ROM Lower Extremities bilateral LE WFL Strength Lower Extremities 3-/5 grossly bilateral LE Integumentary/Posture Integumentary refer to nursing notes Bladder Incontinence: Mora Cath Posture WFL Neuromuscular (Tone, Coordination, Reflexes) grossly intact with all Sensory Vision: Wears Glasses Hearing: Functional Sensation Right Lower Extremit: Impaired Sensation Left Lower Extremity: Impaired Transfers Roll Left to Right (QC): 1 Treatment bilateral LE AROM 15 reps each AP, QS, HS, SLR, abd/add Assessment/Needs 63 y.o. female, will benefit from skilled PT to address functional strength and mobility to improve current LOF to safely return to home at maximum LOF. Patient remains intubated and, per RN, will be extubated on this date. PT to increase activity as tolerated by patient. Rehab Potential: Guarded PT Short Term Goals Short Term Goals Time Frame: May 12, 2019 Gait Distance Comment: 75' Gait Assistive Device: FWW (minimal assist) Additional Short Term Goals moderate assist with bed mobility and transfers PT Tying In Machine Operator Goals Tying In Machine Operator Goals PT Long-Term Goals Time Frame: May 19, 2019 Sit to Lying (QC): 6 Lying-Sitting on Side/Bed(QC): 6 Sit to Stand (QC): 6 Roll Left to Right (QC): 6 Chair/Umx-sj-Jgbed Xfer(QC): 6 Car Transfer (QC): 6 Does the Patient Walk: Yes Distance: 200' Walk 10 feet (QC): 6 Walk 10ft-Uneven Surface(QC): 6 Walk 50ft with 2 Turns (QC): 6 Walk 150 ft (QC): 6 Gait Assistive Device: FWW PT Plan Problem List Problem List: Activity Tolerance, Functional Strength, Safety, Balance, Gait, Transfer, Bed Mobility Treatment/Plan Treatment Plan: Continue Plan of Care Treatment Plan: Bed Mobility, Education, Functional Activity Javi, Functional Strength, Gait, Safety, Therapeutic Exercise, Transfers Treatment Duration: May 19, 2019 Frequency: 6 times per week Estimated Hrs Per Day: .25 hour per day Patient and/or Family Agrees t: Yes Time/GCodes Time In: 1004 Time Out: 1015 Total Billed Treatment Time: 11 Total Billed Treatment 1 visit EVMod 11 min CLAUS DONOHUE PT Apr 30, 2019 10:55
--- NOTE | 2019-04-30 15:43 | Cardiology Progress Note ---
Cardiology SOAP Progress Note Subjective: Patient has been reintubated after she failed extubation. Objective: I&O/Vital Signs 04/30/19 04/30/19 04/30/19 04/30/19 04:00 04:00 04:00 05:00 Temp 37.0 Pulse 63 53 Resp 19 19 B/P (MAP) 127/78 (94) 128/78 (95) Pulse Ox 94 96 95 O2 Delivery Mechanical Ventilator Mechanical Ventilator Mechanical Ventilator Mechanical Ventilator O2 Flow Rate 25.00 25.00 25.00 FiO2 25 04/30/19 04/30/19 04/30/19 04/30/19 06:00 06:25 07:00 07:00 Pulse 62 70 67 67 Resp 19 23 20 B/P (MAP) 136/80 (98) 120/66 (84) Pulse Ox 95 92 93 O2 Delivery Mechanical Ventilator Mechanical Ventilator O2 Flow Rate 25.00 25.00 FiO2 25 04/30/19 04/30/19 04/30/19 04/30/19 07:00 08:00 08:00 09:00 Temp 36.2 Pulse 69 63 Resp 19 20 B/P (MAP) 122/80 (94) 134/76 (95) Pulse Ox 93 96 O2 Delivery Mechanical Ventilator Mechanical Ventilator Mechanical Ventilator O2 Flow Rate 25.00 25.00 FiO2 25 04/30/19 04/30/19 04/30/19 04/30/19 09:53 10:00 11:00 12:00 Pulse 65 56 64 69 Resp 19 18 20 21 B/P (MAP) 151/88 (109) 116/66 (83) 119/82 (94) Pulse Ox 97 100 95 94 O2 Delivery Mechanical Ventilator Mechanical Ventilator Mechanical Ventilator O2 Flow Rate 25.00 25.00 25.00 FiO2 25 04/30/19 04/30/19 04/30/19 04/30/19 12:00 12:00 14:08 14:15 Temp 36.0 Pulse 68 65 Resp 21 19 Pulse Ox 98 97 O2 Delivery Mechanical Ventilator FiO2 25 25 25 04/30/19 00:00 Intake Total 260 ml Output Total 550 ml Balance -290 ml Constitutional: appears stated age; No apparent distress; well-developed, well- nourished Respiratory: No accessory muscle use, No respiratory distress, No chest tender, No chest expansion is symmetric, No lungs clear to percussion; crackles; No rhonchi, No rales, No stridor, No wheezing, No pleural rub; other (intubated/ventilated) Cardiovascular: regular rate-rhythm; No irregularly irregular, No extra beats, No parasternal heave is noted, No JVD, No edema, No bradycardia, No tachycardia, No point of maximal impulse, No cardiac thrills are palpable; S1 and S2; No gallop/S3, No gallop/S4, No diastolic murmur, No systolic murmur, No friction rub, No click, No other Gastrointestional: soft, round, audible bowel sounds; No spleenomegaly Extremities: normal range of motion, non-tender, normal inspection; No cl ubbing, No cyanosis; no lower extremity edema bilateral; No significant edema Neurologic/Psychiatric: No management and budget analyst II-XII nml as tested, No no motor/sensory deficits, No alert, No normal mood/affect, No oriented x 3, No abnormal cerebellar tests, No abnormal management and budget analyst II-XII, No abnormal gait, No aphasia, No EOM palsy, No facial droop, No motor weakness, No sensory deficit, No depressed affect, No disoriented x 3; other (intubated/ventilated); No grossly intact, No power is 5/5 both on sides Skin: normal color; No rash, No ulcerations Results/Procedures: Labs Laboratory Tests 04/29/19 23:50: Glucometer 260H 04/30/19 03:38: White Blood Count 15.8H, Red Blood Count 3.09L, Hemoglobin 9.3L, Hematocrit 30L, Mean Corpuscular Volume 96, Mean Corpuscular Hemoglobin 30, Mean Corpuscular Hemoglobin Concent 32, Red Cell Distribution Width 14.1, Platelet Count 297, Mean Platelet Volume 10.6H, Neutrophils (%) (Auto) 89H, Lymphocytes (%) (Auto) 7L, Monocytes (%) (Auto) 4, Eosinophils (%) (Auto) 0, Basophils (%) (Auto) 0, Neutrophils # (Auto) 14.0H, Lymphocytes # (Auto) 1.1, Monocytes # (Auto) 0.7, Eosinophils # (Auto) 0.0, Basophils # (Auto) 0.0, Sodium Level 141, Potassium Level 3.9, Chloride Level 110H, Carbon Dioxide Level 21, Anion Gap 10, Blood Urea Nitrogen 50H, Creatinine 1.35H, Estimat Glomerular Filtration Rate 40, BUN/Creatinine Ratio 37, Glucose Level 225H, Calcium Level 9.5, Phosphorus Level 3.4, Magnesium Level 2.6H 04/30/19 11:58: Glucometer 174H Microbiology 04/26/19 Blood Culture - Preliminary, Resulted No growth 04/26/19 Gram Stain - Final, Complete 04/26/19 Sputum Culture - Final, Complete Staphylococcus aureus Usual upper respiratory veronika A/P: Assessment/Dx: Acute respiratory failure due to pulmonary hemorrhage, Acute blood loss anemia due to pulmonary hemorrhage, Non-STEMI, Diabetes, Hypertension, Hyperlipidemia, Active smoking, Acute kidney injury. Plan: Acute respiratory failure due to pulmonary hemorrhage, intubated/ventilated. Integrilin, heparin, Brilinta discontinued 04/20/2019. Improved oxygenation overnight. Acute blood loss anemia due to pulmonary hemorrhage, Hemoglobin over 8 g/dL. Non-STEMI, patient presented with severe chest pain and positive cardiac enzymes. She was taken to the catheter lab on 04/20/2019. Diffuse calcified small arteries. However culprit artery was an OM1 with long stenotic segment with significant calcification in the proximal part. The vessel was of diameter was 2 mm. We decided to intervene. PTCA was done with reasonable results initially. The patient was very agitated during the procedure and wanted to sit up. And wanted to us to stop. We tried to cross the lesion in the proximal OM1 but could not cross the lesion and due to the agitation of the patient and inability of lying still, for the safety of the patient, we decided to pull the wire and stent back into the guide. Post angiogram shows significant recoil. Therefore IV integrillin and heparin were started. Due to the bleeding later in the afternoon on 04/20/2019 Integrilin, heparin and Brilinta were discontinued. No further chest pain however this morning significantly elevated troponin s uggesting likely occlusion of the small culprit OM1, transient hypotension and severe anemia. Unfortunately due to significant bleeding we could not continue IV Integrilin, heparin and Brilinta. Repeat angiography is contraindicated due to severe bleeding. I discussed at length with the and explained the situation. No brilinta given since 04/20/19. Lovenox dced 04/26/2019 due to suspicion of rebleed. Echocardiogram done on 04/21/2019 for which I was at the bedside showed no peric ardial effusion. Hyperdynamic LV systolic function with an EF of 75 percent with no lateral wall motion abnormalities. Underfilling of the LV is recognized. Transient hypotension with significant drop in hemoglobin and hematocrit 04/20/2019, stat CT abdomen and pelvis done which ruled out retroperitoneal hemorrhage. Diabetes, severely elevated glucose. IV insulin. Hypertension, hold antihypertensive medication since hypotension. Hyperlipidemia, continue statin therapy. Active smoking, smoking cessation was strongly recommended. Acute kidney injury. Thank you for your consultation. Please call me if you have any questions. Annmarie Brar MD, FACP, FACC, FSCAI, FHRS, CCDS Interventional Cardiology Cardiac Electrophysiology Vascular Medicine and Endovascular Interventions Jen BRAR MD Apr 30, 2019 3:43 pm
[2019-04-30] MEDS: PROPOFOL DRIP (ICU) 100 ML IV SCH ×2 (16:24→23:30)
--- NOTE | 2019-04-30 19:07 | NUR ---
RT RECEIVED PATIENT ON SIMV/VC+ PS: RATE 15 VT 450, PS 15 AND PEEP 8 AND 25%: RT INCREASED PEAK PRESSURE ALARM FROM 40 TO 50, RT ALSO DECREASED O2 FROM 25% TO 21%; FAMILY AT BEDSIDE; PATIENT IS AWAKE AND RESPONDS TO RT AT THIS TIME
[2019-05-01] VITALS (24 sets, daily range): BP systolic 102–196; BP diastolic 64–105
[2019-05-01] MEDS: RT-ALBUTEROL/IPRATROPIUM 3 ML (DUONEB) VIAL INH SCH ×4 (03:00→22:07)
[2019-05-01 03:39] LABS: BASOPHILS % (AUTO) 0 % (0-10); EOSINOPHILS % (AUTO) 0 % (0-10); HEMATOCRIT 31 % (35-52); HEMOGLOBIN 9.8 G/DL (11.5-16.0); LYMPHOCYTES # (AUTO) 1.3 X 10^3 (1.0-4.0); LYMPHOCYTES % (AUTO) 9 % (12-44); MEAN CORPUSCULAR HEMOGLOBIN 30 PG (25-34); MEAN CORPUSCULAR HGB CONC 32 G/DL (32-36); MEAN CORPUSCULAR VOLUME 95 FL (80-99); MEAN PLATELET VOLUME 10.4 FL (7.4-10.4); MONOCYTES # (AUTO) 0.7 X 10^3 (0.0-1.0); MONOCYTES % (AUTO) 5 % (0-12); NEUTROPHILS % (AUTO) 86 % (42-75); PLATELET COUNT 372 10^3/uL (130-400); RED CELL DISTRIBUTION WIDTH 14.5 % (10.0-14.5); WHITE BLOOD COUNT 15.1 10^3/uL (4.3-11.0)
[2019-05-01 04:00] LABS: CALCIUM 9.9 MG/DL (8.5-10.1); CREATININE SERUM 1.25 MG/DL (0.60-1.30); MAGNESIUM 2.5 MG/DL (1.6-2.4); PHOSPHORUS 3.2 MG/DL (2.3-4.7); POTASSIUM 3.7 MMOL/L (3.6-5.0)
[2019-05-01 04:16] LABS: ABG BASE EXCESS -3.3 MMOL/L (-2.5-2.5); ABG OXYGEN SATURATION 95 % (94-100); ABG PCO2 31 MMHG (35-45); ABG PH 7.43 (7.37-7.43); ABG PO2 78 MMHG (79-93); ABG TCO2 21.3 MMOL/L (21.0-31.0)
[2019-05-01 04:21] LABS: ALLENS TEST YES-POS; INSPIRED O2 30%; VENTILATOR YES
[2019-05-01] MEDS: KCL 20 MEQ TAB (K-DUR) PO SCH (04:21)
[2019-05-01] MEDS: POTASSIUM CL 10MEQ/50ML IVPB 50 ML IV SCH (04:21)
[2019-05-01] MEDS: MAGNESIUM 1 GM/100 ML IVPB 100 ML IV SCH (04:21)
[2019-05-01] MEDS ORDERED: BUMETANIDE 1 MG/4 ML (BUMEX) VIAL IV ONE (05:30)
[2019-05-01] MEDS: inSUlin ASPART (NovoLOG) 1 UNIT/0.01 ML (CHARGE PER UNIT) SC SCH ×4 (06:14→23:54)
[2019-05-01] MEDS: methylPREDNISolone 40 MG/ML (Solu-MEDROL) VIAL IV SCH ×4 (06:14→23:54)
[2019-05-01] MEDS: RT-BUDESONIDE NEBS 0.5 MG/2ML (PULMICORT) AMP INH SCH ×2 (06:19→19:52)
[2019-05-01] MEDS ORDERED: TROUGH ORDER-PHARMACY XX ONE (07:00)
--- NOTE | 2019-05-01 07:05 | Pulmonary Progress Note ---
Subjective Time Seen by a Provider: 07:04 Subjective/Events-last exam Pt is awake on vent. Sepsis Event Evaluation Height, Weight, BMI Height: '" Weight: lbs. oz. kg; 37.22 BMI Method: Exam Exam Vital Signs Date Time Temp Pulse Resp B/P (MAP) Pulse Ox O2 Delivery O2 Flow Rate FiO2 05/01/19 06:39 Mechanical Ventilator 05/01/19 06:20 128 26 92 30 05/01/19 06:00 108 23 152/82 (105) 93 Mechanical Ventilator 30.00 05/01/19 05:00 100 13 174/89 (117) 97 Mechanical Ventilator 30.00 05/01/19 04:31 30 05/01/19 04:05 37.0 Mechanical Ventilator 30.00 05/01/19 04:00 92 Mechanical Ventilator 30 05/01/19 04:00 121 14 196/102 (133) 88 Mechanical Ventilator 21.00 05/01/19 03:00 64 30 155/81 (105) 98 Mechanical Ventilator 21.00 05/01/19 03:00 69 15 98 21 05/01/19 02:00 61 14 155/73 (100) 99 Mechanical Ventilator 21.00 05/01/19 01:01 56 05/01/19 01:00 54 14 119/66 (83) 96 Mechanical Ventilator 21.00 05/01/19 00:00 54 15 115/65 (82) 96 Mechanical Ventilator 21.00 04/30/19 23:30 62 15 143/79 95 Mechanical Ventilator 21.00 04/30/19 23:25 36.2 Mechanical Ventilator 21.00 04/30/19 23:25 94 Mechanical Ventilator 21 04/30/19 23:01 66 15 100 21 04/30/19 23:00 66 16 143/79 (100) 100 Mechanical Ventilator 21.00 04/30/19 22:00 54 12 145/77 (99) 96 Mechanical Ventilator 21.00 04/30/19 21:00 66 13 144/95 (111) 100 Mechanical Ventilator 21.00 04/30/19 20:00 100 Mechanical Ventilator 21 04/30/19 20:00 60 20 150/79 (102) 100 Mechanical Ventilator 21.00 04/30/19 19:40 36.8 Mechanical Ventilator 21.00 04/30/19 19:28 Mechanical Ventilator 21.00 04/30/19 19:27 Mechanical Ventilator 21 04/30/19 19:07 55 15 100 25 04/30/19 19:00 64 04/30/19 19:00 64 16 152/73 (99) 99 Mechanical Ventilator 25.00 04/30/19 18:00 61 15 141/76 (97) 100 Mechanical Ventilator 25.00 04/30/19 17:00 70 19 122/90 (101) 99 Mechanical Ventilator 25.00 04/30/19 16:00 Mechanical Ventilator 25 04/30/19 16:00 80 14 126/55 (78) 100 Mechanical Ventilator 25.00 04/30/19 15:00 68 20 126/67 (86) 97 Mechanical Ventilator 25.00 04/30/19 14:15 65 19 97 25 04/30/19 14:08 68 21 98 25 04/30/19 14:00 65 20 133/72 (92) 98 Mechanical Ventilator 25.00 04/30/19 13:00 71 13 119/65 (83) 96 Mechanical Ventilator 25.00 04/30/19 13:00 67 04/30/19 12:00 36.0 04/30/19 12:00 Mechanical Ventilator 25 04/30/19 12:00 69 21 119/82 (94) 94 Mechanical Ventilator 25.00 04/30/19 11:00 64 20 116/66 (83) 95 Mechanical Ventilator 25.00 04/30/19 10:00 56 18 151/88 (109) 100 Mechanical Ventilator 25.00 04/30/19 09:53 65 19 97 25 04/30/19 09:00 63 20 134/76 (95) 96 Mechanical Ventilator 25.00 04/30/19 08:00 69 19 122/80 (94) 93 Mechanical Ventilator 25.00 04/30/19 08:00 Mechanical Ventilator 25 I & O 05/01/19 07:00 Intake Total 1542.5 ml Output Total 1710 ml Balance -167.5 ml Height & Weight Height: '" Weight: lbs. oz. kg; 37.22 BMI Method: General Appearance: No Apparent Distress, WD/WN, Anxious, Chronically ill HEENT: Pharynx Normal Neck: Full Range of Motion, Normal Inspection, Non Tender Respiratory: Chest Non Tender, Lungs Clear, Normal Breath Sounds, No Accessory Muscle Use, No Respiratory Distress, Other (on vent) Cardiovascular: Regular Rate, Rhythm, No Edema, No Gallop, No JVD, No Murmur, Normal Peripheral Pulses Capillary Refill: Less Than 3 Seconds Peripheral Pulses: 2+ Dorsalis Pedis (R), 2+ Left Dors-Pedis (L), 2+ Radial Pulses (R), 2+ Radial Pulses (L) Gastrointestinal: non tender, soft, no organomegaly, no pulsatile mass Extremity: Normal Capillary Refill, Normal Inspection, Normal Range of Motion, Non Tender, Pedal Edema (L>R) Neurologic/Psychiatric: Alert, Oriented x3, No Motor/Sensory Deficits, Normal Mood/Affect, cloth shrinking tester II-XII Norm as Tested Skin: Normal Color, Warm/Dry Lymphatic: No Adenopathy Results Lab Laboratory Tests 04/30/19 03:38 05/01/19 03:20 Assessment/Plan Assessment/Plan Acute respiratory failure with acute hemoptysis- improved since bronchoscopy and intubation 04/21. Repeat bronchoscopy 04/25 - -Continue solumedrol -Continue to wean vent. Possible extubation today -Continue solumedrol -Give Bumex 2mg IV x 1 Pnuemonia with MSSA -MRSA swab is negative -continue Vancomycin secondary to copious amounts of sputum and worsening leukocytosis prior to vanco. pulmonary hemorrhage secondary to anticoagulation -D/C lovenox. CP s/p cath -Cardiology following COPD - Duonebs Q4H Hypokalemia, hypophos -replace NIDDMII with hyperglycemia -SSI DREW - Fluid replacement HTN -Monitor CAD -cardiology consult PAD Hx of [place] CABG DANGELO DURAN DO May 01, 2019 07:05
[2019-05-01 07:26] LABS: ABG BASE EXCESS -2.9 MMOL/L (-2.5-2.5); ABG OXYGEN SATURATION 97 % (94-100); ABG PCO2 29 MMHG (35-45); ABG PH 7.46 (7.37-7.43); ABG PO2 85 MMHG (79-93); ABG TCO2 21.3 MMOL/L (21.0-31.0)
[2019-05-01 07:27] LABS: ALLENS TEST YES-POS; INSPIRED O2 30%; PATIENT TEMP 36.7; VENTILATOR YES
[2019-05-01] MEDS: ASPIRIN E.C. 81 MG (ECOTRIN) TAB PO SCH (08:50)
--- NOTE | 2019-05-01 08:53 | NUR ---
PT EXTUBted verbal order dr pace, placed on vapotherm 40 l , 40%. no signs of distress, family and rn in room, heart rate 67, rr 20, nbp 102/64. no futher orders per dr pace Addendum: 05/01/19 at 0939 by CLAUS LYNCH RT Amended: Links added.
[2019-05-01] MEDS: PANTOPRAZOLE 40 MG (PROTONIX) VIAL IV SCH (09:05)
--- NOTE | 2019-05-01 09:08 | Diagnostic Imaging Report ---
EXAMINATION: Portable erect AP chest at 3:28 AM. INDICATION: Respiratory distress. FINDINGS: The heart size is stable when compared to the prior exam of 04/30/2019. The interstitial densities in both lungs, however, are less prominent than on the prior exam. There is still a small amount of atelectasis/infiltrate and fluid in the left lung base. The lungs are otherwise clear. The mediastinum is not widened. The supportive tubes and lines seen previously are unchanged. The osseous structures are intact. IMPRESSION: The chest has improved somewhat as the interstitial densities in both lungs are less prominent than noted on the prior exam. There is still some atelectasis/infiltrate and fluid in the left lung base. Dictated by: Dictated on workstation # [id number]
--- NOTE | 2019-05-01 10:15 | Progress Note - Hospitalist ---
Subjective HPI/CC On Admission Date Seen by Provider: May 01, 2019 Time Seen by Provider: 09:00 Chief complaint: Unstable angina with hyperglycemia HPI: This is a 63yoWF with a history of bypass surgery who presented after taki ng two Nitroglycerin for chest pain, after presenting to the ER she was found to have unstable angina and blood sugar of 500 from the steroids that were given at her PCPs office, Dr. Sepulveda the day before. She was placed on Heparin drip and insulin drip, IV steroids and monitored closely through the night. She denies any chest pain at this current time, awaiting cardiology plan. Her last Hgb A1C was 7.1. Subjective/Events-last exam Extubation will be attempted per Dr. Lopez. Pt denies any pain. Checked meds and labs. Updated at the bedside. Objective Exam Vital Signs Vital Signs Date Time Temp Pulse Resp B/P (MAP) Pulse Ox O2 Delivery O2 Flow Rate FiO2 05/01/19 19:53 90 Vapotherm 35.00 30 05/01/19 19:45 36.8 05/01/19 18:00 131 45 128/105 (113) Capillary Refill : Less Than 3 Seconds General Appearance: No Apparent Distress, WD/WN, Anxious, Chronically ill Respiratory: Lungs Clear Cardiovascular: Regular Rate, Rhythm Neurologic/Psychiatric: Alert, Oriented x3, No Motor/Sensory Deficits, Normal Mood/Affect, dock manager II-XII Norm as Tested Results/Procedures Lab Laboratory Tests 05/01/19 03:20 Patient resulted labs reviewed. Assessment/Plan Assessment and Plan Assess & Plan/Chief Complaint Assessment: Vent dependent respiratory failure failed extubation Tuesday now in process of weaning again Unstable angina Known CAD CABG hx DM OOC in need of insulin drip Smoker HTN HLP CRI Plan: IV steroids Ventilator management Prognosis poor Diagnosis/Problems Diagnosis/Problems (1) Ventilator dependence Status: Acute (2) Angina at rest Status: Acute (3) Acute hyperglycemia Status: Acute (4) COPD with exacerbation Status: Acute (5) Chest pain Status: Acute Qualifiers: Chest pain type: chest pain due to myocardial ischemia Ischemic chest pain type: unstable angina pectoris Qualified Codes: I20.0 - Unstable angina Clinical Quality Measures DVT/VTE Risk/Contraindication: Risk Factor Score Per Nursin RFS Level Per Nursing on Admit: 4+=Very High JESUS CEBALLOS DO May 01, 2019 10:15
--- NOTE | 2019-05-01 10:45 | NUR ---
Pastoral care visit.
--- NOTE | 2019-05-01 10:53 | Physical Therapy Daily Note ---
PT Daily Note-Current Subjective Patient extubated this a.m. and on vapotherm. Agrees to PT. Pain Numeric Pain Scale: 0-No Pain Location: No Pain Reported Mental Status Patient Orientation: Normal For Age Attachments: Oxygen (vapotherm), Mora Catheter, IV Transfers SCALE: Activities may be completed with or without assistive devices. 6-Phwbpwtyhy-lpvgdwg completes the activity by him/herself with no assistance from a helper. 5-Set-up or Clean-up Assistance-helper sets up or cleans up; patient completes activity. [place] assists only prior to or following the activity. 4-Supervision or Touching Assistance-helper provides verbal cues and/or touching/steadying and/or contact guard assistance as patient completes activity. Assistance may be provided throughout the activity or intermittently. 3-Partial/Moderate Assistance-helper does LESS THAN HALF the effort. [place] lifts, holds or supports trunk or limbs, but provides less than half the effort. 2-Substantial/Maximal Assistance-helper does MORE THAN HALF the effort. [place] lifts or holds trunk or limbs and provides more than half the effort. 9-Oudyolhkk-ahxbbm does ALL the effort. Patient does none of the effort to complete the activity. Or, the assistance of 2 or more helpers is required for the patient to complete the activity. If activity was not attempted, code reason: 7-Patient Refused. 9-Not Applicable-not attempted and the patient did not perform the activity before the current illness, exacerbation or injury. 10-Not Attempted due to Environmental Limitations-(lack of equipment, weather restraints, etc.). 88-Not Attempted due to Medical Conditions or Safety Concerns. Transfers (B, C, W/C): 3 Roll Left to Right (QC): 3 Sit to Lying (QC): 3 Sit to Stand (QC): 3 Chair/Lpy-id-Xezek Xfer(QC): 3 Bed to/from Chair: 3 patient sat EOB x 7 min CGA for balance support/sit to stand bed to chair mod to max assist Exercises Supine Ex: Ankle pumps, Quad Set, Heel Slides, Straight leg raise Supine Reps: 10 Seated Therapy Exercises: Ankle pumps, Long arc quads Seated Reps: 15 Assessment Patient tolerated treatment well and is up in chair with needs met. Patient is highly motivated with progress. PT to increase activity as tolerated by patien t. PT Short Term Goals Short Term Goals Time Frame: May 12, 2019 Gait Distance Comment: 75' Gait Assistive Device: FWW (minimal assist) PT Cash Management Clerk Goals Cash Management Clerk Goals PT Retirement Goals Time Frame: May 19, 2019 Sit to Lying (QC): 6 Lying-Sitting on Side/Bed(QC): 6 Sit to Stand (QC): 6 Roll Left to Right (QC): 6 Chair/Fua-af-Jsrys Xfer(QC): 6 Car Transfer (QC): 6 Does the Patient Walk: Yes Distance: 200' Walk 10 feet (QC): 6 Walk 10ft-Uneven Surface(QC): 6 Walk 50ft with 2 Turns (QC): 6 Walk 150 ft (QC): 6 Gait Assistive Device: FWW PT Plan Treatment/Plan Treatment Plan: Continue Plan of Care Treatment Plan: Bed Mobility, Education, Functional Activity Javi, Functional Strength, Gait, Safety, Therapeutic Exercise, Transfers Treatment Duration: May 19, 2019 Frequency: 6 times per week Estimated Hrs Per Day: .25 hour per day Patient and/or Family Agrees t: Yes Time/GCodes Time In: 935 Time Out: 958 Total Billed Treatment Time: 23 Total Billed Treatment 1 visit FA 12 min EX 11 min CLAUS DONOHUE PT May 01, 2019 10:53
[2019-05-01] MEDS: PROPOFOL DRIP (ICU) 100 ML IV SCH ×2 (13:02→23:07)
[2019-05-01] MEDS: VANCOMYCIN 1250 MG/NS 250 ML IVPB IV SCH ×2 (13:03)
--- NOTE | 2019-05-01 13:22 | Cardiology Progress Note ---
Cardiology SOAP Progress Note Subjective: Patient extubated today. Objective: I&O/Vital Signs 05/01/19 05/01/19 05/01/19 05/01/19 02:00 03:00 03:00 04:00 Pulse 61 69 64 121 Resp 14 15 30 14 B/P (MAP) 155/73 (100) 155/81 (105) 196/102 (133) Pulse Ox 99 98 98 88 O2 Delivery Mechanical Ventilator Mechanical Ventilator Mechanical Ventilator O2 Flow Rate 21.00 21.00 21.00 FiO2 21 05/01/19 05/01/19 05/01/19 05/01/19 04:00 04:05 04:31 05:00 Temp 37.0 Pulse 100 Resp 13 B/P (MAP) 174/89 (117) Pulse Ox 92 97 O2 Delivery Mechanical Ventilator Mechanical Ventilator Mechanical Ventilator O2 Flow Rate 30.00 30.00 FiO2 30 30 05/01/19 05/01/19 05/01/19 05/01/19 06:00 06:20 06:39 07:00 Pulse 108 128 100 Resp 23 26 B/P (MAP) 152/82 (105) Pulse Ox 93 92 O2 Delivery Mechanical Ventilator Mechanical Ventilator O2 Flow Rate 30.00 FiO2 30 05/01/19 05/01/19 05/01/19 05/01/19 07:00 08:00 08:00 08:00 Temp 36.3 Pulse 100 80 Resp 21 20 B/P (MAP) 125/76 (92) 102/64 (77) Pulse Ox 94 92 92 O2 Delivery Mechanical Ventilator Mechanical Ventilator Mechanical Ventilator O2 Flow Rate 30.00 30.00 FiO2 30 05/01/19 05/01/19 05/01/19 05/01/19 09:00 09:00 10:00 10:03 Pulse 71 100 Resp 22 22 B/P (MAP) 121/78 (92) Pulse Ox 93 96 O2 Delivery Vapotherm Vapotherm Vapotherm Vapotherm O2 Flow Rate 40.00 40.00 40.00 FiO2 30 05/01/19 05/01/19 05/01/19 05/01/19 10:12 11:00 11:13 11:23 Temp 36.8 Pulse 109 Resp 27 B/P (MAP) Pulse Ox 96 O2 Delivery Vapotherm Vapotherm Vapotherm O2 Flow Rate 30.00 30.00 FiO2 30 05/01/19 00:00 Intake Total 1512.5 ml Output Total 1010 ml Balance 502.5 ml Constitutional: appears stated age, AAO x 3; No apparent distress; well- developed, well-nourished Respiratory: No accessory muscle use, No respiratory distress, No chest tender, No chest expansion is symmetric; chest is bilaterally symmetric; No lungs clear to percussion; lungs clear to auscultation; No rhonchi, No rales, No stridor, No wheezing, No pleural rub Cardiovascular: regular rate-rhythm; No irregularly irregular, No extra beats, No parasternal heave is noted, No JVD, No edema, No bradycardia, No tachycardia, No point of maximal impulse, No cardiac thrills are palpable; S1 and S2; No gallop/S3, No gallop/S4, No diastolic murmur, No systolic murmur, No friction rub, No click, No other Gastrointestional: soft, round, audible bowel sounds; No spleenomegaly Extremities: normal range of motion, non-tender, normal inspection; No clubbing, No cyanosis; no lower extremity edema bilateral; No significant edema Neurologic/Psychiatric: No pest technician II-XII nml as tested; no motor/sensory deficits, alert, normal mood/affect, oriented x 3; No abnormal cerebellar tests, No abnormal pest technician II-XII, No abnormal gait, No aphasia, No EOM palsy, No facial droop, No motor weakness, No sensory deficit, No depressed affect, No disorient ed x 3, No grossly intact, No power is 5/5 both on sides Skin: normal color; No rash, No ulcerations Results/Procedures: Labs Laboratory Tests 05/01/19 03:20: White Blood Count 15.1H, Red Blood Count 3.24L, Hemoglobin 9.8L, Hematocrit 31L, Mean Corpuscular Volume 95, Mean Corpuscular Hemoglobin 30, Mean Corpuscular Hemoglobin Concent 32, Red Cell Distribution Width 14.5, Platelet Count 372, Mean Platelet Volume 10.4, Neutrophils (%) (Auto) 86H, Lymphocytes (%) (Auto) 9L , Monocytes (%) (Auto) 5, Eosinophils (%) (Auto) 0, Basophils (%) (Auto) 0, Neutrophils # (Auto) 13.0H, Lymphocytes # (Auto) 1.3, Monocytes # (Auto) 0.7, Eosinophils # (Auto) 0.0, Basophils # (Auto) 0.0, Sodium Level 142, Potassium Level 3.7, Chloride Level 112H, Carbon Dioxide Level 19L, Anion Gap 11, Blood Urea Nitrogen 53H, Creatinine 1.25, Estimat Glomerular Filtration Rate 43, BUN/Creatinine Ratio 42, Glucose Level 202H, Calcium Level 9.9, Phosphorus Level 3.2, Magnesium Level 2.5H 05/01/19 04:10: Blood Gas Puncture Site LEFT RADIAL, Blood Gas Patient Temperature 37.0, Arterial Blood pH 7.43, Arterial Blood Partial Pressure CO2 31L, Arterial Blood Partial Pressure O2 78L, Arterial Blood HCO3 20L, Arterial Blood Total CO2 21.3, Arterial Blood Oxygen Saturation 95, Arterial Blood Base Excess -3.3L, Hermelindo T est YES-POS, Blood Gas Ventilator Setting YES, Blood Gas Inspired Oxygen 30% 05/01/19 06:34: Vancomycin Level Trough 28.1*H 05/01/19 07:15: Blood Gas Puncture Site LEFT RADIAL, Blood Gas Patient Temperature 36.7, Arterial Blood pH 7.46H, Arterial Blood Partial Pressure CO2 29L, Arterial Blood Partial Pressure O2 85, Arterial Blood HCO3 20L, Arterial Blood Total CO2 21.3, Arterial Blood Oxygen Saturation 97, Arterial Blood Base Excess -2.9L, Hermelindo Test YES-POS, Blood Gas Ventilator Setting YES, Blood Gas Inspired Oxygen 30% 05/01/19 11:20: Glucometer 183H Microbiology 04/26/19 Blood Culture - Preliminary, Resulted No growth 04/26/19 Gram Stain - Final, Complete 04/26/19 Sputum Culture - Final, Complete Staphylococcus aureus Usual upper respiratory veronika A/P: Assessment/Dx: Acute respiratory failure due to pulmonary hemorrhage, Acute blood loss anemia due to pulmonary hemorrhage, Non-STEMI, Diabetes, Hypertension, Hyperlipidemia, Active smoking, Acute kidney injury. Plan: Acute respiratory failure due to pulmonary hemorrhage, Integrilin, heparin, Brilinta discontinued 04/20/2019. Extubated today. Tolerating well. Acute blood loss anemia due to pulmonary hemorrhage, Hemoglobin over 8 g/dL. Non-STEMI, patient presented with severe chest pain and positive cardiac enzymes. She was taken to the catheter lab on 04/20/2019. Diffuse calcified small arteries. However culprit artery was an OM1 with long stenotic segment with significant calcification in the proximal part. The vessel was of diameter was 2 mm. We decided to intervene. PTCA was done with reasonable results initially. The patient was very agitated during the procedure and wanted to sit up. And wanted to us to stop. We tried to cross the lesion in the proximal OM1 but could not cross the lesion and due to the agitation of the patient and inability of lying still, for the safety of the patient, we decided to pull the wire and stent back into the guide. Post angiogram shows significant recoil. Therefore IV integrillin and heparin were started. Due to the bleeding later in the afternoon on 04/20/2019 Integrilin, heparin and Brilinta were discontinued. No further chest pain however this morning significantly elevated troponin suggesting likely occlusion of the small culprit OM1, transient hypotension and severe anemia. Unfortunately due to significant bleeding we could not continue IV Integrilin, heparin and Brilinta. Repeat angiography is contraindicated due to severe bleeding. I discussed at length with the and explained the situation. No brilinta given since 04/20/19. Lovenox dced 04/26/2019 due to suspicion of rebleed. Echocardiogram done on 04/21/2019 for which I was at the bedside showed no pericardial effusion. Hyperdynamic LV systolic function with an EF of 75 percent with no lateral wall motion abnormalities. Underfilling of the LV is recognized. Transient hypotension with significant drop in hemoglobin and hematocrit 04/20/2019, stat CT abdomen and pelvis done which ruled out retroperitoneal hemorrhage. Diabetes, severely elevated glucose. IV insulin. Hypertension, hold antihypertensive medication since hypotension. Hyperlipidemia, continue statin therapy. Active smoking, smoking cessation was strongly recommended. Acute kidney injury. Thank you for your consultation. Please call me if you have any questions. Annmarie Brar MD, FACP, FACC, FSCAI, FHRS, CCDS Interventional Cardiology Cardiac Electrophysiology Vascular Medicine and Endovascular Interventions Jen BRAR MD May 01, 2019 13:22
[2019-05-01] MEDS: hydrALAZINE (APESOLINE) 20 MG/ML VIAL IV PRN ×2 (14:25→22:04)
--- NOTE | 2019-05-01 16:13 | ST Dysphagia Evaluation ---
Speech Evaluation-General Medical Diagnosis unstable angina/hyperglycemia Onset Date: Apr 18, 2019 Therapy Diagnosis Therapy Diagnosis: Oropharyngeal Dysphagia Precautions Precautions: Fall, Aspiration Precautions/Isolations: Aspiration, Fall Prevention, Standard Precautions Referral Referring Physician: Dr. Lopez Reason for Referral: Evaluation/Treatment Medical History Pertinent Medical History: CABG, CAD, COPD, DM, HTN, PVD, Smoking CABG, CAD, COPD, DM, HTN, PVD, Smoking Current History Unstable angina/hyperglycemia Reviewed History: Yes Social History Home: Single Level Current Living Status: Spouse Speech PLF/Current-Dysphagia Prior Level of Function Patient lives at home with her spouse. She was independent for most of her daily needs. Subjective Patient was pleasant and cooperative with the Bedside Dysphagia Evaluation Cognitive Status Patient Orientation: Person, Place, Situation Oral Motor Skills Dentition: Edentalous Denture Type: Full- Upper & Lower Ability to Follow Directions: Good Patient was NPO pending the BDE Oral Expression Ability: Unable Patient is unable to speak out loud at this time due to her lengthy time on the vent. Face Facial Symmetry: Symmetrical Oral-Facial Assessment Oral-Facial Dentition: Normal Labial Seal Description: Weak Smile: Reduced ROM Puff Cheeks: Reduced Strength Lingual Protrusion: Normal Lingual ROM: Normal Lingual Strength: Normal Volitional Dry Swallow: Yes Voluntary Cough: Yes Productive Cough: No Dysphagia Evaluation Consistencies Presented: Regular, Thin Liquid, Mechanical Soft, Pureed Oral phase within normal range of function. Pharyngeal phase within normal range of function. Swallowing Precautions: Alternate Liquids/Solids, Decreased Bolus 1/2 Tsp, Liquids from Straw, Small Bites and Sips, Sitting Upright 90 Degrees, Sitting 90 Degrees 30 Post Intake Dysphagia Evaluation Summary Patient was evaluated per physician order this afternoon. Patient was extubated this morning. The patient completed the BDE with thin liquids at 1/2 tsp x2 and small sips via straw x2 without difficulty. She was given 1/2 tsp of each: puree, mechanical soft and regular consistencies without difficulty. No overt s/s of aspiration noted. Patient will be on a regular diet level with thin liquids. This information was provided to her nurse. Barriers to Learning Patient has been intubated for several days. Speech-Plan Patient/Family Goals Patient/Family Goals: Patient plans on returning home upon discharge from the hospital. Treatment Plan Speech Therapy Treatment Plan: Discontinue ST Patient does not require further dysphagia services at this time. Treatment Duration: May 01, 2019 Frequency: 1 time per week Estimated Hrs Per Day: .25 hour per day Rehab Potential: Guarded Barriers to Learning: Patient has had a lengthy and complex stay. Pt/Family Agrees to Plan: Yes Safety Risks/Education Teaching Recipient: Patient, Significant Other Teaching Methods: Discussion Response to Teaching: Verbalize Understanding Education Topics Provided: Safety of oral intake and diet level Time Speech Therapy Time In: 15:30 Speech Therapy Time Out: 15:45 Total Billed Time: 15 Billed Treatment Time 1, MACY HART May 01, 2019 16:13
[2019-05-01] MEDS: meTOprolol TARTRATE 25 MG (LOPRESSOR) TABLET PO SCH (19:40)
[2019-05-01] MEDS ORDERED: ZOLPIDEM 5 MG (AMBIEN) TAB PO SCH (21:36)
[2019-05-02] VITALS (24 sets, daily range): BP systolic 100–185; BP diastolic 59–121
[2019-05-02] MEDS: LACTATED RINGERS 1,000 ML IV SCH (00:53)
[2019-05-02] MEDS: RT-ALBUTEROL/IPRATROPIUM 3 ML (DUONEB) VIAL INH SCH ×6 (02:13→22:16)
[2019-05-02 03:32] LABS: BASOPHILS % (AUTO) 0 % (0-10); EOSINOPHILS % (AUTO) 0 % (0-10); HEMATOCRIT 32 % (35-52); HEMOGLOBIN 10.1 G/DL (11.5-16.0); LYMPHOCYTES # (AUTO) 1.1 X 10^3 (1.0-4.0); LYMPHOCYTES % (AUTO) 6 % (12-44); MEAN CORPUSCULAR HEMOGLOBIN 30 PG (25-34); MEAN CORPUSCULAR HGB CONC 31 G/DL (32-36); MEAN CORPUSCULAR VOLUME 96 FL (80-99); MEAN PLATELET VOLUME 10.2 FL (7.4-10.4); MONOCYTES % (AUTO) 5 % (0-12); NEUTROPHILS # (AUTO) 16.3 X 10^3 (1.8-7.8); NEUTROPHILS % (AUTO) 89 % (42-75); PLATELET COUNT 434 10^3/uL (130-400); RED CELL DISTRIBUTION WIDTH 14.8 % (10.0-14.5); WHITE BLOOD COUNT 18.3 10^3/uL (4.3-11.0)
[2019-05-02 03:53] LABS: CALCIUM 9.5 MG/DL (8.5-10.1); CREATININE SERUM 1.37 MG/DL (0.60-1.30); MAGNESIUM 2.7 MG/DL (1.6-2.4); PHOSPHORUS 2.8 MG/DL (2.3-4.7); POTASSIUM 3.8 MMOL/L (3.6-5.0)
--- NOTE | 2019-05-02 04:47 | Pulmonary Progress Note ---
Subjective Time Seen by a Provider: 06:30 Subjective/Events-last exam Pt appears stable off ventilator. Sepsis Event Evaluation Height, Weight, BMI Height: '" Weight: lbs. oz. kg; 37.22 BMI Method: Exam Exam Vital Signs Date Time Temp Pulse Resp B/P (MAP) Pulse Ox O2 Delivery O2 Flow Rate FiO2 05/02/19 04:00 95 8 158/93 (114) 94 Vapotherm 35.00 45.00 05/02/19 03:00 93 26 159/82 (107) 94 Vapotherm 35.00 45.00 05/02/19 02:13 92 Vapotherm 35.00 45 05/02/19 02:00 95 12 159/78 (105) 93 Vapotherm 35.00 45.00 05/02/19 01:00 97 26 142/74 (96) 91 Vapotherm 35.00 45.00 05/02/19 01:00 97 05/02/19 00:28 36.9 05/02/19 00:00 102 19 135/74 (94) 91 Vapotherm 35.00 45.00 05/02/19 00:00 92 Vapotherm 45.00 05/01/19 23:00 102 21 134/79 (97) 90 Vapotherm 35.00 45.00 05/01/19 22:15 98 13 148/84 (105) 94 Vapotherm 35.00 45.00 05/01/19 22:08 92 Vapotherm 35.00 45 05/01/19 22:05 89 25 180/101 (127) 92 Vapotherm 35.00 45.00 05/01/19 21:00 95 167/89 (115) 94 Vapotherm 35.00 45.00 05/01/19 20:16 36.8 129 90 40 05/01/19 20:00 92 Vapotherm 45.00 05/01/19 20:00 133 29 143/91 (108) 90 Vapotherm 35.00 45.00 05/01/19 19:53 90 Vapotherm 35.00 30 05/01/19 19:45 36.8 05/01/19 19:07 90 Vapotherm 30.00 30 05/01/19 19:00 134 05/01/19 19:00 134 36 123/76 (92) 88 Vapotherm 30.00 30.00 05/01/19 18:00 131 45 128/105 (113) 89 Vapotherm 30.00 05/01/19 17:00 135 33 115/73 (87) 91 Vapotherm 30.00 05/01/19 16:00 144 32 146/82 (103) 89 Vapotherm 30.00 05/01/19 16:00 Vapotherm 30 05/01/19 15:40 37.0 05/01/19 15:00 118 22 108/80 (89) 93 Vapotherm 30.00 05/01/19 14:06 Vapotherm 30 05/01/19 14:00 96 28 173/105 (127) 94 Vapotherm 30.00 05/01/19 13:00 105 25 179/93 (121) 96 Vapotherm 30.00 05/01/19 13:00 108 05/01/19 12:00 96 20 139/82 (101) 96 Vapotherm 30.00 05/01/19 11:23 36.8 05/01/19 11:13 Vapotherm 30 05/01/19 11:00 109 27 96 Vapotherm 30.00 05/01/19 10:12 Vapotherm 30.00 05/01/19 10:03 Vapotherm 30 05/01/19 10:00 100 22 96 Vapotherm 40.00 05/01/19 09:00 Vapotherm 40.00 05/01/19 09:00 71 22 121/78 (92) 93 Vapotherm 40.00 05/01/19 08:00 36.3 05/01/19 08:00 92 Mechanical Ventilator 30 05/01/19 08:00 80 20 102/64 (77) 92 Mechanical Ventilator 30.00 05/01/19 07:00 100 21 125/76 (92) 94 Mechanical Ventilator 30.00 05/01/19 07:00 100 05/01/19 06:39 Mechanical Ventilator 05/01/19 06:20 128 26 92 30 05/01/19 06:00 108 23 152/82 (105) 93 Mechanical Ventilator 30.00 05/01/19 05:00 100 13 174/89 (117) 97 Mechanical Ventilator 30.00 I & O 05/02/19 07:00 Intake Total 1320 ml Output Total 2250 ml Balance -930 ml Height & Weight Height: '" Weight: lbs. oz. kg; 37.22 BMI Method: General Appearance: WD/WN, Anxious, Chronically ill, Mild Distress, Obese HEENT: Pharynx Normal Neck: Full Range of Motion, Normal Inspection, Non Tender Respiratory: Lungs Clear Cardiovascular: Regular Rate, Rhythm Capillary Refill: Less Than 3 Seconds Peripheral Pulses: 2+ Dorsalis Pedis (R), 2+ Left Dors-Pedis (L), 2+ Radial Pulses (R), 2+ Radial Pulses (L) Gastrointestinal: non tender, soft, no organomegaly, no pulsatile mass Extremity: Normal Capillary Refill, Normal Inspection, Normal Range of Motion, Non Tender, Pedal Edema (L>R) Neurologic/Psychiatric: Alert, Oriented x3, No Motor/Sensory Deficits, Normal Mood/Affect, rerecording mixer II-XII Norm as Tested Skin: Normal Color, Warm/Dry Lymphatic: No Adenopathy Results Lab Laboratory Tests 05/01/19 03:20 05/02/19 03:21 Assessment/Plan Assessment/Plan Acute respiratory failure with acute hemoptysis- improved since bronchoscopy and intubation 04/21. Repeat bronchoscopy 04/25 - -Continue solumedrol -Pt still has copious amount sputum production -I discussed with patient regarding code status. PT states she would not want to go back on ventilator nor would she want chest compressions. PT is at bedside laying down with eyes open. appears to understand what pt is stating. Per pt wishes I will make her a DNR/DNI. Pnuemonia with MSSA -MRSA swab is negative -continue Vancomycin secondary to copious amounts of sputum and worsening leukocytosis prior to vanco. pulmonary hemorrhage secondary to anticoagulation -D/C lovenox. CP s/p cath -Cardiology following COPD - Duonebs Q4H NIDDMII with hyperglycemia -SSI DREW - Fluid replacement HTN -Monitor CAD -cardiology consult PAD Hx of MS CABG DANGELO DURAN DO May 02, 2019 04:47
[2019-05-02] MEDS: methylPREDNISolone 40 MG/ML (Solu-MEDROL) VIAL IV SCH ×4 (05:18→23:40)
[2019-05-02] MEDS: inSUlin ASPART (NovoLOG) 1 UNIT/0.01 ML (CHARGE PER UNIT) SC SCH ×4 (05:18→21:17)
[2019-05-02] MEDS: 1/2 NS IV SOLUTION 1,000 ML IV SCH ×2 (05:19→23:40)
[2019-05-02] MEDS: MAGNESIUM 1 GM/100 ML IVPB 100 ML IV SCH (05:31)
[2019-05-02] MEDS: KCL 20 MEQ TAB (K-DUR) PO SCH (05:31)
[2019-05-02] MEDS: POTASSIUM CL 10MEQ/50ML IVPB 50 ML IV SCH (05:31)
[2019-05-02] MEDS: hydrALAZINE (APESOLINE) 20 MG/ML VIAL IV PRN (06:06)
[2019-05-02] MEDS ORDERED: TROUGH ORDER-PHARMACY XX NR (07:00)
[2019-05-02] MEDS: morphine INJ 4 MG/ML 1 ML (VIAL/SYRINGE) IV PRN (07:05)
[2019-05-02] MEDS: RT-BUDESONIDE NEBS 0.5 MG/2ML (PULMICORT) AMP INH SCH ×2 (07:15→19:01)
--- NOTE | 2019-05-02 08:17 | NUR ---
PTD VANCOMYCIN LABS: SCR 1.37 VANCOMYCIN TROUGH LEVELS 28.1 (05/01) AND 16.9 (05/02) 24 HOURS APART PHARMACOKINETIC CALC. KD ~ 0.0219 AND ESTIMATED T1/2 ~ 32 HOURS PLAN: CHANGE TO VANCOMYCIN 1,250MG IV Q 48 HOURS STARTING TODAY @ 1200.
[2019-05-02] MEDS ORDERED: MAGIC MOUTHWASH, ADULT 155 ML BOTTLE PO SCH (09:00)
--- NOTE | 2019-05-02 09:08 | Cardiology Progress Note ---
Cardiology SOAP Progress Note Subjective: No cardiac complaints. Objective: I&O/Vital Signs 05/01/19 05/01/19 05/01/19 05/01/19 22:05 22:08 22:15 23:00 Pulse 89 98 102 Resp 25 13 21 B/P (MAP) 180/101 (127) 148/84 (105) 134/79 (97) Pulse Ox 92 92 94 90 O2 Delivery Vapotherm Vapotherm Vapotherm Vapotherm O2 Flow Rate 35.00 35.00 35.00 35.00 45.00 45.00 45.00 FiO2 45 05/02/19 05/02/19 05/02/19 05/02/19 00:00 00:00 00:28 01:00 Temp 36.9 Pulse 102 97 Resp 19 B/P (MAP) 135/74 (94) Pulse Ox 92 91 O2 Delivery Vapotherm Vapotherm O2 Flow Rate 45.00 35.00 45.00 05/02/19 05/02/19 05/02/19 05/02/19 01:00 02:00 02:13 03:00 Pulse 97 95 93 Resp 26 12 26 B/P (MAP) 142/74 (96) 159/78 (105) 159/82 (107) Pulse Ox 91 93 92 94 O2 Delivery Vapotherm Vapotherm Vapotherm Vapotherm O2 Flow Rate 35.00 35.00 35.00 35.00 45.00 45.00 45.00 FiO2 45 05/02/19 05/02/19 05/02/19 05/02/19 04:00 04:00 05:00 06:00 Pulse 95 93 98 Resp 8 8 10 B/P (MAP) 158/93 (114) 161/95 (117) 185/121 (142) Pulse Ox 92 94 94 92 O2 Delivery Vapotherm Vapotherm Vapotherm Vapotherm O2 Flow Rate 45.00 35.00 35.00 35.00 45.00 45.00 45.00 05/02/19 05/02/19 06:15 07:22 Pulse 109 Resp 9 B/P (MAP) 155/76 (102) Pulse Ox 92 91 O2 Delivery Vapotherm Vapotherm O2 Flow Rate 35.00 35.00 45.00 FiO2 45 05/01/19 23:59 Intake Total 320 ml Output Total 750 ml Balance -430 ml Constitutional: appears stated age, AAO x 3; No apparent distress; well- developed, well-nourished Respiratory: No accessory muscle use, No respiratory distress, No chest tender, No chest expansion is symmetric; chest is bilaterally symmetric; No lungs clear to percussion; lungs clear to auscultation; No rhonchi, No rales, No stridor, No wheezing, No pleural rub Cardiovascular: regular rate-rhythm; No irregularly irregular, No extra beats, No parasternal heave is noted, No JVD, No edema, No bradycardia, No tachycardia, No point of maximal impulse, No cardiac thrills are palpable; S1 and S2; No gallop/S3, No gallop/S4, No diastolic murmur, No systolic murmur, No friction rub, No click, No other Gastrointestional: soft, round, audible bowel sounds; No spleenomegaly Extremities: normal range of motion, non-tender, normal inspection; No clubbing, No cyanosis; no lower extremity edema bilateral; No significant edema Neurologic/Psychiatric: No driver service technician II-XII nml as tested; no motor/sensory deficits, alert, normal mood/affect, oriented x 3; No abnormal cerebellar tests, No abnormal driver service technician II-XII, No abnormal gait, No aphasia, No EOM palsy, No facial droop, No motor weakness, No sensory deficit, No depressed affect, No disoriented x 3, No grossly intact, No power is 5/5 both on sides Skin: normal color; No rash, No ulcerations Results/Procedures: Labs Laboratory Tests 05/01/19 11:20: Glucometer 183H 05/01/19 17:44: Glucometer 320H 05/02/19 03:21: White Blood Count 18.3H, Red Blood Count 3.37L, Hemoglobin 10.1L, Hematocrit 32L , Mean Corpuscular Volume 96, Mean Corpuscular Hemoglobin 30, Mean Corpuscular Hemoglobin Concent 31L, Red Cell Distribution Width 14.8H, Platelet Count 434H, Mean Platelet Volume 10.2, Neutrophils (%) (Auto) 89H, Lymphocytes (%) (Auto) 6L , Monocytes (%) (Auto) 5, Eosinophils (%) (Auto) 0, Basophils (%) (Auto) 0, Neutrophils # (Auto) 16.3H, Lymphocytes # (Auto) 1.1, Monocytes # (Auto) 1.0, Eosinophils # (Auto) 0.0, Basophils # (Auto) 0.0, Sodium Level 146H, Potassium Level 3.8, Chloride Level 113H, Carbon Dioxide Level 23, Anion Gap 10, Blood Urea Nitrogen 50H, Creatinine 1.37H, Estimat Glomerular Filtration Rate 39, BUN/Creatinine Ratio 36, Glucose Level 219H, Calcium Level 9.5, Phosphorus Level 2.8, Magnesium Level 2.7H 05/02/19 06:58: Vancomycin Level Trough 16.6 Microbiology 04/26/19 Blood Culture - Final, Complete No growth 04/26/19 Gram Stain - Final, Complete 04/26/19 Sputum Culture - Final, Complete Staphylococcus aureus Usual upper respiratory veronika A/P: Assessment/Dx: Acute respiratory failure due to pulmonary hemorrhage, Acute blood loss anemia due to pulmonary hemorrhage, Non-STEMI, Diabetes, Hypertension, Hyperlipidemia, Active smoking, Acute kidney injury. Plan: Acute respiratory failure due to pulmonary hemorrhage, Integrilin, heparin, Brilinta discontinued 04/20/2019. Extubated today. Tolerating well. Acute blood loss anemia due to pulmonary hemorrhage, Hemoglobin over 8 g/dL. Non-STEMI, patient presented with severe chest pain and positive cardiac enzymes. She was taken to the catheter lab on 04/20/2019. Diffuse calcified small arteries. However culprit artery was an OM1 with long stenotic segment with significant calcification in the proximal part. The vessel was of diameter was 2 mm. We decided to intervene. PTCA was done with reasonable results initially. The patient was very agitated during the procedure and wanted to sit up. And wanted to us to stop. We tried to cross the lesion in the proximal OM1 but could not cross the lesion and due to the agitation of the patient and inability of lying still, for the safety of the patient, we decided to pull the wire and stent back into the guide. Post angiogram shows significant recoil. Therefore IV integrillin and heparin were started. Due to the bleeding later in the afternoon on 04/20/2019 Integrilin, heparin and Brilinta were discontinued. No further chest pain however this morning significantly elevated troponin suggesting likely occlusion of the small culprit OM1, transient hypotension and severe anemia. Unfortunately due to significant bleeding we could not continue IV Integrilin, heparin and Brilinta. Repeat angiography is contraindicated due to severe bleeding. I discussed at length with the and explained the situation. No brilinta given since 04/20/19. Lovenox dced 04/26/2019 due to suspicion of rebleed. Echocardiogram done on 04/21/2019 for which I was at the bedside showed no pericardial effusion. Hyperdynamic LV systolic function with an EF of 75 percent with no lateral wall motion abnormalities. Underfilling of the LV is recognized. Transient hypotension with significant drop in hemoglobin and hematocrit 04/20/2019, stat CT abdomen and pelvis done which ruled out retroperitoneal hemorrhage. Diabetes, severely elevated glucose. IV insulin. Hypertension, hold antihypertensive medication since hypotension. Hyperlipidemia, continue statin therapy. Active smoking, smoking cessation was strongly recommended. Acute kidney injury. I discussed at length with the patient today. In the presence of the the patient told me that she will accept only one more intubation attempt; afterwards no further intubations. I asked him if she is okay with CPR. There were discussed and let us know. Thank you for your consultation. Please call me if you have any questions. Annmarie Brar MD, FACP, FACC, FSCAI, FHRS, CCDS Interventional Cardiology Cardiac Electrophysiology Vascular Medicine and Endovascular Interventions Jen BRAR MD May 02, 2019 09:08
--- NOTE | 2019-05-02 09:24 | Diagnostic Imaging Report ---
EXAMINATION: Portable erect AP chest at 4:17 AM. INDICATION: Dyspnea. FINDINGS: In the interval since the prior exam of 05/01/2019, the patient has been extubated and the NG line has been removed. The central venous catheter on the right seen previously is again evident and no different. The appearance of the chest itself has improved as the left lung base does seem somewhat better aerated. There is only a small amount of residual atelectasis/infiltrate and fluid still present. The lungs are otherwise clear. The heart is stable. The mediastinum is not widened. The vascular graft overlying the aortic knob seen previously is again evident. The osseous structures are intact. IMPRESSION: 1. The appearance of the chest has improved as the left lung base does seem better aerated. There is only a small amount of residual atelectasis/infiltrate and fluid still present. 2. The patient has been extubated and the NG line has been removed. Dictated by: Dictated on workstation # [id number]
[2019-05-02] MEDS: PANTOPRAZOLE 40 MG (PROTONIX) VIAL IV SCH (09:27)
[2019-05-02] MEDS: meTOprolol TARTRATE 25 MG (LOPRESSOR) TABLET PO SCH ×2 (09:28→21:18)
[2019-05-02] MEDS: ASPIRIN E.C. 81 MG (ECOTRIN) TAB PO SCH (09:28)
[2019-05-02] MEDS: MAGIC MOUTHWASH (ADULT) PO SCH ×16 (09:30→21:18)
--- NOTE | 2019-05-02 10:26 | Progress Note - Hospitalist ---
Subjective HPI/CC On Admission Date Seen by Provider: May 02, 2019 Time Seen by Provider: 09:00 Chief complaint: Unstable angina with hyperglycemia HPI: This is a 63yoWF with a history of bypass surgery who presented after taki ng two Nitroglycerin for chest pain, after presenting to the ER she was found to have unstable angina and blood sugar of 500 from the steroids that were given at her PCPs office, Dr. Sepulveda the day before. She was placed on Heparin drip and insulin drip, IV steroids and monitored closely through the night. She denies any chest pain at this current time, awaiting cardiology plan. Her last Hgb A1C was 7.1. Subjective/Events-last exam Pt extubated Ambien will be changed to 10mg since she takes that at night She has changed her mind after talking to her and she is resending her DNR status and DNI status since she is open to one more intubation if required prior to giving up and initiating comfort care protocol Checked meds and labs Review of Systems General: Fatigue Pulmonary: Dyspnea Objective Exam Vital Signs Vital Signs Date Time Temp Pulse Resp B/P (MAP) Pulse Ox O2 Delivery O2 Flow Rate FiO2 05/02/19 19:01 96 Vapotherm 30.00 40 05/02/19 18:00 88 24 100/86 (91) 05/02/19 16:00 36.4 Capillary Refill : Less Than 3 Seconds General Appearance: No Apparent Distress, WD/WN, Anxious, Chronically ill Respiratory: Lungs Clear Cardiovascular: Regular Rate, Rhythm Neurologic/Psychiatric: Alert, Oriented x3, No Motor/Sensory Deficits, Normal Mood/Affect Results/Procedures Lab Laboratory Tests 05/02/19 03:21 Patient resulted labs reviewed. Assessment/Plan Assessment and Plan Assess & Plan/Chief Complaint Assessment: Vent dependent respiratory failure failed extubation Tuesday now extubated successfully Unstable angina Known CAD CABG hx DM OOC in need of insulin drip Smoker HTN HLP CRI Plan: IV steroids Extubation Prognosis poor Diagnosis/Problems Diagnosis/Problems (1) Ventilator dependence Status: Acute (2) Angina at rest Status: Acute (3) Acute hyperglycemia Status: Acute (4) COPD with exacerbation Status: Acute (5) Chest pain Status: Acute Qualifiers: Chest pain type: chest pain due to myocardial ischemia Ischemic chest pain type: unstable angina pectoris Qualified Codes: I20.0 - Unstable angina Clinical Quality Measures DVT/VTE Risk/Contraindication: Risk Factor Score Per Nursin RFS Level Per Nursing on Admit: 4+=Very High JESUS CEBALLOS DO May 02, 2019 10:26
--- NOTE | 2019-05-02 11:34 | Physical Therapy Daily Note ---
PT Daily Note-Current Subjective Pt. sitting up in chair with at side. speaks and answers for Pt. as she is intubated etc. Pt. indicates she is fearful of standing and pre gait activity but with husbands encouragement she agrees Pain Location: No Pain Reported Mental Status Patient Orientation: Eyes Open Attachments: Mora Catheter, IV Transfers SCALE: Activities may be completed with or without assistive devices. 5-Oafqnpzvlc-gswlxqt completes the activity by him/herself with no assistance from a helper. 5-Set-up or Clean-up Assistance-helper sets up or cleans up; patient completes activity. Electra assists only prior to or following the activity. 4-Supervision or Touching Assistance-helper provides verbal cues and/or touching/steadying and/or contact guard assistance as patient completes activity. Assistance may be provided throughout the activity or intermittently. 3-Partial/Moderate Assistance-helper does LESS THAN HALF the effort. Electra lifts, holds or supports trunk or limbs, but provides less than half the effort. 2-Substantial/Maximal Assistance-helper does MORE THAN HALF the effort. Electra lifts or holds trunk or limbs and provides more than half the effort. 5-Ppaukcbsq-oawxtb does ALL the effort. Patient does none of the effort to complete the activity. Or, the assistance of 2 or more helpers is required for the patient to complete the activity. If activity was not attempted, code reason: 7-Patient Refused. 9-Not Applicable-not attempted and the patient did not perform the activity before the current illness, exacerbation or injury. 10-Not Attempted due to Environmental Limitations-(lack of equipment, weather restraints, etc.). 88-Not Attempted due to Medical Conditions or Safety Concerns. Sit to Stand (QC): 3 sit to stand x 3 mod assist. Exercises Seated Therapy Exercises: Ankle pumps, Sit to stand (x3), Long arc quads, Hip flexion, Hip abd/add Seated Reps: 15 Treatments sit to stand with mod assist, pt. retropulsive in stance, mod assist to correct, stood 1 to 1.5 mins each trial. skilled instruction for alignment and wt shift. pre gait activities for wt shift left to right and correcting balance and alignment Assessment Current Status: Good Progress UEs lacking shoulder flexion bilat secondary to weakness etc, Bilat UE AAROM shoulder flexion and elbow flexion etc PT Short Term Goals Short Term Goals Time Frame: May 12, 2019 Gait Distance Comment: 75' Gait Assistive Device: FWW (minimal assist) PT Info Specialist Goals Info Specialist Goals PT Info Specialist Goals Time Frame: May 19, 2019 Sit to Lying (QC): 6 Lying-Sitting on Side/Bed(QC): 6 Sit to Stand (QC): 6 Roll Left to Right (QC): 6 Chair/Lah-py-Tgltt Xfer(QC): 6 Car Transfer (QC): 6 Does the Patient Walk: Yes Distance: 200' Walk 10 feet (QC): 6 Walk 10ft-Uneven Surface(QC): 6 Walk 50ft with 2 Turns (QC): 6 Walk 150 ft (QC): 6 Gait Assistive Device: FWW PT Plan Treatment/Plan Treatment Plan: Continue Plan of Care Treatment Plan: Bed Mobility, Education, Functional Activity Javi, Functional Strength, Gait, Safety, Therapeutic Exercise, Transfers Treatment Duration: May 19, 2019 Frequency: 6 times per week Estimated Hrs Per Day: .25 hour per day Patient and/or Family Agrees t: Yes Safety Risks/Education Patient Education: Transfer Techniques, Correct Positioning, Safety Issues Teaching Recipient: Patient Teaching Methods: Demonstration, Discussion Response to Teaching: Verbalize Understanding, Return Demonstration, Reinforcement Needed Time/GCodes Time In: 1105 Time Out: 1125 Total Billed Treatment Time: 20 Total Billed Treatment 1,FA20m GRETCHEN ABRLOW PTA May 02, 2019 11:34
[2019-05-02] MEDS: VANCOMYCIN 1250 MG/NS 250 ML IVPB IV SCH ×2 (13:23)
--- NOTE | 2019-05-02 13:23 | NUR ---
noon dose of vanc not available from pharmacy until time it was scanned
--- NOTE | 2019-05-02 15:47 | NUR ---
mouth wash not scanned to mar due to no bar code on package.
[2019-05-02] MEDS ORDERED: MILK OF MAGNESIA 400 MG/5 ML 30 ML UDC ONE (18:38)
[2019-05-02] MEDS ORDERED: MILK OF MAGNESIA 400 MG/5 ML 30 ML UDC PO PRN (18:45)
[2019-05-02] MEDS: ZOLPIDEM 5 MG (AMBIEN) TAB PO SCH (21:17)
[2019-05-03] VITALS (23 sets, daily range): BP systolic 94–169; BP diastolic 33–98
[2019-05-03] MEDS: RT-ALBUTEROL/IPRATROPIUM 3 ML (DUONEB) VIAL INH SCH ×6 (02:45→22:02)
[2019-05-03 03:36] LABS: BASOPHILS % (AUTO) 0 % (0-10); EOSINOPHILS % (AUTO) 0 % (0-10); HEMATOCRIT 29 % (35-52); HEMOGLOBIN 9.2 G/DL (11.5-16.0); LYMPHOCYTES # (AUTO) 1.2 X 10^3 (1.0-4.0); LYMPHOCYTES % (AUTO) 9 % (12-44); MEAN CORPUSCULAR HEMOGLOBIN 31 PG (25-34); MEAN CORPUSCULAR HGB CONC 31 G/DL (32-36); MEAN CORPUSCULAR VOLUME 97 FL (80-99); MEAN PLATELET VOLUME 10.4 FL (7.4-10.4); MONOCYTES # (AUTO) 1.1 X 10^3 (0.0-1.0); MONOCYTES % (AUTO) 8 % (0-12); NEUTROPHILS # (AUTO) 11.7 X 10^3 (1.8-7.8); NEUTROPHILS % (AUTO) 84 % (42-75); PLATELET COUNT 370 10^3/uL (130-400); RED CELL DISTRIBUTION WIDTH 14.7 % (10.0-14.5); WHITE BLOOD COUNT 13.9 10^3/uL (4.3-11.0)
[2019-05-03 04:00] LABS: CALCIUM 9.2 MG/DL (8.5-10.1); CREATININE SERUM 1.1 MG/DL (0.60-1.30); MAGNESIUM 2.6 MG/DL (1.6-2.4); PHOSPHORUS 2.5 MG/DL (2.3-4.7); POTASSIUM 4.5 MMOL/L (3.6-5.0)
[2019-05-03] MEDS: POTASSIUM CL 10MEQ/50ML IVPB 50 ML IV SCH (05:33)
[2019-05-03] MEDS: MAGNESIUM 1 GM/100 ML IVPB 100 ML IV SCH (05:33)
[2019-05-03] MEDS: KCL 20 MEQ TAB (K-DUR) PO SCH (05:34)
[2019-05-03] MEDS: inSUlin ASPART (NovoLOG) 1 UNIT/0.01 ML (CHARGE PER UNIT) SC SCH ×4 (05:39→21:04)
[2019-05-03] MEDS: methylPREDNISolone 40 MG/ML (Solu-MEDROL) VIAL IV SCH ×3 (05:39→17:57)
--- NOTE | 2019-05-03 05:44 | Pulmonary Progress Note ---
Subjective Time Seen by a Provider: 05:45 Subjective/Events-last exam Pt is doing slightly better. She is still requiring high flow oxygen Sepsis Event Evaluation Height, Weight, BMI Height: '" Weight: lbs. oz. kg; 37.22 BMI Method: Exam Exam Vital Signs Date Time Temp Pulse Resp B/P (MAP) Pulse Ox O2 Delivery O2 Flow Rate FiO2 05/03/19 05:25 Vapotherm 40.00 65.00 05/03/19 05:00 74 23 120/59 (79) 93 NIV Bilevel 65.00 05/03/19 04:00 73 18 116/61 (79) 93 NIV Bilevel 65.00 05/03/19 03:40 94 NIV Bilevel 60 05/03/19 03:00 78 23 123/65 (84) 92 NIV Bilevel 65.00 05/03/19 02:45 82 24 93 65.00 05/03/19 02:00 80 22 135/68 (90) 93 NIV Bilevel 65.00 05/03/19 01:00 82 22 134/68 (90) 94 NIV Bilevel 65.00 05/03/19 01:00 82 05/03/19 00:00 78 26 130/68 (88) 93 NIV Bilevel 65.00 05/02/19 23:54 NIV Bilevel 65.00 05/02/19 23:30 89 Vapotherm 40.00 60 05/02/19 23:30 78 25 89 Vapotherm 40.00 60.00 05/02/19 23:30 37.2 Vapotherm 40.00 60.00 05/02/19 23:00 80 109/59 (76) 89 Vapotherm 30.00 40.00 05/02/19 22:16 92 Vapotherm 30.00 40 05/02/19 22:00 79 30 120/68 (85) 91 Vapotherm 30.00 40.00 05/02/19 21:00 94 17 129/87 (101) 89 Vapotherm 30.00 40.00 05/02/19 20:00 98 21 131/82 (98) 89 Vapotherm 30.00 40.00 05/02/19 20:00 36.8 05/02/19 19:40 96 Vapotherm 30.00 40 05/02/19 19:01 96 Vapotherm 30.00 40 05/02/19 19:00 90 05/02/19 19:00 90 27 135/75 (95) 90 Vapotherm 30.00 40.00 05/02/19 18:00 88 24 100/86 (91) 93 Vapotherm 30.00 40.00 05/02/19 17:00 105 32 124/82 (96) 91 Vapotherm 30.00 40.00 05/02/19 16:00 36.4 05/02/19 16:00 108 16 143/83 (103) 92 Vapotherm 30.00 40.00 05/02/19 16:00 92 Vapotherm 40.00 30 05/02/19 15:00 103 20 147/83 (104) 90 Vapotherm 30.00 40.00 05/02/19 14:28 94 Vapotherm 30.00 40 05/02/19 13:14 96 05/02/19 13:00 98 25 150/105 (120) 95 Vapotherm 30.00 40.00 05/02/19 12:00 96 25 141/85 (103) 95 Vapotherm 30.00 40.00 05/02/19 12:00 92 Vapotherm 40.00 30 05/02/19 11:00 98 19 149/101 (117) 92 Vapotherm 30.00 40.00 05/02/19 10:56 Vapotherm 30.00 40.00 05/02/19 10:37 94 Vapotherm 30.00 40 05/02/19 10:00 103 28 132/80 (97) 92 Vapotherm 35.00 45.00 05/02/19 09:00 106 9 129/74 (92) 94 Vapotherm 35.00 45.00 05/02/19 08:00 36.6 05/02/19 08:00 92 Vapotherm 40.00 30 05/02/19 08:00 101 14 143/80 (101) 93 Vapotherm 35.00 45.00 05/02/19 07:22 91 Vapotherm 35.00 45 05/02/19 07:00 112 18 125/76 (92) 91 Vapotherm 35.00 45.00 05/02/19 06:59 111 05/02/19 06:15 109 9 155/76 (102) 92 Vapotherm 35.00 45.00 05/02/19 06:00 98 10 185/121 (666) 92 Vapotherm 35.00 45.00 I & O 05/03/19 07:00 Intake Total 2287.5 ml Output Total 1425 ml Balance 862.5 ml Height & Weight Height: '" Weight: lbs. oz. kg; 37.22 BMI Method: General Appearance: No Apparent Distress, WD/WN, Anxious, Chronically ill HEENT: Pharynx Normal Neck: Full Range of Motion, Normal Inspection, Non Tender Respiratory: Crackles, Decreased Breath Sounds Cardiovascular: Regular Rate, Rhythm Capillary Refill: Less Than 3 Seconds Peripheral Pulses: 2+ Dorsalis Pedis (R), 2+ Left Dors-Pedis (L), 2+ Radial Pulses (R), 2+ Radial Pulses (L) Gastrointestinal: non tender, soft, no organomegaly, no pulsatile mass Extremity: Normal Capillary Refill, Normal Inspection, Normal Range of Motion, Non Tender, Pedal Edema (L>R) Neurologic/Psychiatric: Alert, Oriented x3, No Motor/Sensory Deficits, Normal Mood/Affect Skin: Normal Color, Warm/Dry Lymphatic: No Adenopathy Results Lab Laboratory Tests 05/02/19 03:21 05/03/19 03:08 Assessment/Plan Assessment/Plan Acute respiratory failure with acute hemoptysis- improved since bronchoscopy and intubation 04/21. Repeat bronchoscopy 04/25 - -Continue solumedrol -Pt still has copious amount sputum production Pnuemonia with MSSA -MRSA swab is negative -Continue Vancomycin pulmonary hemorrhage secondary to anticoagulation -D/C lovenox. CP s/p cath -Cardiology following COPD - Duonebs Q4H NIDDMII with hyperglycemia -SSI DREW - Fluid replacement HTN -Monitor CAD -cardiology consult PAD Hx of NC CABG -Pt now states she is ok for short term ventilation only. No chest compressions, no tracheostomy/half-way ventilation. DANGELO DURAN DO May 03, 2019 05:44
[2019-05-03] MEDS ORDERED: LACTULOSE SYRUP 10GM/15ML (ENULOSE) 30ML UDC PO PRN (05:45)
[2019-05-03] MEDS ORDERED: MINERAL OIL ENEMA 133 ML BTL PR PRN (05:45)
[2019-05-03] MEDS: RT-BUDESONIDE NEBS 0.5 MG/2ML (PULMICORT) AMP INH SCH ×2 (06:43→22:02)
--- NOTE | 2019-05-03 07:19 | Diagnostic Imaging Report ---
INDICATION: Chest pain and COPD FINDINGS: The heart size is normal. There is minimal venous congestion. There is some left base atelectasis and/or pneumonitis. There is no pneumothorax. The mediastinum is unremarkable. IMPRESSION: Left basilar atelectasis and/or pneumonitis. Small left pleural effusion Dictated by: Dictated on workstation # [id number]
[2019-05-03] MEDS: PANTOPRAZOLE 40 MG (PROTONIX) VIAL IV SCH (08:51)
[2019-05-03] MEDS: DOCUSATE SODIUM 100 MG (COLACE) CAP PO SCH ×2 (08:51→21:08)
[2019-05-03] MEDS: ASPIRIN E.C. 81 MG (ECOTRIN) TAB PO SCH (08:52)
[2019-05-03] MEDS: MAGIC MOUTHWASH (ADULT) PO SCH ×16 (08:52→21:05)
[2019-05-03] MEDS: meTOprolol TARTRATE 25 MG (LOPRESSOR) TABLET PO SCH ×2 (08:52→20:26)
--- NOTE | 2019-05-03 11:01 | Physical Therapy Daily Note ---
PT Daily Note-Current Subjective Patient on commode and agrees to PT. Mental Status Patient Orientation: Normal For Age Attachments: Oxygen (vapotherm), Mora Catheter, IV Transfers SCALE: Activities may be completed with or without assistive devices. 3-Wiwcjfjxzr-nugxzmz completes the activity by him/herself with no assistance from a helper. 5-Set-up or Clean-up Assistance-helper sets up or cleans up; patient completes activity. Ackerman assists only prior to or following the activity. 4-Supervision or Touching Assistance-helper provides verbal cues and/or touching/steadying and/or contact guard assistance as patient completes activ ity. Assistance may be provided throughout the activity or intermittently. 3-Partial/Moderate Assistance-helper does LESS THAN HALF the effort. Ackerman lifts, holds or supports trunk or limbs, but provides less than half the effort. 2-Substantial/Maximal Assistance-helper does MORE THAN HALF the effort. Ackerman lifts or holds trunk or limbs and provides more than half the effort. 4-Mdpxywipq-jkwqmj does ALL the effort. Patient does none of the effort to complete the activity. Or, the assistance of 2 or more helpers is required for the patient to complete the activity. If activity was not attempted, code reason: 7-Patient Refused. 9-Not Applicable-not attempted and the patient did not perform the activity before the current illness, exacerbation or injury. 10-Not Attempted due to Environmental Limitations-(lack of equipment, weather restraints, etc.). 88-Not Attempted due to Medical Conditions or Safety Concerns. Sit to Stand (QC): 2 Chair/Prc-wn-Ccmcd Xfer(QC): 2 sit to stand commode to recliner max assist Exercises Seated Therapy Exercises: Ankle pumps, Sit to stand (x 5 sets to FWW max assist), Long arc quads, Hip flexion Seated Reps: 15 Assessment Patient tolerated minimal activity due to pulmonary issues. PT to increase activity as tolerated by patient. PT Short Term Goals Short Term Goals Time Frame: May 12, 2019 Gait Distance Comment: 75' Gait Assistive Device: FWW (minimal assist) PT Drawer Hardware Worker Goals Senior Care Goals PT Drawer Hardware Worker Goals Time Frame: May 19, 2019 Sit to Lying (QC): 6 Lying-Sitting on Side/Bed(QC): 6 Sit to Stand (QC): 6 Roll Left to Right (QC): 6 Chair/Pxb-jp-Bqjvq Xfer(QC): 6 Car Transfer (QC): 6 Does the Patient Walk: Yes Distance: 200' Walk 10 feet (QC): 6 Walk 10ft-Uneven Surface(QC): 6 Walk 50ft with 2 Turns (QC): 6 Walk 150 ft (QC): 6 Gait Assistive Device: FWW PT Plan Treatment/Plan Treatment Plan: Continue Plan of Care Treatment Plan: Bed Mobility, Education, Functional Activity Javi, Functional Strength, Gait, Safety, Therapeutic Exercise, Transfers Treatment Duration: May 19, 2019 Frequency: 6 times per week Estimated Hrs Per Day: .25 hour per day Patient and/or Family Agrees t: Yes Time/GCodes Time In: 1015 Time Out: 1025 Total Billed Treatment Time: 10 Total Billed Treatment 1 visit EX 10 min CLAUS DONOHUE PT May 03, 2019 11:01
--- NOTE | 2019-05-03 11:10 | Cardiology Progress Note ---
Cardiology SOAP Progress Note Subjective: No chest pain. Objective: I&O/Vital Signs 05/02/19 05/02/19 05/02/19 05/02/19 23:30 23:30 23:30 23:54 Temp 37.2 Pulse 78 Resp 25 B/P (MAP) Pulse Ox 89 89 O2 Delivery Vapotherm Vapotherm Vapotherm NIV Bilevel O2 Flow Rate 40.00 40.00 40.00 65.00 60.00 60.00 FiO2 60 05/03/19 05/03/19 05/03/19 05/03/19 00:00 01:00 01:00 02:00 Pulse 78 82 82 80 Resp 26 22 22 B/P (MAP) 130/68 (88) 134/68 (90) 135/68 (90) Pulse Ox 93 94 93 O2 Delivery NIV Bilevel NIV Bilevel NIV Bilevel O2 Flow Rate 65.00 65.00 65.00 05/03/19 05/03/19 05/03/19 05/03/19 02:45 03:00 03:40 04:00 Pulse 82 78 73 Resp 24 23 18 B/P (MAP) 123/65 (84) 116/61 (79) Pulse Ox 93 92 94 93 O2 Delivery NIV Bilevel NIV Bilevel NIV Bilevel O2 Flow Rate 65.00 65.00 65.00 FiO2 60 05/03/19 05/03/19 05/03/19 05/03/19 05:00 05:25 06:08 06:48 Pulse 74 89 98 Resp 23 24 10 B/P (MAP) 120/59 (79) 142/80 (100) Pulse Ox 93 90 90 O2 Delivery NIV Bilevel Vapotherm Vapotherm Vapotherm O2 Flow Rate 65.00 40.00 40.00 40.00 65.00 65.00 70.00 05/03/19 05/03/19 05/03/19 05/03/19 06:54 07:00 08:00 09:00 Pulse 82 86 82 Resp 26 24 B/P (MAP) 113/94 (100) 161/82 (108) Pulse Ox 94 93 96 O2 Delivery Vapotherm Vapotherm Vapotherm O2 Flow Rate 30.00 40.00 40.00 70.00 70.00 FiO2 70 05/03/19 10:32 Pulse Ox 97 O2 Delivery Vapotherm O2 Flow Rate 40.00 FiO2 70 05/03/19 00:00 Intake Total 1912.5 ml Output Total 725 ml Balance 1187.5 ml Constitutional: appears stated age, AAO x 3; No apparent distress; well- developed, well-nourished Respiratory: No accessory muscle use, No respiratory distress, No chest tender, No chest expansion is symmetric; chest is bilaterally symmetric; No lungs clear to percussion; lungs clear to auscultation; No rhonchi, No rales, No stridor, No wheezing, No pleural rub Cardiovascular: regular rate-rhythm; No irregularly irregular, No extra beats, No parasternal heave is noted, No JVD, No edema, No bradycardia, No tachycardia, No point of maximal impulse, No cardiac thrills are palpable; S1 and S2; No gallop/S3, No gallop/S4, No diastolic murmur, No systolic murmur, No friction rub, No click, No other Gastrointestional: soft, round, audible bowel sounds; No spleenomegaly Extremities: normal range of motion, non-tender, normal inspection; No clubbing, No cyanosis; no lower extremity edema bilateral; No significant edema Neurologic/Psychiatric: No roving tester laboratory II-XII nml as tested; no motor/sensory deficits, alert, normal mood/affect, oriented x 3; No abnormal cerebellar tests, No abnormal roving tester laboratory II-XII, No abnormal gait, No aphasia, No EOM palsy, No facial droop, No motor weakness, No sensory deficit, No depressed affect, No disoriented x 3, No grossly intact, No power is 5/5 both on sides Skin: normal color; No rash, No ulcerations Results/Procedures: Labs Laboratory Tests 05/02/19 11:18: Glucometer 289H 05/02/19 17:30: Glucometer 255H 05/02/19 21:12: Glucometer 217H 05/03/19 03:08: White Blood Count 13.9H, Red Blood Count 3.02L, Hemoglobin 9.2L, Hematocrit 29L, Mean Corpuscular Volume 97, Mean Corpuscular Hemoglobin 31, Mean Corpuscular Hemoglobin Concent 31L, Red Cell Distribution Width 14.7H, Platelet Count 370, Mean Platelet Volume 10.4, Neutrophils (%) (Auto) 84H, Lymphocytes (%) (Auto) 9L , Monocytes (%) (Auto) 8, Eosinophils (%) (Auto) 0, Basophils (%) (Auto) 0, Neutrophils # (Auto) 11.7H, Lymphocytes # (Auto) 1.2, Monocytes # (Auto) 1.1H, Eosinophils # (Auto) 0.0, Basophils # (Auto) 0.0, Sodium Level 145, Potassium Level 4.5, Chloride Level 114H, Carbon Dioxide Level 25, Anion Gap 6, Blood Urea Nitrogen 42H, Creatinine 1.10, Estimat Glomerular Filtration Rate 50, BUN/Creatinine Ratio 38, Glucose Level 186H, Calcium Level 9.2, Phosphorus Level 2.5, Magnesium Level 2.6H Microbiology 04/26/19 Blood Culture - Final, Complete No growth 04/26/19 Gram Stain - Final, Complete 04/26/19 Sputum Culture - Final, Complete Staphylococcus aureus Usual upper respiratory veronika A/P: Assessment/Dx: Acute respiratory failure due to pulmonary hemorrhage, Acute blood loss anemia due to pulmonary hemorrhage, Non-STEMI, Diabetes, Hypertension, Hyperlipidemia, Active smoking, Acute kidney injury. Plan: Acute respiratory failure due to pulmonary hemorrhage, Integrilin, heparin, Brilinta discontinued 04/20/2019. Extubated 05/02/2019. Tolerating well. Acute blood loss anemia due to pulmonary hemorrhage, Hemoglobin over 8 g/dL. Non-STEMI, patient presented with severe chest pain and positive cardiac enzymes. She was taken to the catheter lab on 04/20/2019. Diffuse calcified small arteries. However culprit artery was an OM1 with long stenotic segment with significant calcification in the proximal part. The vessel was of diameter was 2 mm. We decided to intervene. PTCA was done with reasonable results initially. The patient was very agitated during the procedure and wanted to sit up. And wanted to us to stop. We tried to cross the lesion in the proximal OM1 but could not cross the lesion and due to the agitation of the patient and inability of lying still, for the safety of the patient, we decided to pull the wire and stent back into the guide. Post angiogram shows significant recoil. Therefore IV integrillin and heparin were started. Due to the bleeding later in the afternoon on 04/20/2019 Integrilin, heparin and Brilinta were discontinued. No further chest pain however this morning significantly elevated troponin suggesting likely occlusion of the small culprit OM1, transient hypotension and severe anemia. Unfortunately due to significant bleeding we could not continue IV Integrilin, heparin and Brilinta. Repeat angiography is contraindicated due to severe bleeding. I discussed at length with the and explained the situation. No brilinta given since 04/20/19. Lovenox dced 04/26/2019 due to suspicion of rebleed. Echocardiogram done on 04/21/2019 for which I was at the bedside showed no pericardial effusion. Hyperdynamic LV systolic function with an EF of 75 pe rcent with no lateral wall motion abnormalities. Underfilling of the LV is recognized. Transient hypotension with significant drop in hemoglobin and hematocrit 04/20/2019, stat CT abdomen and pelvis done which ruled out retroperitoneal hemorrhage. Diabetes, severely elevated glucose. IV insulin. Hypertension, hold antihypertensive medication since hypotension. Hyperlipidemia, continue statin therapy. Active smoking, smoking cessation was strongly recommended. Acute kidney injury. I discussed at length with the patient on 05/02/2019. In the presence of the the patient told me that she will accept only one more intubation attempt; afterwards no further intubations. I asked him if she is okay with CPR. There were discussed and let us know. Thank you for your consultation. Please call me if you have any questions. Annmarie Brar MD, FACP, FACC, FSCAI, FHRS, CCDS Interventional Cardiology Cardiac Electrophysiology Vascular Medicine and Endovascular Interventions Jen BRAR MD May 03, 2019 11:10 am
--- NOTE | 2019-05-03 14:07 | NUR ---
DISCHARGE PLANNING: Was notified earlier by nurseInge that doctor had requested a [facility] referral be sent. This RN gathered clinical information and sent referral to Maikol, at [facility]. Spoke to Maikol moment ago and and asked the patient and family if they are okay with Maikol coming to visit. He will be here likely within the hour.
[2019-05-03] MEDS: ZOLPIDEM 5 MG (AMBIEN) TAB PO SCH (20:27)
[2019-05-03] MEDS: 1/2 NS IV SOLUTION 1,000 ML IV SCH (20:59)
--- NOTE | 2019-05-03 21:02 | Progress Note - Hospitalist ---
Subjective HPI/CC On Admission Date Seen by Provider: May 03, 2019 Time Seen by Provider: 09:00 Chief complaint: Unstable angina with hyperglycemia HPI: This is a 63yoWF with a history of bypass surgery who presented after eren ing two Nitroglycerin for chest pain, after presenting to the ER she was found to have unstable angina and blood sugar of 500 from the steroids that were given at her PCPs office, Dr. Sepulveda the day before. She was placed on Heparin drip and insulin drip, IV steroids and monitored closely through the night. She denies any chest pain at this current time, awaiting cardiology plan. Her last Hgb A1C was 7.1. Subjective/Events-last exam Pt off ventilator. Vapotherm remains. Talked to them about [facility]. Will take her to rehab if she is able to optimize respiratory status at [facility]. Bowels regimen given and intensified for bowel movement. Out of bed today in the chair is the goal today. Review of Systems Pulmonary: Dyspnea Objective Exam Vital Signs Vital Signs Date Time Temp Pulse Resp B/P (MAP) Pulse Ox O2 Delivery O2 Flow Rate FiO2 05/03/19 20:00 36.2 05/03/19 20:00 79 22 129/74 (92) 96 Vapotherm 40.00 70.00 05/03/19 19:06 70 Capillary Refill : Less Than 3 Seconds General Appearance: No Apparent Distress, WD/WN, Chronically ill Respiratory: Lungs Clear Cardiovascular: Regular Rate, Rhythm Neurologic/Psychiatric: Alert, Oriented x3, No Motor/Sensory Deficits, Normal Mood/Affect Results/Procedures Lab Laboratory Tests 05/03/19 03:08 Patient resulted labs reviewed. Assessment/Plan Assessment and Plan Assess & Plan/Chief Complaint Assessment: Vent dependent respiratory failure failed extubation Tuesday now extubated successfully Unstable angina Known CAD CABG hx DM OOC in need of insulin drip Smoker HTN HLP CRI Plan: IV steroids Extubation Prognosis poor [facility] then [facility] Diagnosis/Problems Diagnosis/Problems (1) Ventilator dependence Status: Acute (2) Angina at rest Status: Acute (3) Acute hyperglycemia Status: Acute (4) COPD with exacerbation Status: Acute (5) Chest pain Status: Acute Qualifiers: Chest pain type: chest pain due to myocardial ischemia Ischemic chest pain type: unstable angina pectoris Qualified Codes: I20.0 - Unstable angina Clinical Quality Measures DVT/VTE Risk/Contraindication: Risk Factor Score Per Nursin RFS Level Per Nursing on Admit: 4+=Very High JESUS CEBALLOS DO May 03, 2019 21:02
[2019-05-04] VITALS (20 sets, daily range): BP systolic 95–172; BP diastolic 51–116
[2019-05-04] MEDS ORDERED: MELATONIN 3 MG TABLET PO SCH (00:15)
[2019-05-04] MEDS ORDERED: diphenhydrAMINE 50 MG/ML INJ (BENADRYL) ONE (00:20)
[2019-05-04] MEDS ORDERED: MELATONIN 3 MG TABLET ONE (00:20)
[2019-05-04] MEDS: methylPREDNISolone 40 MG/ML (Solu-MEDROL) VIAL IV SCH ×5 (00:23→23:29)
[2019-05-04] MEDS ORDERED: diphenhydrAMINE 50 MG/ML INJ (BENADRYL) IVP ONE (00:45)
[2019-05-04] MEDS: RT-ALBUTEROL/IPRATROPIUM 3 ML (DUONEB) VIAL INH SCH ×6 (02:52→22:45)
[2019-05-04] MEDS: morphine INJ 4 MG/ML 1 ML (VIAL/SYRINGE) IV PRN ×2 (03:00→21:09)
[2019-05-04 03:10] LABS: BASOPHILS % (AUTO) 0 % (0-10); EOSINOPHILS % (AUTO) 0 % (0-10); HEMATOCRIT 30 % (35-52); HEMOGLOBIN 9.4 G/DL (11.5-16.0); LYMPHOCYTES # (AUTO) 0.9 X 10^3 (1.0-4.0); LYMPHOCYTES % (AUTO) 8 % (12-44); MEAN CORPUSCULAR HEMOGLOBIN 30 PG (25-34); MEAN CORPUSCULAR HGB CONC 31 G/DL (32-36); MEAN CORPUSCULAR VOLUME 97 FL (80-99); MONOCYTES # (AUTO) 0.9 X 10^3 (0.0-1.0); MONOCYTES % (AUTO) 7 % (0-12); NEUTROPHILS # (AUTO) 10.5 X 10^3 (1.8-7.8); NEUTROPHILS % (AUTO) 86 % (42-75); PLATELET COUNT 326 10^3/uL (130-400); RED CELL DISTRIBUTION WIDTH 14.3 % (10.0-14.5); WHITE BLOOD COUNT 12.3 10^3/uL (4.3-11.0)
[2019-05-04 03:36] LABS: CALCIUM 9.2 MG/DL (8.5-10.1); CREATININE SERUM 1.09 MG/DL (0.60-1.30); MAGNESIUM 2.7 MG/DL (1.6-2.4); PHOSPHORUS 2.5 MG/DL (2.3-4.7); POTASSIUM 4.8 MMOL/L (3.6-5.0)
--- NOTE | 2019-05-04 05:19 | Pulmonary Progress Note ---
Subjective Time Seen by a Provider: 06:36 Subjective/Events-last exam PT is feeling improved. Sepsis Event Evaluation Height, Weight, BMI Height: '" Weight: lbs. oz. kg; 37.22 BMI Method: Exam Exam Vital Signs Date Time Temp Pulse Resp B/P (MAP) Pulse Ox O2 Delivery O2 Flow Rate FiO2 05/04/19 04:00 62 21 122/62 (82) 92 Vapotherm 40.00 65.00 05/04/19 03:00 79 34 132/77 (95) Vapotherm 40.00 65.00 05/04/19 02:52 94 Vapotherm 30.00 60 05/04/19 02:00 89 22 135/116 (122) Vapotherm 40.00 65.00 05/04/19 01:00 72 26 111/63 (79) 98 Vapotherm 40.00 65.00 05/04/19 00:58 72 05/04/19 00:00 110 29 127/59 (81) 94 Vapotherm 40.00 65.00 05/03/19 23:00 66 21 94/46 (62) 95 Vapotherm 40.00 65.00 05/03/19 22:55 Vapotherm 40.00 65.00 05/03/19 22:06 95 Vapotherm 30.00 60 05/03/19 22:02 94 Vapotherm 30.00 60 05/03/19 22:00 109 21 112/33 (59) 94 Vapotherm 40.00 70.00 05/03/19 21:00 98 37 138/63 (88) 91 Vapotherm 40.00 70.00 05/03/19 20:00 36.2 05/03/19 20:00 94 Vapotherm 40.00 70 05/03/19 20:00 79 22 129/74 (92) 96 Vapotherm 40.00 70.00 05/03/19 19:07 92 05/03/19 19:06 94 Vapotherm 40.00 70 05/03/19 19:00 92 21 155/76 (102) 91 Vapotherm 40.00 70.00 05/03/19 18:00 86 16 139/98 (112) 97 Vapotherm 40.00 70.00 05/03/19 17:00 62 20 119/70 (86) 98 Vapotherm 40.00 70.00 05/03/19 16:08 36.1 05/03/19 16:00 94 29 131/63 (85) 93 Vapotherm 40.00 70.00 05/03/19 16:00 94 Vapotherm 40.00 70 05/03/19 15:17 97 Vapotherm 40.00 70 05/03/19 15:00 72 19 137/67 (90) 97 Vapotherm 40.00 70.00 05/03/19 14:00 71 15 160/80 (106) 100 Vapotherm 40.00 70.00 05/03/19 14:00 36.2 05/03/19 13:00 65 21 147/70 (95) 100 Vapotherm 40.00 70.00 05/03/19 12:27 73 05/03/19 12:14 94 Vapotherm 40.00 70 05/03/19 12:00 36.2 05/03/19 12:00 81 18 153/90 (111) 100 Vapotherm 40.00 70.00 05/03/19 11:00 81 18 169/91 (117) 100 Vapotherm 40.00 70.00 05/03/19 10:32 97 Vapotherm 40.00 70 05/03/19 10:00 80 11 99 Vapotherm 40.00 70.00 05/03/19 09:00 82 24 161/82 (108) 96 Vapotherm 40.00 70.00 05/03/19 08:25 94 Vapotherm 40.00 70 05/03/19 08:00 86 26 113/94 (100) 93 Vapotherm 40.00 70.00 05/03/19 07:00 82 05/03/19 06:54 94 Vapotherm 30.00 70 05/03/19 06:48 98 10 90 Vapotherm 40.00 70.00 05/03/19 06:08 89 24 142/80 (100) 90 Vapotherm 40.00 65.00 05/03/19 05:25 Vapotherm 40.00 65.00 I & O 05/04/19 07:00 Intake Total 350 ml Output Total 700 ml Balance -350 ml Height & Weight Height: '" Weight: lbs. oz. kg; 37.22 BMI Method: General Appearance: No Apparent Distress, WD/WN, Chronically ill HEENT: Pharynx Normal Neck: Full Range of Motion, Normal Inspection, Non Tender Respiratory: Lungs Clear, Crackles, Decreased Breath Sounds Cardiovascular: Regular Rate, Rhythm Capillary Refill: Less Than 3 Seconds Peripheral Pulses: 2+ Dorsalis Pedis (R), 2+ Left Dors-Pedis (L), 2+ Radial Pulses (R), 2+ Radial Pulses (L) Gastrointestinal: non tender, soft, no organomegaly, no pulsatile mass Extremity: Normal Capillary Refill, Normal Inspection, Normal Range of Motion, Non Tender, Pedal Edema (L>R) Neurologic/Psychiatric: Alert, Oriented x3, No Motor/Sensory Deficits, Normal Mood/Affect Skin: Normal Color, Warm/Dry Lymphatic: No Adenopathy Results Lab Laboratory Tests 05/03/19 03:08 05/04/19 03:00 Assessment/Plan Assessment/Plan Acute respiratory failure with s/p hemoptysis- Much improved -Continue solumedrol Pnuemonia with MSSA -Continue Vancomycin for 10days total -Pt worsened when Abx were narrowed pulmonary hemorrhage secondary to anticoagulation -D/C lovenox. CP s/p cath -Cardiology following COPD - Duonebs Q4H NIDDMII with hyperglycemia -SSI DREW - Fluid replacement HTN -Monitor CAD -cardiology consult PAD Hx of [place] CABG DANGELO DURAN DO May 04, 2019 05:19
[2019-05-04] MEDS: RT-BUDESONIDE NEBS 0.5 MG/2ML (PULMICORT) AMP INH SCH ×2 (06:41→22:45)
[2019-05-04] MEDS: KCL 20 MEQ TAB (K-DUR) PO SCH (07:38)
[2019-05-04] MEDS: MAGNESIUM 1 GM/100 ML IVPB 100 ML IV SCH (07:39)
[2019-05-04] MEDS: POTASSIUM CL 10MEQ/50ML IVPB 50 ML IV SCH (07:39)
[2019-05-04] MEDS: inSUlin ASPART (NovoLOG) 1 UNIT/0.01 ML (CHARGE PER UNIT) SC SCH ×4 (07:49→21:08)
--- NOTE | 2019-05-04 08:20 | Diagnostic Imaging Report ---
INDICATION: COPD with chest pain. FINDINGS: Right IJ catheter at the SVC. 5 lobe interstitial infiltrates have progressed. Left pleural fluid increased. Heart size upper limits. IMPRESSION: Worsened infiltrates and pleural fluid, changes may reflect increased pneumonia or edema owing to failure or hypervolemia. Central line at the SVC. No pneumothorax. Dictated by: Dictated on workstation # [id number]
[2019-05-04] MEDS: BUMETANIDE 1 MG/4 ML (BUMEX) VIAL IV SCH ×2 (09:08→21:08)
[2019-05-04] MEDS: PANTOPRAZOLE 40 MG (PROTONIX) TAB PO SCH (09:08)
[2019-05-04] MEDS: DOCUSATE SODIUM 100 MG (COLACE) CAP PO SCH ×2 (09:08→21:08)
[2019-05-04] MEDS: ASPIRIN E.C. 81 MG (ECOTRIN) TAB PO SCH (09:08)
[2019-05-04] MEDS: meTOprolol TARTRATE 25 MG (LOPRESSOR) TABLET PO SCH ×2 (09:08→21:08)
[2019-05-04] MEDS: MAGIC MOUTHWASH (ADULT) PO SCH ×16 (09:17→21:09)
--- NOTE | 2019-05-04 09:36 | NUR ---
Inquired with Maikol from [facility] on whether they had a decision. It is with Insurance now nad awaiting their decision.
--- NOTE | 2019-05-04 10:16 | Cardiology Progress Note ---
Cardiology SOAP Progress Note Subjective: Improved clinical situation. Objective: I&O/Vital Signs 05/03/19 05/03/19 05/04/19 05/04/19 22:55 23:00 00:00 00:00 Pulse 66 110 Resp 21 29 B/P (MAP) 94/46 (62) 127/59 (81) Pulse Ox 95 94 94 O2 Delivery Vapotherm Vapotherm Vapotherm Vapotherm O2 Flow Rate 40.00 40.00 40.00 40.00 65.00 65.00 65.00 FiO2 70 05/04/19 05/04/19 05/04/19 05/04/19 00:58 01:00 02:00 02:52 Pulse 72 72 89 Resp 26 22 B/P (MAP) 111/63 (79) 135/116 (122) Pulse Ox 98 94 O2 Delivery Vapotherm Vapotherm Vapotherm O2 Flow Rate 40.00 40.00 30.00 65.00 65.00 FiO2 60 05/04/19 05/04/19 05/04/19 05/04/19 03:00 04:00 04:00 05:00 Pulse 79 62 63 Resp 34 21 19 B/P (MAP) 132/77 (95) 122/62 (82) 137/65 (89) Pulse Ox 94 92 92 O2 Delivery Vapotherm Vapotherm Vapotherm Vapotherm O2 Flow Rate 40.00 40.00 40.00 40.00 65.00 65.00 65.00 FiO2 70 05/04/19 05/04/19 05/04/19 05/04/19 06:00 06:41 07:00 07:00 Pulse 82 75 80 Resp 11 26 B/P (MAP) 134/90 (105) Pulse Ox 91 91 90 O2 Delivery Vapotherm Vapotherm Vapotherm O2 Flow Rate 40.00 30.00 40.00 65.00 65.00 FiO2 65 05/04/19 05/04/19 08:00 09:00 Pulse 78 77 Resp 23 23 B/P (MAP) 109/52 (71) Pulse Ox 95 91 O2 Delivery Vapotherm Vapotherm O2 Flow Rate 40.00 40.00 65.00 65.00 05/04/19 00:00 Intake Total 400 ml Output Total 700 ml Balance -300 ml Constitutional: appears stated age, AAO x 3; No apparent distress; well- developed, well-nourished Respiratory: No accessory muscle use, No respiratory distress, No chest tender, No chest expansion is symmetric; chest is bilaterally symmetric; No lungs clear to percussion; lungs clear to auscultation; No rhonchi, No rales, No stridor, No wheezing, No pleural rub Cardiovascular: regular rate-rhythm; No irregularly irregular, No extra beats, No parasternal heave is noted, No JVD, No edema, No bradycardia, No tachycardia, No point of maximal impulse, No cardiac thrills are palpable; S1 and S2; No gallop/S3, No gallop/S4, No diastolic murmur, No systolic murmur, No friction rub, No click, No other Gastrointestional: soft, round, audible bowel sounds; No spleenomegaly Extremities: normal range of motion, non-tender, normal inspection; No clubbing, No cyanosis; no lower extremity edema bilateral; No significant edema Neurologic/Psychiatric: No j2ee architect II-XII nml as tested; no motor/sensory deficits, alert, normal mood/affect, oriented x 3; No abnormal cerebellar tests, No abnormal j2ee architect II-XII, No abnormal gait, No aphasia, No EOM palsy, No facial droop, No motor weakness, No sensory deficit, No depressed affect, No disoriented x 3, No grossly intact, No power is 5/5 both on sides Skin: normal color, warm/dry; No rash, No ulcerations Results/Procedures: Labs Laboratory Tests 05/03/19 16:12: Glucometer 214H 05/03/19 20:48: Glucometer 247H 05/04/19 03:00: White Blood Count 12.3H, Red Blood Count 3.09L, Hemoglobin 9.4L, Hematocrit 30L, Mean Corpuscular Volume 97, Mean Corpuscular Hemoglobin 30, Mean Corpuscular Hemoglobin Concent 31L, Red Cell Distribution Width 14.3, Platelet Count 326, Mean Platelet Volume 10.0, Neutrophils (%) (Auto) 86H, Lymphocytes (%) (Auto) 8L , Monocytes (%) (Auto) 7, Eosinophils (%) (Auto) 0, Basophils (%) (Auto) 0, Neutrophils # (Auto) 10.5H, Lymphocytes # (Auto) 0.9L, Monocytes # (Auto) 0.9, Eosinophils # (Auto) 0.0, Basophils # (Auto) 0.0, Sodium Level 143, Potassium Level 4.8, Chloride Level 112H, Carbon Dioxide Level 24, Anion Gap 7, Blood Urea Nitrogen 43H, Creatinine 1.09, Estimat Glomerular Filtration Rate 51, BUN/Creatinine Ratio 39, Glucose Level 190H, Calcium Level 9.2, Phosphorus Level 2.5, Magnesium Level 2.7H, B-Type Natriuretic Peptide 591.7H Microbiology 04/26/19 Blood Culture - Final, Complete No growth 04/26/19 Gram Stain - Final, Complete 04/26/19 Sputum Culture - Final, Complete Staphylococcus aureus Usual upper respiratory veronika A/P: Assessment/Dx: Acute respiratory failure due to pulmonary hemorrhage, Acute blood loss anemia due to pulmonary hemorrhage, Non-STEMI, Diabetes, Hypertension, Hyperlipidemia, Active smoking, Acute kidney injury. Plan: Acute respiratory failure due to pulmonary hemorrhage, Integrilin, heparin, Brilinta discontinued 04/20/2019. Extubated 05/02/2019. Tolerating well. Decreasing oxygen requirements. Acute blood loss anemia due to pulmonary hemorrhage, Hemoglobin over 8 g/dL. significantly improved. Non-STEMI, patient presented with severe chest pain and positive cardiac enzymes. She was taken to the catheter lab on 04/20/2019. Diffuse calcified small arteries. However culprit artery was an OM1 with long stenotic segment with significant calcification in the proximal part. The vessel was of diameter was 2 mm. We decided to intervene. PTCA was done with reasonable results initially. The patient was very agitated during the procedure and wanted to sit up. And wanted to us to stop. We tried to cross the lesion in the proximal OM1 but could not cross the lesion and due to the agitation of the patient and inability of lying still, for the safety of the patient, we decided to pull the wire and stent back into the guide. Post angiogram shows significant recoil. Therefore IV integrillin and heparin were started. Due to the bleeding later in the afternoon on 04/20/2019 Integrilin, heparin and Brilinta were discontinued. No further chest pain however in 24 hours (04/21/2019) significantly elevated troponin suggesting likely occlusion of the small culprit OM1, transient hypotension and severe anemia. Unfortunately due to significant bleeding we could not continue IV Integrilin, heparin and Brilinta. Repeat angiography is contraindicated due to severe bleeding. I discussed at length with the and explained the situation. No brilinta given since 04/20/19. Lovenox dced 04/26/2019 due to suspicion of rebleed. Echocardiogram done on 04/21/2019 for which I was at the bedside showed no pericardial effusion. Hyperdynamic LV systolic function with an EF of 75 percent with no lateral wall motion abnormalities. Underfilling of the LV is recognized. Transient hypotension with significant drop in hemoglobin and hematocrit 04/20/2019, stat CT abdomen and pelvis done which ruled out retroperitoneal hemorrhage. Diabetes, severely elevated glucose. IV insulin. Hypertension, hold antihypertensive medication since hypotension. Hyperlipidemia, continue statin therapy. Active smoking, smoking cessation was strongly recommended. Acute kidney injury. I discussed at length with the patient on 05/02/2019. In the presence of the the patient told me that she will accept only one more intubation attempt; afterwards no further intubations. I asked him if she is okay with CPR. There will discuss and let us know. Dr Lopes will cover Cardiology services over the weekend. Thank you for your consultation. Please call me if you have any questions. Annmarie Brar MD, FACP, FACC, FSCAI, FHRS, CCDS Interventional Cardiology Cardiac Electrophysiology Vascular Medicine and Endovascular Interventions Jen BRAR MD May 04, 2019 10:16
--- NOTE | 2019-05-04 11:29 | Progress Note - Hospitalist ---
Subjective HPI/CC On Admission Date Seen by Provider: May 04, 2019 Time Seen by Provider: 09:30 Chief complaint: Unstable angina with hyperglycemia HPI: This is a 63yoWF with a history of bypass surgery who presented after eren ing two Nitroglycerin for chest pain, after presenting to the ER she was found to have unstable angina and blood sugar of 500 from the steroids that were given at her PCPs office, Dr. Sepulveda the day before. She was placed on Heparin drip and insulin drip, IV steroids and monitored closely through the night. She denies any chest pain at this current time, awaiting cardiology plan. Her last Hgb A1C was 7.1. Subjective/Events-last exam Ethel still pending regarding insurance Vapotherm maintained Overall still very weak Denies any pain Bowels started to move yesterday after meds Review of Systems General: Fatigue Pulmonary: Dyspnea Objective Exam Vital Signs Vital Signs Date Time Temp Pulse Resp B/P (MAP) Pulse Ox O2 Delivery O2 Flow Rate FiO2 05/04/19 20:00 71 21 157/76 (103) 97 Vapotherm 40.00 65.00 05/04/19 20:00 36.4 05/04/19 19:26 65 Capillary Refill : Less Than 3 Seconds General Appearance: No Apparent Distress, WD/WN Respiratory: Lungs Clear, Decreased Breath Sounds Cardiovascular: Regular Rate, Rhythm Neurologic/Psychiatric: Alert, Oriented x3, No Motor/Sensory Deficits, Normal Mood/Affect Results/Procedures Lab Laboratory Tests 05/04/19 03:00 Patient resulted labs reviewed. Assessment/Plan Assessment and Plan Assess & Plan/Chief Complaint Assessment: Vent dependent respiratory failure failed extubation Tuesday now extubated suc cessfully Unstable angina Known CAD CABG hx DM OOC in need of insulin drip Smoker HTN HLP CRI Plan: IV steroids Extubation Prognosis poor Ethel then IRF Diagnosis/Problems Diagnosis/Problems (1) Ventilator dependence Status: Acute (2) Angina at rest Status: Acute (3) Acute hyperglycemia Status: Acute (4) COPD with exacerbation Status: Acute (5) Chest pain Status: Acute Qualifiers: Chest pain type: chest pain due to myocardial ischemia Ischemic chest pain type: unstable angina pectoris Qualified Codes: I20.0 - Unstable angina Clinical Quality Measures DVT/VTE Risk/Contraindication: Risk Factor Score Per Nursin RFS Level Per Nursing on Admit: 4+=Very High JESUS CEBALLOS DO May 04, 2019 11:29
--- NOTE | 2019-05-04 11:51 | Physical Therapy Progress Note ---
Therapy Progress Note Patient declined PT at this time. Will attempt later today or in a.m. 1 ref ([id number]) CLAUS DONOHUE PT May 04, 2019 11:51
[2019-05-04] MEDS: VANCOMYCIN 1250 MG/NS 250 ML IVPB IV SCH ×2 (14:12)
--- NOTE | 2019-05-04 15:07 | Physical Therapy Daily Note ---
PT Daily Note-Current Subjective Patient sitting in recliner and agrees to exercises. Currently on vapotherm. Mental Status Patient Orientation: Normal For Age Attachments: Oxygen (vapotherm), Mora Catheter, IV Transfers SCALE: Activities may be completed with or without assistive devices. 2-Nhdooagloc-ryvxxug completes the activity by him/herself with no assistance from a helper. 5-Set-up or Clean-up Assistance-helper sets up or cleans up; patient completes activity. [place] assists only prior to or following the activity. 4-Supervision or Touching Assistance-helper provides verbal cues and/or touching/steadying and/or contact guard assistance as patient completes activity. Assistance may be provided throughout the activity or intermittently. 3-Partial/Moderate Assistance-helper does LESS THAN HALF the effort. [place] lifts, holds or supports trunk or limbs, but provides less than half the effort. 2-Substantial/Maximal Assistance-helper does MORE THAN HALF the effort. [place] lifts or holds trunk or limbs and provides more than half the effort. 3-Ncgjgikhk-htguac does ALL the effort. Patient does none of the effort to complete the activity. Or, the assistance of 2 or more helpers is required for the patient to complete the activity. If activity was not attempted, code reason: 7-Patient Refused. 9-Not Applicable-not attempted and the patient did not perform the activity be fore the current illness, exacerbation or injury. 10-Not Attempted due to Environmental Limitations-(lack of equipment, weather restraints, etc.). 88-Not Attempted due to Medical Conditions or Safety Concerns. Sit to Stand (QC): 5 Exercises Seated Therapy Exercises: Sit to stand (5 reps) Standing: Marching Standing Reps: 10 (x 5 sets) Assessment Patient SAO2 decreases with minimal activity requiring recovery periods. Plan transfer to OSH this weekend per spouse report. PT to increase activity as tolerated by patient. PT Short Term Goals Short Term Goals Time Frame: May 12, 2019 Gait Distance Comment: 75' Gait Assistive Device: FWW (minimal assist) PT Fpc Goals Fpc Goals PT Sociology Research Assistant Goals Time Frame: May 19, 2019 Sit to Lying (QC): 6 Lying-Sitting on Side/Bed(QC): 6 Sit to Stand (QC): 6 Roll Left to Right (QC): 6 Chair/Quk-cy-Vqkwn Xfer(QC): 6 Car Transfer (QC): 6 Does the Patient Walk: Yes Distance: 200' Walk 10 feet (QC): 6 Walk 10ft-Uneven Surface(QC): 6 Walk 50ft with 2 Turns (QC): 6 Walk 150 ft (QC): 6 Gait Assistive Device: FWW PT Plan Treatment/Plan Treatment Plan: Continue Plan of Care Treatment Plan: Bed Mobility, Education, Functional Activity Javi, Functional Strength, Gait, Safety, Therapeutic Exercise, Transfers Treatment Duration: May 19, 2019 Frequency: 6 times per week Estimated Hrs Per Day: .25 hour per day Patient and/or Family Agrees t: Yes Time/GCodes Time In: 1435 Time Out: 1445 Total Billed Treatment Time: 10 Total Billed Treatment 1 visit EX 10min CLAUS DONOHUE PT May 04, 2019 15:07
[2019-05-04] MEDS: MELATONIN 3 MG TABLET PO SCH (21:08)
[2019-05-04] MEDS: ZOLPIDEM 5 MG (AMBIEN) TAB PO SCH (21:09)
[2019-05-05] VITALS (23 sets, daily range): BP systolic 81–129; BP diastolic 28–83
[2019-05-05] MEDS: RT-ALBUTEROL/IPRATROPIUM 3 ML (DUONEB) VIAL INH SCH ×6 (02:50→23:13)
[2019-05-05 03:13] LABS: BASOPHILS % (AUTO) 0 % (0-10); EOSINOPHILS % (AUTO) 0 % (0-10); HEMATOCRIT 29 % (35-52); HEMOGLOBIN 9.1 G/DL (11.5-16.0); LYMPHOCYTES # (AUTO) 0.9 X 10^3 (1.0-4.0); LYMPHOCYTES % (AUTO) 8 % (12-44); MEAN CORPUSCULAR HEMOGLOBIN 31 PG (25-34); MEAN CORPUSCULAR HGB CONC 32 G/DL (32-36); MEAN CORPUSCULAR VOLUME 97 FL (80-99); MEAN PLATELET VOLUME 9.9 FL (7.4-10.4); MONOCYTES # (AUTO) 0.7 X 10^3 (0.0-1.0); MONOCYTES % (AUTO) 7 % (0-12); NEUTROPHILS # (AUTO) 9.1 X 10^3 (1.8-7.8); NEUTROPHILS % (AUTO) 85 % (42-75); PLATELET COUNT 331 10^3/uL (130-400); RED CELL DISTRIBUTION WIDTH 14.3 % (10.0-14.5); WHITE BLOOD COUNT 10.7 10^3/uL (4.3-11.0)
[2019-05-05 03:30] LABS: CALCIUM 8.8 MG/DL (8.5-10.1); CREATININE SERUM 1.29 MG/DL (0.60-1.30); MAGNESIUM 2.2 MG/DL (1.6-2.4); PHOSPHORUS 3.3 MG/DL (2.3-4.7); POTASSIUM 4.8 MMOL/L (3.6-5.0)
--- NOTE | 2019-05-05 04:50 | Pulmonary Progress Note ---
Subjective Time Seen by a Provider: 04:50 Subjective/Events-last exam Pt is doing well on NC. Sepsis Event Evaluation Height, Weight, BMI Height: '" Weight: lbs. oz. kg; 37.22 BMI Method: Exam Exam Vital Signs Date Time Temp Pulse Resp B/P (MAP) Pulse Ox O2 Delivery O2 Flow Rate FiO2 05/05/19 03:38 Vapotherm 30.00 65.00 05/05/19 03:00 67 19 120/55 (76) 92 Vapotherm 30.00 60.00 05/05/19 02:50 92 Vapotherm 30.00 60 05/05/19 02:00 68 22 107/55 (72) 92 Vapotherm 30.00 60.00 05/05/19 01:00 108 05/05/19 01:00 108 20 90 Vapotherm 30.00 60.00 05/05/19 00:00 61 17 100/56 (71) 93 Vapotherm 30.00 60.00 05/05/19 00:00 Vapotherm 30.00 60 05/04/19 23:33 36.0 Vapotherm 30.00 60.00 05/04/19 23:00 70 18 95/51 (66) 96 Vapotherm 40.00 65.00 05/04/19 22:00 86 16 172/78 (109) 94 Vapotherm 40.00 65.00 05/04/19 21:00 80 23 122/70 (87) 99 Vapotherm 40.00 65.00 05/04/19 20:00 71 21 157/76 (103) 97 Vapotherm 40.00 65.00 05/04/19 20:00 36.4 05/04/19 20:00 Vapotherm 30.00 65 05/04/19 19:26 92 Vapotherm 30.00 65 05/04/19 19:00 70 05/04/19 19:00 68 20 93 Vapotherm 40.00 65.00 05/04/19 18:00 93 18 154/68 (96) Vapotherm 40.00 65.00 05/04/19 17:00 61 21 115/64 (81) 96 Vapotherm 40.00 65.00 05/04/19 16:03 86 90 40 05/04/19 16:00 36.0 05/04/19 16:00 72 29 138/70 (92) 97 Vapotherm 40.00 65.00 05/04/19 16:00 Vapotherm 40.00 65 05/04/19 15:00 87 31 135/88 (104) 93 Vapotherm 40.00 65.00 05/04/19 14:50 91 Vapotherm 30.00 65 05/04/19 14:00 95 37 91 Vapotherm 40.00 65.00 05/04/19 13:00 70 24 153/72 (99) 93 Vapotherm 40.00 65.00 05/04/19 12:51 77 05/04/19 12:00 Vapotherm 40.00 70 05/04/19 12:00 36.1 05/04/19 12:00 78 33 100/76 (84) 90 Vapotherm 40.00 65.00 05/04/19 11:00 72 23 139/65 (89) 92 Vapotherm 40.00 65.00 05/04/19 10:42 92 Vapotherm 30.00 65 05/04/19 10:00 80 28 152/74 (100) 90 Vapotherm 40.00 65.00 05/04/19 09:00 77 23 109/52 (71) 91 Vapotherm 40.00 65.00 05/04/19 08:00 35.9 05/04/19 08:00 Vapotherm 40.00 70 05/04/19 08:00 78 23 95 Vapotherm 40.00 65.00 05/04/19 07:00 80 05/04/19 07:00 75 26 134/90 (105) 90 Vapotherm 40.00 65.00 05/04/19 06:41 91 Vapotherm 30.00 65 05/04/19 06:00 82 11 91 Vapotherm 40.00 65.00 05/04/19 05:00 63 19 137/65 (89) 92 Vapotherm 40.00 65.00 I & O 05/05/19 07:00 Intake Total 1140 ml Output Total 3375 ml Balance -2235 ml Height & Weight Height: '" Weight: lbs. oz. kg; 37.22 BMI Method: General Appearance: No Apparent Distress, WD/WN HEENT: Pharynx Normal Neck: Full Range of Motion, Normal Inspection, Non Tender Respiratory: Lungs Clear, Decreased Breath Sounds Cardiovascular: Regular Rate, Rhythm Capillary Refill: Less Than 3 Seconds Peripheral Pulses: 2+ Dorsalis Pedis (R), 2+ Left Dors-Pedis (L), 2+ Radial Pulses (R), 2+ Radial Pulses (L) Gastrointestinal: non tender, soft, no organomegaly, no pulsatile mass Extremity: Normal Capillary Refill, Normal Inspection, Normal Range of Motion, Non Tender, Pedal Edema (L>R) Neurologic/Psychiatric: Alert, Oriented x3, No Motor/Sensory Deficits, Normal Mood/Affect Skin: Normal Color, Warm/Dry Lymphatic: No Adenopathy Results Lab Laboratory Tests 05/04/19 03:00 05/05/19 03:08 Assessment/Plan Assessment/Plan Acute respiratory failure with s/p hemoptysis- Much improved -Continue solumedrol -Continue Bumex for now and continue to monitor labs Pnuemonia with MSSA -Continue Vancomycin for 10days total -Pt worsened when Abx were narrowed pulmonary hemorrhage secondary to anticoagulation -D/C lovenox. CP s/p cath -Cardiology following COPD - Duonebs Q4H NIDDMII with hyperglycemia -SSI DREW - Fluid replacement HTN -Monitor CAD -cardiology consult PAD Hx of [place] CABG DANGELO DURAN DO May 05, 2019 04:50
[2019-05-05] MEDS: KCL 20 MEQ TAB (K-DUR) PO SCH (05:40)
[2019-05-05] MEDS: POTASSIUM CL 10MEQ/50ML IVPB 50 ML IV SCH (05:40)
[2019-05-05] MEDS: MAGNESIUM 1 GM/100 ML IVPB 100 ML IV SCH (05:40)
[2019-05-05] MEDS: inSUlin ASPART (NovoLOG) 1 UNIT/0.01 ML (CHARGE PER UNIT) SC SCH ×4 (06:42→21:47)
[2019-05-05] MEDS: methylPREDNISolone 40 MG/ML (Solu-MEDROL) VIAL IV SCH ×4 (06:42→23:52)
[2019-05-05] MEDS: RT-BUDESONIDE NEBS 0.5 MG/2ML (PULMICORT) AMP INH SCH ×2 (06:51→19:56)
--- NOTE | 2019-05-05 07:57 | Diagnostic Imaging Report ---
INDICATION: COPD and chest pain. Time of exam 3:15 AM Correlation is made with prior chest one day earlier. Right-sided line has tip overlying the SVC. There are congestive changes in both lungs. There is some parenchymal consolidation in the left base, similar to prior. Upper lung shepard are fairly clear. No significant effusion or pneumothorax is seen. IMPRESSION: Overall stable appearance of the chest when compared with examination one day earlier. Dictated by: Dictated on workstation # [id number]
[2019-05-05] MEDS: DOCUSATE SODIUM 100 MG (COLACE) CAP PO SCH ×2 (08:50→21:46)
[2019-05-05] MEDS: BUMETANIDE 1 MG/4 ML (BUMEX) VIAL IV SCH ×2 (08:50→21:45)
[2019-05-05] MEDS: ASPIRIN E.C. 81 MG (ECOTRIN) TAB PO SCH (08:50)
[2019-05-05] MEDS: PANTOPRAZOLE 40 MG (PROTONIX) TAB PO SCH (08:50)
[2019-05-05] MEDS: MAGIC MOUTHWASH (ADULT) PO SCH ×16 (08:50→21:47)
[2019-05-05] MEDS: meTOprolol TARTRATE 25 MG (LOPRESSOR) TABLET PO SCH ×2 (08:50→21:46)
--- NOTE | 2019-05-05 09:56 | Physical Therapy Daily Note ---
PT Daily Note-Current Subjective Pt agreeable to get out of bed to the chair. Spouse assists as needed. Transfers SCALE: Activities may be completed with or without assistive devices. 8-Mldxtpobcs-tncohbd completes the activity by him/herself with no assistance from a helper. 5-Set-up or Clean-up Assistance-helper sets up or cleans up; patient completes activity. [place] assists only prior to or following the activity. 4-Supervision or Touching Assistance-helper provides verbal cues and/or touching/steadying and/or contact guard assistance as patient completes activity. Assistance may be provided throughout the activity or intermittently. 3-Partial/Moderate Assistance-helper does LESS THAN HALF the effort. [place] lifts, holds or supports trunk or limbs, but provides less than half the effort. 2-Substantial/Maximal Assistance-helper does MORE THAN HALF the effort. [place] lifts or holds trunk or limbs and provides more than half the effort. 8-Rslywkxyd-fhhzlp does ALL the effort. Patient does none of the effort to complete the activity. Or, the assistance of 2 or more helpers is required for the patient to complete the activity. If activity was not attempted, code reason: 7-Patient Refused. 9-Not Applicable-not attempted and the patient did not perform the activity before the current illness, exacerbation or injury. 10-Not Attempted due to Environmental Limitations-(lack of equipment, weather restraints, etc.). 88-Not Attempted due to Medical Conditions or Safety Concerns. Treatments Supine to sit with min assist and occas cues for sequencing. Sit to stand with CGA and CGA to take steps to transfer to the chair with pt using a FWW for safety. Pt up in chair post treatment with needs met and attachments in situ. Spouse present. Call light in reach. Assessment Current Status: Good Progress Safe and steady with transfers. Tolerated well. PT Short Term Goals Short Term Goals Time Frame: May 12, 2019 Gait Distance Comment: 75' Gait Assistive Device: FWW (minimal assist) PT Skilled Nursing Goals Junior [employer] Systems Administrator Goals PT Skilled Nursing Goals Time Frame: May 19, 2019 Sit to Lying (QC): 6 Lying-Sitting on Side/Bed(QC): 6 Sit to Stand (QC): 6 Roll Left to Right (QC): 6 Chair/Yix-aw-Suvvl Xfer(QC): 6 Car Transfer (QC): 6 Does the Patient Walk: Yes Distance: 200' Walk 10 feet (QC): 6 Walk 10ft-Uneven Surface(QC): 6 Walk 50ft with 2 Turns (QC): 6 Walk 150 ft (QC): 6 Gait Assistive Device: FWW PT Plan Problem List Problem List: Activity Tolerance, Functional Strength, Safety, Balance, Gait, Transfer, Bed Mobility Treatment/Plan Treatment Plan: Continue Plan of Care Treatment Plan: Bed Mobility, Education, Functional Activity Javi, Functional Strength, Gait, Safety, Therapeutic Exercise, Transfers Treatment Duration: May 19, 2019 Frequency: 6 times per week Estimated Hrs Per Day: .25 hour per day Patient and/or Family Agrees t: Yes Safety Risks/Education Patient Education: Safety Issues Teaching Recipient: Patient Teaching Methods: Demonstration Response to Teaching: Return Demonstration Time/GCodes Time In: 940 Time Out: 956 Total Billed Treatment Time: 16 Total Billed Treatment visit FA 16 ZEKE DALE PT May 05, 2019 09:56
--- NOTE | 2019-05-05 12:57 | Progress Note - Hospitalist ---
Subjective HPI/CC On Admission Date Seen by Provider: May 05, 2019 Time Seen by Provider: 12:00 Chief complaint: Unstable angina with hyperglycemia HPI: This is a 63yoWF with a history of bypass surgery who presented after eren ing two Nitroglycerin for chest pain, after presenting to the ER she was found to have unstable angina and blood sugar of 500 from the steroids that were given at her PCPs office, Dr. Sepulveda the day before. She was placed on Heparin drip and insulin drip, IV steroids and monitored closely through the night. She denies any chest pain at this current time, awaiting cardiology plan. Her last Hgb A1C was 7.1. Subjective/Events-last exam Patient doing much better Her voices cooperating a little more today Still on Vapotherm Very slow recovery Awaiting [place] with insurance approval Review of Systems General: Fatigue Pulmonary: Dyspnea Objective Exam Vital Signs Vital Signs Date Time Temp Pulse Resp B/P (MAP) Pulse Ox O2 Delivery O2 Flow Rate FiO2 05/05/19 13:00 89 05/05/19 12:35 Vapotherm 30.00 60 05/05/19 12:00 25 105/58 (74) 91 05/04/19 23:33 36.0 Capillary Refill : Less Than 3 Seconds General Appearance: No Apparent Distress, WD/WN, Chronically ill Respiratory: Chest Non Tender, Lungs Clear, Normal Breath Sounds, No Accessory Muscle Use, No Respiratory Distress Cardiovascular: Regular Rate, Rhythm, No Edema, No Gallop, No JVD, No Murmur, Normal Peripheral Pulses Neurologic/Psychiatric: Alert, Oriented x3, No Motor/Sensory Deficits, Normal Mood/Affect Results/Procedures Lab Laboratory Tests 05/05/19 03:08 Patient resulted labs reviewed. Assessment/Plan Assessment and Plan Assess & Plan/Chief Complaint Assessment: Vent dependent respiratory failure failed extubation Tuesday now extubated successfully depended on Vapotherm likely needs [place] before inpatient rehabilitation Unstable angina Known CAD CABG hx DM OOC in need of insulin drip Smoker HTN HLP CRI Plan: IV steroids Extubation Prognosis poor [place] then IRF Diagnosis/Problems Diagnosis/Problems (1) Ventilator dependence Status: Acute (2) Angina at rest Status: Acute (3) Acute hyperglycemia Status: Acute (4) COPD with exacerbation Status: Acute (5) Chest pain Status: Acute Qualifiers: Chest pain type: chest pain due to myocardial ischemia Ischemic chest pain type: unstable angina pectoris Qualified Codes: I20.0 - Unstable angina Clinical Quality Measures DVT/VTE Risk/Contraindication: Risk Factor Score Per Nursin RFS Level Per Nursing on Admit: 4+=Very High JESUS CEBALLOS DO May 05, 2019 12:57
[2019-05-05] MEDS: RT-ALBUTEROL SULF 2.5 MG/3 ML PRE-MIX VIAL INH PRN (19:56)
--- NOTE | 2019-05-05 20:05 | NUR ---
patient was received by this RT on Vapotherm 30 L and 65%; RT was unavailable for patient 1800 SVN BT inline with EZPAP so RT gave a PRN tx instead. Patients sputum is darker red in color
[2019-05-05] MEDS: ZOLPIDEM 5 MG (AMBIEN) TAB PO SCH (21:46)
[2019-05-05] MEDS: morphine INJ 4 MG/ML 1 ML (VIAL/SYRINGE) IV PRN (21:46)
[2019-05-05] MEDS: MELATONIN 3 MG TABLET PO SCH (21:46)
--- NOTE | 2019-05-05 23:28 | NUR ---
patient was placed on bipap for the night per patients request rate 12 07/01 and 45%
[2019-05-06] VITALS (15 sets, daily range): BP systolic 89–148; BP diastolic 48–82
[2019-05-06] MEDS: RT-ALBUTEROL/IPRATROPIUM 3 ML (DUONEB) VIAL INH SCH ×6 (02:43→22:36)
--- NOTE | 2019-05-06 02:48 | NUR ---
patients o2 on the bipap was decreased from 45% to 40%
[2019-05-06 04:26] LABS: BASOPHILS % (AUTO) 0 % (0-10); EOSINOPHILS % (AUTO) 0 % (0-10); HEMATOCRIT 30 % (35-52); HEMOGLOBIN 9.5 G/DL (11.5-16.0); LYMPHOCYTES # (AUTO) 0.8 X 10^3 (1.0-4.0); LYMPHOCYTES % (AUTO) 7 % (12-44); MEAN CORPUSCULAR HEMOGLOBIN 30 PG (25-34); MEAN CORPUSCULAR HGB CONC 32 G/DL (32-36); MEAN CORPUSCULAR VOLUME 96 FL (80-99); MEAN PLATELET VOLUME 10.1 FL (7.4-10.4); MONOCYTES # (AUTO) 0.7 X 10^3 (0.0-1.0); MONOCYTES % (AUTO) 6 % (0-12); NEUTROPHILS # (AUTO) 9.3 X 10^3 (1.8-7.8); NEUTROPHILS % (AUTO) 87 % (42-75); PLATELET COUNT 322 10^3/uL (130-400); RED CELL DISTRIBUTION WIDTH 14.2 % (10.0-14.5); WHITE BLOOD COUNT 10.7 10^3/uL (4.3-11.0)
[2019-05-06 04:57] LABS: CALCIUM 8.9 MG/DL (8.5-10.1); CREATININE SERUM 1.26 MG/DL (0.60-1.30); MAGNESIUM 2.3 MG/DL (1.6-2.4); PHOSPHORUS 3.7 MG/DL (2.3-4.7); POTASSIUM 4.7 MMOL/L (3.6-5.0)
[2019-05-06] MEDS: POTASSIUM CL 10MEQ/50ML IVPB 50 ML IV SCH (05:21)
[2019-05-06] MEDS: MAGNESIUM 1 GM/100 ML IVPB 100 ML IV SCH (05:21)
[2019-05-06] MEDS: KCL 20 MEQ TAB (K-DUR) PO SCH (05:22)
--- NOTE | 2019-05-06 06:28 | Pulmonary Progress Note ---
Sepsis Event Evaluation Height, Weight, BMI Height: '" Weight: lbs. oz. kg; 37.22 BMI Method: Exam Exam Vital Signs Date Time Temp Pulse Resp B/P (MAP) Pulse Ox O2 Delivery O2 Flow Rate FiO2 05/06/19 06:00 69 16 114/68 (83) 90 NIV Bilevel 45.00 05/06/19 05:00 55 15 123/67 (85) 90 NIV Bilevel 45.00 05/06/19 04:00 NIV Bilevel 45 05/06/19 04:00 62 16 117/59 (78) 91 NIV Bilevel 45.00 05/06/19 03:00 59 15 105/59 (74) 93 NIV Bilevel 45.00 05/06/19 02:43 62 16 95 45.00 05/06/19 02:00 61 17 104/54 (71) 95 NIV Bilevel 45.00 05/06/19 01:00 65 05/06/19 01:00 62 17 89/48 (62) 96 NIV Bilevel 45.00 05/06/19 00:00 66 18 125/59 (81) 94 NIV Bilevel 45.00 05/06/19 00:00 NIV Bilevel 45 05/06/19 00:00 36.9 05/05/19 23:35 NIV Bilevel 45.00 05/05/19 23:34 NIV Bilevel 45.00 05/05/19 23:14 67 18 97 45.00 05/05/19 23:00 89 15 100/52 (68) 95 Vapotherm 30.00 65.00 05/05/19 22:00 75 23 127/63 (84) 92 Vapotherm 30.00 65.00 05/05/19 21:00 70 23 122/67 (85) 91 Vapotherm 30.00 65.00 05/05/19 20:07 91 Vapotherm 30.00 65 05/05/19 20:00 85 15 113/83 (93) 90 Vapotherm 30.00 65.00 05/05/19 20:00 Vapotherm 30.00 65 05/05/19 20:00 37.1 05/05/19 19:57 91 Vapotherm 30.00 65 05/05/19 19:00 67 05/05/19 19:00 61 22 117/65 (82) 92 Vapotherm 30.00 65.00 10/12/19 18:00 81 28 95/80 (85) 92 Vapotherm 30.00 65.00 05/05/19 17:00 69 20 91/28 (49) 94 Vapotherm 30.00 65.00 05/05/19 16:49 Vapotherm 30.00 60 05/05/19 16:00 71 24 105/59 (74) 94 Vapotherm 30.00 65.00 05/05/19 16:00 37.0 05/05/19 15:00 76 17 120/69 (86) 89 Vapotherm 30.00 65.00 05/05/19 14:55 92 Vapotherm 30.00 65 05/05/19 14:00 80 25 121/64 (83) 89 Vapotherm 30.00 65.00 05/05/19 13:00 89 05/05/19 13:00 83 23 90 Vapotherm 30.00 65.00 05/05/19 12:35 Vapotherm 30.00 60 05/05/19 12:00 70 25 105/58 (74) 91 Vapotherm 30.00 65.00 05/05/19 11:00 75 26 101/61 (74) 90 Vapotherm 30.00 65.00 05/05/19 10:16 91 Vapotherm 30.00 65 05/05/19 10:00 88 27 81/65 (70) 83 Vapotherm 30.00 65.00 05/05/19 09:00 81 20 125/60 (81) 91 Vapotherm 30.00 65.00 05/05/19 08:35 Vapotherm 30.00 60 05/05/19 08:00 86 17 111/62 (78) 87 Vapotherm 30.00 65.00 05/05/19 07:00 70 05/05/19 07:00 78 13 93/67 (76) 87 Vapotherm 30.00 65.00 05/05/19 06:57 92 Vapotherm 30.00 65 05/05/19 06:52 92 Vapotherm 30.00 65 I & O 05/06/19 07:00 Intake Total 520 ml Output Total 2175 ml Balance -1655 ml Height & Weight Height: '" Weight: lbs. oz. kg; 37.22 BMI Method: General Appearance: No Apparent Distress, WD/WN, Chronically ill HEENT: Pharynx Normal Neck: Full Range of Motion, Normal Inspection, Non Tender Respiratory: Chest Non Tender, Lungs Clear, Normal Breath Sounds, No Accessory Muscle Use, No Respiratory Distress Cardiovascular: Regular Rate, Rhythm, No Edema, No Gallop, No JVD, No Murmur, Normal Peripheral Pulses Capillary Refill: Less Than 3 Seconds Peripheral Pulses: 2+ Dorsalis Pedis (R), 2+ Left Dors-Pedis (L), 2+ Radial Pulses (R), 2+ Radial Pulses (L) Gastrointestinal: non tender, soft, no organomegaly, no pulsatile mass Extremity: Normal Capillary Refill, Normal Inspection, Normal Range of Motion, Non Tender, Pedal Edema (L>R) Neurologic/Psychiatric: Alert, Oriented x3, No Motor/Sensory Deficits, Normal Mood/Affect Skin: Normal Color, Warm/Dry Lymphatic: No Adenopathy Results Lab Laboratory Tests 05/05/19 03:08 05/06/19 04:21 Assessment/Plan Assessment/Plan Acute respiratory failure with s/p hemoptysis- Much improved -Continue solumedrol -Continue Bumex for now and continue to monitor labs Pnuemonia with MSSA -Continue Vancomycin for 10days total -Pt worsened when Abx were narrowed pulmonary hemorrhage secondary to anticoagulation -D/C lovenox. CP s/p cath -Cardiology following COPD - Duonebs Q4H NIDDMII with hyperglycemia -SSI DREW - Fluid replacement HTN -Monitor CAD -cardiology consult PAD Hx of RI CABG DANGELO DURAN DO May 06, 2019 06:28
[2019-05-06] MEDS: methylPREDNISolone 40 MG/ML (Solu-MEDROL) VIAL IV SCH ×3 (06:44→17:40)
[2019-05-06] MEDS: inSUlin ASPART (NovoLOG) 1 UNIT/0.01 ML (CHARGE PER UNIT) SC SCH ×5 (06:44→20:59)
--- NOTE | 2019-05-06 07:34 | Diagnostic Imaging Report ---
INDICATION: COPD and chest pain. TIME OF EXAM: 5:52 AM Correlation is made with prior chest one day earlier. FINDINGS: The heart is enlarged but stable. Right IJ line has tip overlying the SVC. There is some residual atelectasis or infiltrate in both bases, left greater. This is similar to perhaps minimally improved since yesterday. Mid and upper lung shepard are fairly clear. There is no pneumothorax. IMPRESSION: Mild improved aeration in the lung bases when compared with examination one day earlier. Dictated by: Dictated on workstation # [id number]
[2019-05-06] MEDS: PANTOPRAZOLE 40 MG (PROTONIX) TAB PO SCH (09:21)
[2019-05-06] MEDS: DOCUSATE SODIUM 100 MG (COLACE) CAP PO SCH ×2 (09:21→21:10)
[2019-05-06] MEDS: BUMETANIDE 1 MG/4 ML (BUMEX) VIAL IV SCH ×2 (09:21→21:10)
[2019-05-06] MEDS: meTOprolol TARTRATE 25 MG (LOPRESSOR) TABLET PO SCH ×2 (09:21→21:11)
[2019-05-06] MEDS: ASPIRIN E.C. 81 MG (ECOTRIN) TAB PO SCH (09:21)
[2019-05-06] MEDS: MAGIC MOUTHWASH (ADULT) PO SCH ×16 (09:22→21:12)
--- NOTE | 2019-05-06 10:30 | NUR ---
UP IN CHAIR, ORIENTED TO ROOM, VAPOTHERM ON, DENIES PAIN OR SOB, TALKS SOFTLY BUT EASY TO UNDERSTAND, QUINTERO PATENT WITH CLEAR URINE, CALL LIGHT WITHIN REACH, AT BEDSIDE.
--- NOTE | 2019-05-06 12:15 | NUR ---
1028 PT TRANSFERRED TO ROOM 428 VIA W/C ACCOMPANIED BY RT AND . PT ON PORTABLE OXYGEN TANK. ALL PERSONAL BELONGINGS SENT WITH PT. REPORT GIVEN TO Baylee ELLIS RN PRIOR TO TRANSFER.
[2019-05-06] MEDS: VANCOMYCIN 1250 MG/NS 250 ML IVPB IV SCH ×2 (12:33)
--- NOTE | 2019-05-06 12:49 | Progress Note - Hospitalist ---
Subjective HPI/CC On Admission Date Seen by Provider: May 06, 2019 Time Seen by Provider: 12:15 Chief complaint: Unstable angina with hyperglycemia HPI: This is a 63yoWF with a history of bypass surgery who presented after eren ing two Nitroglycerin for chest pain, after presenting to the ER she was found to have unstable angina and blood sugar of 500 from the steroids that were given at her PCPs office, Dr. Sepulveda the day before. She was placed on Heparin drip and insulin drip, IV steroids and monitored closely through the night. She denies any chest pain at this current time, awaiting cardiology plan. Her last Hgb A1C was 7.1. Subjective/Events-last exam Patient moved to 4th floor and doing well Still on Vapotherm so cannot go to IRF yet BM+ No pain is reported Checked meds and labs Review of Systems General: Fatigue Pulmonary: Dyspnea Objective Exam Vital Signs Vital Signs Date Time Temp Pulse Resp B/P (MAP) Pulse Ox O2 Delivery O2 Flow Rate FiO2 05/06/19 19:45 36.2 71 20 128/61 (83) 93 Vapotherm 30.00 75.00 05/06/19 19:00 75 Capillary Refill : Less Than 3 Seconds General Appearance: No Apparent Distress, WD/WN Respiratory: Lungs Clear, Decreased Breath Sounds Cardiovascular: Regular Rate, Rhythm Neurologic/Psychiatric: Alert, Oriented x3, No Motor/Sensory Deficits, Normal Mood/Affect Results/Procedures Lab Laboratory Tests 05/06/19 04:21 Patient resulted labs reviewed. Assessment/Plan Assessment and Plan Assess & Plan/Chief Complaint Assessment: Vent dependent respiratory failure failed extubation last Tuesday now extubated successfully depended on Vapotherm likely needs [place] before inpatient rehabilitation Unstable angina Known CAD CABG hx DM OOC in need of insulin drip Smoker HTN HLP CRI Plan: IV steroids Extubation Prognosis poor [place] then IRF Diagnosis/Problems Diagnosis/Problems (1) Ventilator dependence Status: Acute (2) Angina at rest Status: Acute (3) Acute hyperglycemia Status: Acute (4) COPD with exacerbation Status: Acute (5) Chest pain Status: Acute Qualifiers: Chest pain type: chest pain due to myocardial ischemia Ischemic chest pain type: unstable angina pectoris Qualified Codes: I20.0 - Unstable angina Clinical Quality Measures DVT/VTE Risk/Contraindication: Risk Factor Score Per Nursin RFS Level Per Nursing on Admit: 4+=Very High JESUS CEBALLOS DO May 06, 2019 12:49
[2019-05-06] MEDS: RT-BUDESONIDE NEBS 0.5 MG/2ML (PULMICORT) AMP INH SCH ×2 (15:46→18:54)
[2019-05-06] MEDS: ZOLPIDEM 5 MG (AMBIEN) TAB PO SCH (21:10)
[2019-05-06] MEDS: MELATONIN 3 MG TABLET PO SCH (21:10)
[2019-05-06] MEDS: morphine INJ 4 MG/ML 1 ML (VIAL/SYRINGE) IV PRN (21:19)
[2019-05-07 00:09] VITALS: BP 99/50
[2019-05-07] MEDS: methylPREDNISolone 40 MG/ML (Solu-MEDROL) VIAL IV SCH ×4 (00:19→17:08)
[2019-05-07] MEDS: RT-ALBUTEROL/IPRATROPIUM 3 ML (DUONEB) VIAL INH SCH ×3 (03:36→15:56)
[2019-05-07 03:57] VITALS: BP 123/73
[2019-05-07] MEDS: inSUlin ASPART (NovoLOG) 1 UNIT/0.01 ML (CHARGE PER UNIT) SC SCH ×6 (06:02→16:46)
--- NOTE | 2019-05-07 07:23 | Diagnostic Imaging Report ---
INDICATION: COPD, chest pain COMPARISON: 05/06/2019 FINDINGS: Single view of the chest demonstrates stable cardiac enlargement without overt pulmonary edema. There is unchanged bibasilar atelectasis with small effusions. There is no pneumothorax. Right IJ catheter stable. IMPRESSION: Unchanged aeration of the lungs. Dictated by: Dictated on workstation # [id number]
[2019-05-07 08:00] VITALS: BP 91/54
[2019-05-07] MEDS: DOCUSATE SODIUM 100 MG (COLACE) CAP PO SCH (08:42)
[2019-05-07] MEDS: PANTOPRAZOLE 40 MG (PROTONIX) TAB PO SCH (08:43)
[2019-05-07] MEDS: ASPIRIN E.C. 81 MG (ECOTRIN) TAB PO SCH (08:43)
[2019-05-07] MEDS: BUMETANIDE 1 MG/4 ML (BUMEX) VIAL IV SCH (08:43)
[2019-05-07] MEDS: meTOprolol TARTRATE 25 MG (LOPRESSOR) TABLET PO SCH (08:43)
[2019-05-07] MEDS: MAGIC MOUTHWASH (ADULT) PO SCH ×12 (08:43→16:46)
--- NOTE | 2019-05-07 09:13 | NUR ---
PRIOR TO A.M. MEDICATIONS PULSE WAS 64 B/P WAS 91/54 METOPROLOL WAS HELD THIS A.M.
--- NOTE | 2019-05-07 09:26 | NUR ---
DISCHARGE PLANNING: Initial referral to [facility] completed on 05/03/19. This is the date that [facility] submitted for approval of admission. On this date 05/07 there still has been no contact from patients insurance in indicate denial or acceptance for admission. [facility] has request updated clinical which have been sent. Antic[facility]pte decision very soon.
--- NOTE | 2019-05-07 10:03 | Physical Therapy Daily Note ---
PT Daily Note-Current Subjective Patient in bed and agrees to PT. Pain Numeric Pain Scale: 0-No Pain Location: No Pain Reported Mental Status Patient Orientation: Normal For Age Attachments: Oxygen (vapotherm), [place] Catheter Transfers SCALE: Activities may be completed with or without assistive devices. 8-Ctdsakvzmi-drmdius completes the activity by him/herself with no assistance from a helper. 5-Set-up or Clean-up Assistance-helper sets up or cleans up; patient completes activity. [place] assists only prior to or following the activity. 4-Supervision or Touching Assistance-helper provides verbal cues and/or touching/steadying and/or contact guard assistance as patient completes activi ty. Assistance may be provided throughout the activity or intermittently. 3-Partial/Moderate Assistance-helper does LESS THAN HALF the effort. [place] lifts, holds or supports trunk or limbs, but provides less than half the effort. 2-Substantial/Maximal Assistance-helper does MORE THAN HALF the effort. [place] lifts or holds trunk or limbs and provides more than half the effort. 2-Xykvmgasr-zuhgzj does ALL the effort. Patient does none of the effort to complete the activity. Or, the assistance of 2 or more helpers is required for the patient to complete the activity. If activity was not attempted, code reason: 7-Patient Refused. 9-Not Applicable-not attempted and the patient did not perform the activity before the current illness, exacerbation or injury. 10-Not Attempted due to Environmental Limitations-(lack of equipment, weather restraints, etc.). 88-Not Attempted due to Medical Conditions or Safety Concerns. Roll Left to Right (QC): 6 Sit to Lying (QC): 6 Sit to Stand (QC): 4 Chair/Eep-ks-Xggmx Xfer(QC): 4 Bed to/from Chair: 4 Gait Training Does the Patient Walk?: Yes Distance: 5' Walk 10 feet (QC): 88 Walk 50 ft with 2 Turns(QC): 88 Walk 150 ft (QC): 88 Gait Assistive Device: FWW steady Exercises Supine Ex: Ankle pumps, Quad Set, Heel Slides, Straight leg raise Supine Reps: 10 Seated Therapy Exercises: Ankle pumps, Long arc quads Seated Reps: 10 Assessment Patient tolerated treatment well and continues to be limited due to connection to vapotherm. PT to increase activity as tolerated by patient. PT Short Term Goals Short Term Goals Time Frame: May 12, 2019 Gait Distance Comment: 75' Gait Assistive Device: FWW (minimal assist) PT Fpc Goals Toe Puncher Goals PT Toe Puncher Goals Time Frame: May 19, 2019 Sit to Lying (QC): 6 Lying-Sitting on Side/Bed(QC): 6 Sit to Stand (QC): 6 Roll Left to Right (QC): 6 Chair/Kuv-vc-Ujbwx Xfer(QC): 6 Car Transfer (QC): 6 Does the Patient Walk: Yes Distance: 200' Walk 10 feet (QC): 6 Walk 10ft-Uneven Surface(QC): 6 Walk 50ft with 2 Turns (QC): 6 Walk 150 ft (QC): 6 Gait Assistive Device: FWW PT Plan Treatment/Plan Treatment Plan: Continue Plan of Care Treatment Plan: Bed Mobility, Education, Functional Activity Javi, Functional Strength, Gait, Safety, Therapeutic Exercise, Transfers Treatment Duration: May 19, 2019 Frequency: 6 times per week Estimated Hrs Per Day: .25 hour per day Patient and/or Family Agrees t: Yes Time/GCodes Time In: 849 Time Out: 903 Total Billed Treatment Time: 14 Total Billed Treatment 1 visit EX 14 min CALUS DONOHUE PT May 07, 2019 10:03
[2019-05-07] MEDS: RT-BUDESONIDE NEBS 0.5 MG/2ML (PULMICORT) AMP INH SCH (11:52)
[2019-05-07 12:00] VITALS: BP 112/62
--- NOTE | 2019-05-07 12:51 | NUR ---
RD ASSESSMENT PMHx: COPD, DM, HTN, CAD, CABG PT INTERACTION: Pt was awake and pleasant for nutrition assessment. Pt states currently eating "okay." Note pt's previouns intake was poor, but is now consuming >75% of meals x3day. Pt states no issues with nausea/vomiting at this time. Pt states that she is "always constipated." Note pt currently on bowel regimen of colace,lactulose. Note pt's recent wt hx as fluctuating between 206# at highest and currently at 172#, per chart review. ABNORMAL NUTRITION-RELATED LAB VALUES: Hgb 9.5 (L); Hct 30 (L); BUN 57 (H); glu 266 (H) Est. kcal needs: 9173-1634 kcal (20-25 kcal/kg) Est. Pro needs: 78-94 g Pro (1.0-1.2 g Pro/kg) PES STATEMENT: Inadequate oral intake (NI-2.1) related to loss of appetite | chronic constipation as evidenced by pt interview INTERVENTION: Continue with current diet order of CHO 60g/m 1snack. Encouraged pt to eat when able. MONITOR/EVALUATE: PO Intake; Plan of Care; Hydration Status; Weight Status; Lab Values Faye Puri, MS, RD, LD Ext. 133
--- NOTE | 2019-05-07 14:20 | Cardiology Progress Note ---
Cardiology SOAP Progress Note Subjective: no cardiac complaints. Objective: I&O/Vital Signs 05/07/19 05/07/19 05/07/19 05/07/19 03:57 07:00 08:00 08:00 Temp 36.3 36.3 36.3 Pulse 60 56 64 64 Resp 18 22 22 B/P (MAP) 123/73 (90) 91/54 (66) 91/54 (66) Pulse Ox 93 96 96 O2 Delivery Vapotherm Vapotherm Vapotherm O2 Flow Rate 30.00 30.00 75.00 75.00 05/07/19 05/07/19 05/07/19 05/07/19 08:00 11:52 12:00 12:02 Temp 36.1 Pulse 82 Resp 22 B/P (MAP) 112/62 (79) Pulse Ox 93 92 95 91 O2 Delivery Vapotherm Vapotherm Vapotherm Vapotherm O2 Flow Rate 30.00 30.00 30.00 35.00 75.00 FiO2 75 75 05/07/19 12:44 Pulse 87 05/07/19 00:00 Intake Total 520 ml Output Total 675 ml Balance -155 ml Constitutional: appears stated age, AAO x 3; No apparent distress; well- developed, well-nourished Respiratory: No accessory muscle use, No respiratory distress, No chest tender, No chest expansion is symmetric; chest is bilaterally symmetric; No lungs clear to percussion; lungs clear to auscultation; No rhonchi, No rales, No stridor, No wheezing, No pleural rub Cardiovascular: regular rate-rhythm; No irregularly irregular, No extra beats, No parasternal heave is noted, No JVD, No edema, No bradycardia, No tachycardia, No point of maximal impulse, No cardiac thrills are palpable; S1 and S2; No gallop/S3, No gallop/S4, No diastolic murmur, No systolic murmur, No friction rub, No click, No other Gastrointestional: soft, round, audible bowel sounds; No spleenomegaly Extremities: normal range of motion, non-tender, normal inspection; No clubbing, No cyanosis; no lower extremity edema bilateral; No significant edema Neurologic/Psychiatric: No cantilever crane operator II-XII nml as tested; no motor/sensory deficits, alert, normal mood/affect, oriented x 3; No abnormal cerebellar tests, No abnormal cantilever crane operator II-XII, No abnormal gait, No aphasia, No EOM palsy, No facial droop, No motor weakness, No sensory deficit, No depressed affect, No disoriented x 3, No grossly intact, No power is 5/5 both on sides Skin: normal color, warm/dry; No rash, No ulcerations Results/Procedures: Labs Laboratory Tests 05/06/19 16:03: Glucometer 273H 05/06/19 20:53: Glucometer 136H 05/07/19 05:18: Glucometer 192H 05/07/19 10:55: Glucometer 312H 05/07/19 11:40: Glucometer 371H Microbiology 04/26/19 Blood Culture - Final, Complete No growth 04/26/19 Gram Stain - Final, Complete 04/26/19 Sputum Culture - Final, Complete Staphylococcus aureus Usual upper respiratory veronika A/P: Assessment/Dx: Acute respiratory failure due to pulmonary hemorrhage, Acute blood loss anemia due to pulmonary hemorrhage, Non-STEMI, Diabetes, Hypertension, Hyperlipidemia, Active smoking, Acute kidney injury. Plan: Acute respiratory failure due to pulmonary hemorrhage, Integrilin, heparin, Regina linta discontinued 04/20/2019. Extubated 05/02/2019. Tolerating well. Decreasing oxygen requirements. Acute blood loss anemia due to pulmonary hemorrhage, Hemoglobin over 8 g/dL. significantly improved. Non-STEMI, patient presented with severe chest pain and positive cardiac enzymes. She was taken to the catheter lab on 04/20/2019. Diffuse calcified small arteries. However culprit artery was an OM1 with long stenotic segment with significant calcification in the proximal part. The vessel was of diameter was 2 mm. We decided to intervene. PTCA was done with reasonable results initially. The patient was very agitated during the procedure and wanted to sit up. And wanted to us to stop. We tried to cross the lesion in the proximal OM1 but could not cross the lesion and due to the agitation of the patient and inability of lying still, for the safety of the patient, we decided to pull the wire and stent back into the guide. Post angiogram shows significant recoil. Therefore IV integrillin and heparin were started. Due to the bleeding later in the afternoon on 04/20/2019 Integrilin, heparin and Brilinta were discontinued. No further chest pain however in 24 hours (04/21/2019) significantly elevated troponin suggesting likely occlusion of the small culprit OM1, transient hypotension and severe anemia. Unfortunately due to significant bleeding we could not continue IV Integrilin, heparin and Brilinta. Repeat angiography is contraindicated due to severe bleeding. I discussed at length with the and explained the situation. No brilinta given since 04/20/19. Lovenox dced 04/26/2019 due to suspicion of rebleed. I will discuss with the primary team to see when we can start the patient on either aspirin or Plavix. Echocardiogram done on 04/21/2019 for which I was at the bedside showed no pericardial effusion. Hyperdynamic LV systolic function with an EF of 75 perc ent with no lateral wall motion abnormalities. Underfilling of the LV is recognized. Transient hypotension with significant drop in hemoglobin and hematocrit 04/20/2019, stat CT abdomen and pelvis done which ruled out retroperitoneal hemorrhage. Diabetes, severely elevated glucose. IV insulin. Hypertension, hold antihypertensive medication since hypotension. Hyperlipidemia, continue statin therapy. Active smoking, smoking cessation was strongly recommended. Acute kidney injury. I discussed at length with the patient on 05/02/2019. In the presence of the the patient told me that she will accept only one more intubation attempt; afterwards no further intubations. I asked him if she is okay with CPR. There will discuss and let us know. Dr Lopes will cover Cardiology services over the weekend. Thank you for your consultation. Please call me if you have any questions. Annmarie Brar MD, FACP, FACC, FSCAI, FHRS, CCDS Interventional Cardiology Cardiac Electrophysiology Vascular Medicine and Endovascular Interventions Jen BRAR MD May 07, 2019 14:20
--- NOTE | 2019-05-07 14:36 | Progress Note ---
Subjective Subjective/Events-last exam Patient sitting up in chair. She is able to ambulate to commode and around her room with walker. Tolerating PO diet. Denies any pain. Review of Systems Pulmonary: Dyspnea, Cough Cardiovascular: Chest Pain Gastrointestinal: No: Nausea, Vomiting, Abdominal Pain Neurological: Weakness Objective Exam Last Set of Vital Signs Vital Signs Date Time Temp Pulse Resp B/P (MAP) Pulse Ox O2 Delivery O2 Flow Rate FiO2 05/07/19 12:44 87 05/07/19 12:02 91 Vapotherm 35.00 75 05/07/19 12:00 36.1 22 112/62 (79) Capillary Refill : Less Than 3 Seconds I&O Intake and Output 05/07/19 00:00 Intake Total 860 ml Output Total 2150 ml Balance -1290 ml Intake Oral 860 ml Output Urine Total 2150 ml General: Alert, Oriented X3, Mild Distress Lungs: Clear to Auscultation, Normal Air Movement Heart: Regular Rate Abdomen: Normal Bowel Sounds, Soft, No Tenderness, No Masses Extremities: No Edema, No Tenderness/Swelling Results/Procedures Lab Laboratory Tests 05/06/19 16:03: Glucometer 273H 05/06/19 20:53: Glucometer 136H 05/07/19 05:18: Glucometer 192H 05/07/19 10:55: Glucometer 312H 05/07/19 11:40: Glucometer 371H Microbiology 04/26/19 Blood Culture - Final, Complete No growth 04/26/19 Gram Stain - Final, Complete 04/26/19 Sputum Culture - Final, Complete Staphylococcus aureus Usual upper respiratory veronika Assessment/Plan Assessment/Plan (1) NSTEMI (non-ST elevated myocardial infarction) Status: Acute Assessment & Plan: Cardiology following, had cath but OM1 needing intervention was not able to be done and repeat not possible due to bleeding, monitoring closely. Echo 04/19 with EF 55-65% and grade 2 diastolic dysfunction, repeat on 04/21 with hyperdynamic function. -Holding antiplatelets due to pulmonary hemorrhage 05/07: Denies any chest pain (2) Acute respiratory failure Status: Acute Assessment & Plan: Secondary to pulmonary hemorrhage. Intubated, BAL done and culture with < 1000 staph aureus. Fungal culture neg to date. Improving hypoxia. Appreciate Pulm recommendations. On furosemide 40 mg IV daily. 10/2 bronchoscopy today with copious amount of clot noted 04/26 worsened hypoxia, will remain ventilated today, remains on abx (changed to cefazolin based on staph sensitivities) 05/07: Dr Lopez following, Waiting on [facility] approval as patient will likely need long titration off vapotherm (3) COPD with exacerbation Status: Acute (4) Pulmonary hemorrhage Status: Acute Assessment & Plan: Thought to be secondary to blood thinners needed for CAD. Antiplatelets and pharmacologic DVT ppx held. 04/23 enoxaparin resumed, monitor closely. 04/26 enoxaparin held again due to worsened respiratory status and persistent bloody sputum with suction (5) Diabetes mellitus, type 2 Status: Chronic Assessment & Plan: - A1c 7.1 (6) Acute blood loss anemia Status: Acute Assessment & Plan: Pulmonary hemorrhage. Also had hypotension during stay and CT abdomen/pelvis done to rule out retroperitoneal bleed which was negative. s/p 3 units PRBCs 04/27 Trended down slightly recently, enoxaparin held 05/07: Hgb and labs stable, will do labs M/W/F to decrease blood draws (7) Hypertension Status: Chronic Qualifiers: Qualified Codes: I10 - Essential (primary) hypertension (8) DVT prophylaxis Status: Acute Assessment & Plan: Enoxaparin started 04/23, held prior due to pulmonary hemorrhage 04/26 held enoxaparin again due to worsening hypoxia and persistent dark mucous with suctioning Clinical Quality Measures DVT/VTE Risk/Contraindication: Risk Factor Score Per Nursin RFS Level Per Nursing on Admit: 4+=Very High AUDIE JOHNSON MD May 07, 2019 14:36
--- NOTE | 2019-05-07 14:59 | Pulmonary Progress Note ---
Sepsis Event Evaluation Height, Weight, BMI Height: '" Weight: lbs. oz. kg; 37.22 BMI Method: Exam Exam Vital Signs Date Time Temp Pulse Resp B/P (MAP) Pulse Ox O2 Delivery O2 Flow Rate FiO2 05/07/19 12:44 87 05/07/19 12:02 91 Vapotherm 35.00 75 05/07/19 12:00 36.1 82 22 112/62 (79) 95 Vapotherm 30.00 75.00 05/07/19 11:52 92 Vapotherm 30.00 75 05/07/19 08:00 93 Vapotherm 30.00 05/07/19 08:00 36.3 64 22 91/54 (66) 96 Vapotherm 05/07/19 08:00 36.3 64 22 91/54 (66) 96 Vapotherm 30.00 75.00 05/07/19 07:00 56 05/07/19 03:57 36.3 60 18 123/73 (90) 93 Vapotherm 30.00 75.00 05/07/19 01:00 67 05/07/19 00:09 37.0 77 18 99/50 (66) 97 Vapotherm 30.00 75.00 05/06/19 22:37 96 Vapotherm 30.00 75 05/06/19 20:00 Vapotherm 30.00 75 05/06/19 19:45 36.2 71 20 128/61 (83) 93 Vapotherm 30.00 75.00 05/06/19 19:00 85 05/06/19 19:00 92 Vapotherm 30.00 75 05/06/19 18:54 92 Vapotherm 30.00 75 05/06/19 16:02 36.0 64 18 120/59 (79) 93 Vapotherm 30.00 75.00 05/06/19 15:02 82 Vapotherm 30.00 75 I & O 05/07/19 07:00 Intake Total 970 ml Output Total 2225 ml Balance -1255 ml Height & Weight Height: '" Weight: lbs. oz. kg; 37.22 BMI Method: General Appearance: No Apparent Distress, WD/WN HEENT: Pharynx Normal Neck: Full Range of Motion, Normal Inspection, Non Tender Respiratory: Lungs Clear, Decreased Breath Sounds Cardiovascular: Regular Rate, Rhythm Capillary Refill: Less Than 3 Seconds Peripheral Pulses: 2+ Dorsalis Pedis (R), 2+ Left Dors-Pedis (L), 2+ Radial Pulses (R), 2+ Radial Pulses (L) Gastrointestinal: non tender, soft, no organomegaly, no pulsatile mass Extremity: Normal Capillary Refill, Normal Inspection, Normal Range of Motion, Non Tender, Pedal Edema (L>R) Neurologic/Psychiatric: Alert, Oriented x3, No Motor/Sensory Deficits, Normal M ood/Affect Skin: Normal Color, Warm/Dry Lymphatic: No Adenopathy Results Lab Laboratory Tests 05/06/19 04:21 Assessment/Plan Assessment/Plan Acute respiratory failure with s/p hemoptysis- Much improved -Continue solumedrol -Continue Bumex for now and continue to monitor labs Pnuemonia with MSSA -Continue Vancomycin for 10days total -Pt worsened when Abx were narrowed pulmonary hemorrhage secondary to anticoagulation -D/C lovenox. CP s/p cath -Cardiology following COPD - Duonebs Q4H NIDDMII with hyperglycemia -SSI DREW - Fluid replacement HTN -Monitor CAD -cardiology consult PAD Hx of OR CABG DANGELO DUARN DO May 07, 2019 14:59
[2019-05-07] MEDS ORDERED: INSU100V5 SQ (15:57)
[2019-05-07] MEDS ORDERED: PANT40TA3 PO (15:57)
[2019-05-07] MEDS ORDERED: LACT20SO2 PO (15:57)
[2019-05-07] MEDS ORDERED: METO-333 PO (15:57)
[2019-05-07] MEDS ORDERED: INSU100V16 SC (15:57)
[2019-05-07] MEDS ORDERED: METH40VI2 IV (15:57)
[2019-05-07] MEDS ORDERED: BMT.25V4 IV (15:57)
--- NOTE | 2019-05-07 15:58 | Discharge Instructions ---
Discharge [facility] Reconcile Patient Problems Problems Reviewed?: Yes Discharge Medications New, Converted or Re-Newed RX: Other New Medications: Bumetanide (Bumetanide) 1 Mg/4 Ml Inj 1 MG IV BID for 30 Days, VIAL Insulin Aspart (Novolog) 100 Unit/1 Ml Susp 15 UNIT SC AC for 30 Days, ML Insulin Determir (Levemir) 1,000 Units/10 Ml Soln 30 UNIT SQ HS for 30 Days, EA Lactulose (Lactulose) 20 Gm/30 Ml Solution 10 GM PO TID PRN for CONSTIPATION-1ST LINE for 30 Days, EA Methylprednisolone Sod Succ/Pf (Solu-Medrol 40 mg Vial) 40 Mg/1 Ml Vial 40 MG IV Q6H for 5 Days, VIAL Metoprolol Tartrate (Metoprolol Tartrate) 25 Mg Tablet 12.5 MG PO BID for 30 Days, TAB Pantoprazole Sodium (Pantoprazole Sodium) 40 Mg Tablet.dr 40 MG PO DAILY for 30 Days, TAB Continued Medications: Albuterol Sulfate (Proair Hfa) 1 Puff Puff 2 PUFF INH Q4H PRN for SHORTNESS OF BREATH, INHALER Aspirin (Lo-Dose Aspirin EC) 81 Mg Tablet.dr 81 MG PO DAILY, TAB Atorvastatin Calcium (Atorvastatin Calcium) 80 Mg Tablet 80 MG PO HS, TAB Cetirizine HCl (Zyrtec) 10 Mg Tablet 10 MG PO DAILY, TAB Fluticasone/Vilanterol (Breo Ellipta 100-25 Mcg INH) 1 Each Blst.w.dev 1 PUFF INH DAILY, INHALER Montelukast Sodium (Montelukast Sodium) 10 Mg Tablet 10 MG PO HS, TAB Nitroglycerin (Nitroglycerin) 0.4 Mg Tab.subl SL UD PRN for CHEST PAIN, TAB Zolpidem Tartrate (Zolpidem Tartrate) 10 Mg Tablet 10 MG PO HS, TAB Discontinued Medications: Azithromycin (Azithromycin) 250 Mg Tablet PO UD for 5 Days, TAB TAKE 2 TABS DAY 1 THEN 1 TAB DAILY DAYS 2-5 5 DAY SUPPLY FILLED 04-18-19 Carvedilol (Carvedilol) 25 Mg Tablet 25 MG PO BID, TAB Dulaglutide (Trulicity) 1.5 Mg/0.5 Ml Pen.injctr 1.5 MG SC Sa, EA Furosemide (Furosemide) 40 Mg Tablet 40 MG PO Q48H, TAB Glipizide (Glipizide) 5 Mg Tablet 5 MG PO DAILY, TAB Lisinopril (Lisinopril) 10 Mg Tablet 10 MG PO DAILY, TAB Triamcinolone Acet (Triamcinolone Acetonide 0.1% Cream) 15 Gm Cr TOP TID, EA Varenicline Tartrate (Chantix) 1 Mg Tablet 1 MG PO BID, TAB Patient Instructions Goal/Follow Up Appt: Patient to LTAC, Will need transition of care when she goes home Activity & Diet Discharge Diet: ADA Diet, Cardiac Diet Activity as Tolerated: Yes Orders-Post D/C & Referrals Pneu Vac Indicated: Yes AUDIE JOHNSON MD May 07, 2019 15:58
--- NOTE | 2019-05-07 15:59 | Discharge Summary ---
Diagnosis/Chief Complaint Date of Admission Apr 18, 2019 at 22:00 Date of Discharge Discharge Diagnosis Problems/Diagnosis: (1) NSTEMI (non-ST elevated myocardial infarction) Assessment & Plan: Cardiology following, had cath but OM1 needing intervention was not able to be done and repeat not possible due to bleeding, monitoring closely. Echo 04/19 with EF 55-65% and grade 2 diastolic dysfunction, repeat on 04/21 with hyperdynamic function. -Holding antiplatelets due to pulmonary hemorrhage 05/07: Denies any chest pain Status: Acute (2) Acute respiratory failure Assessment & Plan: Secondary to pulmonary hemorrhage. Intubated, BAL done and culture with < 1000 staph aureus. Fungal culture neg to date. Improving hypoxia. Appreciate Pulm recommendations. On furosemide 40 mg IV daily. 04/25 bronchoscopy today with copious amount of clot noted 04/26 worsened hypoxia, will remain ventilated today, remains on abx (changed to cefazolin based on staph sensitivities) 05/07: Dr Lopez following, Waiting on [facility] approval as patient will likely need long titration off vapotherm Status: Acute (3) COPD with exacerbation Status: Acute (4) Pulmonary hemorrhage Assessment & Plan: Thought to be secondary to blood thinners needed for CAD. Antiplatelets and pharmacologic DVT ppx held. 04/23 enoxaparin resumed, monitor closely. 04/26 enoxaparin held again due to worsened respiratory status and persistent bloody sputum with suction Status: Acute (5) Diabetes mellitus, type 2 Assessment & Plan: - A1c 7.1 Status: Chronic (6) Acute blood loss anemia Assessment & Plan: Pulmonary hemorrhage. Also had hypotension during stay and CT abdomen/pelvis done to rule out retroperitoneal bleed which was negative. s/p 3 units PRBCs 04/27 Trended down slightly recently, enoxaparin held 05/07: Hgb and labs stable, will do labs M/W/F to decrease blood draws Status: Acute (7) Hypertension Qualifiers: Qualified Codes: I10 - Essential (primary) hypertension Status: Chronic (8) DVT prophylaxis Assessment & Plan: Enoxaparin started 04/23, held prior due to pulmonary hemorrhage 04/26 held enoxaparin again due to worsening hypoxia and persistent dark mucous with suctioning Status: Acute Discharge Summary-Simple/Stand Consultations Discharge Physical Examination Allergies: Coded Allergies: Penicillins (Verified Allergy, Unknown, hives, 04/18/19) Vitals & I&Os Vital Sign - Last 12Hours Date Time Temp Pulse Resp B/P (MAP) Pulse Ox O2 Delivery O2 Flow Rate FiO2 05/07/19 12:44 87 05/07/19 12:02 91 Vapotherm 35.00 75 05/07/19 12:00 36.1 22 112/62 (79) Intake and Output 05/07/19 00:00 Intake Total 520 ml Output Total 675 ml Balance -155 ml Hospital Course See final discharge diagnosis. Discharge Instructions to patient/family Please see electronic discharge instructions given to patient. Discharge Medications Reviewed and agree with Discharge Medication list on patient's Discharge Instruction sheet Clinical Quality Measures DVT/VTE Risk/Contraindication: Risk Factor Score Per Nursin RFS Level Per Nursing on Admit: 4+=Very High AUDIE JOHNSON MD May 07, 2019 15:59
--- NOTE | 2019-05-07 16:01 | NUR ---
DISCHARGE PLANNING: Received call from Maikol, with [facility]. He reports that they have gotten insurance approval for transfer to them. Once she has gotten to her maximum improvement with them she would be a good IRF candidate. Dr. Balbuena aware and placing orders, Kirill Johns will do face to face as she is more familiar with patient. Nursing will complete the ambulance transfer order and dispatch EMS when she is ready.
[2019-05-07 16:08] VITALS: BP 114/67
--- NOTE | 2019-05-07 16:34 | NUR ---
REPORT GIVEN TO GILMAR MARIA FROM [facility] AT THIS TIME. THIS RN WILL CONT TO MONITOR THIS PATIENT UNTIL SHE DISCHARGES TO [facility] TODAY.
--- NOTE | 2019-05-07 16:40 | NUR ---
JERRY NOTIFIED AT THIS TIME BY THIS RN OF HER TRANSFER TO [facility] LATER TODAY.
--- NOTE | 2019-05-07 18:02 | NUR ---
CANDACE AT [facility] NOTIFIED OF PT DEPARTURE WITH [facility].
[2019-05-07 18:03] VITALS: BP 114/67
[2019-05-07] MEDS ORDERED: BUMETANIDE 2.5 MG/10 ML (BUMEX) VIAL IV SCH (21:00)
== END 2019-05-07 18:00 | DRG 250 ==
LOC: EDUNIT# 20:28 → ER FS 20:29 → ICU 22:00 → 4TH 05-06 10:32
PROVIDERS: ADMIT Internal Medicine; ATTEND Internal Medicine
PROC: 02703ZZ Dilation of Coronary Artery, One Artery, Percutaneous Approach (ICD-10-PCS; principal; 2019-04-20)
PROC: 4A023N7 Measurement of Cardiac Sampling and Pressure, Left Heart, Percutaneous Approach (ICD-10-PCS; 2019-04-20)
PROC: B2111ZZ Fluoroscopy of Multiple Coronary Arteries using Low Osmolar Contrast (ICD-10-PCS; 2019-04-20)
PROC: B3101ZZ Fluoroscopy of Thoracic Aorta using Low Osmolar Contrast (ICD-10-PCS; 2019-04-20)
PROC: B41D1ZZ Fluoroscopy of Aorta and Bilateral Lower Extremity Arteries using Low Osmolar Contrast (ICD-10-PCS; 2019-04-20)
PROC: B4181ZZ Fluoroscopy of Bilateral Renal Arteries using Low Osmolar Contrast (ICD-10-PCS; 2019-04-20)
PROC: 0B988ZX Drainage of Left Upper Lobe Bronchus, Via Natural or Artificial Opening Endoscopic, Diagnostic (ICD-10-PCS; 2019-04-21)
PROC: 0B958ZX Drainage of Right Middle Lobe Bronchus, Via Natural or Artificial Opening Endoscopic, Diagnostic (ICD-10-PCS; 2019-04-21)
PROC: 0BH17EZ Insertion of Endotracheal Airway into Trachea, Via Natural or Artificial Opening (ICD-10-PCS; 2019-04-21)
PROC: 0BC38ZZ Extirpation of Matter from Right Main Bronchus, Via Natural or Artificial Opening Endoscopic (ICD-10-PCS; 2019-04-21)
PROC: 0BC78ZZ Extirpation of Matter from Left Main Bronchus, Via Natural or Artificial Opening Endoscopic (ICD-10-PCS; 2019-04-21)
PROC: 5A1955Z Respiratory Ventilation, Greater than 96 Consecutive Hours (ICD-10-PCS; 2019-04-21)
DX: I21.4 Non-ST elevation (NSTEMI) myocardial infarction (principal); J96.01 Acute respiratory failure with hypoxia; J44.1 Chronic obstructive pulmonary disease with (acute) exacerbation; N17.9 Acute kidney failure, unspecified; R04.2 Hemoptysis; J98.11 Atelectasis; D62 Acute posthemorrhagic anemia; R04.89 Hemorrhage from other sites in respiratory passages; E87.2 Acidosis; J15.211 Pneumonia due to Methicillin susceptible Staphylococcus aureus; I25.110 Atherosclerotic heart disease of native coronary artery with unstable angina pectoris; E11.65 Type 2 diabetes mellitus with hyperglycemia; I12.9 Hypertensive chronic kidney disease with stage 1 through stage 4 chronic kidney disease, or unspecified chronic kidney disease; N18.9 Chronic kidney disease, unspecified; E78.5 Hyperlipidemia, unspecified; F17.210 Nicotine dependence, cigarettes, uncomplicated; I25.2 Old myocardial infarction; I70.203 Unspecified atherosclerosis of native arteries of extremities, bilateral legs; I95.9 Hypotension, unspecified; E87.6 Hypokalemia; E83.39 Other disorders of phosphorus metabolism; T45.515A Adverse effect of anticoagulants, initial encounter; E83.51 Hypocalcemia; E87.8 Other disorders of electrolyte and fluid balance, not elsewhere classified; Z82.49 Family history of ischemic heart disease and other diseases of the circulatory system; Z88.0 Allergy status to penicillin; Z95.1 Presence of aortocoronary bypass graft
CPT/HCPCS: 36221; 36415; 36600; 71045; 71250; 74176; 80048; 80053; 80061; 80076; 80202; 81000; 82310; 82805; 82962; 83036; 83605; 83735; 83874; 83880; 84100; 84478; 84484; 85007; 85014; 85018; 85025; 85027; 85347; 85379; 85610; 85730; 86850; 86900; 86901; 86920; 87015; 87040; 87070; 87077; 87081; 87101; 87116; 87186; 87205; 87206; 88112; 88305; 88312; 93005; 93306; 93458; 93970; 94002; 94003; 94640; 94660; 94760; 94799; 96365; 96367; 96368; 96372; 96375